=== PATIENT | female | born 1945 | race Caucasian/White ===

== ENCOUNTER → 2016-11-29 | Outpatient (CLI) | payer OTHER ==
[~2016-11-29] MED LIST: ATV5X PO; CELE1CAP28 PO; CHOL1000 PO; CITA10TA8 PO; CLX/20 PO; EZET10TA66 PO; LSX20 PO; MULT1TAB22 PO; NRV/5 PO; ONDA4TAB46 PO; OXYC-57 PO; PANT40TA PO; POTA1080 PO; RANI300T PO; ROSU5TAB9 PO; SIMV-151 PO; SPR25 PO; SUCR1TAB PO
--- NOTE | 2016-11-29 15:35 | DIAGNOSTIC IMAGING REPORT ---
CT SCAN OF THE ABDOMEN AND PELVIS WITHOUT CONTRAST CLINICAL HISTORY: N20.0 [id number] HEMATURIA COMPARISON STUDY: 07/06/2015 TECHNIQUE: CT scan of the abdomen and pelvis was performed from the lung bases to the proximal femurs. Images are reviewed in the axial, sagittal, and coronal planes. IV contrast was not administered for this examination. CT DOSE: 250.97 mGy.cm FINDINGS: Lower chest: There is a stable 5 mm left lower lobe pulmonary nodule as visualized in image #[id number]. Liver: The unenhanced liver is normal in size, contour, and attenuation. There is no intrahepatic biliary ductal dilatation. Gallbladder: Surgically absent Spleen: Normal in size and attenuation. Pancreas: Unremarkable. Adrenal glands: Unremarkable. Kidneys: There is a 3 mm cortical calcification within the upper pole of the left kidney. There is a 2 mm nonobstructing lower pole left renal calculus. No ureteral or bladder calculi are visualized. Bowel: There are no transition zones indicate bowel obstruction. By history the appendix is absent. There is no acute diverticulitis. Peritoneum: There is no intraperitoneal free air or abdominal ascites. Vasculature: The abdominal aorta is normal in course and caliber. Adenopathy: None. Pelvic viscera: The uterus is surgically absent. Skeletal structures: There are postsurgical changes of a total right hip arthroplasty. No destructive lesions are evident. IMPRESSION: 1. 2 mm nonobstructing lower pole left renal calculus 2. No ureteral or bladder calculi identified 3. No evidence of bowel obstruction. No evidence of free air. Electronically signed by: Joey Kern M.D. 11/29/2016 3:34 PM Dictated Date/Time: 11/29/2016 3:29 PM
[2016-11-29 16:27] LABS: URINE APPEARANCE CLEAR (CLEAR); URINE BILIRUBIN NEG (NEG); URINE COLOR YELLOW; URINE NITRITE NEG (NEG); URINE PH 5.5 (4.5-7.5); URINE SPECIFIC GRAVITY 1.034 (1.000-1.030); UROBILINOGEN NEG (NEG)
[2016-11-29 16:29] LABS: MANUAL MICROSCOPIC REQUIRED? NO; REVIEW REQ? NO
== END | disposition home or self-care (01) ==
LOC: C.CTS 15:12
PROVIDERS: ATTEND Internal Medicine
DX: N20.0 Calculus of kidney (principal)

== ENCOUNTER 2016-12-11 00:31 | Observation (INO) | payer OTHER ==
[~2016-12-11] VITALS: Ht 160 cm; Wt 51.0 kg
[~2016-12-11 00:31] MED LIST changes: -CELE1CAP28 PO; -CITA10TA8 PO; -CLX/20 PO; -EZET10TA66 PO; -MULT1TAB22 PO; -ONDA4TAB46 PO; -ROSU5TAB9 PO; -SUCR1TAB PO
--- NOTE | 2016-12-11 00:58 | EMERGENCY ROOM VISIT NOTE ---
History Report prepared by Aris: Hang Horn Under the Supervision of: Dr. Bear Gomez M.D. First contact with patient: 00:52 Chief Complaint: NAUSEA Stated Complaint: NAUSEA/VOMITING/DIARRHEA Nursing Triage Summary: pt had diarrhea Friday and Friday. friday at 1700 pt ate mohawk food. pt states "i think i have food poisoning". after eating pt became nauseated, vomiting, and diarrhea. pt felt lightheaded from vomiting and spouse called 911. pt arrives ALS had 4mg IV Zofran [employer] and nausea improved. pt denies pain. vomiting undigested food and yellow bile. diarrhea yellow. History of Present Illness The patient is a 71 year old female who presents to the Emergency Room with complaints of nausea, vomiting, and diarrhea that began 5 hours ago. The patient had around 10 episodes of emesis since then. She states that 8 hours ago , she ate [place] food from [employer] which may have the cause of her illness. She is feeling very weak at the moment. She denies any chest pain, shortness of breath, fever, back pain, hematemesis, and hematochezia. She is not taking any blood thinners. She has a past medical history of kidney stones and acute kidney disease. No dysuria. She did have diarrhea earlier in the week as well. Source of History: patient, spouse/significant other Onset: 5 hours ago Position: other (GI) Symptom Intensity: 10 episodes Quality: other (N/V/D) Timing: intermittent Associated Symptoms: + weakness, No SOB, No chest pain, No fevers Review of Systems See HPI for pertinent positives & negatives. A total of 10 systems reviewed and were otherwise negative. Past Medical & Surgical Medical Problems: (1) GERD (gastroesophageal reflux disease) (2) Hip pain Old medical records were reviewed. Nurse's notes were reviewed and I agree with. Denies diabetes. Family History Heart disease Kidney disease Social History Smoking Status: Former Smoker Marital Status: Housing Status: lives with family Occupation Status: unemployed Current/Historical Medications Scheduled Amlodipine Besylate (Amlodipine Besylate), 5 MG PO QAM Celecoxib (Celecoxib), 100 MG PO DAILY Cholecalciferol (Vitamin D3), 2 TAB PO QAM Citalopram (Citalopram Hydrobromide), 20 MG PO DAILY Ezetimibe (Ezetimibe), 10 MG PO HS Multiple Vitamins W/ Minerals (One Daily For Women), 1 TAB PO DAILY Potassium Citrate (Alkalinizer (Potassium Citrate ER), 1,080 MG PO DAILY Ranitidine Hcl (Zantac), 300 MG PO HS Simvastatin (Simvastatin), 20 MG PO QPM Spironolactone (Spironolactone), 25 MG PO QAM Scheduled PRN Lorazepam (Lorazepam), 0.5 MG PO TID PRN for Anxiety Oxycodone/Acetaminophen 5MG/325MG (Percocet 5MG/325MG), 1-2 TABLETS PO QID PRN for Pain Allergies Coded Allergies: No Known Allergies (Verified , 08/14/15) Physical Exam Vital Signs Date Time Temp Pulse Resp B/P Pulse Ox O2 Delivery O2 Flow Rate FiO2 12/11/16 04:33 62 17 116/53 96 Room Air 12/11/16 02:34 71 17 136/51 98 Room Air 12/11/16 01:41 67 17 128/48 100 Room Air 12/11/16 00:41 64 12/11/16 00:39 36.7 65 17 151/54 100 Room Air Physical Exam General: Non ill appearing older female. Well developed well nourished in no acute distress, breathing comfortably on room air. Normal speech HEENT: Normal cephalic atraumatic. Pupils are equal round and reactive to light. Sclera anicteric. Extraocular movements are intact. Oropharynx is pink with moist mucous membranes. No swelling of the mouth lips or tongue. Neck: Supple with a midline trachea. No meningeal signs or stiffness, no JVD or bruits. No Stridor. Chest: Clear to auscultation bilaterally. No wheezes or rhonchi. No increased work of breathing. Heart: regular rate and rhythm. Abdomen: Soft, mildly diffusely tender, nondistended without rebound guarding or rigidity. Extremities: No cyanosis clubbing or edema. No calf tenderness or assymetry Spine/Back. Non tender to palpation. No CVA tenderness Skin: Good turgor without rashes. Neurologic exam: Cranial nerves two through 12 are intact. Motor and sensation are intact and symmetrical throughout. Medical Decision & Procedures ER Provider Diagnostic Interpretation: Radiology results as stated below per my review and radiologist interpretation: CT ABDOMEN & PELVIS: Comparison: CT a/p 11/29/2016 No acute findings. No free fluid. No free air. The bowel is normal caliber. Appendix is not seen. No right lower quadrant inflammatory changes to suggest appendicitis. Punctate 2 mm nonobstructing left renal calculi. Gallbladder is surgically absent. Liver, pancreas, spleen, and adrenals are unremarkable on noncontrast exam. Small hiatal hernia. Partially imaged right hip total arthroplasty. Radiologist: Maxx Brock MD Chest x-ray per my interpretation reveals no pneumothorax, failure, or infiltrate. Laboratory Results 12/11/16 00:55 Test 12/11/16 00:55 12/11/16 03:00 12/11/16 03:33 12/11/16 03:58 RDW Standard Deviation 42.1 fL (36.4-46.3) RDW Coefficient of Variation 12.6 % (11.5-14.5) White Blood Count 25.45 K/uL (4.8-10.8) Red Blood Count 4.21 M/uL (4.2-5.4) Hemoglobin 13.2 g/dL (12.0-16.0) Hematocrit 38.2 % (37-47) Mean Corpuscular Volume 90.7 fL (80-100) Mean Corpuscular Hemoglobin 31.4 pg (25-34) Mean Corpuscular Hemoglobin Concent 34.6 g/dl (32-36) Platelet Count 246 K/uL (130-400) Mean Platelet Volume 11.2 fL (7.4-10.4) Neutrophils (%) (Auto) 88.1 % Lymphocytes (%) (Auto) 6.2 % Monocytes (%) (Auto) 5.2 % Eosinophils (%) (Auto) 0.2 % Basophils (%) (Auto) 0.0 % Neutrophils # (Auto) 22.42 K/uL (1.4-6.5) Lymphocytes # (Auto) 1.57 K/uL (1.2-3.4) Monocytes # (Auto) 1.33 K/uL (0.11-0.59) Eosinophils # (Auto) 0.05 K/uL (0-0.5) Basophils # (Auto) 0.01 K/uL (0-0.2) Immature Granulocyte % (Auto) 0.3 % Immature Granulocyte # (Auto) 0.07 K/uL (0.00-0.02) Platelet Estimate NORMAL Prothrombin Time 10.7 SECONDS (9.0-12.0) Prothromb Time International Ratio 1.0 (0.9-1.1) Activated Partial Thromboplast Time 23.3 SECONDS (21.0-31.0) Partial Thromboplastin Ratio 0.9 Anion Gap 7.0 mmol/L (3-11) Est Creatinine Clear Calc Drug Dose 64.0 ml/min Estimated GFR () 103.3 Estimated GFR (Non- 89.2 BUN/Creatinine Ratio 42.5 (10-20) Calcium Level 8.9 mg/dl (8.5-10.1) Total Bilirubin 0.7 mg/dl (0.2-1) Direct Bilirubin 0.1 mg/dl (0-0.2) Aspartate Amino Transf (AST/SGOT) 16 U/L (15-37) Alanine Aminotransferase (ALT/SGPT) 34 U/L (12-78) Alkaline Phosphatase 70 U/L (45-117) Total Protein 7.1 gm/dl (6.4-8.2) Albumin 3.8 gm/dl (3.4-5.0) Lipase 134 U/L (73-393) Urine Color YELLOW Urine Appearance CLEAR (CLEAR) Urine pH 7.0 (4.5-7.5) Urine Specific [place] 1.012 (1.000-1.030) Urine Protein NEG (NEG) Urine Glucose (UA) NEG (NEG) Urine Ketones NEG (NEG) Urine Occult Blood NEG (NEG) Urine Nitrite NEG (NEG) Urine Bilirubin NEG (NEG) Urine Urobilinogen NEG (NEG) Urine Leukocyte Esterase NEG (NEG) Bedside Lactic Acid Venous 0.86 mmol/L (0.90-1.70) Laboratory studies as stated above per my review. Medications Administered Medications (Trade) Dose Ordered Sig/Pat Route Start Time Stop Time Status Last Admin Dose Admin Miscellaneous Information (Nursing Verbal Med Order) 1 ea ONE ONCE N/A 12/11/16 01:45 12/11/16 01:46 DC 12/11/16 01:45 1 EA Ondansetron HCl (Zofran Inj) 4 mg NOW STAT IV 12/11/16 04:14 12/11/16 04:20 DC 12/11/16 04:31 4 MG ECG Indication: vomiting Rate (beats per minute): 60 Rhythm: normal sinus Findings: no acute ischemic change, no ectopy Comparison ECG Date: 15 December 2015 Change: no significant change ED Course 0052: Past medical records reviewed. The patient was evaluated in room B4B, and a complete history and physical examination were performed. 0145: Nursing Verbal Order 1 ea N/A 0257: The patient has a white blood cell count of 25,000. We will be doing additional studies. 0330: Sodium Chloride 1000 ml @ 1000 mls/hr IV 0414: Zofran Inj 4 mg IV 0419: Upon reevaluation, the patient is resting. I discussed the results and treatment plan with the patient. She verbalized agreement of the treatment plan. The patient will be evaluated by Dr. Charles KELLY, for further management. Medical Decision Differentials include gastroenteritis, infection, and electrolyte or metabolic abnormality. This patient comes in as described above. She was placed in room B4. She's had nausea vomiting and diarrhea. The vomiting and diarrhea was severe and started an hour or 2 after eating from a [place] buffet. I think most likely this is a foodborne illness. She was hydrated with an IV normal saline bolus and hourly rate of IV NS while she was here and also she was given Zofran 4 mg IV. She is feeling a lot better. She has some mild abdominal soreness. I did a CAT scan of her abdomen and there is no acute intra-abdominal process or findings seen. Her white count is 25,000. She's had no significant electrolyte or metabolic abnormality. She has nothing to suggest cardiac disease. I do think that this most likely is a foodborne illness/food poisoning and I do think she needs to be admitted for IV hydration and further treatment and monitoring and evaluation. I did consult the hospitalist and she was seen in the ER. Consults Time Called: [phone] Consulting Physician: Dr. Charles KELLY Returned Call: [phone] He will be evaluating the patient for further management. Impression Primary Impression: Food poisoning Additional Impressions: Nausea Vomiting Abdominal pain Diarrhea Scribe Attestation The scribe's documentation has been prepared under my direction and personally reviewed by me in its entirety. I confirm that the note above accurately reflects all work, treatment, procedures, and medical decision making performed by me. Departure Information Dispostion Being Evaluated By Hospitalist Koby Manzano M.D. (PCP) Patient Instructions My [facility] Problem Qualifiers
[2016-12-11 01:26] LABS: PARTIAL THROMBOPLASTIN RATIO 0.9; PROTHROMBIN TIME (PATIENT) 10.7 SECONDS (9.0-12.0)
[2016-12-11 01:31] LABS: BUN/CREATININE RATIO 42.5 (10-20); CREATININE 0.64 mg/dl (0.60-1.20)
[2016-12-11 01:32] LABS: CALCIUM 8.9 mg/dl (8.5-10.1); POTASSIUM 3.8 mmol/L (3.5-5.1)
[2016-12-11] MEDS ORDERED: NURSING VERBAL MED ORDER ONE (01:45)
[2016-12-11 01:52] LABS: BASO ABS # 0.01 K/uL (0-0.2); COMPLETE YES; EOS % 0.2 %; HEMATOCRIT 38.2 % (37-47); IG% 0.3 %; LYMPH % 6.2 %; LYMPH ABS # 1.57 K/uL (1.2-3.4); MEAN CELL VOLUME 90.7 fL (80-100); MEAN CORPUSCULAR HEMOGLOBIN 31.4 pg (25-34); MEAN CORPUSCULAR HGB CONC 34.6 g/dl (32-36); MEAN PLATELET VOLUME 11.2 fL (7.4-10.4); MONO % 5.2 %; NEUT % 88.1 %; PLATELET COUNT 246 K/uL (130-400); PLT ESTIMATE NORMAL; RED BLOOD COUNT 4.21 M/uL (4.2-5.4); WHITE BLOOD COUNT 25.45 K/uL (4.8-10.8)
[2016-12-11] MEDS ORDERED: EZET10TA66 PO (02:53)
[2016-12-11] MEDS ORDERED: POTA1080 PO (02:55)
[2016-12-11] MEDS ORDERED: CLX/20 PO (02:55)
[2016-12-11] MEDS ORDERED: CELE1CAP28 PO (03:00)
[2016-12-11] MEDS ORDERED: MULT1TAB22 PO (03:01)
[2016-12-11 03:13] LABS: URINE APPEARANCE CLEAR (CLEAR); URINE BILIRUBIN NEG (NEG); URINE COLOR YELLOW; URINE NITRITE NEG (NEG); URINE SPECIFIC GRAVITY 1.012 (1.000-1.030); UROBILINOGEN NEG (NEG)
[2016-12-11 03:21] LABS: MANUAL MICROSCOPIC REQUIRED? NO; REVIEW REQ? NO
[2016-12-11] MEDS ORDERED: SODIUM CHLORIDE 0.9% 1000ML 1,000 ML IV SCH (03:30)
[2016-12-11] MEDS ORDERED: ONDANSETRON INJ 2 MG/ML 2 ML VIAL IV STA (04:14)
[2016-12-11] MEDS ORDERED: ACETAMINOPHEN 325 MG TAB PO PRN (04:15)
[2016-12-11] MEDS ORDERED: OXYCODONE/ACETAMINOPHEN 5-325 TAB PO PRN (04:15)
[2016-12-11] MEDS ORDERED: ALUMINUM/MAGNESIUM/SIMETH (MAALOX MAX) 30 ML UDC PO PRN (04:15)
[2016-12-11] MEDS ORDERED: POLYETHYLENE (MIRALAX) 17 GM PACK PO PRN (04:15)
[2016-12-11] MEDS ORDERED: MAGNESIUM HYDROXIDE SUSP 30 ML UDC PO PRN (04:15)
[2016-12-11] MEDS ORDERED: LORAZEPAM 0.5 MG TAB PO PRN (04:15)
[2016-12-11] MEDS ORDERED: ZOLPIDEM TARTRATE 5 MG TAB PO PRN (04:15)
--- NOTE | 2016-12-11 04:22 | History and Physical ---
History & Physical Date & Time of Service: Dec 11, 2016 at 04:18 Chief Complaint: Nausea/Vomiting/Diarrhea Primary Care Physician: Vince Orellana M.D. History of Present Illness Source: patient Mrs Michele Deal is a 71 yo F who presents with nausea and vomiting today. She ate a "Sample Prep [employer]ician[employer] Special" at [employer] this evening which included teriyaki chicken , noodles, and broccoli. She started throwing up a few hours later and vomited about 10 times. She was concerned she might from this so came to the ED. The last time this happened she was vomiting up coffee ground emesis. This was over a year ago. She did not vomit up any dark colored liquids this time. She felt better after receiving Zofran which is now wearing off. She denied any chest pain or shortness of breath. Past Medical/Surgical History Medical Problems: (1) GERD (gastroesophageal reflux disease) Status: Chronic (2) Hip pain Status: Chronic Family History Heart disease Kidney disease Social History Smoking Status: Former Smoker Marital Status: Housing status: lives with family Occupational Status: unemployed Immunizations History of Influenza Vaccine: No History of Tetanus Vaccine?: Yes Tetanus Immunization Date: Jun 07, 2002 History of Pneumococcal: Yes Pneumococcal Date: Jun 07, 2007 History of Hepatitis B Vaccine: Yes Hepatitis Immunization Date: Jun 07, 2007 Multi-Drug Resistant Organisms History of MDRO: No Allergies Coded Allergies: No Known Allergies (Verified , 08/14/15) Home Medications Scheduled Amlodipine Besylate (Amlodipine Besylate), 5 MG PO QAM Celecoxib (Celecoxib), 100 MG PO DAILY Cholecalciferol (Vitamin D3), 2 TAB PO QAM Citalopram (Citalopram Hydrobromide), 20 MG PO DAILY Ezetimibe (Ezetimibe), 10 MG PO HS Multiple Vitamins W/ Minerals (One Daily For Women), 1 TAB PO DAILY Potassium Citrate (Alkalinizer (Potassium Citrate ER), 1,080 MG PO DAILY Ranitidine Hcl (Zantac), 300 MG PO HS Simvastatin (Simvastatin), 20 MG PO QPM Spironolactone (Spironolactone), 25 MG PO QAM Scheduled PRN Lorazepam (Lorazepam), 0.5 MG PO TID PRN for Anxiety Oxycodone/Acetaminophen 5MG/325MG (Percocet 5MG/325MG), 1-2 TABLETS PO QID PRN for Pain Review of Systems See HPI for pertinent positives & negatives. A total of 10 systems reviewed and were otherwise negative. Physical Exam Vital Signs Date Time Temp Pulse Resp B/P Pulse Ox O2 Delivery O2 Flow Rate FiO2 12/11/16 02:34 71 17 136/51 98 Room Air 12/11/16 01:41 67 17 128/48 100 Room Air 12/11/16 00:41 64 12/11/16 00:39 36.7 65 17 151/54 100 Room Air General Appearance: WD/WN, no apparent distress Head: normocephalic, atraumatic Eyes: normal inspection, PERRL ENT: hearing grossly normal Neck: supple, no JVD Respiratory/Chest: lungs clear, normal breath sounds, no respiratory distress Cardiovascular: regular rate, rhythm, no murmur, normal peripheral pulses Abdomen/GI: normal bowel sounds, non tender, soft Back: no CVA tenderness Extremities/Musculoskelatal: no pedal edema Neurologic/Psych: alert, normal mood/affect, oriented x 3 Skin: no rash Diagnostics Laboratory Results Results Past 24 Hours Test 12/11/16 00:55 12/11/16 03:00 12/11/16 03:33 12/11/16 03:58 Range/Units White Blood Count 25.45 4.8-10.8 K/uL Red Blood Count 4.21 4.2-5.4 M/uL Hemoglobin 13.2 12.0-16.0 g/dL Hematocrit 38.2 37-47 % Mean Corpuscular Volume 90.7 80-100 fL Mean Corpuscular Hemoglobin 31.4 25-34 pg Mean Corpuscular Hemoglobin Concent 34.6 32-36 g/dl Platelet Count 246 130-400 K/uL Mean Platelet Volume 11.2 7.4-10.4 fL Neutrophils (%) (Auto) 88.1 % Lymphocytes (%) (Auto) 6.2 % Monocytes (%) (Auto) 5.2 % Eosinophils (%) (Auto) 0.2 % Basophils (%) (Auto) 0.0 % Neutrophils # (Auto) 22.42 1.4-6.5 K/uL Lymphocytes # (Auto) 1.57 1.2-3.4 K/uL Monocytes # (Auto) 1.33 0.11-0.59 K/uL Eosinophils # (Auto) 0.05 0-0.5 K/uL Basophils # (Auto) 0.01 0-0.2 K/uL RDW Standard Deviation 42.1 36.4-46.3 fL RDW Coefficient of Variation 12.6 11.5-14.5 % Immature Granulocyte % (Auto) 0.3 % Immature Granulocyte # (Auto) 0.07 0.00-0.02 K/uL Platelet Estimate NORMAL Prothrombin Time 10.7 9.0-12.0 SECONDS Prothromb Time International Ratio 1.0 0.9-1.1 Activated Partial Thromboplast Time 23.3 21.0-31.0 SECONDS Partial Thromboplastin Ratio 0.9 Sodium Level 143 136-145 mmol/L Potassium Level 3.8 3.5-5.1 mmol/L Chloride Level 107 98-107 mmol/L Carbon Dioxide Level 29 21-32 mmol/L Anion Gap 7.0 3-11 mmol/L Blood Urea Nitrogen 27 7-18 mg/dl Creatinine 0.64 0.60-1.20 mg/dl Est Creatinine Clear Calc Drug Dose 64.0 ml/min Estimated GFR () 103.3 Estimated GFR (Non- 89.2 BUN/Creatinine Ratio 42.5 10-20 Random Glucose 107 70-99 mg/dl Calcium Level 8.9 8.5-10.1 mg/dl Total Bilirubin 0.7 0.2-1 mg/dl Direct Bilirubin 0.1 0-0.2 mg/dl Aspartate Amino Transf (AST/SGOT) 16 15-37 U/L Alanine Aminotransferase (ALT/SGPT) 34 12-78 U/L Alkaline Phosphatase 70 45-117 U/L Total Protein 7.1 6.4-8.2 gm/dl Albumin 3.8 3.4-5.0 gm/dl Lipase 134 73-393 U/L Urine Color YELLOW Urine Appearance CLEAR CLEAR Urine pH 7.0 4.5-7.5 Urine Specific [place] 1.012 1.000-1.030 Urine Protein NEG NEG Urine Glucose (UA) NEG NEG Urine Ketones NEG NEG Urine Occult Blood NEG NEG Urine Nitrite NEG NEG Urine Bilirubin NEG NEG Urine Urobilinogen NEG NEG Urine Leukocyte Esterase NEG NEG Bedside Lactic Acid Venous 0.86 0.90-1.70 mmol/L Microbiology Results 12/11/16 Blood Culture, Received Pending 12/11/16 Blood Culture, Received Pending 12/11/16 Urine Culture, Received Pending Normal EKG Impression Assessment and Plan 71 yo F with likely viral / food borne gastroenteritis. Gastroenteritis - Zofran 4mg q6h IV - IV fluids - Clear liquid diet Leukocytosis - Will repeat CBC in ED Hypertension - Continue amlodipine Depression - Continue Celexa Level of Care Med/Surg Resuscitation Status FULL RESUSCITATION VTE Prophylaxis VTE Risk Assessment Done? Y/N: Yes Risk Level: Low Resident Tracking Resident Involvement: Resident Care Provided Care Provided: [facility] Assessment and Plan Attending Addendum: I have physically seen and examined this patient, have directed their medical care, have supervised the medical residents activities, and agree with the H&P as noted above, with the following changes: The patient is awake, well-developed and adequately nourished, alert and oriented 3, normocephalic and atraumatic, lying in bed and in no acute distress. HEENT--PERRL, EOMI, mucous membranes and oropharynx dry. Neck--supple, no JVD or bruits, thyroid normal, trachea midline, no adenopathy. Heart--normal S1 and S2, no extra beats, no murmurs, rubs or gallops. Lungs--clear bilaterally with good air movement, no respiratory distress, no accessory muscle use. Abdomen--normal bowel sounds and soft, generalized vague tenderness, nondistended, no hernias or masses, no organomegaly. Extremities--no cyanosis, clubbing or edema. There are good distal pulses b/l. Dermatologic--normal skin turgor, normal color, warm and dry, no abnormal lymph nodes, no rash. Neurologic--cranial nerves II through XII grossly intact, motor and sensory examination normal. Rheumatologic--normal range of motion, nontender, muscles and joints. Psychiatric--normal Assessment and Plan: Toxin induced food poisoning--symptoms began about 3 hours having [place] food. She can be placed on a full liquid diet as tolerated, rehydrate with IV fluids , Zofran 4 mg IV every 6 hours when necessary, Protonix 40 mg IV daily. Hypertension--continue amlodipine 5 mg by mouth daily. Hold spironolactone 25 mg by mouth daily due to relative dehydrated state. Hypercholesterolemia--continue simvastatin 20 mg by mouth every evening. Depression--continue Celexa 20 mg by mouth daily.
[2016-12-11 04:58] LABS: HEMATOCRIT 33.6 % (37-47); MEAN CELL VOLUME 90.8 fL (80-100); MEAN CORPUSCULAR HEMOGLOBIN 30.8 pg (25-34); MEAN CORPUSCULAR HGB CONC 33.9 g/dl (32-36); MEAN PLATELET VOLUME 10.6 fL (7.4-10.4); PLATELET COUNT 218 K/uL (130-400); WHITE BLOOD COUNT 18.53 K/uL (4.8-10.8)
[2016-12-11] MEDS ORDERED: SODIUM CHLOR 0.45% + 20MEQ KCL 1,000 ML IV SCH (05:00)
[2016-12-11 05:18] LABS: COMPLETE YES; EOS % 0.3 %; IG% 0.3 %; LYMPH % 5.6 %; LYMPH ABS # 1.04 K/uL (1.2-3.4); MONO % 5.3 %; NEUT % 88.5 %
[2016-12-11] MEDS ORDERED: IV FLUIDS COMPLETED PRN (05:30)
[2016-12-11 05:50] VITALS: BP 120/61; PULSE 52; TEMP 36.8; O2SAT 97; Ht 160 cm; Wt 51.0 kg
--- NOTE | 2016-12-11 07:22 | DIAGNOSTIC IMAGING REPORT ---
ABDOMEN AND PELVIS CT WITHOUT CONTRAST CT DOSE: 262.22 mGy.cm HISTORY: Pain. Fever. Nausea. eval for colitis TECHNIQUE: Multiaxial CT images of the abdomen and pelvis were performed without contrast. COMPARISON STUDY: 11/29/2016 FINDINGS: Lung bases are clear. Liver spleen and pancreas are unremarkable. Kidneys negative for hydronephrosis. Prior cholecystectomy. Bowel pattern is nonobstructive. Bladder is midline. Status post total right hip arthroplasty. IMPRESSION: No acute process Electronically signed by: Joaquin Del Angel M.D. 12/11/2016 7:21 AM Dictated Date/Time: 12/11/2016 7:17 AM
--- NOTE | 2016-12-11 07:24 | DIAGNOSTIC IMAGING REPORT ---
SINGLE VIEW CHEST CLINICAL HISTORY: Atypical chest pain. FINDINGS: An AP, portable, upright chest radiograph is compared to study dated 12/13/2014. The examination is degraded by portable technique and patient rotation. The heart is top normal for projection. There is atherosclerotic calcification of the thoracic aorta. Findings suggest emphysema. Chronic interstitial thickening and apical scarring are similar to previous. No airspace consolidation, large pleural effusion, or pneumothorax is seen. The skeletal structures are osteopenic. The bony thorax is grossly intact. IMPRESSION: Findings suggest obstructive physiology. No acute cardiopulmonary abnormality is seen. Electronically signed by: Blake Gupta M.D. 12/11/2016 7:23 AM Dictated Date/Time: 12/11/2016 7:22 AM
[2016-12-11 07:49] VITALS: BP 94/46; PULSE 57; TEMP 37.1; O2SAT 97
[2016-12-11] MEDS: HEPARIN SOD 5000 UNIT/0.5 ML CARP SQ SCH ×2 (07:55→20:29)
[2016-12-11] MEDS: AMLODIPINE BESYLATE 5 MG TAB PO SCH (08:50)
[2016-12-11] MEDS: CITALOPRAM 20 MG TAB PO SCH (08:50)
[2016-12-11] MEDS: CeleBREX 100 MG CAP PO SCH (08:51)
[2016-12-11] MEDS ORDERED: SPIRONOLACTONE 25 MG TAB PO SCH (09:00)
[2016-12-11] MEDS: ONDANSETRON INJ 2 MG/ML 2 ML VIAL IV PRN ×2 (09:08→16:40)
[2016-12-11 09:27] VITALS: O2SAT 97
[2016-12-11] MEDS ORDERED: PROMETHAZINE HCL INJ 12.5 MG in SODIUM CHLORIDE 0.9% 50ML 50 ML IV PRN (12:15)
--- NOTE | 2016-12-11 12:20 | Hospitalist Progress Note ---
Hospitalist Progress Note Date of Service Dec 11, 2016. (Graciela Gutierres PA-C) Subjective Pt evaluation today including: conversation w/ patient, conversation w/ family , physical exam, chart review, lab review, review of inpatient medication list Patient reports her symptoms are somewhat improved. She does still admit to feeling nauseated. The Zofran seems to be helping, but wears off. Denies any severe abdominal pain. Her muscles are sore from retching. She did have diarrhea prior to arrival. No further bowel movements since in house. She denies any fever or chills. Additional Comments: 6 system review negative. Please see pertinent positives in the history of present illness section. (Graciela Gutierres PA-C) Objective Vital Signs Date Time Temp Pulse Resp B/P Pulse Ox O2 Delivery O2 Flow Rate FiO2 12/11/16 09:27 97 Room Air 12/11/16 08:00 Room Air 12/11/16 07:49 37.1 57 20 94/46 97 Room Air 12/11/16 05:50 Room Air 12/11/16 05:50 36.8 52 16 120/61 97 Room Air 12/11/16 05:40 62 17 116/53 96 12/11/16 04:33 62 17 116/53 96 Room Air 12/11/16 02:34 71 17 136/51 98 Room Air 12/11/16 01:41 67 17 128/48 100 Room Air 12/11/16 00:41 64 12/11/16 00:39 36.7 65 17 151/54 100 Room Air (Graciela Gutierres PA-C) Physical Exam General Appearance: no apparent distress Eyes: EOMI ENT: + pertinent finding (oral mucosa somewhat dry) Neck: no JVD Respiratory/Chest: lungs clear Cardiovascular: regular rate, rhythm Abdomen: normal bowel sounds, non tender, soft Extremities: non-tender, no pedal edema Neurologic/Psychiatric: no motor/sensory deficits, oriented x 3 Skin: warm/dry (Graciela Gutierres PA-C) Laboratory Results Last 24 Hours Test 12/11/16 00:55 12/11/16 01:06 12/11/16 03:00 12/11/16 03:33 White Blood Count 25.45 K/uL Red Blood Count 4.21 M/uL Hemoglobin 13.2 g/dL Hematocrit 38.2 % Mean Corpuscular Volume 90.7 fL Mean Corpuscular Hemoglobin 31.4 pg Mean Corpuscular Hemoglobin Concent 34.6 g/dl Platelet Count 246 K/uL Mean Platelet Volume 11.2 fL Neutrophils (%) (Auto) 88.1 % Lymphocytes (%) (Auto) 6.2 % Monocytes (%) (Auto) 5.2 % Eosinophils (%) (Auto) 0.2 % Basophils (%) (Auto) 0.0 % Neutrophils # (Auto) 22.42 K/uL Lymphocytes # (Auto) 1.57 K/uL Monocytes # (Auto) 1.33 K/uL Eosinophils # (Auto) 0.05 K/uL Basophils # (Auto) 0.01 K/uL RDW Standard Deviation 42.1 fL RDW Coefficient of Variation 12.6 % Immature Granulocyte % (Auto) 0.3 % Immature Granulocyte # (Auto) 0.07 K/uL Platelet Estimate NORMAL Prothrombin Time 10.7 SECONDS Prothromb Time International Ratio 1.0 Activated Partial Thromboplast Time 23.3 SECONDS Partial Thromboplastin Ratio 0.9 Sodium Level 143 mmol/L Potassium Level 3.8 mmol/L Chloride Level 107 mmol/L Carbon Dioxide Level 29 mmol/L Anion Gap 7.0 mmol/L Blood Urea Nitrogen 27 mg/dl Creatinine 0.64 mg/dl Est Creatinine Clear Calc Drug Dose 64.0 ml/min Estimated GFR () 103.3 Estimated GFR (Non- 89.2 BUN/Creatinine Ratio 42.5 Random Glucose 107 mg/dl Calcium Level 8.9 mg/dl Total Bilirubin 0.7 mg/dl Direct Bilirubin 0.1 mg/dl Aspartate Amino Transf (AST/SGOT) 16 U/L Alanine Aminotransferase (ALT/SGPT) 34 U/L Alkaline Phosphatase 70 U/L Total Protein 7.1 gm/dl Albumin 3.8 gm/dl Lipase 134 U/L Bedside Troponin I 0.000 ng/ml Urine Color YELLOW Urine Appearance CLEAR Urine pH 7.0 Urine Specific [place] 1.012 Urine Protein NEG Urine Glucose (UA) NEG Urine Ketones NEG Urine Occult Blood NEG Urine Nitrite NEG Urine Bilirubin NEG Urine Urobilinogen NEG Urine Leukocyte Esterase NEG Bedside Lactic Acid Venous 0.86 mmol/L Test 12/11/16 04:50 White Blood Count 18.53 K/uL Red Blood Count 3.70 M/uL Hemoglobin 11.4 g/dL Hematocrit 33.6 % Mean Corpuscular Volume 90.8 fL Mean Corpuscular Hemoglobin 30.8 pg Mean Corpuscular Hemoglobin Concent 33.9 g/dl Platelet Count 218 K/uL Mean Platelet Volume 10.6 fL Neutrophils (%) (Auto) 88.5 % Lymphocytes (%) (Auto) 5.6 % Monocytes (%) (Auto) 5.3 % Eosinophils (%) (Auto) 0.3 % Basophils (%) (Auto) 0.0 % Neutrophils # (Auto) 16.40 K/uL Lymphocytes # (Auto) 1.04 K/uL Monocytes # (Auto) 0.98 K/uL Eosinophils # (Auto) 0.06 K/uL Basophils # (Auto) 0.00 K/uL RDW Standard Deviation 41.8 fL RDW Coefficient of Variation 12.6 % Immature Granulocyte % (Auto) 0.3 % Immature Granulocyte # (Auto) 0.05 K/uL (Graciela Gutierres PA-C) Assessment and Plan 71-year-old female presented to the emergency department last night with nausea , vomiting and diarrhea a few hours after Kisw[place]ili food. Vomiting and diarrhea likely secondary to toxin induced poisoning -Continue Zofran 4 mg IV every 6 hours -This may be alternated with Phenergan 12.5 g IV every 6 hours -Continue IV fluids -NS + 20 mEq KCl @ 100 cc/hr -Repeat CBC, PRP and mag in the morning Hypertension -Continue Norvasc 5 mg daily with hold parameters -Spironolactone 25 mg daily on hold due to dehydration Depression -Continue citalopram 20 mg daily Hyperlipidemia -Continue Zetia 10 mg and simvastatin 20 mg daily if tolerating po DVT prophylaxis -Heparin 5000 units subQ BID -TEDS, SCDs CODE STATUS -LEVEL I FULL CODE Continued [facility] stay due to: inadequate po fluid intake (Graciela Gutierres PA-C) PA Physician Supervision Note: I interviewed and examined the patient. Discussed with Graciela Gutierres PAC and agree with findings and plan as documented in the note. Any exceptions or clarifications are listed here: None Pt here with likely acute food poisoning given its timing with eating food improved but not back to baseline exam is non focal continue supportive care and eval for infectious causes Documented By: Haresh Umanzor (Haresh Umanzor M.D.)
[2016-12-11] MEDS: SODIUM CHLOR 0.45% + 20MEQ KCL 1,000 ML IV SCH ×2 (13:18→23:03)
[2016-12-11 15:10] VITALS: BP 108/59; PULSE 62; TEMP 36.9; O2SAT 96
[2016-12-11] MEDS ORDERED: SIMVASTATIN 20 MG TAB PO SCH (21:00)
[2016-12-11 23:00] VITALS: BP 127/59; PULSE 51; TEMP 36.9; O2SAT 97
[2016-12-12 05:44] LABS: BASO % 0.1 %; BASO ABS # 0.01 K/uL (0-0.2); COMPLETE YES; EOS % 0.9 %; HEMATOCRIT 32.6 % (37-47); IG% 0.3 %; LYMPH % 22.8 %; LYMPH ABS # 1.73 K/uL (1.2-3.4); MEAN CELL VOLUME 91.6 fL (80-100); MEAN CORPUSCULAR HEMOGLOBIN 30.3 pg (25-34); MEAN CORPUSCULAR HGB CONC 33.1 g/dl (32-36); MEAN PLATELET VOLUME 10.9 fL (7.4-10.4); MONO % 8.6 %; NEUT % 67.3 %; PLATELET COUNT 212 K/uL (130-400); RED BLOOD COUNT 3.56 M/uL (4.2-5.4); WHITE BLOOD COUNT 7.59 K/uL (4.8-10.8)
[2016-12-12 06:39] LABS: BUN/CREATININE RATIO 14.6 (10-20); CREATININE 0.52 mg/dl (0.60-1.20); MAGNESIUM 1.9 mg/dl (1.8-2.4); POTASSIUM 4.1 mmol/L (3.5-5.1)
[2016-12-12 08:55] VITALS: BP 122/62; PULSE 50
[2016-12-12] MEDS: HEPARIN SOD 5000 UNIT/0.5 ML CARP SQ SCH (08:55)
[2016-12-12] MEDS: AMLODIPINE BESYLATE 5 MG TAB PO SCH (08:56)
[2016-12-12] MEDS: CITALOPRAM 20 MG TAB PO SCH (08:56)
[2016-12-12] MEDS: CeleBREX 100 MG CAP PO SCH (08:57)
[2016-12-12] MEDS ORDERED: ONDA4TAB46 PO (10:17)
--- NOTE | 2016-12-12 10:21 | Discharge Instructions ---
Discharge Instructions Date of Service Dec 12, 2016. Admission Reason for Admission: Toxin Induced Food Poisoning, Vomiting, Diarrhea, Discharge Discharge Diagnosis / Problem: toxin-induced food poisoning Discharge Goals Goal(s): Improve function Activity Recommendations Activity Limitations: resume your previous activity . Instructions / Follow-Up Instructions / Follow-Up You have been treated in the hospital for food poisoning. It is important for you to follow a bland diet. Avoid spicy or acidic foods, caffeine, alcohol or nicotine. Increase fluid intake over the next 3 days. The following changes/additions have been made to your medication list: -Zofran 4 mg take 1 tab as directed every 6 hours as needed for nausea -Please hold spironolactone for 1 more day. It may be resumed tomorrow, 12/13 Please follow-up with your primary care physician within one week Call your doctor or return to the emergency department if you have any of the following symptoms: -Fever of 101F or greater -Persistent vomiting - Persistent diarrhea -Severe abdominal pain -Lethargy -Chest pain -Shortness of breath -severe dizziness -weakness on one side of your body Current Hospital Diet Patient's current hospital diet: Low Fat Diet, Low Fiber Diet Discharge Diet Recommended Diet: AHA Diet (Heart Healthy) (bland diet) Pending Studies Studies pending at discharge: yes List of pending studies: stool cultures were ordered but patient never had a BM Medical Emergencies . Who to Call and When: Medical Emergencies: If at any time you feel your situation is an emergency, please call 911 immediately. . Non-Emergent Contact Non-Emergency issues call your: Primary Care Provider . . "Provider Documentation" section prepared by Graciela Gutierres. VTE Core Measure Inpt VTE Proph given/why not?: Robbie Vizcarra, SCD's
--- NOTE | 2016-12-12 10:27 | Discharge Summary ---
Discharge Summary Date of Service Dec 12, 2016. (Graciela Gutierres PA-C) Discharge Summary Admission Date: Dec 11, 2016 at 04:44 Discharge Date: Dec 12, 2016 Discharge Disposition: Home Principal Diagnosis: toxin-induced food poisoning Immunizations: Have You Had Influenza Vaccine: No History of Tetanus Vaccine?: Yes Tetanus Immunization Date: Jun 07, 2002 History of Pneumococcal: Yes Pneumococcal Date: Jun 07, 2007 History of Hepatitis B Vaccine: Yes Hepatitis Immunization Date: Jun 07, 2007 (Graciela Gutierres PA-C) Medication Reconciliation New Medications: Ondansetron Hcl (Zofran) 4 Mg Tab 4 MG PO Q6H PRN for Nausea, #20 TAB Continued Medications: Amlodipine Besylate (Amlodipine Besylate) 5 Mg Tab 5 MG PO QAM Celecoxib (Celecoxib) 100 Mg Cap 100 MG PO DAILY Cholecalciferol (Vitamin D3) 1,000 Unit Tab 2 TAB PO QAM, 3 Refills Citalopram (Citalopram Hydrobromide) 20 Mg Tab 20 MG PO DAILY Ezetimibe (Ezetimibe) 10 Mg Tab 10 MG PO HS Lorazepam (Lorazepam) 0.5 Mg Tab 0.5 MG PO TID PRN for Anxiety Multiple Vitamins W/ Minerals (One Daily For Women) 1 Tab Tab 1 TAB PO DAILY Oxycodone/Acetaminophen 5MG/325MG (Percocet 5MG/325MG) Tab 1-2 TABLETS PO QID PRN for Pain, TAB Potassium Citrate (Alkalinizer (Potassium Citrate ER) 1,080 Mg Tab 1080 MG PO DAILY Ranitidine Hcl (Zantac) 300 Mg Tab 300 MG PO HS Simvastatin (Simvastatin) 20 Mg Tab 20 MG PO QPM Spironolactone (Spironolactone) 25 Mg Tab 25 MG PO QAM Referrals At Discharge Follow up Referrals: Physician Referral - Within 1-2 Weeks with Koby Hdez M.D. Discharge Exam Patient reports feeling much better. Some mild nausea, but much improved since yesterday. Tolerating her clear liquid diet. Denies any further bowel movements while in the hospital. No abdominal pain or fevers. Denies any dizziness or lightheadedness. Review of Systems: Constitutional: No fever Respiratory: No shortness of breath Cardiovascular: No chest pain Abdomen: No vomiting Neurologic: No weakness Physical Exam: General Appearance: no apparent distress Eyes: EOMI ENT: + pertinent finding (oral mucosa fairly moist) Neck: no JVD Respiratory/Chest: lungs clear Cardiovascular: regular rate, rhythm Abdomen / GI: normal bowel sounds, non tender, soft Extremities: no calf tenderness, no pedal edema Neurologic/Psychiatric: no motor/sensory deficits, oriented x 3 Skin: warm/dry (Graciela Gutierres PA-C) Hospital Course 71-year-old female presented to the emergency department last night with nausea , vomiting and diarrhea a few hours after [place]ic food. Vomiting and diarrhea likely secondary to toxin induced poisoning-tolerating diet -Treated with IV fluids, Zofran and Phenergan -Stool cultures ordered but never collected. The patient did not have any further bowel movements. Leukocytosis-likely secondary to above. Much improved on day of discharge Hypertension -Continue Norvasc 5 mg daily with hold parameters -Spironolactone 25 mg daily was held during her admission for dehydration. She will restart this on 12/13 Depression -Continue citalopram 20 mg daily Hyperlipidemia -Continue Zetia 10 mg and simvastatin 20 mg daily DVT prophylaxis -Heparin 5000 units subQ BID -TEDS, SCDs CODE STATUS -LEVEL I FULL CODE Total Time Spent: Greater than 30 minutes This includes examination of the patient, discharge planning, medication reconciliation, and communication with other providers. (Graciela Gutierres, KINJAL) PA Physician Supervision Note: I interviewed and examined the patient. Discussed with Graciela Gutierres PAC and agree with findings and plan as documented in the note. Any exceptions or clarifications are listed here: None Pt here with likely acute food poisoning given its timing with eating food back to baseline, negative infectious studies exam is non focal discharge to home, follow up with pcp, prn zofran if needed Documented By: Haresh Umanzor (Haresh Umanzor M.D.) Discharge Instructions Please refer to the electronic Patient Visit Report (Discharge Instructions) for additional information. (Graciela Gutierres PA-C) Additional Copies To Koby Hdez M.D.
[2016-12-12 10:54] VITALS: BP 122/62; PULSE 50; TEMP 36.9; O2SAT 97
== END 2016-12-12 14:00 | disposition home or self-care (01) ==
LOC: ENRESERVTM → ENRESERVDT → EDBD 00:31 → C.EDB 00:34 → C.MSW 04:44
PROVIDERS: ADMIT Hospitalist; ATTEND Hospitalist
DX: T62.91XA Toxic effect of unspecified noxious substance eaten as food, accidental (unintentional), initial encounter (principal); K21.9 Gastro-esophageal reflux disease without esophagitis; Z82.49 Family history of ischemic heart disease and other diseases of the circulatory system; Z87.891 Personal history of nicotine dependence; Z79.899 Other long term (current) drug therapy

== ENCOUNTER → 2017-01-21 | Outpatient (CLI) | payer OTHER ==
[~2017-01-21] MED LIST changes: +CELE1CAP28 PO; +CITA10TA8 PO; +CLX/20 PO; +EZET10TA66 PO; -LSX20 PO; +MULT1TAB22 PO; +ONDA4TAB46 PO; -PANT40TA PO; +ROSU5TAB9 PO; +SUCR1TAB PO
--- NOTE | 2017-01-21 09:54 | DIAGNOSTIC IMAGING REPORT ---
LEFT HIP UNILATERAL 2 VIEWS CLINICAL HISTORY: M25.552 pain COMPARISON: None. DISCUSSION: Severe degenerative change left hip. Slight degree of acetabular protrusion. Considerable peripheral osteophytic reaction about the acetabulum as well as the femoral head. No evidence for fracture. There is no evidence for soft tissue swelling. IMPRESSION: Severe degenerative change. Electronically signed by: Joaquin Del Angel M.D. 01/21/2017 9:53 AM Dictated Date/Time: 01/21/2017 9:52 AM
== END | disposition home or self-care (01) ==
LOC: C.RAD 09:29
DX: M25.552 Pain in left hip (principal); M16.12 Unilateral primary osteoarthritis, left hip

== ENCOUNTER 2017-02-19 09:49 | Emergency (ER) | payer OTHER ==
[~2017-02-19] VITALS: Ht 160 cm; Wt 52.5 kg
[~2017-02-19 09:49] MED LIST changes: -CITA10TA8 PO; -ROSU5TAB9 PO; -SUCR1TAB PO
[2017-02-19 09:50] VITALS: TEMP 36.7; Ht 160 cm; Wt 52.5 kg
[2017-02-19] MEDS ORDERED: OXYCODONE HCL IR 5 MG TAB (IMMEDIATE RELEASE) PO STA (10:25)
--- NOTE | 2017-02-19 10:38 | EMERGENCY ROOM VISIT NOTE ---
History Report prepared by Aris: Gildardo Giraldo Under the Supervision of: Dr. Mounika Win M.D. First contact with patient: 09:53 Chief Complaint: RIB PAIN Stated Complaint: FELL IN BATHRUB-RIB INJURY History of Present Illness The patient is a 72 year old female who presents to the Emergency Room with complaints of persistent rib pain since falling two nights ago. The patient was getting out of the tub when she slipped on the wet floor and fell back onto the tub. The patient complains of 7/10 pain that is worse when she takes a deep breath. She had a Percocet for pain this morning. The patient denies shortness of breath. The patient was in [place] when the fall occurred. She was in the car driving back yesterday. The patient is not on any blood thinners or steroids. The patient is s/p hip replacement. She takes Percocet for her other hip. Source of History: patient Onset: two nights ago Position: other (ribs) Symptom Intensity: 7/10 Timing: other (persistent) Modifying Factors (Worsening): breathing Associated Symptoms: No SOB Review of Systems See HPI for pertinent positives & negatives. A total of 10 systems reviewed and were otherwise negative. Past Medical & Surgical Medical Problems: (1) Acute gastritis with bleeding (2) GERD (gastroesophageal reflux disease) (3) Hip pain Surgical Problems: (1) S/P cholecystectomy (2) S/P hip replacement Family History Heart disease Kidney disease Social History Smoking Status: Former Smoker Marital Status: Housing Status: lives with family Occupation Status: unemployed Current/Historical Medications Scheduled Amlodipine Besylate (Amlodipine Besylate), 5 MG PO QAM Cholecalciferol (Vitamin D3), 2 TAB PO QAM Citalopram Hydrobromide (Celexa), 10 MG PO DAILY Lorazepam (Lorazepam), 0.5 MG PO HS Multiple Vitamins W/ Minerals (One Daily For Women), 1 TAB PO DAILY Potassium Citrate (Alkalinizer (Potassium Citrate ER), 10 MG PO BID Ranitidine Hcl (Zantac), 300 MG PO HS Spironolactone (Spironolactone), 25 MG PO QAM Scheduled PRN Ondansetron Hcl (Zofran), 4 MG PO Q6H PRN for Nausea Oxycodone/Acetaminophen 5MG/325MG (Percocet 5MG/325MG), 1-2 TABLETS PO QID PRN for Pain Allergies Coded Allergies: No Known Allergies (Verified , 02/19/17) Physical Exam Vital Signs Date Time Temp Pulse Resp B/P (MAP) Pulse Ox O2 Delivery O2 Flow Rate FiO2 02/19/17 12:18 48 20 130/58 97 Room Air 02/19/17 11:31 49 16 143/56 97 02/19/17 09:50 36.7 57 17 154/67 99 Room Air Physical Exam Vital signs reviewed. General: Well-appearing female, in no significant distress. HEENT: No scleral icterus, PERRLA, neck supple. Atraumatic. Cardiovascular: Regular rate and rhythm, no extra sounds. Pulmonary: Clear to auscultation bilaterally, normal work of breathing. Abdomen: Soft, nontender, nondistended, positive bowel sounds. Musculoskeletal: Atraumatic, no peripheral edema. Tender along the left lateral ribs and upper left abdomen. Neurologic: Patient awake alert and oriented x 3, full strength in all 4 extremities. Cranial nerves 2 through 12 grossly intact. Skin: Warm, dry, no rash Medical Decision & Procedures ER Provider Diagnostic Interpretation: Radiology results as stated below per my review and radiologist interpretation: LEFT UPPER QUADRANT ABDOMINAL ULTRASOUND HISTORY: Left-sided abdominal pain following fall.. COMPARISON: CT of the abdomen and pelvis December 16, 2016. FINDINGS: The spleen is normal by sonography, measuring 8.1 cm in maximal dimension. There is no perisplenic fluid. The left kidney is also normal, measuring 9.8 x 5.5 x 4.9 cm. IMPRESSION: Normal sonographic appearance of the spleen and left kidney. No perisplenic fluid. Electronically signed by: Ruiz Chance M.D. 02/19/2017 11:18 AM Dictated Date/Time: 02/19/2017 11:17 AM LEFT RIBS UNILATERAL WITH PA CHEST CLINICAL HISTORY: fall, L rib pain COMPARISON STUDY: Chest 12/11/2016. FINDINGS: The lungs remain hyperexpanded with apical predominant emphysematous changes. No pneumothorax. No pleural effusions. The heart is normal in size. Stable right medial lung base density was likely represents prominent mediastinal fat. No rib fractures. IMPRESSION: No rib fractures. No pneumothorax. Electronically signed by: Dago Martinez M.D. 02/19/2017 10:35 AM Dictated Date/Time: 02/19/2017 10:30 AM Laboratory Results 02/19/17 10:35 Red Blood Count 3.90, Mean Corpuscular Volume 92.8, Mean Corpuscular Hemoglobin 31.0, Mean Corpuscular Hemoglobin Concent 33.4, Mean Platelet Volume 10.7, Neutrophils (%) (Auto) 62.4, Lymphocytes (%) (Auto) 26.1, Monocytes (%) (Auto) 10.3, Eosinophils (%) (Auto) 1.0, Basophils (%) (Auto) 0.1, Neutrophils # (Auto ) 4.33, Lymphocytes # (Auto) 1.82, Monocytes # (Auto) 0.72, Eosinophils # (Auto ) 0.07, Basophils # (Auto) 0.01 02/19/17 10:35 Test 02/19/17 10:35 White Blood Count 6.96 K/uL (4.8-10.8) Red Blood Count 3.90 M/uL (4.2-5.4) Hemoglobin 12.1 g/dL (12.0-16.0) Hematocrit 36.2 % (37-47) Mean Corpuscular Volume 92.8 fL (80-100) Mean Corpuscular Hemoglobin 31.0 pg (25-34) Mean Corpuscular Hemoglobin Concent 33.4 g/dl (32-36) Platelet Count 233 K/uL (130-400) Mean Platelet Volume 10.7 fL (7.4-10.4) Neutrophils (%) (Auto) 62.4 % Lymphocytes (%) (Auto) 26.1 % Monocytes (%) (Auto) 10.3 % Eosinophils (%) (Auto) 1.0 % Basophils (%) (Auto) 0.1 % Neutrophils # (Auto) 4.33 K/uL (1.4-6.5) Lymphocytes # (Auto) 1.82 K/uL (1.2-3.4) Monocytes # (Auto) 0.72 K/uL (0.11-0.59) Eosinophils # (Auto) 0.07 K/uL (0-0.5) Basophils # (Auto) 0.01 K/uL (0-0.2) RDW Standard Deviation 41.0 fL (36.4-46.3) RDW Coefficient of Variation 12.1 % (11.5-14.5) Immature Granulocyte % (Auto) 0.1 % Immature Granulocyte # (Auto) 0.01 K/uL (0.00-0.02) Anion Gap 5.0 mmol/L (3-11) Est Creatinine Clear Calc Drug Dose 71.4 ml/min Estimated GFR () 106.0 Estimated GFR (Non- 91.4 BUN/Creatinine Ratio 21.2 (10-20) Calcium Level 9.3 mg/dl (8.5-10.1) Total Bilirubin 0.4 mg/dl (0.2-1) Direct Bilirubin < 0.1 mg/dl (0-0.2) Aspartate Amino Transf (AST/SGOT) 18 U/L (15-37) Alanine Aminotransferase (ALT/SGPT) 19 U/L (12-78) Alkaline Phosphatase 74 U/L (45-117) Total Protein 7.3 gm/dl (6.4-8.2) Albumin 3.9 gm/dl (3.4-5.0) Laboratory results per my review. Medications Administered Medications (Trade) Dose Ordered Sig/Pat Route Start Time Stop Time Status Last Admin Dose Admin Oxycodone HCl (Roxicodone Immediate Rel Tab) 5 mg NOW STAT PO 02/19/17 10:25 02/19/17 10:28 DC 02/19/17 10:39 5 MG ED Course 1022: Past medical records reviewed. The patient was evaluated in room B3b. A complete history and physical examination was performed. 1025: Oxycodone IR 5 mg PO. 1225: Reassessed the patient. Discussed the findings with her. She understands and agrees with the treatment plan. The patient is ready for discharge. Medical Decision Differential diagnosis: Intracranial injury, cervical spine injury, intrathoracic injury, intra- abdominal injury, musculoskeletal injury. Blood Pressure Screening: Patient was found to have a mildly elevated blood pressure and will continue their medications as prescribed. Medication Reconciliation: I attest that I have personally reviewed the patient' s current medication list. This pt was evaluated and appeared to be in no distress. IV access was obtained and lab work was drawn. Pt was placed on the straight cutter. CXR was performed and reveals no rib fx or PTX. US of LUQ is negative for blood. Pt was given Oxy IR 5 mg for pain. Results were reviewed. Pt was given instructions regarding cough/deep breathing every hour while awake. She will continue her percocet as Rx and f/u with PCP this week for reevaluation. She will return to the ED for worsening of symptoms or any medical concerns. Impression Primary Impression: Contusion of rib on left side Scribe Attestation The scribe's documentation has been prepared under my direction and personally reviewed by me in its entirety. I confirm that the note above accurately reflects all work, treatment, procedures, and medical decision making performed by me. Departure Information Dispostion Home / Self-Care Referrals No Doctor, Assigned (PCP) Forms HOME CARE DOCUMENTATION FORM, IMPORTANT VISIT INFORMATION, WORK / SCHOOL INSTRUCTIONS Patient Instructions My [facility] Additional Instructions Diagnosis: Rib contusion Continue your Percocet as prescribed. Cough and deep breathe several times every hour while awake. Follow-up with your physician this week for reevaluation. Return to the ER for worsening of symptoms or any medical concerns. Problem Qualifiers Primary Impression: Contusion of rib on left side Encounter type: initial encounter Qualified Codes: S20.212A - Contusion of left front wall of thorax, initial encounter
[2017-02-19 10:47] LABS: BASO % 0.1 %; BASO ABS # 0.01 K/uL (0-0.2); COMPLETE YES; HEMATOCRIT 36.2 % (37-47); IG% 0.1 %; LYMPH % 26.1 %; LYMPH ABS # 1.82 K/uL (1.2-3.4); MEAN CELL VOLUME 92.8 fL (80-100); MEAN CORPUSCULAR HGB CONC 33.4 g/dl (32-36); MEAN PLATELET VOLUME 10.7 fL (7.4-10.4); MONO % 10.3 %; NEUT % 62.4 %; PLATELET COUNT 233 K/uL (130-400); WHITE BLOOD COUNT 6.96 K/uL (4.8-10.8)
[2017-02-19 11:16] LABS: ALKALINE PHOSPHATASE 74 U/L (45-117); ALT/SGPT 19 U/L (12-78); AST/SGOT 18 U/L (15-37); BLOOD UREA NITROGEN 12 mg/dl (7-18); BUN/CREATININE RATIO 21.2 (10-20); CALCIUM 9.3 mg/dl (8.5-10.1); CARBON DIOXIDE 30 mmol/L (21-32); CHLORIDE 104 mmol/L (98-107); CREATININE 0.58 mg/dl (0.60-1.20); GLUCOSE 81 mg/dl (70-99); SODIUM 139 mmol/L (136-145)
--- NOTE | 2017-02-19 11:20 | DIAGNOSTIC IMAGING REPORT ---
LEFT UPPER QUADRANT ABDOMINAL ULTRASOUND HISTORY: Left-sided abdominal pain following fall.. COMPARISON: CT of the abdomen and pelvis December 16, 2016. FINDINGS: The spleen is normal by sonography, measuring 8.1 cm in maximal dimension. There is no perisplenic fluid. The left kidney is also normal, measuring 9.8 x 5.5 x 4.9 cm. IMPRESSION: Normal sonographic appearance of the spleen and left kidney. No perisplenic fluid. Electronically signed by: Ruiz Chance M.D. 02/19/2017 11:18 AM Dictated Date/Time: 02/19/2017 11:17 AM
[2017-02-19] MEDS ORDERED: CITA10TA8 PO (11:32)
[2017-02-19 12:18] VITALS: BP 130/58; PULSE 48; O2SAT 97
== END 2017-02-19 12:55 | disposition home or self-care (01) ==
LOC: C.EDB 09:50
DX: S20.212A Contusion of left front wall of thorax, initial encounter (principal); W01.0XXA Fall on same level from slipping, tripping and stumbling without subsequent striking against object, initial encounter; Y92.012 Bathroom of single-family (private) house as the place of occurrence of the external cause; K21.9 Gastro-esophageal reflux disease without esophagitis; K29.71 Gastritis, unspecified, with bleeding; Z96.649 Presence of unspecified artificial hip joint; Z82.49 Family history of ischemic heart disease and other diseases of the circulatory system; Z84.1 Family history of disorders of kidney and ureter; Z87.891 Personal history of nicotine dependence; Z79.899 Other long term (current) drug therapy

== ENCOUNTER → 2017-04-07 | Outpatient (CLI) | payer OTHER ==
[~2017-04-07] MED LIST changes: +CITA10TA8 PO; -CLX/20 PO; -EZET10TA66 PO; +ROSU5TAB9 PO; -SIMV-151 PO; +SUCR1TAB PO
== END | disposition home or self-care (01) ==
LOC: C.PATHSPEC 17:28
PROVIDERS: ATTEND Nurse Practitioner Family
DX: R31.9 Hematuria, unspecified (principal)

== ENCOUNTER → 2017-05-29 | Outpatient (CLI) | payer OTHER ==
[2017-05-20 10:16] LABS: BASO % 0.2 %; BASO ABS # 0.01 K/uL (0-0.2); COMPLETE YES; EOS % 0.3 %; HEMATOCRIT 38.4 % (37-47); IG% 0.8 %; LYMPH % 21.6 %; LYMPH ABS # 1.39 K/uL (1.2-3.4); MEAN CELL VOLUME 93.9 fL (80-100); MEAN CORPUSCULAR HEMOGLOBIN 30.8 pg (25-34); MEAN CORPUSCULAR HGB CONC 32.8 g/dl (32-36); MEAN PLATELET VOLUME 10.6 fL (7.4-10.4); MONO % 10.9 %; NEUT % 66.2 %; PLATELET COUNT 240 K/uL (130-400); RED BLOOD COUNT 4.09 M/uL (4.2-5.4); WHITE BLOOD COUNT 6.43 K/uL (4.8-10.8)
[2017-05-20 10:43] LABS: ALT/SGPT 19 U/L (12-78); BLOOD UREA NITROGEN 16 mg/dl (7-18); BUN/CREATININE RATIO 26.3 (10-20); CALCIUM 9.4 mg/dl (8.5-10.1); CARBON DIOXIDE 31 mmol/L (21-32); CHLORIDE 104 mmol/L (98-107); CHOLESTEROL 229 mg/dl (0-200); GLUCOSE 90 mg/dl (70-99); POTASSIUM 4.1 mmol/L (3.5-5.1); SODIUM 139 mmol/L (136-145); URIC ACID 3.7 mg/dl (2.6-7.2)
[2017-05-20 10:53] LABS: ALKALINE PHOSPHATASE 62 U/L (45-117); AST/SGOT 12 U/L (15-37); CHOLESTEROL/HDL RATIO 2.7; HDL CHOLESTEROL 85 mg/dl; LDL CHOLESTEROL CALCULATED 126 mg/dl; THYROID STIMULATING HORMONE 0.454 uIu/ml (0.300-4.500); TRIGLYCERIDES 91 mg/dl (0-150); VERY LOW DENSITY LIPOPROT CALC 18 mg/dl
[2017-05-20 12:38] LABS: URINE APPEARANCE CLEAR (CLEAR); URINE BILIRUBIN NEG (NEG); URINE COLOR YELLOW; URINE NITRITE NEG (NEG); URINE PH 7.5 (4.5-7.5); URINE SPECIFIC GRAVITY 1.017 (1.000-1.030); UROBILINOGEN NEG (NEG)
[2017-05-20 12:42] LABS: MANUAL MICROSCOPIC REQUIRED? NO; REVIEW REQ? NO
--- NOTE | 2017-05-29 08:40 | CODING QUERY MEDICAL NECESSITY ---
CQSUPPORTING DIAGNOSIS NEEDED A supporting diagnosis is required for the test/procedure performed on this patient in order for us to be reimbursed by the patient's insurance. Please provide a supporting diagnosis for the following test/procedure listed below next to the test name along with your signature. *If there is no additional diagnosis for this patient that would support the following test/procedure please document that below next to the test/procedure. Test(s)/Procedure(s) that require a supporting diagnosis: DOS 05/20/17 VITAMIN D TEST VITAMIN B12 TEST Provider Signature: Date: Thank you Trina Vogel Health Information Management Once completed, please kindly fax back to [phone] For questions please call [phone]
== END | disposition home or self-care (01) ==
LOC: C.LAB 05-20 09:44
PROVIDERS: ATTEND Physician Assistant
DX: I10 Essential (primary) hypertension (principal); N20.0 Calculus of kidney; E78.5 Hyperlipidemia, unspecified; Z13.9 Encounter for screening, unspecified; Z13.29 Encounter for screening for other suspected endocrine disorder

== ENCOUNTER 2017-06-18 11:35 | Emergency (ER) | payer OTHER ==
[~2017-06-18] VITALS: Ht 160 cm; Wt 52.0 kg
[~2017-06-18 11:35] MED LIST changes: -CELE1CAP28 PO; -ONDA4TAB46 PO; -ROSU5TAB9 PO; -SUCR1TAB PO
[2017-06-18 11:38] VITALS: Ht 160 cm; Wt 52.0 kg
[2017-06-18] MEDS ORDERED: CELE1CAP28 PO (12:04)
[2017-06-18] MEDS ORDERED: ROSU5TAB9 PO (12:04)
[2017-06-18] MEDS ORDERED: SUCR1TAB PO (12:04)
[2017-06-18 12:10] VITALS: O2SAT 99
[2017-06-18 12:22] LABS: MEAN CELL VOLUME 92.9 fL (80-100); MEAN CORPUSCULAR HEMOGLOBIN 31.8 pg (25-34); MEAN CORPUSCULAR HGB CONC 34.2 g/dl (32-36); MEAN PLATELET VOLUME 10.7 fL (7.4-10.4); PLATELET COUNT 227 K/uL (130-400); RED BLOOD COUNT 4.09 M/uL (4.2-5.4); WHITE BLOOD COUNT 13.29 K/uL (4.8-10.8)
[2017-06-18 12:42] LABS: PROTHROMBIN TIME (PATIENT) 10.3 SECONDS (9.0-12.0)
[2017-06-18 12:44] LABS: BUN/CREATININE RATIO 30.7 (10-20); CALCIUM 8.7 mg/dl (8.5-10.1); CREATININE 0.51 mg/dl (0.60-1.20); POTASSIUM 3.3 mmol/L (3.5-5.1)
[2017-06-18 12:48] LABS: ALB/GLOB RATIO 1.1 (0.9-2); CKMB/CK RATIO 3.3 (0-3.0)
--- NOTE | 2017-06-18 13:33 | DIAGNOSTIC IMAGING REPORT ---
CHEST ONE VIEW PORTABLE HISTORY: 72 years-old Female chest heaviness patient reports an acute filling of heaviness within the chest. Initial exam. COMPARISON: Portable chest radiograph 12/11/2016 and chest radiograph 02/19/2017. TECHNIQUE: Portable upright AP view of the chest FINDINGS: Cardiomediastinal and hilar silhouettes are within normal limits. There is no pneumothorax, pleural effusion or focal airspace consolidation. No overt pulmonary edema. The bones are grossly intact. Cholecystectomy clips are noted. IMPRESSION: No acute cardiopulmonary process. The above report was generated using voice recognition software. It may contain grammatical, syntax or spelling errors. Electronically signed by: Walker Bond M.D. 06/18/2017 1:32 PM Dictated Date/Time: 06/18/2017 1:30 PM
--- NOTE | 2017-06-18 14:50 | EMERGENCY ROOM VISIT NOTE ---
History Report prepared by Aris: Jak Guillen Under the Supervision of: Dr. Sudeep Frankel D.O. First contact with patient: 12:41 Chief Complaint: CARDIAC ASSESSMENT Stated Complaint: SWEATS, HEAVY CHEST, WEAK, CHILLS Nursing Triage Summary: Patient states, "I felt fine first thing this morning, but then started having hot flashes and began sweating a lot. I felt nauseated, dizzy and lightheaded. I also was having heaviness in my chest." History of Present Illness The patient is a 72 year old female who presents to the Emergency Room with complaints of intermittent diaphoresis and weakness starting around 0830 this morning. The patient states that when she is standing she gets very sweaty and weak, and this has happened a couple of times today. She states that she gets better when she sits or lies down. She states that during these episodes her heart does not race, and she is not short of breath. She additionally states that she was having some chest heaviness earlier. She denies any cough or fevers. Source of History: patient Onset: 0830 this morning Position: other (global) Quality: other (diaphoresis and weakness) Timing: intermittent Modifying Factors (Worsening): other (standing) Modifying Factors (Relieving): other (sitting and lying down) Associated Symptoms: No fevers, No cough, No chest pain, No SOB Note: Associated symptoms: chest heaviness Review of Systems See HPI for pertinent positives & negatives. A total of 10 systems reviewed and were otherwise negative. Past Medical & Surgical Medical Problems: (1) Acute gastritis with bleeding (2) GERD (gastroesophageal reflux disease) (3) Hip pain Surgical Problems: (1) S/P cholecystectomy (2) S/P hip replacement Family History Heart disease Kidney disease Social History Smoking Status: Former Smoker Marital Status: Housing Status: lives with family Occupation Status: unemployed Current/Historical Medications Scheduled Amlodipine Besylate (Amlodipine Besylate), 5 MG PO QAM Celecoxib (Celecoxib), 100 MG PO BID Cholecalciferol (Vitamin D3), 2 TAB PO QAM Citalopram Hydrobromide (Celexa), 10 MG PO DAILY Lorazepam (Lorazepam), 0.5 MG PO HS Multiple Vitamins W/ Minerals (One Daily For Women), 1 TAB PO DAILY Potassium Citrate (Alkalinizer (Potassium Citrate ER), 10 MG PO BID Rosuvastatin Calcium (Rosuvastatin Calcium), 5 MG PO DAILY Spironolactone (Spironolactone), 25 MG PO QAM Sucralfate (Sucralfate), 1 GM PO TID Scheduled PRN Oxycodone/Acetaminophen 5MG/325MG (Percocet 5MG/325MG), 1-2 TABLETS PO QID PRN for Pain Allergies Coded Allergies: No Known Allergies (Verified , 02/19/17) Physical Exam Vital Signs Date Time Temp Pulse Resp B/P (MAP) Pulse Ox O2 Delivery O2 Flow Rate FiO2 06/18/17 13:33 44 20 128/55 100 Room Air 06/18/17 12:10 56 06/18/17 12:10 99 Room Air 06/18/17 12:06 99 Room Air 06/18/17 11:38 65 18 180/67 100 Room Air Physical Exam CONSTITUTIONAL/VITAL SIGNS: Reviewed / noted above. GENERAL: Non-toxic in appearance. INTEGUMENTARY: Warm, dry, and [place]. HEAD: Normocephalic. EYES: without scleral icterus or trauma. ENT/OROPHARYNX: clear and moist. LYMPHADENOPATHY/NECK: Is supple without lymphadenopathy or meningismus. RESPIRATORY: Lungs clear and equal. CARDIOVASCULAR: Regular rate and rhythm. GI/ABDOMEN: Soft and nontender. No organomegaly or pulsatile mass. No rebound or guarding. Normal bowel sounds. EXTREMITIES: Warm and well perfused. BACK: No CVA tenderness. NEUROLOGICAL: Intact without focal deficits. PSYCHIATRIC: normal affect. MUSCULOSKELETAL: Normally developed with good muscle tone. Medical Decision & Procedures ER Provider Diagnostic Interpretation: Radiology results as stated below per my review and radiologist interpretation: CHEST ONE VIEW PORTABLE HISTORY: 72 years-old Female chest heaviness patient reports an acute filling of heaviness within the chest. Initial exam. COMPARISON: Portable chest radiograph 12/11/2016 and chest radiograph 02/19/2017. TECHNIQUE: Portable upright AP view of the chest FINDINGS: Cardiomediastinal and hilar silhouettes are within normal limits. There is no pneumothorax, pleural effusion or focal airspace consolidation. No overt pulmonary edema. The bones are grossly intact. Cholecystectomy clips are noted. IMPRESSION: No acute cardiopulmonary process. The above report was generated using voice recognition software. It may contain grammatical, syntax or spelling errors. Electronically signed by: Walker Bond M.D. 06/18/2017 1:32 PM Dictated Date/Time: 06/18/2017 1:30 PM Laboratory Results 06/18/17 12:00 06/18/17 12:00 Test 06/18/17 12:00 06/18/17 12:23 Red Blood Count 4.09 M/uL (4.2-5.4) Mean Corpuscular Volume 92.9 fL (80-100) Mean Corpuscular Hemoglobin 31.8 pg (25-34) Mean Corpuscular Hemoglobin Concent 34.2 g/dl (32-36) RDW Standard Deviation 41.7 fL (36.4-46.3) RDW Coefficient of Variation 12.3 % (11.5-14.5) Mean Platelet Volume 10.7 fL (7.4-10.4) Prothrombin Time 10.3 SECONDS (9.0-12.0) Prothromb Time International Ratio 1.0 (0.9-1.1) Activated Partial Thromboplast Time 26.7 SECONDS (21.0-31.0) Partial Thromboplastin Ratio 1.0 Anion Gap 6.0 mmol/L (3-11) Est Creatinine Clear Calc Drug Dose 80.6 ml/min Estimated GFR () 110.6 Estimated GFR (Non- 95.4 BUN/Creatinine Ratio 30.7 (10-20) Calcium Level 8.7 mg/dl (8.5-10.1) Total Bilirubin 0.4 mg/dl (0.2-1) Aspartate Amino Transf (AST/SGOT) 17 U/L (15-37) Alanine Aminotransferase (ALT/SGPT) 23 U/L (12-78) Alkaline Phosphatase 63 U/L (45-117) Total Creatine Kinase 36 U/L (26-192) Creatine Kinase MB 1.2 ng/ml (0.5-3.6) Creatine Kinase MB Ratio 3.3 (0-3.0) Total Protein 7.5 gm/dl (6.4-8.2) Albumin 3.9 gm/dl (3.4-5.0) Globulin 3.6 gm/dl (2.5-4.0) Albumin/Globulin Ratio 1.1 (0.9-2) Bedside Troponin I < 0.030 ng/ml (0-0.045) Laboratory results as stated above per my review. ECG Indication: diaphoresis, weakness Rate (beats per minute): 58 Rhythm: sinus bradycardia Findings: no ectopy, other (No acute injury) ED Course 1414: Previous medical records were reviewed. The patient was evaluated in room B3. A complete history and physical examination was performed. I discussed all of the findings with the patient, and she will be discharged home. Medical Decision Differential includes acute coronary syndrome, myocardial infarction, CVA, TIA, anemia, infection, pneumonia, UTI, pyelonephritis, poor nutrition, dehydration, electrolyte disturbance,hypoglycemia. This is a 72-year-old female who presents to the ED with a chief complaint of generalized weakness and some intermittent diaphoresis. The patient states that her first episode occurred this morning. She states that she was sitting and became diaphoretic and felt weak. This lasted for a few minutes and after about 20 minutes she was feeling completely better. It happened a couple other times during the day here. She came in for evaluation. She denies any chest pains, palpitations, fevers, shortness of breath, abdominal pains or other symptoms. She has not had any nausea or vomiting. She says she has been eating and drinking fine. Her physical exam is completely normal. Orthostatic vital signs were normal. The laboratory studies reveal a white blood cell count 13.29. Troponin is negative. Complete metabolic panel was unremarkable. Chest x-ray did not show acute disease. EKG shows a sinus rhythm with a heart rate 58. The patient's exam was unremarkable. She is felt to be stable for discharge. She was told to return to the emergency department for any worsening or new symptoms. She is otherwise to follow up with her family doctor in 1-2 days for recheck. Medication Reconcilliation Current Medication List: was personally reviewed by me Blood Pressure Screening Patient's blood pressure: Elevated blood pressure Blood pressure disposition: Elevated BP felt to be situational Impression Primary Impression: Weakness Scribe Attestation The scribe's documentation has been prepared under my direction and personally reviewed by me in its entirety. I confirm that the note above accurately reflects all work, treatment, procedures, and medical decision making performed by me. Departure Information Referrals Koby Hdez M.D. (PCP) Patient Instructions My [facility] Additional Instructions Follow-up with your doctor for further care and evaluation in 1-2 days. Return to the emergency department for worsening or new symptoms or any concerns. You have been examined and treated today on an emergency basis only. This is not a substitute for, or an effort to provide, complete comprehensive medical care. It is impossible to recognize and treat all injuries or illnesses in a single emergency department visit. It is therefore important that you follow up closely with your doctor. Call as soon as possible for an appointment.
[2017-06-18 15:06] VITALS: BP 106/39; PULSE 66; O2SAT 100
== END 2017-06-18 15:06 | disposition home or self-care (01) ==
LOC: C.EDB 11:37
DX: R53.83 Other fatigue (principal); R00.1 Bradycardia, unspecified; K21.9 Gastro-esophageal reflux disease without esophagitis; Z87.19 Personal history of other diseases of the digestive system; Z90.49 Acquired absence of other specified parts of digestive tract; Z96.649 Presence of unspecified artificial hip joint; Z79.899 Other long term (current) drug therapy; Z87.891 Personal history of nicotine dependence; Z82.49 Family history of ischemic heart disease and other diseases of the circulatory system; Z84.1 Family history of disorders of kidney and ureter

== ENCOUNTER → 2017-12-08 | Outpatient (CLI) | payer OTHER ==
[~2017-12-08] MED LIST changes: +CELE1CAP28 PO; -RANI300T PO; +ROSU5TAB19 PO; +SUCR1TAB PO
[2017-12-08 15:14] LABS: BLOOD UREA NITROGEN 16 mg/dl (7-18); CALCIUM 8.9 mg/dl (8.5-10.1); CARBON DIOXIDE 29 mmol/L (21-32); CREATININE 0.63 mg/dl (0.60-1.20); GLUCOSE 95 mg/dl (70-99); POTASSIUM 4.2 mmol/L (3.5-5.1); SODIUM 138 mmol/L (136-145)
== END | disposition home or self-care (01) ==
LOC: C.LAB1850 12:25
PROVIDERS: ATTEND Internal Medicine
DX: E78.00 Pure hypercholesterolemia, unspecified (principal)

== ENCOUNTER 2023-12-28 02:36 | Inpatient (IN) ==
--- OUTSIDE RECORDS SUMMARY | 2023-12-28 02:40 | External Medical Summary | Continuity of Care Document ---
Author Name Unknown Organization [place] Address [address] [facility] [place] [id number] Phone [phone] Problems Active Problems Provider Date Chronic pain Jordon Lindo PA-C Onset: 07/2017 Low back pain Jordon Lindo PA-C Onset: 07/2017 Essential hypertension Jordon Lindo PA-C Ons et: 07/02/2017 Hyperlipidemia Jordon Lindo PA-C Onset: 07/2017 Generalized anxiety disorder SHERMAN Dewey Onset: 07/02/2017 Recurrent major depression in remission Jordon Lindo PA-C Onset: 07/02/2017 Gastroesophageal reflux disease Jordon Lindo PA-C Onset: 07/02/2017 Disorder of bone Jordon Lindo PA-C Onset: Polyosteoarthritis, unspecified Jordon Lindo PA-C Onset: 07/02/2017 Erythrocyte sedimentation ra te above reference range Jordon Lindo PA-C Onset: 10/28/2017 Tietze's disease Jordon Lindo PA-C Onset: Chronic obstructive lung disease Jordon Lindo PA-C Onset: 12/24/2017 Vitamin D deficiency Jordon Lindo PA-C Onset : 12/24/2017 Osteoporosis Christian Mejia JR, MD Onset: 0 04/27/2018 Solitary sacroiliitis Hayder Ann PA-C On set: 05/27/2018 Breathing painful Hayder Ann PA-C Onset: 08/19/2018 Generalized abdominal pain SHERMAN Hernández Onset: 08/19/2018 Disorder of bursa of shoulder region Hayder vitale PA-C Onset: 09/28/2018 Lumbar spondylosis with myelopathy Hayder carney PA-C Onset: 11/27/2018 Chest pain Hayder Ann PA-C Onset: 0 11/27/2018 Bradycardia, unspecified Hayder Ann PA-C Onset: 11/27/2018 Adult health examination Hayder Ann PA-C Onset: 12/28/2018 Dyspnea Hayder Ann PA-C Onset: 0 12/28/2018 Dysphagia Hayder Ann PA-C Onset: 0 12/28/2018 Peripheral vascular disease Ebony Hernández Onset: 02/16/2019 Carotid artery occlusion Hayder Ann PA-C Onset: 02/16/2019 Screening mammography Hyader Ann PA-C On set: 02/16/2019 Psoriasis with arthropathy SHERMAN Hernández Onset: 04/20/2019 Rheumatoid arthritis Hayder Ann PA-C Ons et: 04/20/2019 Pneumonia Christian Mejia JR, MD Onset: 0 04/29/2019 Chronic pain syndrome Hayder Ann PA-C On set: 06/02/2019 Gastro-esophageal reflux dis ease with esophagitis Hayder Ann PA-C Onset: 06/02/2019 Leukocytosis Hayder Ann PA-C Onset: 0 11/02/2019 Solitary nodule of lung Hayder Ann PA-C Onset: 11/02/2019 Social History Type Date Description Comments Sex Unknown Cigarette Use 10/09/2023 Quit - Age 39 Tobacco Use Start: Unknown End: Unknown Former Cigarette Smoker Smoking Status Reviewed: 10/09/23 Former Cigarette Smo ker Tobacco Use Reviewed: 10/09/23 Never Smoked Cigars Tobacco Use Reviewed: 10/09/23 Never Smoked A Pipe Smokeless Tobacco 10/09/2023 Never Used Smokeless To bacco ETOH Use Denies alcohol use Recreational Drug Use Denies Drug Use Allergies and adverse reactions Description No Known Drug Allergies Medications Active Medications SIG Qnty Indications Order ing Provider Date Luhmdddryx74jn Tablets two by mouth every day x 5 days then one daily x 5 days 15tabs Xochilt Barone MD 12/04/2023 Mwpfwjji128ka Capsules 1 tablet by mouth twice a day x 10 days 20jacinto Barone MD 12/04/2023 - 12/14/2023 Meclizine DTR55ee Tablets 1 by mouth every 6 hours as needed dizziness 45tabs Xochilt Barone MD 12/04/2023 Ofloxacin (Otic)0.3% Solution instill 4 drops both ears four times daily x 10 days 20ml Xochilt Barone MD 12/01/2023 - 12/11/2023 Pnriygacmu17ez Tablets two tablets x 10 days then one tablet daily x 10 days 30tabs Xochilt Barone MD 10/09/2023 Mupirocin2% Ointment apply on affected areas twice a day as needed 22gm Xochilt Barone MD 03/20/2022 Potassium Citrate-Citric Nhgk3927-099nr/5ML Solution 5ml daily 1419ml Xochilt Barone MD 01/03/2022 Qpxflmgfp699(65Fe) mg Tablets 1 by mouth daily 90tabs Xochilt Barone MD 10/02/2021 Vitamin D (Ergocalciferol)1.25 mg (09534 Ut) Capsules take 1 capsule by mouth once weekly 12jacinto Barone MD 10/02/2021 Riozwqrearazka97ij Tablets take 1 tablet by mouth once daily 90tabs Xochilt Barone MD 09/17/2021 Vbibgmysxd15bs Tablets take 1 tablet by mouth daily for fluid 90tabs Xochilt Barone MD 07/14/2020 Rosuvastatin Ftzpkpb8az Tablets 1 tab by mouth every night at bedtime 90tabs Xochilt Barone MD 12/22/2019 Trazodone HSO96fx Tablets take 1 tablet by mouth at bedtime 90tabs F33.40 Xochilt Barone MD 11/02/2019 Amlodipine Dgildbdm1rl Tablets take 1 tablet by mouth once daily 90tabs Xochilt Barone MD 10/17/2019 Vctcwj08dp/ml Soln Prefill Syringe one every 6 months 1ml Christian Mejia JR, MD 08/13/2019 Nyejfpetzn02yq Tablets take 1 tablet by mouth every evening 90tabs K21.00 Xochilt Barone MD 07/01/[address] take 1 tablet by mouth daily 90tabs Xochilt Barone MD 06/02/2019 Folic Kmgm5kr Tablets 1 by mouth every day 90tabs Xochilt Barone MD 04/29/2019 Methotrexate2.5mg Tablets 6 by mouth weekly 60tabs M06.9 Xochilt Barone MD 04/20/2019 Vitamin Y011695Bjxt Capsules 1 cap by mouth once weekly 12caps E55.9 Amos Biggs DO 12/24/2017 Percocet5-325mg Tablets 1 tab by mouth every 6 hours as needed for pain (for continued therapy) 120tabs Xochilt Barone MD 06/03/2017 Voltaren1% Gel apply 1 gm to affected joints three times a day as needed 300gm Xochilt Barone MD Multiple Vitamins/WomensTable ts 1 by mouth every day 90tabs Koby Hdez MD Roqpjpwb0dj Tablets 1 tab by mouth three times a day as needed 270tabs Xochilt Barone MD Swyfuc89aw Tablets 1 tab by mouth every day 90tabs Xochilt Barone MD Potassium Citrate ND13Xed (1080 mg) Tablets ER 1 tab by mouth every day 90tabs Shashi Luna MD Ukjxvv0af Tablets 1 by mouth every 8 hours as needed nausea 60tabs Christian Mejia JR, MD Fluticasone Propionate/Salmetero m989-84eeh/Act Aerosol inhale 1 puff by mouth and Into The Lungs In The Morning and 1 pu... (Refer To Raulito You DR History Medications Qofjskxslzt208rr Tablets 1 tablet by mouth two times a day for 10 days 20tabs Xochilt Barone MD 12/01/2023 - 12/04/2023 Dwflld0tg TBPK use as directed 21units Tamika Montanez MD 12/01/2023 - 12/04/2023 Tipsb450pr Tablets 1 by mouth twice a day for 10 days 20tabs D72.829 Xochilt Barone MD 09/11/2023 - 10/09/2023 Yzrjgfokb08gi Tablets take 1 tablet every day with food as needed for joint pain 90tabs M79.672 Xochilt Barone MD 08/07/2023 - 10/09/2023 Meloxicam7.5mg Tablets take one tab daily as needed for pain 10tabs M79.672 Xochilt Barone MD 06/25/2023 - 08/07/2023 Jxwwagynwi77ce Tablets 4 tab by mouth daily for 4 days then 3 tab daily for 4 days than 2 tablet daily for 4 days than 1 tab daily for 4 days 40qs M79.672 Xochilt Barone MD 06/25/2023 - 08/07/2023 Medications Administered in Office Medication SIG Qnty Indications Ordering Provider Date Injection Kenalog 10 MG NDC [id number] Ebony Hernández A-C 12/04/2023 Injection Ketorolac Tromethamine Per 15 mg/.5cc (Toradol)Injection AIDA Hernández 12/04/2023 Injection Dexamethasone Sodium Phosphate, 1 MGInjection Hayder Ann PA-C 11/20 Injection Kenalog 10 MG NDC [id number] Hayder Ann P A-C 10/09/2023 Injection Kenalog 10 MG NDC [id number] Ebony Hernández A-C 07/08/2023 Injection Kenalog 10 MG NDC [id number] Hayder Ann P A-C 06/05/2023 Injection Kenalog 10 MG NDC [id number] Hayder Ann, P A-C 04/03/2023 Injection Kenalog 10 MG NDC [id number] Hayder D. Lazorka, P A-C 03/17/2023 Injection Kenalog 10 MG NDC [id number] Hayder D. Lazorka, P A-C 12/30/2022 Injection Kenalog 10 MG NDC [id number] Hayder D. Lazorka, P A-C 09/26/2022 Injection Kenalog 10 MG NDC [id number] Hayder D. Lazorka, P A-C 07/05/2022 Injection Kenalog 10 MG NDC [id number] Hayder D. Lazorka, P A-C 04/03/2022 Injection Kenalog 10 MG NDC [id number] Hayder D. Lazorka, P A-C 01/23/2022 Injection Kenalog 10 MG NDC [id number] Hayder D. Lazorka, P A-C 01/01/2022 Injection Kenalog 10 MG NDC [id number] Hayder D. Lazorka, P A-C 11/21/2021 Injection Kenalog 10 MG NDC [id number] Hayder D. Lazorka, P A-C 10/02/2021 Injection Kenalog 10 MG NDC [id number] Hayder D. Lazorka, P A-C 08/02/2021 Injection Kenalog 10 MG NDC [id number] Hayder D. Lazorka, P A-C 04/30/2021 Injection Dexamethasone Sodium Phosphate, 1 MGInjection Hayder D. Lazorka, PA-C 03/22 Injection Kenalog 10 MG NDC [id number] Hayder D. Lazorka, P A-C 02/08/2021 Injection Kenalog 10 MG NDC [id number] Hayder D. Lazorka, P A-C 10/26/2020 Injection Kenalog 10 MG NDC [id number] Hayder D. Lazorka, P A-C 04/20/2020 Injection Kenalog 10 MG NDC [id number] Hayder D. Lazorka, P A-C 04/20/2020 Injection Kenalog 10 MG NDC [id number] Hayder D. Lazorka, P A-C 01/20/2020 Injection Kenalog 10 MG NDC [id number] Hayder Baker Jessjerod, P A-C 07/01/2019 Injection Kenalog 10 MG NDC [id number] Hayder Baker Dadarommel, P A-C 02/16/2019 Injection Kenalog 10 MG NDC [id number] Hayder Samuel Mercadojerod, P A-C 11/27/2018 Injection Kenalog 10 MG NDC [id number] Hayder ConleySuzette Mercadojerod, P A-C 09/28/2018 Injection Kenalog 10 MG NDC [id number] Hayder ConleySuzette Mercadojerod, P A-C 08/19/2018 Celestone Soluspan 3 MG 6MG/MLInjection Hayder Samuel Ann, PA-C 0 05/27/2018 Celestone Soluspan 3 MG 6MG/MLInjection Jordon L. Belgica, PA-C 02/2018 Injection Kenalog 10 MG NDC 15095143337Buobwsldn Jordon L. Belgica, PA- C 12/24/2017 Injection Kenalog 10 MG NDC [id number] Jordon L. Belgica, PA- C 12/24/2017 Injection Dexamethasone Sodium Phosphate, 1 MGInjection Jordon L. Belgica, PA-C 2017 Injection Dexamethasone Sodium Phosphate, 1 MGInjection Jordon L. Belgica, PA-C 2017 Injection Kenalog 10 MG NDC [id number] Jordon L. Belgica, PA- C 10/28/2017 Injection Dexamethasone Sodium Phosphate, 1 MGInjection Jordon L. Belgica, PA-C 2017 Injection Kenalog 10 MG NDC [id number] Jordon L. Belgica, PA- C 09/01/2017 Injection Dexamethasone Sodium Phosphate, 1 MGInjection Jordon L. Belgica, PA-C 2016 Immunizations CPT Code Status Date Vaccine Lot # [id number] Given 07/24/2023 Influenza Vaccine High Do se 0.5ML Age 65 & > [id number] Given 07/09/2022 Moderna Sars-Co v-2 (Covid-19) Vaccine, BiValent Booster [id number]+ [id number] U-FLU Given 06/27/2022 Influenza,Unspecified 77089 Given 01/01/2022 Moderna Covid-1 9 Vaccine 50mcg Booster-EMR Doc Only [id number] 47528 Given 08/21/2021 Moderna Covid-1 9 Vaccine 50mcg Booster-EMR Doc Only [id number] U-FLU Given 05/28/2021 Influenza,Unspecified 70432 Given 11/24/2020 Moderna Sars-Co v-2 (Cov-19) vacc,100 mcg/ 0.5 mL 12Y+EMR Doc Only [id number] 75733 Given 10/27/2020 Moderna Sars-Co v-2 (Cov-19) vacc,100 mcg/ 0.5 mL 12Y+EMR Doc Only [id number] 11964 Given 09/29/2020 Shingrix 09622 Given 07/26/2020 Pneumococcal Vaccine/Pneu movax 23 [id number] U-FLU Given 05/13/2020 Influenza,Unspecified 279 784 39971 Given 05/13/2020 Shingrix 25443 Given 07/27/2019 Influenza Virus Vaccine, Quadrivalent (Cciiv4), Derived From Cell U-FLU Given 07/27/2019 Influenza,Unspecified 39151 Given 05/16/2019 Tdap (Tetanus, diphtheria & acel. pertussis) Adacel or Boostrix 53782 Given 12/28/2018 Pneumococcal Conjugate-Pr evnar 13 [id number] U-FLU Given 07/09/2018 Influenza,Unspecified 69296 Given 07/09/2018 Influenza Vacci ne Quadrivalent Preser/Antibiotic Free Im Use U-FLU Given 07/22/2017 Influenza,Unspecified U-FLU Given 06/25/2016 Influenza,Unspecified 57315 Given 01/20/2016 Pneumococcal Conjugate-Pr evnar 13 U-FLU Given 07/07/2015 Influenza,Unspecified U-FLU Given 05/17/2014 Influenza,Unspecified 05827 Given 12/02/2013 Zostavax Vaccine 83959 Given 03/22/2005 TB Intradermal Test 90459 Refused 06/02/2019 Tdap (Tetanus, diphtheria & acel. pertussis) Adacel or Boostrix Vital Signs Date Vital Result Comment 12/04/2023 2:26pm BP Systolic 122 mmHg BP Diastolic 70 mmHg Body Temperature 98.1 F Heart Rate 76 /min Respiratory Rate 20 /min 12/01/2023 1:17pm Body Temperature 99.1 F Heart Rate 70 /min Respiratory Rate 22 /min Procedures Date Code Description Status 12/04/2023 J3301 Injection Kenalog 10 MG [facility] 70004360351 Completed 12/04/2023 J1885 Injection Ketoro lac Tromethamine Per 15 mg/.5cc (Toradol) Completed 12/04/2023 J1100 Injection Dexamethasone Sodi um Phosphate, 1 MG Completed 12/01/2023 G2211 Continuation of care e/m vis it add on Completed 10/09/2023 J3301 Injection Kenalog 10 MG [facility] 69541703748 Completed 10/09/2023 3078F PVRP Diastolic BP <80 mmHg C ompleted 10/09/2023 3075F PVRP Systolic BP 130 To 139 MMHG Completed 10/09/2023 07295 Inject/Drain Arthrocentesis Major Joint/Bursa Completed 09/17/2023 20903909 Colonoscopy Completed 08/11/2023 184929950 Bone Mineral Density Test Co mpleted 08/07/2023 3078F PVRP Diastolic BP <80 mmHg C ompleted 08/07/2023 3075F PVRP Systolic BP 130 To 139 MMHG Completed 07/08/2023 J3301 Injection Kenalog 10 MG [facility] 02097027830 Completed 07/08/2023 95499 Inject/Drain Arthrocentesis Intermediate Joint/Bursa Completed 07/25/2022 [id number] Mammogram Completed Medical Devices Description No Information Available Encounters Type Date Location Provider Dx Diagnosis Office Visit 12/04/2023 1:15p Osmany Ann PA-C H66.92 Otitis media, unspecified, left ear H81.10 Benign paroxysmal ve rtigo, unspecified ear Office Visit 12/01/2023 3:15p Osmany Ann PA-C H66.92 Otitis media, unspecified, left ear H60.312 Diffuse otitis exter na, left ear Office Visit 10/09/2023 3:00p Osmany vitale PA-C I10 Essential (primary) hypertension E78.2 Mixed hyperlipidemia M06.9 Rheumatoid arthritis , unspecified F33.40 Major depressive dis order, recurrent, in remission, unsp M46.1 Sacroiliitis, not el sewhere classified Office Visit 08/07/2023 12:30p Osmany Ann, PA-C I10 Essential (primary) hypertension E78.2 Mixed hyperlipidemia F33.40 Major depressive dis order, recurrent, in remission, unsp M46.1 Sacroiliitis, not el sewhere classified Office Visit 07/08/2023 1:15p Osmany Ann, PA-C M72.2 Plantar fascial fibromatosis G89.4 Chronic pain syndrom e Office Visit 06/25/2023 9:15a Osmany Barone MD M79.672 Pain in left foot Assessments Date Code Description Provider 12/04/2023 H66.92 Otitis media, unspecified, l eft ear Hayder Ann, PA-C 12/04/2023 H81.10 Benign paroxysmal vertigo, u nspecified ear Hayder Ann, PA-C 12/01/2023 H66.92 Otitis media, unspecified, l eft ear Hayder Ann, PA-C 12/01/2023 H60.312 Diffuse otitis externa, left ear Hayder Ann, PA-C 10/09/2023 I10 Essential (primary) hyperten ezra Hayder Ann, PA-C 10/09/2023 E78.2 Mixed hyperlipidemia Hayder Ann, PA-C 10/09/2023 M06.9 Rheumatoid arthritis, unspec ified Hayder Ann, PA-C 10/09/2023 F33.40 Major depressive disorder, recurrent, in remission, unspecified Hayder Ann, PA-C 10/09/2023 M46.1 Sacroiliitis, not elsewhere classified Hayder Ann, PA-C 08/07/2023 I10 Essential (primary) hyperten ezra Hayder Ann, PA-C 08/07/2023 E78.2 Mixed hyperlipidemia Hayder Ann, PA-C 08/07/2023 F33.40 Major depressive disorder, recurrent, in remission, unspecified Hayder Ann PA-C 08/07/2023 M46.1 Sacroiliitis, not elsewhere classified Hayder Ann PA-C 07/08/2023 M72.2 Plantar fascial fibromatosis Hadyer Ann PA-C 07/08/2023 G89.4 Chronic pain syndrome Hayder Ann PA-C 06/25/2023 M79.672 Pain in left foot Xochilt barnett MD Plan of Treatment Future Appointment(s):* 01/01/2024 2:15 pm - Hayder Ann PA-C at [place] 12/01/2023 - Hayder Ann PA-C* H66.92 Otitis media, unspecified, left ear * Comments:* Complete antibiotics as advised Notify us if symptoms do not improve Continue nasal spray * H60.312 Diffuse otitis externa, left ear* Comments:* Complete drops Notify us if pain worsens or she develops any drainage from the left ear canal * All* New Medication:* Ofloxacin (Otic) 0.3 % - instill 4 drops both ears four times daily x 10 days * Amoxicillin 875 mg - 1 tablet by mouth two times a day for 10 days * Medrol 4 mg - use as directed Functional Status Description No Information Available Mental Status Description No Information Available Referrals Description No Information Available
--- OUTSIDE RECORDS SUMMARY | 2023-12-28 02:40 | External Medical Summary | Continuity of Care Document ---
Author Name Unknown Organization [place] Address [address] [facility] [place] [address] Phone [phone] Problems Active Problems Provider Date Chronic pain [...] Hayder Ann PA-C Onset: 02/16/2019 Screening mammography Hayder Ann PA-C On set: 02/16/2019 Psoriasis with [...] SIG Qnty Indications Order ing Provider Date Ofloxacin (Otic)0.3% Solution instill 4 drops both ears four times daily x 10 days 20ml Xochilt Barone MD 12/01/2023 - 12/11/2023 Xgrlln5pk TBPK use as directed 21units Tamika Montanez MD 12/01/2023 - 12/08/2023 Wbmneupjfbv768lo Tablets 1 tablet by mouth two times a day for 10 days 20tabs Xochilt Barone MD 12/01/2023 - 12/11/2023 Nvvhcjixoh34io Tablets two tablets x 10 days then one tablet daily x 10 days 30tabs Xochilt Barone MD 10/09/2023 Mupirocin2% Ointment apply on affected areas twice a day as needed 22gm Xochilt Barone MD 03/20/2022 Potassium Citrate-Citric Pjze0627-166ty/5ML Solution 5ml daily 1419ml Xochilt Barone MD 01/03/2022 Yykokgpvl089(65Fe) mg Tablets 1 by mouth daily 90tabs Xochilt Barone MD 10/02/2021 Vitamin D (Ergocalciferol)1.25 mg (06927 Ut) Capsules take 1 capsule by mouth once weekly 12caps Xochilt Barone MD 10/02/2021 Gekqfoxomclaxu36ax Tablets take 1 tablet by mouth once daily 90tabs Xochilt Barone MD 09/17/2021 Tqwqpvudrl02wk Tablets take 1 tablet by mouth daily for fluid 90tabs Xochilt Barone MD 07/14/2020 Rosuvastatin Snpkqqj5qe Tablets 1 tab by mouth every night at bedtime 90tabs Xochilt Barone MD 12/22/2019 Trazodone UKQ33vx Tablets take 1 tablet by mouth at bedtime 90tabs F33.40 Xochilt Barone MD 11/02/2019 Amlodipine Zosrizzz7yn Tablets take 1 tablet by mouth once daily 90tabs Xochilt Barone MD 10/17/2019 Fiuwuq98fp/ml Soln Prefill Syringe one every 6 months 1ml Christian Mejia JR, MD 08/13/2019 Zpbzmjcfdv42ai Tablets take 1 tablet by mouth every evening 90tabs K21.00 Xochilt Barone MD 07/01/[address] take 1 tablet by mouth daily 90tabs Xochilt Barone MD 06/02/2019 Folic Erpx7zf Tablets 1 by mouth every day 90tabs Xochilt Barone MD 04/29/2019 Methotrexate2.5mg Tablets 6 by mouth weekly 60tabs M06.9 Xochilt Barone MD 04/20/2019 Vitamin R862051Wbqp Capsules 1 cap by mouth once weekly [...] mouth every day 90tabs Koby Hdez MD Fjpoftam0xy Tablets 1 tab by mouth three times a day as needed 270tabs Xochilt Barone MD Fupbbd24it Tablets 1 tab by mouth every day 90tabs Xochilt Barone MD Potassium Citrate TV09Bgl (1080 mg) Tablets ER 1 tab by mouth every day 90tabs Shashi Luna MD Rtqszs3ip Tablets 1 by mouth every 8 hours as needed nausea 60tabs Christian Mejia JR, MD Fluticasone Propionate/Salmetero e952-39puy/Act Aerosol inhale 1 puff by mouth and Into The Lungs In The Morning and 1 pu... (Refer To Raulito You DR History Medications Vhgbs924zh Tablets 1 by mouth twice a day for 10 days 20tabs D72.829 Xochilt Barone MD 09/11/2023 - 10/09/2023 Cgyiezugm29lj Tablets take 1 tablet every day with food as needed for joint pain 90tabs M79.672 Xochilt Barone MD 08/07/2023 - 10/09/2023 Meloxicam7.5mg Tablets take one tab daily as needed for pain 10tabs M79.672 Xochilt Barone MD 06/25/2023 - 08/07/2023 Gsqyiihavq13hp Tablets 4 tab by mouth daily for 4 days then 3 tab daily for 4 days than 2 tablet daily for 4 days than 1 tab daily for 4 days 40qs M79.672 Xochilt Barone MD 06/25/2023 - 08/07/2023 Medications Administered in Office Medication SIG Qnty Indications Ordering Provider Date Injection Kenalog 10 MG NDC [id number] Hayder Ann, P A-C 10/09/2023 Injection Kenalog 10 MG NDC 17163854309Wzycgmhih Hayder Ann, P A-C 07/08/2023 Injection Kenalog 10 MG NDC 54499320850Mqhbxbtqj Hayder Ann, P A-C 06/05/2023 Injection Kenalog 10 MG NDC 69815409665Zjihrfitv Hayder Mercadoa, P A-C 04/03/2023 Injection Kenalog 10 MG NDC [id number] Hayder Ann, P A-C 03/17/2023 Injection Kenalog 10 MG NDC [id number] Hayder Ann, P A-C 12/30/2022 Injection Kenalog 10 MG NDC [id number] Hayder Ann, P A-C 09/26/2022 Injection Kenalog 10 MG NDC [id number] Hayder Mercadoa, P A-C 07/05/2022 Injection Kenalog 10 MG NDC [id number] Hayder Mercadoa, P A-C 04/03/2022 Injection Kenalog 10 MG NDC [id number] Hayder Mercadoa, P A-C 01/23/2022 Injection Kenalog 10 MG NDC [id number] Hayder Ann, P A-C 01/01/2022 Injection Kenalog 10 MG NDC [id number] Hayder D. Lazorka, P A-C 11/21/2021 Injection Kenalog 10 MG NDC [id number] Hayder D. Lazorka, P A-C 10/02/2021 Injection Kenalog 10 MG NDC [id number] Hayder D. Lazorka, P A-C 08/02/2021 Injection Kenalog 10 MG NDC [id number] Hayder D. Lazorka, P A-C 04/30/2021 Injection Dexamethasone Sodium Phosphate, 1 MGInjection Hayder D. Lazcta, PA-C 03/22 Injection Kenalog 10 MG NDC [id number] Hayder D. Lazcta, P A-C 02/08/2021 Injection Kenalog 10 MG NDC 65095415049Jphueguyn Hayder D. Lazcta, P A-C 10/26/2020 Injection Kenalog 10 MG NDC [id number] Hayder D. Lazorka, P A-C 04/20/2020 Injection Kenalog 10 MG NDC [id number] Hayder D. Lazorka, P A-C 04/20/2020 Injection Kenalog 10 MG NDC [id number] Hayder D. Lazorka, P A-C 01/20/2020 Injection Kenalog 10 MG NDC [id number] Hayder D. Lazorka, P A-C 07/01/2019 Injection Kenalog 10 MG NDC [id number] Hayder D. Lazorka, P A-C 02/16/2019 Injection Kenalog 10 MG NDC [id number] Hayder D. Lazorka, P A-C 11/27/2018 Injection Kenalog 10 MG NDC [id number] Hayder D. Lazorka, P A-C 09/28/2018 Injection Kenalog 10 MG NDC [id number] Hayder D. Lazorka, P A-C 08/19/2018 Celestone Soluspan 3 MG 6MG/MLInjection Hayder DSuzette Lazcta, PA-C 0 05/27/2018 Celestone Soluspan 3 MG 6MG/MLInjection Jordon Conley Belgica, PA-C 02/2018 Injection Kenalog 10 MG NDC 86776220707Cqaxdwesq Jordon L. Belgica, PA- C 12/24/2017 Injection Kenalog 10 MG NDC [id number] Jordon L. Belgica, PA- C 12/24/2017 Injection Dexamethasone Sodium Phosphate, 1 MGInjection Jordon L. Beligca, PA-C 2017 Injection Dexamethasone Sodium Phosphate, 1 MGInjection Jordon L. Belgica, PA-C 2017 Injection Kenalog 10 MG NDC 47747179029Rjboforay Jordon L. Belgica, PA- C 10/28/2017 Injection Dexamethasone Sodium Phosphate, 1 MGInjection Jordon L. Belgica, PA-C 2017 Injection Kenalog 10 MG NDC [id number] Jordon L. Belgica, PA- C 09/01/2017 Injection Dexamethasone Sodium Phosphate, 1 MGInjection Jordon L. Belgica, PA-C 2016 Immunizations CPT Code Status Date Vaccine Lot # [id number] Given 07/24/2023 Influenza Vaccine High Do se 0.5ML Age 65 & > 93394 Given 07/09/2022 Moderna Sars-Co v-2 (Covid-19) Vaccine, BiValent Booster 12y+ [id number] U-FLU Given 06/27/2022 Influenza,Unspecified 44744 Given 01/01/2022 Moderna Covid-1 9 Vaccine 50mcg Booster-EMR Doc Only [id number] 16806 Given 08/21/2021 Moderna Covid-1 9 Vaccine 50mcg Booster-EMR Doc Only [id number] U-FLU Given 05/28/2021 Influenza,Unspecified 62124 Given 11/24/2020 Moderna Sars-Co v-2 (Cov-19) vacc,100 mcg/ 0.5 mL 12Y+EMR Doc Only [id number] 45556 Given 10/27/2020 Moderna Sars-Co v-2 (Cov-19) vacc,100 mcg/ 0.5 mL 12Y+EMR Doc Only [id number] 43085 Given 09/29/2020 Shingrix 69458 Given 07/26/2020 Pneumococcal Vaccine/Pneu movax 23 [id number] U-FLU Given 05/13/2020 Influenza,Unspecified 279 784 16939 Given 05/13/2020 Shingrix 19394 Given 07/27/2019 Influenza Virus Vaccine, Quadrivalent (Cciiv4), Derived From Cell U-FLU Given 07/27/2019 Influenza,Unspecified 55588 Given 05/16/2019 Tdap (Tetanus, diphtheria & acel. pertussis) Adacel or Boostrix 77129 Given 12/28/2018 Pneumococcal Conjugate-Pr evnar 13 [id number] U-FLU Given 07/09/2018 Influenza,Unspecified 12227 Given 07/09/2018 Influenza Vacci ne Quadrivalent Preser/Antibiotic Free Im Use U-FLU Given 07/22/2017 Influenza,Unspecified U-FLU Given 06/25/2016 Influenza,Unspecified 25965 Given 01/20/2016 Pneumococcal Conjugate-Pr evnar 13 U-FLU Given 07/07/2015 Influenza,Unspecified U-FLU Given 05/17/2014 Influenza,Unspecified 13331 Given 12/02/2013 Zostavax Vaccine 39940 Given 03/22/2005 TB Intradermal Test 93124 Refused 06/02/2019 Tdap (Tetanus, diphtheria & acel. pertussis) Adacel or Boostrix Vital Signs Date Vital Result Comment 12/01/2023 1:17pm Body Temperature 99.1 F Heart Rate 70 /min Respiratory Rate 22 /min 10/09/2023 3:04pm BP Systolic 142 mmHg BP Diastolic 80 mmHg BP Systolic Recheck 136 mmHg BP Diastolic Recheck 78 mmHg Body Temperature 97.6 F Heart Rate 96 /min Weight 131.38 lb Weight 59.592 kg Height 63 inches 5'3" BMI (Body Mass Index) 23.3 kg/m2 O2 % BldC Oximetry 98 % [place] Body Weight 115 lb Procedures Date Code Description Status 12/01/2023 G2211 Continuation of care e/m vis it add on Completed 10/09/2023 J3301 Injection Kenalog 10 MG [facility] [id number] Completed 10/09/2023 3078F PVRP Diastolic BP <80 mmHg C ompleted 10/09/2023 3075F PVRP Systolic BP 130 To 139 MMHG Completed 10/09/2023 25512 Inject/Drain Arthrocentesis Major Joint/Bursa Completed 09/17/2023 [id number] Colonoscopy Completed 08/11/2023 025425475 Bone Mineral Density Test Co mpleted 08/07/2023 3078F PVRP Diastolic BP <80 mmHg C ompleted 08/07/2023 3075F PVRP Systolic BP 130 To 139 MMHG Completed 07/08/2023 J3301 Injection Kenalog 10 MG NDC 13911227573 Completed 07/08/202300709 Inject/Drain Arthrocentesis Intermediate Joint/Bursa Completed 06/05/2023 J3301 Injection Kenalog 10 MG NDC 03017104760 Completed 06/05/2023 3078F PVRP Diastolic BP <80 mmHg C ompleted 06/05/2023 3074F PVRP Systolic BP <130 mmHg C ompleted 06/05/2023 90835 Inject/Drain Arthrocentesis Major Joint/Bursa Completed 07/25/2022 [id number] Mammogram Completed Medical Devices Description No Information Available Encounters Type Date Location Provider Dx Diagnosis Office Visit 12/01/2023 3:15p Osmany Ann PA-C H66.92 Otitis media, unspecified, left ear H60.312 Diffuse otitis exter na, left ear Office Visit 10/09/2023 3:00p Osmany vitale PA-C I10 Essential (primary) hypertension E78.2 Mixed hyperlipidemia M06.9 Rheumatoid arthritis , unspecified F33.40 Major depressive dis order, recurrent, in remission, unsp M46.1 Sacroiliitis, not el sewhere classified Office Visit 08/07/2023 12:30p Osmany Ann PA-C I10 Essential (primary) hypertension E78.2 Mixed hyperlipidemia F33.40 Major depressive dis order, recurrent, in remission, unsp M46.1 Sacroiliitis, not el sewhere classified Office Visit 07/08/2023 1:15p Osmany Ann PA-C M72.2 Plantar fascial fibromatosis G89.4 Chronic pain syndrom e Office Visit 06/25/2023 9:15a Osmany novoa MD M79.672 Pain in left foot Office Visit 06/05/2023 10:00a [place] Hayder D. Lazorka, PA-C I10 Essential (primary) hypertension E78.2 Mixed hyperlipidemia M06.9 Rheumatoid arthritis , unspecified M46.1 Sacroiliitis, not el sewhere classified F33.40 Major depressive dis order, recurrent, in remission, unsp Assessments Date Code Description Provider 12/01/2023 H66.92 Otitis media, unspecified, l eft ear Hayder Ann, PA-C 12/01/2023 H60.312 Diffuse otitis externa, left ear Hayder Ann, PA-C 10/09/2023 I10 Essential (primary) hyperten ezra Hayder Ann, PA-C 10/09/2023 E78.2 Mixed hyperlipidemia Hayder Ann, PA-C 10/09/2023 M06.9 Rheumatoid arthritis, unspec ified Hayder Ann, PA-C 10/09/2023 F33.40 Major depressive disorder, recurrent, in remission, unspecified Hayder Ann PA-C 10/09/2023 M46.1 Sacroiliitis, not elsewhere classified Hayder Ann PA-C 08/07/2023 I10 Essential (primary) hyperten ezra Haydernilesh Ann, PA-C 08/07/2023 E78.2 Mixed hyperlipidemia Hayder Ann, PA-C 08/07/2023 F33.40 Major depressive disorder, recurrent, in remission, unspecified Hayder Ann PA-C 08/07/2023 M46.1 Sacroiliitis, not elsewhere classified Hayder Ann PA-C 07/08/2023 M72.2 Plantar fascial fibromatosis Hayder Ann, PA-C 07/08/2023 G89.4 Chronic pain syndrome Hayder Ann PA-C 06/25/2023 M79.672 Pain in left foot Xochilt barnett MD 06/05/2023 I10 Essential (primary) hyperten ezra Hayder Ann PA-C 06/05/2023 E78.2 Mixed hyperlipidemia Haydernilesh Ann PA-C 06/05/2023 M06.9 Rheumatoid arthritis, unspec ified Hayder Ann PA-C 06/05/2023 M46.1 Sacroiliitis, not elsewhere classified Hayder Ann PA-C 06/05/2023 F33.40 Major depressive disorder, recurrent, in remission, unspecified Hayder Ann PA-C Plan of Treatment Future Appointment(s):* 01/01/2024 2:15 pm - Hayder Ann PA-C at [place] 12/01/2023 - Hayder Ann PA-C* H66.92 Otitis media, unspecified, left ear * Comments:* Complete antibiotics as advised Notify us if symptoms do not improve Continue nasal spray * H60.312 Diffuse otitis externa, left ear* Comments:* Complete drops Notify us if pain worsens or she develops any drainage from the left ear canal * All* New Medication:* Amoxicillin 875 mg - 1 tablet by mouth two times a day for 10 days * Ofloxacin (Otic) 0.3 % - instill 4 drops both ears four times daily x 10 days * Medrol 4 mg - use as directed Functional Status Description No Information Available Mental Status Description No Information Available Referrals Description No Information Available
--- OUTSIDE RECORDS SUMMARY | 2023-12-28 02:40 | External Medical Summary | Continuity of Care Document ---
Author Name Unknown Organization [place] Address [address] [facility] [place] [address] Phone [phone] Problems Active Problems Provider Date Chronic pain [...] SIG Qnty Indications Order ing Provider Date Niqlwdbwsa45tq Tablets two by mouth every day x 5 days then one daily x 5 days 15tabs Xochilt Barone MD 12/04/2023 Zzjodpus555nu Capsules 1 tablet by mouth twice a day x 10 days 20jacinto Barone MD 12/04/2023 - 12/14/2023 Meclizine LLR25mh Tablets 1 by mouth every 6 hours as needed dizziness 45tabs Xochilt Barone MD 12/04/2023 Ofloxacin (Otic)0.3% Solution instill 4 drops both ears four times daily x 10 days 20ml Xochilt Barone MD 12/01/2023 - 12/11/2023 Ngxvlyierr83xw Tablets two tablets x 10 days then one tablet daily x 10 days 30tabs Xochilt Barone MD 10/09/2023 Mupirocin2% Ointment apply on affected areas twice a day as needed 22gm Xochilt Barone MD 03/20/2022 Potassium Citrate-Citric Hlib8118-964me/5ML Solution 5ml daily 1419ml Xochilt Barone MD 01/03/2022 Hctwgfzsf457(65Fe) mg Tablets 1 by mouth daily 90tabs Xochilt Barone MD 10/02/2021 Vitamin D (Ergocalciferol)1.25 mg (87327 Ut) Capsules take 1 capsule by mouth once weekly 12jacinto Barone MD 10/02/2021 Ofqijynutjhcpd47nj Tablets take 1 tablet by mouth once daily 90tabs Xochilt Barone MD 09/17/2021 Mjksozjwyz18aw Tablets take 1 tablet by mouth daily for fluid 90tabs Xochilt Barone MD 07/14/2020 Rosuvastatin Oofwgzp9ju Tablets 1 tab by mouth every night at bedtime 90tabs Xochilt Barone MD 12/22/2019 Trazodone JPT71nv Tablets take 1 tablet by mouth at bedtime 90tabs F33.40 Xochilt Barone MD 11/02/2019 Amlodipine Pjggnodd1be Tablets take 1 tablet by mouth once daily 90tabs Xochilt Barone MD 10/17/2019 Kixcxp34ay/ml Soln Prefill Syringe one every 6 months 1ml Christian Mejia JR, MD 08/13/2019 Okryqrjphp55dv Tablets take 1 tablet by mouth every evening 90tabs K21.00 Xochilt Barone MD 07/01/[address] take 1 tablet by mouth daily 90tabs Xochilt Barone MD 06/02/2019 Folic Hexn2ug Tablets 1 by mouth every day 90tabs Xochilt Barone MD 04/29/2019 Methotrexate2.5mg Tablets 6 by mouth weekly 60tabs M06.9 Xochilt Barone MD 04/20/2019 Vitamin B992426Pdlo Capsules 1 cap by mouth once weekly [...] mouth every day 90tabs Koby Hdez MD Kfbadyev6qs Tablets 1 tab by mouth three times a day as needed 270tabs Xochilt Barone MD Xjmkgc76yd Tablets 1 tab by mouth every day 90tabs Xochilt Barone MD Potassium Citrate UG47Cxa (1080 mg) Tablets ER 1 tab by mouth every day 90tabs Shashi Luna MD Tvmgvz9nw Tablets 1 by mouth every 8 hours as needed nausea 60tabs Christian Mejia JR, MD Fluticasone Propionate/Salmetero s213-18fkn/Act Aerosol inhale 1 puff by mouth and Into The Lungs In The Morning and 1 pu... (Refer To Raulito You DR History Medications Vatlcrfiqnd192ck Tablets 1 tablet by mouth two times a day for 10 days 20tabs Xochilt Barone MD 12/01/2023 - 12/04/2023 Iqrthl6ms TBPK use as directed 21units Tamika Montanez MD 12/01/2023 - 12/04/2023 Csjuh109om Tablets 1 by mouth twice a day for 10 days 20tabs D72.829 Xochilt Barone MD 09/11/2023 - 10/09/2023 Lbcocvbum51dr Tablets take 1 tablet every day with food as needed for joint pain 90tabs M79.672 Xochilt Barone MD 08/07/2023 - 10/09/2023 Meloxicam7.5mg Tablets take one tab daily as needed for pain 10tabs M79.672 Xochilt Barone MD 06/25/2023 - 08/07/2023 Dbgjlurvhs43vz Tablets 4 tab by mouth daily for 4 days then 3 tab daily for 4 days than 2 tablet daily for 4 days than 1 tab daily for 4 days 40qs M79.672 Xochilt Barone MD 06/25/2023 - 08/07/2023 Medications Administered in Office Medication SIG Qnty Indications Ordering Provider Date Injection Kenalog 10 MG NDC 59837769382Kdfhkbngu Ebony Hernández A-C 12/04/2023 Injection Ketorolac Tromethamine Per 15 mg/.5cc (Toradol)Injection AIDA Hernández 12/04/2023 Injection Dexamethasone Sodium Phosphate, 1 MGInjection Hayder Ann PA-C 11/20 Injection Kenalog 10 MG NDC 72912617544Ldqdxlexd Hayder Ann P A-C 10/09/2023 Injection Kenalog 10 MG NDC 58006985125Mjiamrmgc Ebony Hernández A-C 07/08/2023 Injection Kenalog 10 MG NDC 59473171656Kzgesbjnk Hayder Ann P A-C 06/05/2023 Injection Kenalog 10 MG NDC 39792583869Yvvdinmkk Hayder Ann, P A-C 04/03/2023 Injection Kenalog 10 MG NDC [id number] Hayder D. Lazorka, P A-C 03/17/2023 Injection Kenalog 10 MG NDC [id number] Hayder D. Lazorka, P A-C 12/30/2022 Injection Kenalog 10 MG NDC [id number] Hayder D. Lazorka, P A-C 09/26/2022 Injection Kenalog 10 MG NDC [id number] Hayder D. Lazorka, P A-C 07/05/2022 Injection Kenalog 10 MG NDC [id number] Hayder D. Lazorka, P A-C 04/03/2022 Injection Kenalog 10 MG NDC [id number] Hayder D. Lazorka, P A-C 01/23/2022 Injection Kenalog 10 MG NDC [id number] Hayder D. Lazorka, P A-C 01/01/2022 Injection Kenalog 10 MG NDC [id number] Hayder D. Lazorka, P A-C 11/21/2021 Injection Kenalog 10 MG NDC [id number] Hayder D. Lazorka, P A-C 10/02/2021 Injection Kenalog 10 MG NDC [id number] Hayder D. Lazorka, P A-C 08/02/2021 Injection Kenalog 10 MG NDC [id number] Hayder D. Lazorka, P A-C 04/30/2021 Injection Dexamethasone Sodium Phosphate, 1 MGInjection Hayder D. Lazorka, PA-C 03/22 Injection Kenalog 10 MG NDC [id number] Hayder D. Lazorka, P A-C 02/08/2021 Injection Kenalog 10 MG NDC [id number] Hayder D. Lazorka, P A-C 10/26/2020 Injection Kenalog 10 MG NDC [id number] Hayder D. Lazorka, P A-C 04/20/2020 Injection Kenalog 10 MG NDC [id number] Hayder D. Lazorka, P A-C 04/20/2020 Injection Kenalog 10 MG NDC [id number] Hayder D. Lazorka, P A-C 01/20/2020 Injection Kenalog 10 MG NDC [id number] Hayder Baker Jessjerod, P A-C 07/01/2019 Injection Kenalog 10 MG NDC 72106266764Oeqeizzwb Hayder Baker Dadarommel, P A-C 02/16/2019 Injection Kenalog 10 MG NDC 78933543107Wgtnmcecr Hayder Samuel Mercadojerod, P A-C 11/27/2018 Injection Kenalog 10 MG NDC [id number] Hayder ConleySuzette Mercadojerod, P A-C 09/28/2018 Injection Kenalog 10 MG NDC 45262152374Vzdininua Hayder ConleySuzette Mercadojerod, P A-C 08/19/2018 Celestone Soluspan 3 MG 6MG/MLInjection Hayder Samuel Ann, PA-C 0 05/27/2018 Celestone Soluspan 3 MG 6MG/MLInjection Jordon L. Belgica, PA-C 02/2018 Injection Kenalog 10 MG NDC 86781933838Nbynwxxau Jordon L. Belgica, PA- C 12/24/2017 Injection Kenalog 10 MG NDC [id number] Jordon L. Belgica, PA- C 12/24/2017 Injection Dexamethasone Sodium Phosphate, 1 MGInjection Jordon L. Belgica, PA-C 2017 Injection Dexamethasone Sodium Phosphate, 1 MGInjection Jordon L. Belgica, PA-C 2017 Injection Kenalog 10 MG NDC 59818106492Eqlfqbkuf Jordon L. Belgica, PA- C 10/28/2017 Injection Dexamethasone Sodium Phosphate, 1 MGInjection Jordon L. Belgica, PA-C 2017 Injection Kenalog 10 MG NDC 06826179685Vhaprpkqd Jordon L. Belgica, PA- C 09/01/2017 Injection Dexamethasone Sodium Phosphate, 1 MGInjection Jordon L. Belgica, PA-C 2016 Immunizations CPT Code Status Date Vaccine Lot # [id number] Given 07/24/2023 Influenza Vaccine High Do se 0.5ML Age 65 & > 32902 Given 07/09/2022 Moderna Sars-Co v-2 (Covid-19) Vaccine, BiValent Booster 12y+ [id number] U-FLU Given 06/27/2022 Influenza,Unspecified 71285 Given 01/01/2022 Moderna Covid-1 9 Vaccine 50mcg Booster-EMR Doc Only [id number] 49614 Given 08/21/2021 Moderna Covid-1 9 Vaccine 50mcg Booster-EMR Doc Only [id number] U-FLU Given 05/28/2021 Influenza,Unspecified 35895 Given 11/24/2020 Moderna Sars-Co v-2 (Cov-19) vacc,100 mcg/ 0.5 mL 12Y+EMR Doc Only [id number] 38597 Given 10/27/2020 Moderna Sars-Co v-2 (Cov-19) vacc,100 mcg/ 0.5 mL 12Y+EMR Doc Only [id number] 93637 Given 09/29/2020 Shingrix 69870 Given 07/26/2020 Pneumococcal Vaccine/Pneu movax 23 [id number] U-FLU Given 05/13/2020 Influenza,Unspecified 279 784 40199 Given 05/13/2020 Shingrix 72270 Given 07/27/2019 Influenza Virus Vaccine, Quadrivalent (Cciiv4), Derived From Cell U-FLU Given 07/27/2019 Influenza,Unspecified 92329 Given 05/16/2019 Tdap (Tetanus, diphtheria & acel. pertussis) Adacel or Boostrix 56493 Given 12/28/2018 Pneumococcal Conjugate-Pr evnar 13 [id number] U-FLU Given 07/09/2018 Influenza,Unspecified 44696 Given 07/09/2018 Influenza Vacci ne Quadrivalent Preser/Antibiotic Free Im Use U-FLU Given 07/22/2017 Influenza,Unspecified U-FLU Given 06/25/2016 Influenza,Unspecified 76187 Given 01/20/2016 Pneumococcal Conjugate-Pr evnar 13 U-FLU Given 07/07/2015 Influenza,Unspecified U-FLU Given 05/17/2014 Influenza,Unspecified 41955 Given 12/02/2013 Zostavax Vaccine 65653 Given 03/22/2005 TB Intradermal Test 37814 Refused 06/02/2019 Tdap (Tetanus, diphtheria & acel. [...] Status 12/04/2023 J3301 Injection Kenalog 10 MG [facility] [place] 2] [id number] Completed 12/04/2023 J1885 Injection Ketoro lac Tromethamine Per 15 mg/.5cc (Toradol) Completed 12/04/2023 J1100 Injection Dexamethasone Sodi um Phosphate, 1 MG Completed 12/01/2023 G2211 Continuation of care e/m vis it add on Completed 10/09/2023 J3301 Injection Kenalog 10 MG [facility] [place]NOTE 2] [id number] Completed 10/09/2023 3078F PVRP Diastolic BP <80 mmHg C ompleted 10/09/2023 3075F PVRP Systolic BP 130 To 139 MMHG Completed 10/09/2023 90375 Inject/Drain Arthrocentesis Major Joint/Bursa Completed 09/17/2023 39482355 Colonoscopy Completed 08/11/2023 300779558 Bone Mineral Density Test Co mpleted 08/07/2023 3078F PVRP Diastolic BP <80 mmHg C ompleted 08/07/2023 3075F PVRP Systolic BP 130 To 139 MMHG Completed 07/08/2023 J3301 Injection Kenalog 10 MG [facility] [place]NOTE 2] 03583241110 Completed 07/08/2023 81080 Inject/Drain Arthrocentesis Intermediate Joint/Bursa Completed 07/25/2022 85674037 Mammogram Completed Medical Devices Description No Information [...] PA-C 07/08/2023 M72.2 Plantar fascial fibromatosis Hayder Ann PA-C 07/08/2023 G89.4 Chronic pain syndrome Hayder Ann PA-C 06/25/2023 M79.672 Pain in left foot Xochilt barnett MD Plan of Treatment Future Appointment(s):* 01/01/2024 2:15 pm - Hayder Ann PA-C at [place] 12/01/2023 - Hayder Ann PA-C* H66.92 Otitis [...]
--- OUTSIDE RECORDS SUMMARY | 2023-12-28 02:40 | External Medical Summary | Continuity of Care Document ---
Author Name Unknown Organization [place] Address [address] [facility] [place] [address] Phone [phone] Problems Active Problems Provider Date Chronic pain [...] SIG Qnty Indications Order ing Provider Date Uzrrrmqhus95kl Tablets two by mouth every day x 5 days then one daily x 5 days 15tabs Xochilt Barone MD 12/04/2023 Yqezobzc797qu Capsules 1 tablet by mouth twice a day x 10 days 20jacinto Barone MD 12/04/2023 - 12/14/2023 Meclizine MLZ86jr Tablets 1 by mouth every 6 hours as needed dizziness 45tabs Xochilt Barone MD 12/04/2023 Ofloxacin (Otic)0.3% Solution instill 4 drops both ears four times daily x 10 days 20ml Xochilt Barone MD 12/01/2023 - 12/11/2023 Itrjknrzdw82xz Tablets two tablets x 10 days then one tablet daily x 10 days 30tabs Xochilt Barone MD 10/09/2023 Mupirocin2% Ointment apply on affected areas twice a day as needed 22gm Xochilt Barone MD 03/20/2022 Potassium Citrate-Citric Hoqs0534-803fq/5ML Solution 5ml daily 1419ml Xochilt Barone MD 01/03/2022 Ehgxitfsl090(65Fe) mg Tablets 1 by mouth daily 90tabs Xochilt Barone MD 10/02/2021 Vitamin D (Ergocalciferol)1.25 mg (42023 Ut) Capsules take 1 capsule by mouth once weekly 12jacinto Barone MD 10/02/2021 Bjflrmtuikxtwy24ye Tablets take 1 tablet by mouth once daily 90tabs Xochilt Barone MD 09/17/2021 Prpgsfjzof75ip Tablets take 1 tablet by mouth daily for fluid 90tabs Xochilt Baorne MD 07/14/2020 Rosuvastatin Upcgbga3xg Tablets 1 tab by mouth every night at bedtime 90tabs Xochilt Barone MD 12/22/2019 Trazodone BTK16qr Tablets take 1 tablet by mouth at bedtime 90tabs F33.40 Xochilt Barone MD 11/02/2019 Amlodipine Slstxadp3ox Tablets take 1 tablet by mouth once daily 90tabs Xochilt Barone MD 10/17/2019 Zrcqso52xa/ml Soln Prefill Syringe one every 6 months 1ml Christian Mejia JR, MD 08/13/2019 Kqzthxomed65wi Tablets take 1 tablet by mouth every evening 90tabs K21.00 Xochilt Baorne MD 07/01/[address] take 1 tablet by mouth daily 90tabs Xochilt Barone MD 06/02/2019 Folic Ncyb3yy Tablets 1 by mouth every day 90tabs Xochilt Barone MD 04/29/2019 Methotrexate2.5mg Tablets 6 by mouth weekly 60tabs M06.9 Xochilt Barone MD 04/20/2019 Vitamin X728295Dklq Capsules 1 cap by mouth once weekly [...] mouth every day 90tabs Koby Hdez MD Qhogqkca1pn Tablets 1 tab by mouth three times a day as needed 270tabs Xochilt Barone MD Wyakad52gl Tablets 1 tab by mouth every day 90tabs Xochilt Barone MD Potassium Citrate BP78Qua (1080 mg) Tablets ER 1 tab by mouth every day 90tabs Shashi Luna MD Snncjb8mc Tablets 1 by mouth every 8 hours as needed nausea 60tabs Christian Mejia JR, MD Fluticasone Propionate/Salmetero p243-25agj/Act Aerosol inhale 1 puff by mouth and Into The Lungs In The Morning and 1 pu... (Refer To Raulito You DR History Medications Cmanxtwhsds992cw Tablets 1 tablet by mouth two times a day for 10 days 20tabs Xochilt Barone MD 12/01/2023 - 12/04/2023 Tzqaxx9cp TBPK use as directed 21units Tamika Montanez MD 12/01/2023 - 12/04/2023 Dzuce614ko Tablets 1 by mouth twice a day for 10 days 20tabs D72.829 Xochilt Barone MD 09/11/2023 - 10/09/2023 Fwdkyjauz26wf Tablets take 1 tablet every day with food as needed for joint pain 90tabs M79.672 Xochilt Barone MD 08/07/2023 - 10/09/2023 Meloxicam7.5mg Tablets take one tab daily as needed for pain 10tabs M79.672 Xochilt Barone MD 06/25/2023 - 08/07/2023 Jfmdwxyqbh26xn Tablets 4 tab by mouth daily for 4 days then 3 tab daily for 4 days than 2 tablet daily for 4 days than 1 tab daily for 4 days 40qs M79.672 Xochilt Barone MD 06/25/2023 - 08/07/2023 Medications Administered in Office Medication SIG Qnty Indications Ordering Provider Date Injection Kenalog 10 MG NDC [id number] Ebony Hernández A-C 12/04/2023 Injection Ketorolac Tromethamine Per 15 mg/.5cc (Toradol)Injection AIDA Hernández 12/04/2023 Injection Dexamethasone Sodium Phosphate, 1 MGInjection Hayder Ann PA-C 11/20 Injection Kenalog 10 MG NDC 69337295218Szivpoihj Hayder Ann P A-C 10/09/2023 Injection Kenalog 10 MG NDC 07811562163Gacwkrpny Ebony Hernández A-C 07/08/2023 Injection Kenalog 10 MG NDC 16085582000Vivsvjwoz Hayder Ann P A-C 06/05/2023 Injection Kenalog 10 MG NDC 80749649755Zotzcvdpn Hayder Ann, P A-C 04/03/2023 Injection Kenalog 10 MG NDC 38189314349Nfnndadxe Hayder D. Lazorka, P A-C 03/17/2023 Injection Kenalog 10 MG NDC [id number] Hayder D. Lazorka, P A-C 12/30/2022 Injection Kenalog 10 MG NDC 50903916595Ghclnsgnk Hayder D. Lazorka, P A-C 09/26/2022 Injection Kenalog 10 MG NDC [id number] Hayder D. Lazorka, P A-C 07/05/2022 Injection Kenalog 10 MG NDC 72719606404Pmghyytvs Hayder D. Lazorka, P A-C 04/03/2022 Injection Kenalog 10 MG NDC [id number] Hayder D. Lazorka, P A-C 01/23/2022 Injection Kenalog 10 MG NDC 06290520437Deljywlmc Hayder D. Lazorka, P A-C 01/01/2022 Injection Kenalog 10 MG NDC 71392737971Yyrfjmfyj Hayder D. Lazorka, P A-C 11/21/2021 Injection Kenalog 10 MG NDC 79703469409Rnrehveds Hayder D. Lazorka, P A-C 10/02/2021 Injection Kenalog 10 MG NDC 61840939081Tesycgxhf Hayder D. Lazorka, P A-C 08/02/2021 Injection Kenalog 10 MG NDC 79086658110Quqtutsxn Hayder D. Lazorka, P A-C 04/30/2021 Injection Dexamethasone Sodium Phosphate, 1 MGInjection Hayder D. Lazorka, PA-C 03/22 Injection Kenalog 10 MG NDC 35750859697Lsxnpiwkg Hayder D. Lazorka, P A-C 02/08/2021 Injection Kenalog 10 MG NDC 24732134662Zcsnffhzm Hayder D. Lazorka, P A-C 10/26/2020 Injection Kenalog 10 MG NDC [id number] Hayder D. Lazorka, P A-C 04/20/2020 Injection Kenalog 10 MG NDC [id number] Hayder D. Lazorka, P A-C 04/20/2020 Injection Kenalog 10 MG NDC [id number] Hayder D. Lazorka, P A-C 01/20/2020 Injection Kenalog 10 MG NDC [id number] Hayder Baker Jessjerod, P A-C 07/01/2019 Injection Kenalog 10 MG NDC 19795202199Kswqmfrbc Hayder Baker Dadarommel, P A-C 02/16/2019 Injection Kenalog 10 MG NDC 23528642517Rkazwqwzy Hayder Samuel Mercadojerod, P A-C 11/27/2018 Injection Kenalog 10 MG NDC 96000398935Ctznymutb Hayder ConleySuzette Mercadojerod, P A-C 09/28/2018 Injection Kenalog 10 MG NDC 89732365294Zbcytwdxg Hayder ConleySuzette Mercadojerod, P A-C 08/19/2018 Celestone Soluspan 3 MG 6MG/MLInjection Hayder Samuel Ann, PA-C 0 05/27/2018 Celestone Soluspan 3 MG 6MG/MLInjection Jordon L. Belgica, PA-C 02/2018 Injection Kenalog 10 MG NDC 80956763331Gcbcyyeff Jordon L. Belgica, PA- C 12/24/2017 Injection Kenalog 10 MG NDC 28322759881Vghsvjcpa Jordon L. Belgica, PA- C 12/24/2017 Injection Dexamethasone Sodium Phosphate, 1 MGInjection Jordon L. Belgica, PA-C 2017 Injection Dexamethasone Sodium Phosphate, 1 MGInjection Jordon L. Belgica, PA-C 2017 Injection Kenalog 10 MG NDC 81331112141Ndizgyans Jordon L. Belgica, PA- C 10/28/2017 Injection Dexamethasone Sodium Phosphate, 1 MGInjection Jordon L. Belgica, PA-C 2017 Injection Kenalog 10 MG NDC 32175359685Copswnbcg Jordon L. Belg[place], PA- C 09/01/2017 Injection Dexamethasone Sodium Phosphate, 1 MGInjection Jordon L. Belgica, PA-C 2016 Immunizations CPT Code Status Date Vaccine Lot # [id number] Given 07/24/2023 Influenza Vaccine High Do se 0.5ML Age 65 & > 51480 Given 07/09/2022 Moderna Sars-Co v-2 (Covid-19) Vaccine, BiValent Booster 12y+ [id number] U-FLU Given 06/27/2022 Influenza,Unspecified 64832 Given 01/01/2022 Moderna Covid-1 9 Vaccine 50mcg Booster-EMR Doc Only [id number] 25134 Given 08/21/2021 Moderna Covid-1 9 Vaccine 50mcg Booster-EMR Doc Only [id number] U-FLU Given 05/28/2021 Influenza,Unspecified 25201 Given 11/24/2020 Moderna Sars-Co v-2 (Cov-19) vacc,100 mcg/ 0.5 mL 12Y+EMR Doc Only [id number] 29996 Given 10/27/2020 Moderna Sars-Co v-2 (Cov-19) vacc,100 mcg/ 0.5 mL 12Y+EMR Doc Only [id number] 88275 Given 09/29/2020 Shingrix 00018 Given 07/26/2020 Pneumococcal Vaccine/Pneu movax 23 [id number] U-FLU Given 05/13/2020 Influenza,Unspecified 279 784 05295 Given 05/13/2020 Shingrix 37220 Given 07/27/2019 Influenza Virus Vaccine, Quadrivalent (Cciiv4), Derived From Cell U-FLU Given 07/27/2019 Influenza,Unspecified 71784 Given 05/16/2019 Tdap (Tetanus, diphtheria & acel. pertussis) Adacel or Boostrix 40968 Given 12/28/2018 Pneumococcal Conjugate-Pr evnar 13 [id number] U-FLU Given 07/09/2018 Influenza,Unspecified 87289 Given 07/09/2018 Influenza Vacci ne Quadrivalent Preser/Antibiotic Free Im Use U-FLU Given 07/22/2017 Influenza,Unspecified U-FLU Given 06/25/2016 Influenza,Unspecified 37450 Given 01/20/2016 Pneumococcal Conjugate-Pr evnar 13 U-FLU Given 07/07/2015 Influenza,Unspecified U-FLU Given 05/17/2014 Influenza,Unspecified 14756 Given 12/02/2013 Zostavax Vaccine 81005 Given 03/22/2005 TB Intradermal Test 03566 Refused 06/02/2019 Tdap (Tetanus, diphtheria & acel. [...] Status 12/04/2023 J3301 Injection Kenalog 10 MG [facility] 34387982683 Completed 12/04/2023 J1885 Injection Ketoro lac Tromethamine Per 15 mg/.5cc (Toradol) Completed 12/04/2023 J1100 Injection Dexamethasone Sodi um Phosphate, 1 MG Completed 12/01/2023 G2211 Continuation of care e/m vis it add on Completed 10/09/2023 J3301 Injection Kenalog 10 MG [facility] 50749842953 Completed 10/09/2023 3078F PVRP Diastolic BP <80 mmHg C ompleted 10/09/2023 3075F PVRP Systolic BP 130 To 139 MMHG Completed 10/09/2023 39699 Inject/Drain Arthrocentesis Major Joint/Bursa Completed 09/17/2023 44379620 Colonoscopy Completed 08/11/2023 450528102 Bone Mineral Density Test Co mpleted 08/07/2023 3078F PVRP Diastolic BP <80 mmHg C ompleted 08/07/2023 3075F PVRP Systolic BP 130 To 139 MMHG Completed 07/08/2023 J3301 Injection Kenalog 10 MG [facility] 56197402711 Completed 07/08/2023 21789 Inject/Drain Arthrocentesis Intermediate Joint/Bursa Completed 07/25/2022 22307127 Mammogram Completed Medical Devices Description No Information [...] 2:15 pm - Hayder Ann PA-C at [place] 12/01/2023 - Hayder Ann PA-C* H66.92 Otitis [...]
--- OUTSIDE RECORDS SUMMARY | 2023-12-28 02:41 | External Medical Summary | Continuity of Care Document ---
Author Name Unknown Organization [place] Address [address] [facility] [place] [address] Phone [phone] Problems Active Problems Provider Date Chronic pain Jordon Lnido PA-C Onset: 07/2017 Low back pain Jordon [...] 20ml Xochilt Barone MD 12/01/2023 - 12/11/2023 Atwskt8rs TBPK use as directed 21units Tamika Montanez MD 12/01/2023 - 12/08/2023 Xxicgdfwvax864eb Tablets 1 tablet by mouth two times a day for 10 days 20tabs Xochilt Barone MD 12/01/2023 - 12/11/2023 Qcmaemapqh62rq Tablets two tablets x 10 days then one tablet daily x 10 days 30tabs Xochilt Barone MD 10/09/2023 Mupirocin2% Ointment apply on affected areas twice a day as needed 22gm Xochilt Barone MD 03/20/2022 Potassium Citrate-Citric Zsbo9581-419sg/5ML Solution 5ml daily 1419ml Xochilt Barone MD 01/03/2022 Ceqeplahy576(65Fe) mg Tablets 1 by mouth daily 90tabs Xochilt Barone MD 10/02/2021 Vitamin D (Ergocalciferol)1.25 mg (74020 Ut) Capsules take 1 capsule by mouth once weekly 12caps Xocihlt Barone MD 10/02/2021 Vjmupcghrfvcdb90ks Tablets take 1 tablet by mouth once daily 90tabs Xochilt Barone MD 09/17/2021 Vxpyvsfehb05bk Tablets take 1 tablet by mouth daily for fluid 90tabs Xochilt Barone MD 07/14/2020 Rosuvastatin Kayvptu6zx Tablets 1 tab by mouth every night at bedtime 90tabs Xochilt Barone MD 12/22/2019 Trazodone VDZ45vh Tablets take 1 tablet by mouth at bedtime 90tabs F33.40 Xochilt Barone MD 11/02/2019 Amlodipine Kirhxldc9li Tablets take 1 tablet by mouth once daily 90tabs Xochilt Barone MD 10/17/2019 Szdhuv95sf/ml Soln Prefill Syringe one every 6 months 1ml Christian Mejia JR, MD 08/13/2019 Mfzyphtwea68be Tablets take 1 tablet by mouth every evening 90tabs K21.00 Xochilt Barone MD 07/01/[address] take 1 tablet by mouth daily 90tabs Xochilt Barone MD 06/02/2019 Folic Pnzd0vj Tablets 1 by mouth every day 90tabs Xochilt Barone MD 04/29/2019 Methotrexate2.5mg Tablets 6 by mouth weekly 60tabs M06.9 Xochilt Barone MD 04/20/2019 Vitamin R297665Aeuw Capsules 1 cap by mouth once weekly [...] mouth every day 90tabs Koby Hdez MD Xgteywdl7du Tablets 1 tab by mouth three times a day as needed 270tabs Xochilt Barone MD Pgaand83iq Tablets 1 tab by mouth every day 90tabs Xochilt Barone MD Potassium Citrate II77Oze (1080 mg) Tablets ER 1 tab by mouth every day 90tabs Shashi Luna MD Bamitl0fm Tablets 1 by mouth every 8 hours as needed nausea 60tabs Christian Mejia JR, MD Fluticasone Propionate/Salmetero e547-06uhc/Act Aerosol inhale 1 puff by mouth and Into The Lungs In The Morning and 1 pu... (Refer To Raulito You DR History Medications Tpvxr500ds Tablets 1 by mouth twice a day for 10 days 20tabs D72.829 Xochilt Barone MD 09/11/2023 - 10/09/2023 Gvqprogwy16zj Tablets take 1 tablet every day with food as needed for joint pain 90tabs M79.672 Xochilt Barone MD 08/07/2023 - 10/09/2023 Meloxicam7.5mg Tablets take one tab daily as needed for pain 10tabs M79.672 Xochilt Barone MD 06/25/2023 - 08/07/2023 Bbfhakhbfx28ff Tablets 4 tab by mouth daily for 4 days then 3 tab daily for 4 days than 2 tablet daily for 4 days than 1 tab daily for 4 days 40qs M79.672 Xochilt Barone MD 06/25/2023 - 08/07/2023 Medications Administered in Office Medication SIG Qnty Indications Ordering Provider Date Injection Kenalog 10 MG NDC [id number] Hayder Ann, P A-C 10/09/2023 Injection Kenalog 10 MG NDC 47137994655Rhmvjtahf Hayder Ann, P A-C 07/08/2023 Injection Kenalog 10 MG NDC 64616467654Wajkfsmwf Hayder Ann, P A-C 06/05/2023 Injection Kenalog 10 MG NDC [id number] Hayder Mercadoa, P A-C 04/03/2023 Injection Kenalog 10 MG NDC 51713164466Iqqeczouj Hayder Ann, P A-C 03/17/2023 Injection Kenalog 10 MG NDC 89339842618Mveedrrpm Hayder Ann, P A-C 12/30/2022 Injection Kenalog 10 MG NDC 25318287467Qwtvptuge Hayder Ann, P A-C 09/26/2022 Injection Kenalog 10 MG NDC 88841509727Jlppeldiy Hayder Mercadoa, P A-C 07/05/2022 Injection Kenalog 10 MG NDC 94261317447Ubptjcarl Hayder Mercadoa, P A-C 04/03/2022 Injection Kenalog 10 MG NDC [id number] Hayder Mercadoa, P A-C 01/23/2022 Injection Kenalog 10 MG NDC [id number] Hayder Ann, P A-C 01/01/2022 Injection Kenalog 10 MG NDC 12371303939Odiyvqxgw Hayder D. Lazorka, P A-C 11/21/2021 Injection Kenalog 10 MG NDC [id number] Hayder D. Lazorka, P A-C 10/02/2021 Injection Kenalog 10 MG NDC [id number] Hayder D. Lazorka, P A-C 08/02/2021 Injection Kenalog 10 MG NDC 84013278246Jbcjhxnhv Hayder D. Lazorka, P A-C 04/30/2021 Injection Dexamethasone Sodium Phosphate, 1 MGInjection Hayder D. Lazcta, PA-C 03/22 Injection Kenalog 10 MG NDC 74458322635Uchwjutpd Hayder D. Lazcta, P A-C 02/08/2021 Injection Kenalog 10 MG NDC [id number] Hayder D. Lazcta, P A-C 10/26/2020 Injection Kenalog 10 MG NDC 49316556161Qbvjfqxnu Hayder D. Lazorka, P A-C 04/20/2020 Injection Kenalog 10 MG NDC [id number] Hayder D. Lazorka, P A-C 04/20/2020 Injection Kenalog 10 MG NDC [id number] Hayder D. Lazorka, P A-C 01/20/2020 Injection Kenalog 10 MG NDC [id number] Hayder D. Lazorka, P A-C 07/01/2019 Injection Kenalog 10 MG NDC 56431871367Btojwjybj Hayder D. Lazorka, P A-C 02/16/2019 Injection Kenalog 10 MG NDC 19188347988Lutdwpflg Hayder D. Lazorka, P A-C 11/27/2018 Injection Kenalog 10 MG NDC 68578350903Kfblgasts Hayder D. Lazorka, P A-C 09/28/2018 Injection Kenalog 10 MG NDC 84097594692Wfqukqpcs Hayder D. Lazorka, P A-C 08/19/2018 Celestone Soluspan 3 MG 6MG/MLInjection Hayder DSuzette Lazcta, PA-C 0 05/27/2018 Celestone Soluspan 3 MG 6MG/MLInjection Jordon Conley Belgica, PA-C 02/2018 Injection Kenalog 10 MG NDC 36886258627Kxarmwoev Jordon L. Belgica, PA- C 12/24/2017 Injection Kenalog 10 MG NDC 61892756450Vnifqznse Jordon L. Belgica, PA- C 12/24/2017 Injection Dexamethasone Sodium Phosphate, 1 MGInjection Jordon L. Belgica, PA-C 2017 Injection Dexamethasone Sodium Phosphate, 1 MGInjection Jordon L. Belgica, PA-C 2017 Injection Kenalog 10 MG NDC 67810293142Fugbktifm Jordon L. Belgica, PA- C 10/28/2017 Injection Dexamethasone Sodium Phosphate, 1 MGInjection Jorodn L. Belgica, PA-C 2017 Injection Kenalog 10 MG NDC 55661339135Daxjtsuxl Jordon L. Belgica, PA- C 09/01/2017 Injection Dexamethasone Sodium Phosphate, 1 MGInjection Jordon L. Belgica, PA-C 2016 Immunizations CPT Code Status Date Vaccine Lot # [id number] Given 07/24/2023 Influenza Vaccine High Do se 0.5ML Age 65 & > 41698 Given 07/09/2022 Moderna Sars-Co v-2 (Covid-19) Vaccine, BiValent Booster 12y+ [id number] U-FLU Given 06/27/2022 Influenza,Unspecified 85172 Given 01/01/2022 Moderna Covid-1 9 Vaccine 50mcg Booster-EMR Doc Only [id number] 15293 Given 08/21/2021 Moderna Covid-1 9 Vaccine 50mcg Booster-EMR Doc Only [id number] U-FLU Given 05/28/2021 Influenza,Unspecified 65884 Given 11/24/2020 Moderna Sars-Co v-2 (Cov-19) vacc,100 mcg/ 0.5 mL 12Y+EMR Doc Only [id number] 90155 Given 10/27/2020 Moderna Sars-Co v-2 (Cov-19) vacc,100 mcg/ 0.5 mL 12Y+EMR Doc Only [id number] 22438 Given 09/29/2020 Shingrix 05427 Given 07/26/2020 Pneumococcal Vaccine/Pneu movax 23 [id number] U-FLU Given 05/13/2020 Influenza,Unspecified 279 784 43776 Given 05/13/2020 Shingrix 80513 Given 07/27/2019 Influenza Virus Vaccine, Quadrivalent (Cciiv4), Derived From Cell U-FLU Given 07/27/2019 Influenza,Unspecified 79208 Given 05/16/2019 Tdap (Tetanus, diphtheria & acel. pertussis) Adacel or Boostrix 58596 Given 12/28/2018 Pneumococcal Conjugate-Pr evnar 13 [id number] U-FLU Given 07/09/2018 Influenza,Unspecified 72312 Given 07/09/2018 Influenza Vacci ne Quadrivalent Preser/Antibiotic Free Im Use U-FLU Given 07/22/2017 Influenza,Unspecified U-FLU Given 06/25/2016 Influenza,Unspecified 14103 Given 01/20/2016 Pneumococcal Conjugate-Pr evnar 13 U-FLU Given 07/07/2015 Influenza,Unspecified U-FLU Given 05/17/2014 Influenza,Unspecified 23215 Given 12/02/2013 Zostavax Vaccine 75461 Given 03/22/2005 TB Intradermal Test 10051 Refused 06/02/2019 Tdap (Tetanus, diphtheria & acel. [...] kg/m2 O2 % BldC Oximetry 98 % [place] Body Weight 115 lb Procedures Date Code Description Status 10/09/2023 J3301 Injection Kenalog 10 MG NDC [id number] Completed 10/09/2023 3078F PVRP Diastolic BP <80 mmHg C ompleted 10/09/2023 3075F PVRP Systolic BP 130 To 139 MMHG Completed 10/09/2023 02605 Inject/Drain Arthrocentesis Major Joint/Bursa Completed 09/17/2023 59367419 Colonoscopy Completed 08/11/2023 705159276 Bone Mineral Density Test Co mpleted 08/07/2023 3078F PVRP Diastolic BP <80 mmHg C ompleted 08/07/2023 3075F PVRP Systolic BP 130 To 139 MMHG Completed 07/08/2023 J3301 Injection Kenalog 10 MG NDC 12615397892 Completed 07/08/2023 Inject/Drain Arthrocentesis Intermediate Joint/Bursa Completed 06/05/2023 J3301 Injection Kenalog 10 MG NDC 72513612270 Completed 06/05/2023 3078F PVRP Diastolic BP <80 mmHg C ompleted 06/05/2023 3074F PVRP Systolic BP <130 mmHg C ompleted 06/05/202350899 Inject/Drain Arthrocentesis Major Joint/Bursa Completed 07/25/2022 94868062 Mammogram Completed Medical Devices Description No Information [...] in left foot Office Visit 06/05/2023 10:00a Osmany Ann PA-C I10 Essential (primary) hypertension E78.2 Mixed hyperlipidemia M06.9 Rheumatoid arthritis , unspecified M46.1 Sacroiliitis, not el sewhere classified F33.40 Major depressive dis order, recurrent, in remission, unsp Assessments Date Code Description Provider 12/01/2023 H66.92 Otitis media, unspecified, l eft ear Hayder Ann, PA-C 12/01/2023 H60.312 Diffuse otitis externa, left ear Hayder Ann PA-C 10/09/2023 I10 Essential (primary) hyperten ezra Haydernilesh Ann, PA-C 10/09/2023 E78.2 Mixed hyperlipidemia Hayder Ann, PA-C 10/09/2023 M06.9 Rheumatoid arthritis, unspec ified Hayderestefanía Ann, PA-C 10/09/2023 F33.40 Major depressive disorder, recurrent, in remission, unspecified Hayder Ann PA-C 10/09/2023 M46.1 Sacroiliitis, not elsewhere classified Hayder Ann PA-C 08/07/2023 I10 Essential (primary) hyperten ezra Haydernilesh Ann, PA-C 08/07/2023 E78.2 Mixed hyperlipidemia Hayder Ann, PA-C 08/07/2023 F33.40 Major depressive disorder, recurrent, in remission, unspecified Hayder Ann, PA-C 08/07/2023 M46.1 Sacroiliitis, not elsewhere classified Hayder Ann PA-C 07/08/2023 M72.2 Plantar fascial fibromatosis Hayder Ann, PA-C 07/08/2023 G89.4 Chronic pain syndrome Hayder Ann PA-C 06/25/2023 M79.672 Pain in left foot Xochilt barnett MD 06/05/2023 I10 Essential (primary) hyperten ezra Haydernilesh Ann, PA-C 06/05/2023 E78.2 Mixed hyperlipidemia Hayder Ann, PA-C 06/05/2023 M06.9 Rheumatoid arthritis, unspec ified Hayder Jarvis. Lazorka, PA-C 06/05/2023 M46.1 Sacroiliitis, not elsewhere classified Hayder Ann PA-C 06/05/2023 F33.40 Major depressive disorder, recurrent, in remission, unspecified Hayder Ann PA-C Plan of Treatment Future Appointment(s):* 01/01/2024 2:15 pm - Hayder Ann PA-C at [place] 12/01/2023 - Hayder Ann PA-C* H66.92 Otitis [...]
--- OUTSIDE RECORDS SUMMARY | 2023-12-28 02:41 | External Medical Summary | Continuity of Care Document ---
Author Name Unknown Organization [facility] Address [address] [facility] [place] [address] Phone [phone] Problems Active Problems Provider Date Chronic pain [...] 20ml Xochilt Barone MD 12/01/2023 - 12/11/2023 Lonxnx7nf TBPK use as directed 21units Tamika Montanez MD 12/01/2023 - 12/08/2023 Hrbdtvfgelf823la Tablets 1 tablet by mouth two times a day for 10 days 20tabs Xochilt Barone MD 12/01/2023 - 12/11/2023 Oxixpnzpqc58ln Tablets two tablets x 10 days then one tablet daily x 10 days 30tabs Xochilt Barone MD 10/09/2023 Mupirocin2% Ointment apply on affected areas twice a day as needed 22gm Xochilt Barone MD 03/20/2022 Potassium Citrate-Citric Zkpx6307-235nw/5ML Solution 5ml daily 1419ml Xochilt Barone MD 01/03/2022 Ckczxyley785(65Fe) mg Tablets 1 by mouth daily 90tabs Xochilt Barone MD 10/02/2021 Vitamin D (Ergocalciferol)1.25 mg (17916 Ut) Capsules take 1 capsule by mouth once weekly 12caps Xochilt Barone MD 10/02/2021 Mddzygyvnqovyf06dc Tablets take 1 tablet by mouth once daily 90tabs Xochilt Barone MD 09/17/2021 Zevjujdnsf03kz Tablets take 1 tablet by mouth daily for fluid 90tabs Xochilt Barone MD 07/14/2020 Rosuvastatin Jmckagl5ri Tablets 1 tab by mouth every night at bedtime 90tabs Xochilt Barone MD 12/22/2019 Trazodone IJW47kk Tablets take 1 tablet by mouth at bedtime 90tabs F33.40 Xochilt Barone MD 11/02/2019 Amlodipine Cumnbyam5qh Tablets take 1 tablet by mouth once daily 90tabs Xochilt Barone MD 10/17/2019 Fkpnre03co/ml Soln Prefill Syringe one every 6 months 1ml Christian Mejia JR, MD 08/13/2019 Ntizjzrtaq94lx Tablets take 1 tablet by mouth every evening 90tabs K21.00 Xochilt Barone MD 07/01/[address] take 1 tablet by mouth daily 90tabs Xochilt Barone MD 06/02/2019 Folic Vkws8od Tablets 1 by mouth every day 90tabs Xochilt Barone MD 04/29/2019 Methotrexate2.5mg Tablets 6 by mouth weekly 60tabs M06.9 Xochilt Barone MD 04/20/2019 Vitamin T265246Sfto Capsules 1 cap by mouth once weekly [...] mouth every day 90tabs Koby Hdez MD Twelpkrb6do Tablets 1 tab by mouth three times a day as needed 270tabs Xochilt Barone MD Zwdrxe77dm Tablets 1 tab by mouth every day 90tabs Xochilt Barone MD Potassium Citrate IE44Uze (1080 mg) Tablets ER 1 tab by mouth every day 90tabs Shashi Luna MD Fqpnop3jq Tablets 1 by mouth every 8 hours as needed nausea 60tabs Christian Mejia JR, MD Fluticasone Propionate/Salmetero a043-22tev/Act Aerosol inhale 1 puff by mouth and Into The Lungs In The Morning and 1 pu... (Refer To Raulito You DR History Medications Agrzu584qe Tablets 1 by mouth twice a day for 10 days 20tabs D72.829 Xochilt Barone MD 09/11/2023 - 10/09/2023 Wskegpocw96hl Tablets take 1 tablet every day with food as needed for joint pain 90tabs M79.672 Xochilt Barone MD 08/07/2023 - 10/09/2023 Meloxicam7.5mg Tablets take one tab daily as needed for pain 10tabs M79.672 Xochilt Barone MD 06/25/2023 - 08/07/2023 Kswdxvqrab31mp Tablets 4 tab by mouth daily for 4 days then 3 tab daily for 4 days than 2 tablet daily for 4 days than 1 tab daily for 4 days 40qs M79.672 Xochilt Barone MD 06/25/2023 - 08/07/2023 Medications Administered in Office Medication SIG Qnty Indications Ordering Provider Date Injection Kenalog 10 MG NDC [id number] Hayder Ann, P A-C 10/09/2023 Injection Kenalog 10 MG NDC 34327568979Qrswkgfrk Hayder Ann, P A-C 07/08/2023 Injection Kenalog 10 MG NDC 88043204887Dgyibkrlr Hayder Ann, P A-C 06/05/2023 Injection Kenalog 10 MG NDC [id number] Hayder Mercadoa, P A-C 04/03/2023 Injection Kenalog 10 MG NDC 69232302843Uwmcitsvu Hayder Ann, P A-C 03/17/2023 Injection Kenalog 10 MG NDC 46971641246Vnpnuzqga Hayder Ann, P A-C 12/30/2022 Injection Kenalog 10 MG NDC 89600970290Lzgieibml Hayder Ann, P A-C 09/26/2022 Injection Kenalog 10 MG NDC 20296897388Qitzpqjrb Hayder Mercadoa, P A-C 07/05/2022 Injection Kenalog 10 MG NDC 48714664546Mdhwvfxjq Hayder Mercadoa, P A-C 04/03/2022 Injection Kenalog 10 MG NDC 04994501888Vdkgirlop Hayder Mercadoa, P A-C 01/23/2022 Injection Kenalog 10 MG NDC 99351591945Wnklfgpfc Hayder Ann, P A-C 01/01/2022 Injection Kenalog 10 MG NDC 42601297435Ssywjkpnk Hayder D. Lazorka, P A-C 11/21/2021 Injection Kenalog 10 MG NDC [id number] Hayder D. Lazorka, P A-C 10/02/2021 Injection Kenalog 10 MG NDC 64168605945Zsabbxnsj Hayder D. Lazorka, P A-C 08/02/2021 Injection Kenalog 10 MG NDC 98720496024Ygynmmyhd Hayder D. Lazorka, P A-C 04/30/2021 Injection Dexamethasone Sodium Phosphate, 1 MGInjection Hayder D. Laz[place]a, PA-C 03/22 Injection Kenalog 10 MG NDC 51360117698Rpfcskroe Hayder D. Lazcta, P A-C 02/08/2021 Injection Kenalog 10 MG NDC 91239946103Zimuyzvam Hayder D. Lazcta, P A-C 10/26/2020 Injection Kenalog 10 MG NDC 92079328364Bypeiuxmr Hayder D. Lazorka, P A-C 04/20/2020 Injection Kenalog 10 MG NDC 85079315745Dglqapuiw Hayder D. Lazorka, P A-C 04/20/2020 Injection Kenalog 10 MG NDC [id number] Hayder D. Lazorka, P A-C 01/20/2020 Injection Kenalog 10 MG NDC 52483843392Lfsppzfub Hayder D. Lazorka, P A-C 07/01/2019 Injection Kenalog 10 MG NDC 40561039411Xlngqvjps Hayder D. Lazorka, P A-C 02/16/2019 Injection Kenalog 10 MG NDC 04367718613Vtctuwhsi Hayder D. Lazorka, P A-C 11/27/2018 Injection Kenalog 10 MG NDC [id number] Hayder D. Lazorka, P A-C 09/28/2018 Injection Kenalog 10 MG NDC 44947777465Unvhhntxr Hayder D. Lazorka, P A-C 08/19/2018 Celestone Soluspan 3 MG 6MG/MLInjection Hayder DSuzette Lazcta, PA-C 0 05/27/2018 Celestone Soluspan 3 MG 6MG/MLInjection Jordon Conley [place], PA-C 02/2018 Injection Kenalog 10 MG NDC 56148610737Bjmruqqes Jordon L. [place], PA- C 12/24/2017 Injection Kenalog 10 MG NDC 31341488841Fgwtngndn Jordon L. [place], PA- C 12/24/2017 Injection Dexamethasone Sodium Phosphate, 1 MGInjection Jordon L. [place], PA-C 2017 Injection Dexamethasone Sodium Phosphate, 1 MGInjection Jordon L. [place], PA-C 2017 Injection Kenalog 10 MG NDC 80176619029Nhiqwhxgr Jordon L. [place], PA- C 10/28/2017 Injection Dexamethasone Sodium Phosphate, 1 MGInjection Jordon L. [place], PA-C 2017 Injection Kenalog 10 MG NDC 97284346643Mausodclp Jordon L. [place], PA- C 09/01/2017 Injection Dexamethasone Sodium Phosphate, 1 MGInjection Jordon L. [place], PA-C 2016 Immunizations CPT Code Status Date Vaccine Lot # [id number] Given 07/24/2023 Influenza Vaccine High Do se 0.5ML Age 65 & > [id number] Given 07/09/2022 Moderna Sars-Co v-2 (Covid-19) Vaccine, BiValent Booster [id number]+ [id number] U-FLU Given 06/27/2022 Influenza,Unspecified 81250 Given 01/01/2022 Moderna Covid-1 9 Vaccine 50mcg Booster-EMR Doc Only [id number] 41369 Given 08/21/2021 Moderna Covid-1 9 Vaccine 50mcg Booster-EMR Doc Only [id number] U-FLU Given 05/28/2021 Influenza,Unspecified 30237 Given 11/24/2020 Moderna Sars-Co v-2 (Cov-19) vacc,100 mcg/ 0.5 mL 12Y+EMR Doc Only [id number] 35325 Given 10/27/2020 Moderna Sars-Co v-2 (Cov-19) vacc,100 mcg/ 0.5 mL 12Y+EMR Doc Only [id number] 78511 Given 09/29/2020 Shingrix 40738 Given 07/26/2020 Pneumococcal Vaccine/Pneu movax 23 [id number] U-FLU Given 05/13/2020 Influenza,Unspecified 279 784 52881 Given 05/13/2020 Shingrix 52983 Given 07/27/2019 Influenza Virus Vaccine, Quadrivalent (Cciiv4), Derived From Cell U-FLU Given 07/27/2019 Influenza,Unspecified 09972 Given 05/16/2019 Tdap (Tetanus, diphtheria & acel. pertussis) Adacel or Boostrix 43434 Given 12/28/2018 Pneumococcal Conjugate-Pr evnar 13 [id number] U-FLU Given 07/09/2018 Influenza,Unspecified 68702 Given 07/09/2018 Influenza Vacci ne Quadrivalent Preser/Antibiotic Free Im Use U-FLU Given 07/22/2017 Influenza,Unspecified U-FLU Given 06/25/2016 Influenza,Unspecified 52470 Given 01/20/2016 Pneumococcal Conjugate-Pr evnar 13 U-FLU Given 07/07/2015 Influenza,Unspecified U-FLU Given 05/17/2014 Influenza,Unspecified 82011 Given 12/02/2013 Zostavax Vaccine 37487 Given 03/22/2005 TB Intradermal Test 99517 Refused 06/02/2019 Tdap (Tetanus, diphtheria & acel. [...] kg/m2 O2 % BldC Oximetry 98 % [facility] Body Weight 115 lb Procedures Date Code Description Status 10/09/2023 J3301 Injection Kenalog 10 MG NDC [id number] Completed 10/09/2023 3078F PVRP Diastolic BP <80 mmHg C ompleted 10/09/2023 3075F PVRP Systolic BP 130 To 139 MMHG Completed 10/09/2023 47599 Inject/Drain Arthrocentesis Major Joint/Bursa Completed 09/17/2023 85618678 Colonoscopy Completed 08/11/2023 253286446 Bone Mineral Density Test Co mpleted 08/07/2023 3078F PVRP Diastolic BP <80 mmHg C ompleted 08/07/2023 3075F PVRP Systolic BP 130 To 139 MMHG Completed 07/08/2023 J3301 Injection Kenalog 10 MG NDC 12514241930 Completed 07/08/2023 Inject/Drain Arthrocentesis Intermediate Joint/Bursa Completed 06/05/2023 J3301 Injection Kenalog 10 MG NDC 35455782326 Completed 06/05/2023 3078F PVRP Diastolic BP <80 mmHg C ompleted 06/05/2023 3074F PVRP Systolic BP <130 mmHg C ompleted 06/05/202393299 Inject/Drain Arthrocentesis Major Joint/Bursa Completed 07/25/2022 [id number] Mammogram Completed Medical Devices Description No Information [...] 2:15 pm - Hayder Ann PA-C at [facility] 12/01/2023 - aHyder Ann PA-C* H66.92 Otitis media, unspecified, left [...]
--- NOTE | 2023-12-28 03:13 | Emergency Department Note ---
Impression & Plan Enterocolitis, Rotavirus enteritis Admit to the [facility] ED Provider Note NAME: KATYA BRAGG AGE: 78 SEX: Female INFORMANT: Patient ED PROVIDER(S): Princess Tracey DO CHIEF COMPLAINT: Nausea, vomiting, diarrhea PLAN: Disposition: Admit to the [facility] MEDICAL DECISION MAKING: This is a 78-year-old female patient who presents to the emergency department with abdominal pain and nausea, vomiting, and diarrhea. Most of the history is obtained from the patient's sister who is at the bedside. She explains that this is the exact same presentation the patient was seen for in the emergency department just a couple weeks ago except now the patient also has diarrhea. Patient mostly complains of severe nausea and shaking chills. Patient received IV Zofran from EMS. I gave her subsequent dose here. I then went on to give her IV Reglan, IV Bentyl and IV morphine for her crampy abdominal pain. She continues to have episodes of nausea vomiting and profuse diarrhea. The stool was sent and was positive for rotavirus. Other laboratory studies revealed a white blood cell count of 11.8. H&H were stable. Potassium was slightly low at 3.4. Glucose was 154. Transaminases were only slightly elevated in comparison to the previous evaluation here in the ER where they were elevated. Troponin was negative and urinalysis was unremarkable. The case was discussed with the [facility] and the patient will stay here in the hospital for intractable vomiting and diarrhea. Care/management discussed with: policy and planning manager, the patient, her sister and the [facility]ist and resident Triage Nursing notes: reviewed and agree with with them. Vital Signs: reviewed and remarkable for hypertension Additional History obtained from: Her sister who is at the bedside Chronic Medical/Social Conditions affecting care: Ulcerative colitis Prior/ Outside/ External records reviewed: Recent admission to the hospital with similar symptoms Differential Diagnosis: Small bowel obstruction, pancreatitis, ulcerative colitis exacerbation, viral gastroenteritis Diagnostics, independently interpreted by me: ECG: Normal sinus rhythm at a rate of [address] segment elevation or signs of ischemia. There is no ectopy. Cardiac Monitoring: Normal sinus rhythm at a rate of 84 Imaging studies: CT scan of the abdomen/pelvis: As per stat rad HPI: 78 year old Female arrives for evaluation of epigastric pain with nausea, vomiting and diarrhea. Patient was in her usual state of health earlier today until after lunchtime when she developed significant epigastric pain. She then began to vomit and developed diarrhea. She now presents to the emergency department with shaking chills. Patient sister explains that she had a very similar presentation just a couple of weeks ago for which she was hospitalized. The only difference is there was no diarrhea associated with that admission. PAST MEDICAL HISTORY: See Below, PAST SURGICAL HISTORY: See Below, SOCIAL HISTORY: See Below, HOME MEDICATIONS: See list ALLERGIES: None VITALS: See Below PHYSICAL EXAMINATION: HEENT: Head - normocephalic and atraumatic. Pupils are equal, round, and reactive to light. Extraocular eye muscles are intact, and sclera are anicteric. Nose - moist nasal mucosa without discharge. Mouth - moist buccal mucosa. Oropharynx is nonerythematous and there is no tonsillar exudate or edema noted. Neck: Supple; no cervical lymphadenopathy or nuchal rigidity Heart: Regular rate and rhythm. There is a normal S1 and S2 with no murmurs, clicks, or gallops appreciated. Lungs: Clear to auscultation bilaterally with no wheezes, rales, or rhonchi. Abdomen: Soft, moderate tenderness to palpation in the epigastrium nondistended, with good bowel sounds. There are no palpable pulsatile masses or hepatosplenomegaly. There is no guarding, rigidity, or rebound noted. Extremities: No evidence of cyanosis, clubbing, or edema. There are easily palpable peripheral pulses. Skin: Pale, warm and dry with good turgor and no rashes. Emergency department treatment: Supplemental oxygen vehicle monitor technician, IV normal saline, IV Zofran, IV morphine, IV Reglan, IM Bentyl ED course, the patient was evaluated in room A-10. Previously chronic medical records were reviewed. An IV lock was initiated and labs were drawn as above. The patient was bolused with IV normal saline solution and given another dose of IV Zofran. A twelve-lead EKG was obtained. An order was placed for continuous cardiac monitoring. The patient was in a normal sinus rhythm at a rate of 84. She went for CT scan of the abdomen/pelvis. Upon returning from radiology, the patient continued to store self and vomit. A stool specimen was sent for analysis. She was given a dose of IV morphine, IV Reglan, and IM Bentyl. The stool specimen was positive for rotavirus. I discussed the case with the [facility] Hospitalist. Past Med/Surg History Medical History Rectal bleeding Colitis Allergy-induced asthma Schatzki's ring History of esophageal dilatation Cervicalgia Diverticulosis of colon History of SCC (squamous cell carcinoma) of skin Internal hemorrhoids Nausea and vomiting after administration of anesthetic agent Chronic back pain History of renal failure d/t kidney stones. Follows with Dr. Foster. Kidney stones hx Basal cell carcinoma of chest removed in office Basal cell carcinoma of face removed in office Anemia Glaucoma Anxiety Depression Occipital neuralgia hx of--had nerve ablations x5 Bradycardia 40-50s is normal HR Upper GI bleed hx Surgical History History of lumpectomy of right breast benign History of lumbar discectomy History of total right hip replacement History of cystoscopy with stent History of total abdominal hysterectomy and bilateral salpingo-oophorectomy History of colonoscopy History of appendectomy History of cholecystectomy History of esophagogastroduodenoscopy (EGD) (~12/2018) History of tooth extraction all teeth removed History of bilateral cataract extraction Status post glaucoma surgery right eye has a shunt in place Family History Father Heart disease Brother Kidney disease Mother Kidney disease Other No family history of adverse response to anesthesia Social History Smoking Status: Former smoker Tobacco Type: Cigarettes Second Hand Exposure: Yes (father smoked/ smoked); Do You Dip or Chew Tobacco: No; Hx Alcohol Use: No Hx Substance Use: No Preferred Language: Canadian Communication Ability: Effective Lead Front Desk Agent Required: No Beliefs That Will Affect Care: None Current Living Situation: Alone Other Information That Helps Us Care for You: No Feels Safe at Home: Yes Safety Concerns: Feels Safe At This Time Assistive Devices: Oxygen - Continuous Allergies Allergies Allergy/AdvReac Type Severity Reaction Status Date / Time No Known Allergies Allergy Verified 12/28/23 02:51 Home Meds Home Medications Medication Instructions Recorded Confirmed amlodipine 5 mg tablet 5 mg PO QAM 01/07/19 12/28/23 oxycodone-acetaminophen 5 mg-325 1 tab PO Q6H PRN Pain 01/07/19 12/28/23 mg tablet (Percocet) rosuvastatin 5 mg tablet (Crestor) 5 mg PO HS 01/07/19 12/28/23 furosemide 20 mg tablet (Lasix) 20 mg PO QAM 10/23/19 12/28/23 trazodone 50 mg tablet 25 - 50 mg PO HS 04/04/20 12/28/23 famotidine 40 mg tablet 40 mg PO HS 10/30/20 12/28/23 pantoprazole 40 mg tablet,delayed 40 mg PO QAM 10/30/20 12/28/23 release timolol maleate (PF) 0.5 % eye 1 drp ophthalmic (eye) BID 10/30/20 12/28/23 drops in a dropperette denosumab 60 mg/mL subcutaneous 60 mg subcut Q6MO 04/29/22 12/28/23 syringe (Prolia) folic acid 1 mg tablet 1 mg PO DAILY 07/04/22 12/28/23 brimonidine 0.2 %-timolol 0.5 % 1 drp ophthalmic (eye) BID 07/25/23 12/28/23 eye drops (Combigan) melatonin 5 mg tablet 5 mg PO HS PRN Sleep/PAIN 09/08/23 12/28/23 celecoxib 200 mg capsule 200 mg PO HS PRN Pain 11/11/23 12/28/23 cholecalciferol (vitamin D3) 25 25 mcg PO DAILY 11/11/23 12/28/23 mcg (1,000 unit) capsule (Vitamin D3) citalopram 20 mg tablet (Celexa) 20 mg PO DAILY 11/11/23 12/28/23 diclofenac sodium 1 % topical gel 2 g topical TID PRN Pain 11/11/23 12/28/23 methotrexate sodium 2.5 mg tablet 12.5 mg PO WK 11/11/23 12/28/23 potassium citrate 10 mEq (1,080 10 meq PO DAILY 11/11/23 12/28/23 mg) tablet,extended release spironolactone 25 mg tablet 25 mg PO DAILY 11/11/23 12/28/23 dicyclomine 20 mg tablet 20 mg PO QID PRN ABD DISCOMFORT 12/28/23 12/28/23 fluticasone 500 mcg-salmeterol 50 1 inh inhalation BID 12/28/23 12/28/23 mcg/dose blistr powdr for inhalation meclizine 25 mg tablet 25 mg PO TID PRN Dizziness 12/28/23 12/28/23 Previous Rx's Medication Instructions Recorded prochlorperazine maleate 10 mg 10 mg PO QID PRN nausea and 11/12/23 tablet vomiting #14 tabs Results & Data (ED) Vital Signs Vital Signs - 24 hr 12/28/23 02:46 12/28/23 03:13 12/28/23 04:00 Temperature 37.2 C Temperature Source Oral Pulse Rate 84 85 Pulse Rate [Apical] 77 Respiratory Rate 18 27 H 24 Respiratory Effort / Characteristics Non-Labored Spontaneous Respiratory Depth Normal Respiratory Pattern Regular Blood Pressure 193/66 H Blood Pressure [Right Arm] 193/66 H Blood Pressure Mean 108 Blood Pressure Mean [Right Arm] 108 Blood Pressure Position Semi-fowlers Pulse Oximetry 95 94 94 Oxygen Delivery Method Room Air Nasal Cannula Nasal Cannula Oxygen Flow Rate 2 2 Sepsis Recent Fever Within 48 Hours No Sepsis New/Unexplained Change in Mental Status N/A Sepsis Action Taken by Nursing No Action Required 12/28/23 04:34 Temperature Temperature Source Pulse Rate 82 Pulse Rate [Apical] Respiratory Rate Respiratory Effort / Characteristics Respiratory Depth Respiratory Pattern Blood Pressure Blood Pressure [Right Arm] Blood Pressure Mean Blood Pressure Mean [Right Arm] Blood Pressure Position Pulse Oximetry Oxygen Delivery Method Oxygen Flow Rate Sepsis Recent Fever Within 48 Hours Sepsis New/Unexplained Change in Mental Status Sepsis Action Taken by Nursing Laboratory Data 12/28/23 03:07 12/28/23 03:07 Lab Results 12/28/23 12/28/23 12/28/23 Range/Units 03:07 04:59 05:18 WBC 11.85 H (4.8-10.8) K/ul RBC 4.05 L (4.20-5.40) M/uL Hgb 12.8 (12.0-16.0) g/dl Hct 39.3 (37.0-47.0) % MCV 97.0 (80.0-100.0) fL MCH 31.6 (25.0-34.0) pg MCHC 32.6 (32.0-36.0) g/dL RDW Std Deviation 50.0 H (36.4-46.3) fL RDW Coeff of [place] 14.1 (11.5-14.5) % Plt Count 219 (130-400) K/uL MPV 10.4 (9.4-12.4) fL Immature Gran % (Auto) 0.5 % Neut % (Auto) 86.6 % Lymph % (Auto) 5.7 % [place] % (Auto) 6.0 % Eos % (Auto) 1.0 % Baso % (Auto) 0.2 % Neut # (Auto) 10.27 H (1.40-6.50) K/uL Lymph # (Auto) 0.67 L (1.20-3.40) K/uL [place] # (Auto) 0.71 H (0.11-0.59) K/uL Eos # (Auto) 0.12 (0.00-0.50) K/uL Baso # (Auto) 0.02 (0.00-0.20) K/uL Immature Gran # (Auto) 0.06 (0.01-0.20) K/uL ESR 28 (0-30) mm/hr Sodium 137 (136-145) mmol/L Potassium 3.4 L (3.5-5.1) mmol/L Chloride 102 (98-107) mmol/L Carbon Dioxide 24 (21-32) mmol/L Anion Gap 11 (3-11) BUN 17 (6-23) mg/dl Creatinine 0.75 (0.6-1.2) mg/dl Est Cr Clr Drug Dosing 50.3 ml/min Est GFR ( Amer) 87.9 ml/min Est GFR (Non-Af Amer) 75.8 ml/min BUN/Creatinine Ratio 22.7 H (10-20) Glucose 154 H (70-99(Fasting)) mg/dl Calcium 9.3 (8.6-10.3) mg/dl Magnesium 1.7 (1.7-2.4) mg/dl Total Bilirubin 0.8 (0.2-1.0) mg/dl AST 73 H (13-39) U/L ALT 64 H (7-52) U/L Alkaline Phosphatase 63 (34-104) U/L Troponin I High Sens 10.6 (0-14) pg/ml C-Reactive Protein < 0.50 (0-0.5) mg/dl Total Protein 6.8 (6.0-8.3) gm/dl Albumin 4.2 (3.4-5.0) gm/dl Globulin 2.6 (2.5-4.0) gm/dl Albumin/Globulin Ratio 1.6 (0.9-2) Lipase 64 (11-82) U/L Urine Color Urine Appearance (Clear) Urine pH (4.5-7.5) Ur Specific [place] (1.000-1.030) Urine Protein (Negative) Urine Glucose (UA) (Negative) Urine Ketones (Negative) Urine Blood (Negative) Urine Nitrite (Negative) Urine Bilirubin (Negative) Urine Urobilinogen (Negative) Ur Leukocyte Esterase (Negative) Stl C. cayetanensis PCR Not Detected (NotDetected) Stool Rotavirus A PCR DETECTED A* (NotDetected) Stl Adenov F 40/ PCR Not Detected (NotDetected) Stool Astrovirus (PCR) Not Detected (NotDetected) Stool Campylobacter PCR Not Detected (NotDetected) Stl C. diff Tox B Gene Negative Cdiff Gene (Neg) Stool Cryptosporidium PCR Not Detected (NotDetected) Stl E.coli Shiga Tox PCR Not Detected (NotDetected) Stl Enterotoxigenic E PCR Not Detected (NotDetected) Stool EPEC (PCR) Not Detected (NotDetected) Stool EAEC (PCR) Not Detected (NotDetected) Stl E. histolytica PCR Not Detected (NotDetected) Stool Giardia Lamblia PCR Not Detected (NotDetected) Stool Salmonella PCR Not Detected (NotDetected) Stool Sapovirus (PCR) Not Detected (NotDetected) Stl P. shigelloides PCR Not Detected (NotDetected) Stl Shigella/EIEC PCR Not Detected (NotDetected) St Y.enterocolitica PCR Not Detected (NotDetected) Stool Vibrio (PCR) Not Detected (NotDetected) Stl Vibrio cholerae PCR Not Detected (NotDetected) Stl Norovirus GI/GII PCR Not Detected (NotDetected) 12/28/23 Range/Units 05:19 WBC (4.8-10.8) K/ul RBC (4.20-5.40) M/uL Hgb (12.0-16.0) g/dl Hct (37.0-47.0) % MCV (80.0-100.0) fL MCH (25.0-34.0) pg MCHC (32.0-36.0) g/dL RDW Std Deviation (36.4-46.3) fL RDW Coeff of [place] (11.5-14.5) % Plt Count (130-400) K/uL MPV (9.4-12.4) fL Immature Gran % (Auto) % Neut % (Auto) % Lymph % (Auto) % [place] % (Auto) % Eos % (Auto) % Baso % (Auto) % Neut # (Auto) (1.40-6.50) K/uL Lymph # (Auto) (1.20-3.40) K/uL [place] # (Auto) (0.11-0.59) K/uL Eos # (Auto) (0.00-0.50) K/uL Baso # (Auto) (0.00-0.20) K/uL Immature Gran # (Auto) (0.01-0.20) K/uL ESR (0-30) mm/hr Sodium (136-145) mmol/L Potassium (3.5-5.1) mmol/L Chloride (98-107) mmol/L Carbon Dioxide (21-32) mmol/L Anion Gap (3-11) BUN (6-23) mg/dl Creatinine (0.6-1.2) mg/dl Est Cr Clr Drug Dosing ml/min Est GFR ( Amer) ml/min Est GFR (Non-Af Amer) ml/min BUN/Creatinine Ratio (10-20) Glucose (70-99(Fasting)) mg/dl Calcium (8.6-10.3) mg/dl Magnesium (1.7-2.4) mg/dl Total Bilirubin (0.2-1.0) mg/dl AST (13-39) U/L ALT (7-52) U/L Alkaline Phosphatase (34-104) U/L Troponin I High Sens (0-14) pg/ml C-Reactive Protein (0-0.5) mg/dl Total Protein (6.0-8.3) gm/dl Albumin (3.4-5.0) gm/dl Globulin (2.5-4.0) gm/dl Albumin/Globulin Ratio (0.9-2) Lipase (11-82) U/L Urine Color Yellow Urine Appearance Clear (Clear) Urine pH 8.5 H (4.5-7.5) Ur Specific [place] 1.040 H (1.000-1.030) Urine Protein Negative (Negative) Urine Glucose (UA) Negative (Negative) Urine Ketones Negative (Negative) Urine Blood Negative (Negative) Urine Nitrite Negative (Negative) Urine Bilirubin Negative (Negative) Urine Urobilinogen Negative (Negative) Ur Leukocyte Esterase Negative (Negative) Stl C. cayetanensis PCR (NotDetected) Stool Rotavirus A PCR (NotDetected) Stl Adenov F 40/41 PCR (NotDetected) Stool Astrovirus (PCR) (NotDetected) Stool Campylobacter PCR (NotDetected) Stl C. diff Tox B Gene (Neg) Stool Cryptosporidium PCR (NotDetected) Stl E.coli Shiga Tox PCR (NotDetected) Stl Enterotoxigenic E PCR (NotDetected) Stool EPEC (PCR) (NotDetected) Stool EAEC (PCR) (NotDetected) Stl E. histolytica PCR (NotDetected) Stool Giardia Lamblia PCR (NotDetected) Stool Salmonella PCR (NotDetected) Stool Sapovirus (PCR) (NotDetected) Stl P. shigelloides PCR (NotDetected) Stl Shigella/EIEC PCR (NotDetected) St Y.enterocolitica PCR (NotDetected) Stool Vibrio (PCR) (NotDetected) Stl Vibrio cholerae PCR (NotDetected) Stl Norovirus GI/GII PCR (NotDetected) Administered Medications Amlodipine Besylate (Amlodipine Besylate 5 Mg Tab) 5 mg PO QAM [facility] Stop: 01/27/24 10:59 Last Admin: 12/28/23 11:08 Dose: 5 mg Documented By: CEF Brimonidine Tartrate (Brimonidine Tartrate 0.2% 5ml) 1 drops OP BID DANIEL Stop: 01/27/24 10:59 Last Admin: 12/28/23 11:10 Dose: 1 drops Documented By: CEF Citalopram Hydrobromide (Citalopram 20 Mg Tab) 20 mg PO DAILY [facility] Stop: 01/27/24 10:59 Last Admin: 12/28/23 11:08 Dose: 20 mg Documented By: CEF Enoxaparin Sodium (Enoxaparin Inj 40 Mg/0.4 Ml Syr) 40 mg SQ QAM [facility] Stop: 01/27/24 10:59 Last Admin: 12/28/23 11:11 Dose: 40 mg Documented By: CEF Fluticasone/Vilanterol (Fluticasone/Vilanterol 200/25mcg 14 Puffs/Inhaler) 1 puffs INH DAILY [facility] Stop: 01/27/24 10:59 Last Admin: 12/28/23 11:09 Dose: 1 puffs Documented By: CEF Furosemide (Furosemide 20 Mg Tab) 20 mg PO QAM [facility] Stop: 01/27/24 10:59 Last Admin: 12/28/23 11:08 Dose: 20 mg Documented By: CEF Potassium Chloride/Sodium Chloride (Normal Saline W/20 Meq Kcl) 20 meq in 1,000 mls @ 75 mls/hr IV .[id number] [facility]; Protocol Stop: 12/28/23 22:19 Last Admin: 12/28/23 12:14 Dose: 75 mls/hr Documented By: CEF Famotidine (Pepcid 20mg Iv Push) 20 mg in 5 mls @ 2.5 mls/min IV Q24H [facility] Stop: 01/27/24 10:29 Last Admin: 12/28/23 11:47 Dose: 2.5 mls/min Documented By: CEF Pantoprazole Sodium 40 mg/ (Syringe) 10 mls @ 5 mls/min IV DAILY@1100 [facility] Stop: 01/27/24 10:59 Last Admin: 12/28/23 11:47 Dose: 5 mls/min Documented By: CEF Ondansetron HCl (Ondansetron Inj 2 Mg/Ml 2 Ml Vial) 4 mg IV Q6H PRN PRN Reason: Nausea Stop: 01/27/24 05:19 Last Admin: 12/28/23 14:52 Dose: 4 mg Documented By: CEF Timolol Maleate (Timolol Maleate 0.5% Op Soln 5 Ml Btl) 1 drops OP BID [facility] Stop: 01/27/24 10:59 Last Admin: 12/28/23 12:20 Dose: Not Given Documented By: CEF Discontinued Medications Dicyclomine HCl (Dicyclomine Hcl 10 Mg/Ml 2 Ml Amp/Vial) 20 mg IM NOW ONE Stop: 12/28/23 04:53 Last Admin: 12/28/23 05:05 Dose: 20 mg Documented By: JOSIAH Sodium Chloride (Nss) 500 mls @ 999 mls/hr IV .Q31M ONE Stop: 12/28/23 03:46 Last Infusion: 12/28/23 05:10 Dose: Infused Documented By: Admin: 12/28/23 03:37 Dose: 999 mls/hr Documented By: JOSIAH Sodium Chloride (Nss) 500 mls @ 125 mls/hr IV .Q4H DANIEL Stop: 01/27/24 05:14 Last Infusion: 12/28/23 09:29 Dose: Infused Documented By: Admin: 12/28/23 05:16 Dose: 125 mls/hr Documented By: JOSIAH Potassium Chloride ([place] / Wtr) 10 meq in 100 mls @ 100 mls/hr IV Q1H DANIEL Stop: 12/28/23 10:44 Last Admin: 12/28/23 10:40 Dose: Not Given Documented By: Admin: 12/28/23 10:40 Dose: Not Given Documented By: Admin: 12/28/23 10:40 Dose: Not Given Documented By: CEF Magnesium Sulfate/Dextrose (Magnesium Sulfate / D5w) 1 gm in 100 mls @ 50 mls/hr IV ONE ONE Stop: 12/28/23 13:46 Last Infusion: 12/28/23 14:47 Dose: Infused Documented By: Admin: 12/28/23 12:25 Dose: 50 mls/hr Documented By: CEF Ioversol (Optiray 320 100ml) 93 ml IV ONCE ONE Stop: 12/28/23 04:14 Last Admin: 12/28/23 04:14 Dose: 93 ml Documented By: MARTINEZ Metoclopramide HCl (Metoclopramide Hcl Inj 5 Mg/Ml 2 Ml Vial) 5 mg IV ONE ONE Stop: 12/28/23 04:53 Last Admin: 12/28/23 05:05 Dose: 5 mg Documented By: JOSIAH Morphine Sulfate (Morphine Sulfate 2 Mg/Ml Carp) 2 mg IV NOW STA Stop: 12/28/23 04:53 Last Admin: 12/28/23 05:05 Dose: 2 mg Documented By: JOSIAH Non-Formulary Medication (Timolol Maleate (Pf)) 1 drops OP BID DANIEL Stop: 01/27/24 10:22 Last Admin: 12/28/23 11:57 Dose: Not Given Documented By: CEF Ondansetron HCl (Ondansetron Inj 2 Mg/Ml 2 Ml Vial) 4 mg IV NOW STA Stop: 12/28/23 03:10 Last Admin: 12/28/23 03:15 Dose: 4 mg Documented By: JOSIAH Imaging Data Radiologist's Impression: Abdomen/Pelvis CT 12/28/23 03:09 Exam(s): CT ABDOMEN + PELVIS With Contrast IV Amt: 93 cc's of optiray 320 EXAM: CT Abdomen and Pelvis With Intravenous Contrast CLINICAL HISTORY: Reason for exam: epigastric pain. TECHNIQUE: Axial computed tomography images of the abdomen and pelvis with intravenous contrast. Automated exposure control was utilized for the study. A dose lowering technique was utilized adhering to the principles of ALARA. CONTRAST: Patient received 93 cc's of optiray 320 of IV contrast COMPARISON: No relevant prior studies available. FINDINGS: Lung bases: Dependent atelectatic changes. ABDOMEN: Liver: Unremarkable. No mass. Gallbladder and bile ducts: Cholecystectomy changes. No ductal dilation. Pancreas: Unremarkable. No mass. No ductal dilation. Spleen: Unremarkable. No splenomegaly. Adrenals: Unremarkable. No mass. Kidneys and ureters: Unremarkable. No solid mass. No hydronephrosis. Stomach and bowel: Annular thickening noted within the colon, primarily the ascending colon, transverse colon, and rectum. Submucosal enhancement also noted. Findings are favored to relate to proctocolitis. Liquid colonic contents. Findings can be seen with sequela of concurrent diarrheal illness. Submucosal enhancement within loops of small bowel with fluid-filled contents. Findings may relate to enteritis. No obstruction. PELVIS: Appendix: No findings to suggest acute appendicitis. Bladder: Unremarkable. No mass. Reproductive: Unremarkable as visualized. ABDOMEN and PELVIS: Intraperitoneal space: Unremarkable. No free air. No significant fluid collection. Bones/joints: Right total hip arthroplasty. Degenerative changes in the spine. No acute fracture. No dislocation. Soft tissues: Unremarkable. Vasculature: Atherosclerotic disease. No abdominal aortic aneurysm. Lymph nodes: Unremarkable. No enlarged lymph nodes. IMPRESSION: 1. Annular thickening noted within the colon, primarily the ascending colon, transverse colon, and rectum. Submucosal enhancement also noted. Findings are favored to relate to proctocolitis. 2. Liquid colonic contents. Findings can be seen with sequela of concurrent diarrheal illness. 3. Submucosal enhancement within loops of small bowel with fluid-filled contents. Findings may relate to enteritis. Electronically signed by: Amos Cao MD 12/28/23 04:59 AM Chest X-Ray 12/28/23 03:56 XR chest 1V portable CLINICAL HISTORY: hypoxia TECHNIQUE: Single frontal radiograph of the chest was obtained. Comparison: Comparison is made to chest and abdomen radiograph 10/23/2019 FINDINGS: No lines and tubes are seen. Cardiomegaly is noted. There is prominence and cephalization of the vasculature with Marlen B lines seen. No evidence of pleural effusion or pneumothorax. IMPRESSION: Cardiomegaly and moderate pulmonary edema. ACT 112: Negative or not required by law. Electronically signed by: Abdoul Willard M.D. 12/28/2023 7:59 AM Discharge Plan Visit Data Chief Complaint: Vomiting Stated Complaint: N/V ED Provider: Princess Tracey Discharge Problem: Enterocolitis, Rotavirus enteritis Patient Disposition: Admitted As Inpatient Discharge Instructions Interventions: ED Discharge Assessment Last Done: 12/28/23 09:21
[2023-12-28] MEDS: ONDANSETRON INJ 2 MG/ML 2 ML VIAL IV STA (03:15)
[2023-12-28] MEDS: SODIUM CHLORIDE 0.9% 500 ML IV ONE (03:37)
[2023-12-28 03:38] LABS: Alanine Aminotransferase 64 U/L (7-52); Albumin Globulin Ratio 1.6 (0.9-2); Albumin Level 4.2 gm/dl (3.4-5.0); Alkaline Phosphatase 63 U/L (34-104); Anion Gap 11 (3-11); Aspartate Aminotransferase 73 U/L (13-39); BUN Creatinine Ratio 22.7 (10-20); Bilirubin,Total 0.8 mg/dl (0.2-1.0); Blood Urea Nitrogen 17 mg/dl (6-23); Calcium 9.3 mg/dl (8.6-10.3); Carbon Dioxide 24 mmol/L (21-32); Chloride 102 mmol/L (98-107); Creatinine Clr Calc Pharmacy 50.3 ml/min; Est GFR (African American) 87.9 ml/min; Est GFR (Non-African American) 75.8 ml/min; Globulin 2.6 gm/dl (2.5-4.0); Glucose 154 mg/dl (70-99(Fasting)); Lipase 64 U/L (11-82); Potassium 3.4 mmol/L (3.5-5.1); Sodium 137 mmol/L (136-145); Total Protein 6.8 gm/dl (6.0-8.3)
[2023-12-28 03:43] LABS: Basophils # (auto) 0.02 K/uL (0.00-0.20); Basophils % (auto) 0.2 %; Eosinophils # (auto) 0.12 K/uL (0.00-0.50); Hematocrit (blood only) 39.3 % (37.0-47.0); Hemoglobin 12.8 g/dl (12.0-16.0); Immature Granulocytes # (auto) 0.06 K/uL (0.01-0.20); Immature Granulocytes % (auto) 0.5 %; Lymphocytes # (auto) 0.67 K/uL (1.20-3.40); Lymphocytes % (auto) 5.7 %; Mean Corpuscular Hemoglobin 31.6 pg (25.0-34.0); Mean Corpuscular Hgb Conc 32.6 g/dL (32.0-36.0); Mean Platelet Volume 10.4 fL (9.4-12.4); Monocytes # (auto) 0.71 K/uL (0.11-0.59); Neutrophils # (auto) 10.27 K/uL (1.40-6.50); Neutrophils % (auto) 86.6 %; Platelet Count 219 K/uL (130-400); RDW Coefficient of Variation 14.1 % (11.5-14.5); Red Blood Count 4.05 M/uL (4.20-5.40); White Blood Count 11.85 K/ul (4.8-10.8)
[2023-12-28 03:44] LABS: Troponin I High Sensitivity 10.6 pg/ml (0-14)
[2023-12-28] MEDS: OPTIRAY 320 100ml IV ONE (04:14)
--- NOTE | 2023-12-28 04:39 | History & Physical Report ---
Date of Service December 28, 2023 Assessment & Plan (1) Nausea & vomiting: Plan: Pt is a 78 yo female with PMH of UC, Schatzki's ring, anxiety, depression, occipital neuralgia, and upper GI bleed presenting due to N/V/D. Nausea/vomiting/diarrhea - lab work significant for leukocytosis to 11.85 w/ left shift, Hgb 12.8, and lipase WNL - CTAP showed signs of proctocolitis/diarrheal illness; no signs of perforation or diverticulitis - stool PCR pending; will add C diff toxin - do not suspect acute UC flare as this point as her dx has been well controlled for many years w/o tx and recent colonoscopy 08/2023 showed no active disease; ESR/CRP added to labs to evaluate inflammatory status - supportive care PRN; zofran for nausea, tylenol for pain, bentyl 20 mg QID PRN- if infectious causes of diarrhea r/o, consider Imodium for diarrhea symptom control - continue acid suppression with pantoprazole 40 mg IV, famotidine 20 mg IV - continue IVF at maintenance rate until pt able to take adequate PO HTN - continue home amlodipine 5 mg qAM, hold spironolactone in the setting of poor PO intake Depression/anxiety - continue home citalopram 20 mg daily Asthma - continue home fluticasone/salmeterol inhalation BID HLD - continue home rosuvastatin 5 mg nightly Insomnia - continue home melatonin PRN, trazodone nightly Glaucoma - continue home eye drops Diet: NPO, advance as tolerated VTE ppx: lovenox Code: full (did not discuss with pt upon admission- recommend further discussion once pt is feeling somewhat better to engage in discussion) Dispo: admit to med/surg History of Present Illness Chief Complaint: N/V/D Primary Care Provider: Hayder Ann Pt is a 78 yo female with PMH of UC, Schatzki's ring, anxiety, depression, occipital neuralgia, and upper GI bleed presenting due to N/V/D. Pt states she had a sudden onset of nausea, vomiting, diarrhea, and abdominal pain ~3PM yesterday. Since then, she has felt generally ill, including ongoing vomiting and diarrhea. She feels very cold and cannot get warm. She denies feeling feverish. She denies chest pain and SOB. Pt recently had an EGD/colonoscopy 08/2023. Pt had a esophageal stenosis which was dilated- she has had no dysphagia since. One 3 mm tubular adenoma was excised from the cecum (recommended f/u in 5 yrs). In the ER, the pt was given zofran 4 mg x1, 1 L NS with subsequent IVF at maintenance rate, morphine 2mg x1, bentyl 20 mg x1, and reglan 5 mg x1. Allergies Allergy/AdvReac Type Severity Reaction Status Date / Time No Known Allergies Allergy Verified 12/28/23 02:51 Home Medications Medication Instructions Recorded Confirmed Type amlodipine 5 mg tablet 5 mg PO QAM 01/07/19 12/28/23 History oxycodone-acetaminophen 5 mg-325 1 tab PO Q6H PRN Pain 01/07/19 12/28/23 History mg tablet (Percocet) rosuvastatin 5 mg tablet (Crestor) 5 mg PO HS 01/07/19 12/28/23 History furosemide 20 mg tablet (Lasix) 20 mg PO QAM 10/23/19 12/28/23 History trazodone 50 mg tablet 25 - 50 mg PO HS 04/04/20 12/28/23 History famotidine 40 mg tablet 40 mg PO HS 10/30/20 12/28/23 History pantoprazole 40 mg tablet,delayed 40 mg PO QAM 10/30/20 12/28/23 History release timolol maleate (PF) 0.5 % eye 1 drp ophthalmic (eye) BID 10/30/20 12/28/23 History drops in a dropperette denosumab 60 mg/mL subcutaneous 60 mg subcut Q6MO 04/29/22 12/28/23 History syringe (Prolia) folic acid 1 mg tablet 1 mg PO DAILY 07/04/22 12/28/23 History brimonidine 0.2 %-timolol 0.5 % 1 drp ophthalmic (eye) BID 07/25/23 12/28/23 History eye drops (Combigan) melatonin 5 mg tablet 5 mg PO HS PRN Sleep/PAIN 09/08/23 12/28/23 History celecoxib 200 mg capsule 200 mg PO HS PRN Pain 11/11/23 12/28/23 History cholecalciferol (vitamin D3) 25 25 mcg PO DAILY 11/11/23 12/28/23 History mcg (1,000 unit) capsule (Vitamin D3) citalopram 20 mg tablet (Celexa) 20 mg PO DAILY 11/11/23 12/28/23 History diclofenac sodium 1 % topical gel 2 g topical TID PRN Pain 11/11/23 12/28/23 His tory methotrexate sodium 2.5 mg tablet 12.5 mg PO WK 11/11/23 12/28/23 History potassium citrate 10 mEq (1,080 10 meq PO DAILY 11/11/23 12/28/23 History mg) tablet,extended release spironolactone 25 mg tablet 25 mg PO DAILY 11/11/23 12/28/23 History prochlorperazine maleate 10 mg 10 mg PO QID PRN nausea and 11/12/23 12/28/23 Rx tablet vomiting #14 tabs dicyclomine 20 mg tablet 20 mg PO QID PRN ABD DISCOMFORT 12/28/23 12/28/23 History fluticasone 500 mcg-salmeterol 50 1 inh inhalation BID 12/28/23 12/28/23 History mcg/dose blistr powdr for inhalation meclizine 25 mg tablet 25 mg PO TID PRN Dizziness 12/28/23 12/28/23 History Past Med/Surg History Medical History Rectal bleeding Colitis Allergy-induced asthma Schatzki's ring History of esophageal dilatation Cervicalgia Diverticulosis of colon History of SCC (squamous cell carcinoma) of skin Internal hemorrhoids Nausea and vomiting after administration of anesthetic agent Chronic back pain History of renal failure d/t kidney stones. Follows with Dr. Foster. Kidney stones hx Basal cell carcinoma of chest removed in office Basal cell carcinoma of face removed in office Anemia Glaucoma Anxiety Depression Occipital neuralgia hx of--had nerve ablations x5 Bradycardia 40-50s is normal HR Upper GI bleed hx Surgical History History of lumpectomy of right breast benign History of lumbar discectomy History of total right hip replacement History of cystoscopy with stent History of total abdominal hysterectomy and bilateral salpingo-oophorectomy History of colonoscopy History of appendectomy History of cholecystectomy History of esophagogastroduodenoscopy (EGD) (~12/2018) History of tooth extraction all teeth removed History of bilateral cataract extraction Status post glaucoma surgery right eye has a shunt in place Family History Father Heart disease Brother Kidney disease Mother Kidney disease Other No family history of adverse response to anesthesia Social History Smoking Status: Former smoker Tobacco Type: Cigarettes Second Hand Exposure: Yes (father smoked/ smoked); Do You Dip or Chew Tobacco: No; Hx Alcohol Use: No Hx Substance Use: No Preferred Language: Uzbek Communication Ability: Effective Cable Engineer Required: No Beliefs That Will Affect Care: None Current Living Situation: Alone Other Information That Helps Us Care for You: No Feels Safe at Home: Yes Safety Concerns: Feels Safe At This Time Assistive Devices: Oxygen - Continuous Review of Systems Review of Systems: As per HPI Physical Exam Constitutional: Minimal distress, pt visibly shaking and appears ill. Vitals stable. Respiratory: CTA bilaterally. Non labored breathing. No rhonchi, wheezing, or crackles. Cardiovascular: RRR. No murmurs noted. No LE edema. Gastrointestinal (Abdomen): Tender throughout but mostly in epigastric region and LLQ. No masses noted. Skin: No rashes or skin lesions noted. Neurologic: Sensation grossly intact. No FND appreciated. Psychiatric: Speech of normal pace and content. Mood and affect congruent. Results & Data Results & Data Vital Signs (Past 12 Hours) Vital Signs Temp Pulse Pulse Resp BP BP Pulse Ox 12/28/23 04:00 77 24 193/66 H 94 12/28/23 03:13 85 27 H 94 12/28/23 02:46 37.2 C 84 18 193/66 H 95 O2 Del Method O2 Flow Rate 12/28/23 04:00 Nasal Cannula 2 12/28/23 03:13 Nasal Cannula 2 12/28/23 02:46 Room Air Supervising Physician Co-Signing Physician Notes Attending addendum: I have physically seen this patient, have supervised the medical residents activities, and agree with the H&P unless as otherwise noted. Assessment and Plan: Proctocolitis/enteritis/rotavirus infection- BioFire positive for rotavirus N.p.o. except medications Zofran 4 mg IV every 6 hours as needed Pantoprazole 40 mg IV daily Acetaminophen every 6 hours as needed for mild pain or fever Bentyl 20 mg p.o. 4 times daily as needed Continue IV fluids as noted Hypertension- Holding spironolactone Amlodipine with hold parameters Depression/anxiety- Continue citalopram 20 mg daily Asthma- Continue fluticasone/albuterol twice daily Resident Activity Tracking Resident Involvement: Resident Care Provided Care Provided: Adult Hospital Medicine (1) Nausea & vomiting Vomiting Intractability: non-intractable Vomiting type: unspecified Qualified Code(s): R11.2 - Nausea with vomiting, unspecified
--- NOTE | 2023-12-28 05:00 | CT Scan Report ---
Exam(s): CT ABDOMEN + PELVIS With Contrast IV Amt: 93 cc's of optiray 320 EXAM: CT Abdomen and Pelvis With Intravenous Contrast CLINICAL HISTORY: Reason for exam: epigastric pain. TECHNIQUE: Axial computed tomography images of the abdomen and pelvis with intravenous contrast. Automated exposure control was utilized for the study. A dose lowering technique was utilized adhering to the principles of ALARA. CONTRAST: Patient received 93 cc's of optiray 320 of IV contrast COMPARISON: No relevant prior studies available. FINDINGS: Lung bases: Dependent atelectatic changes. ABDOMEN: Liver: Unremarkable. No mass. Gallbladder and bile ducts: Cholecystectomy changes. No ductal dilation. Pancreas: Unremarkable. No mass. No ductal dilation. Spleen: Unremarkable. No splenomegaly. Adrenals: Unremarkable. No mass. Kidneys and ureters: Unremarkable. No solid mass. No hydronephrosis. Stomach and bowel: Annular thickening noted within the colon, primarily the ascending colon, transverse colon, and rectum. Submucosal enhancement also noted. Findings are favored to relate to proctocolitis. Liquid colonic contents. Findings can be seen with sequela of concurrent diarrheal illness. Submucosal enhancement within loops of small bowel with fluid-filled contents. Findings may relate to enteritis. No obstruction. PELVIS: Appendix: No findings to suggest acute appendicitis. Bladder: Unremarkable. No mass. Reproductive: Unremarkable as visualized. ABDOMEN and PELVIS: Intraperitoneal space: Unremarkable. No free air. No significant fluid collection. Bones/joints: Right total hip arthroplasty. Degenerative changes in the spine. No acute fracture. No dislocation. Soft tissues: Unremarkable. Vasculature: Atherosclerotic disease. No abdominal aortic aneurysm. Lymph nodes: Unremarkable. No enlarged lymph nodes. IMPRESSION: 1. Annular thickening noted within the colon, primarily the ascending colon, transverse colon, and rectum. Submucosal enhancement also noted. Findings are favored to relate to proctocolitis. 2. Liquid colonic contents. Findings can be seen with sequela of concurrent diarrheal illness. 3. Submucosal enhancement within loops of small bowel with fluid-filled contents. Findings may relate to enteritis. Electronically signed by: Amos aCo MD 12/28/23 04:59 AM
[2023-12-28] MEDS: METOCLOPRAMIDE HCL INJ 5 MG/ML 2 ML VIAL IV ONE ×2 (05:05→20:02)
[2023-12-28] MEDS: MoRPHine SULFATE 2 MG/ML CARP IV STA (05:05)
[2023-12-28] MEDS: DICYCLOMINE HCL 10 MG/ML 2 ML AMP/VIAL IM ONE (05:05)
[2023-12-28] MEDS: SODIUM CHLORIDE 0.9% 500 ML IV SCH (05:16)
[2023-12-28 05:34] LABS: Appearance Urine Clear (Clear); Bilirubin Urine Negative (Negative); Blood Urine Negative (Negative); Color Urine Yellow; Glucose Urine UA Negative (Negative); Ketones Urine Negative (Negative); Leukocyte Esterase Urine Negative (Negative); Nitrite Urine Negative (Negative); Protein Urine Negative (Negative); Urobilinogen Urine Negative (Negative); pH Urine 8.5 (4.5-7.5)
[2023-12-28 06:29] LABS: Adenovirus F 40/41 PCR Not Detected (NotDetected); Astrovirus PCR Not Detected (NotDetected); Campylobacter PCR Not Detected (NotDetected); Cryptosporidium PCR Not Detected (NotDetected); Cyclospora cayetanensis PCR Not Detected (NotDetected); Entamoeba histolytica PCR Not Detected (NotDetected); Enteroaggregative E.coli(EAEC) Not Detected (NotDetected); Enteropathogenic E.coli (EPEC) Not Detected (NotDetected); Enterotoxigenic E.coli (ETEC) Not Detected (NotDetected); Giardia lamblia PCR Not Detected (NotDetected); Norovirus GI/GII PCR Not Detected (NotDetected); Plesiomonas shigelloides PCR Not Detected (NotDetected); Salmonella PCR Not Detected (NotDetected); Sapovirus PCR Not Detected (NotDetected); Shiga-like Toxin E.coli (STEC) Not Detected (NotDetected); Shigella/Enteroinvasive E.coli Not Detected (NotDetected); Vibrio cholerae PCR Not Detected (NotDetected); Vibrio species PCR Not Detected (NotDetected); Yersinia enterocolitica PCR Not Detected (NotDetected)
[2023-12-28 06:30] LABS: C Reactive Protein < 0.50 mg/dl (0-0.5)
[2023-12-28 06:32] LABS: Rotavirus A PCR DETECTED (NotDetected)
--- NOTE | 2023-12-28 07:46 | Hospitalist Progress Note ---
Date of Service December 28, 2023 Assessment & Plan (1) Rotavirus infection: Plan: Pt is a 78 yo female with PMH of UC, Schatzki's ring, anxiety, depression, occipital neuralgia, and upper GI bleed presenting due to N/V/D. * Did not suspect acute UC flare as this point as her dx has been well controlled for many years w/o tx and recent colonoscopy 08/2023 showed no active disease; ESR/CRP added to labs to evaluate inflammatory status CTAP w/ proctocolitis/diarrhea illness, no diverticulitis WBC 11k on admit, hgb 12.8, lipase wnl, ASt/ALT elevation (s/p cholecystectomy). TB 0.8, ALP 63 12/27 STOOL PCR TESTING POSITIVE FOR ROTAVIRUS, ISOLATION PRECAUTIONS PLACED CLEAR LIQUID DIET TOLERATED, IVF continued but decreased to 75cc/hr, added Kcl to IVF Would AVOID further IV K replacement and order PO, tolerating PO w/o further vomiting reported and burning w/ K replacement Continue PPI/pepcid IV for today, but again if tolerating PO intake would transition to PO in am Supportive care PRN; zofran for nausea, tylenol for pain, bentyl 20 mg QID PRN Patient did have prior EGD w/ her c-scope in august, noted esophageal stenosis req dilation. No issues w/ dysphagia reported but will need to monitor. Titrate O2 as able, monitor need to resume home spironolactone/lasix as takes for LE edema (none on exam but is on 2L, titrate as able, f/u CXR in AM) Monitor labs this afternoon/electrolyte replacement as needed Supportive care (2) Nausea & vomiting: Plan: likely 2nd to above, monitor advancement of diet as tolerated. antiemetics as needed (3) HTN (hypertension): Plan: HTN , HLD continue home amlodipine 5 mg qAM, hold spironolactone AND LASIX in the setting of poor PO intake. No LE edema on exam but on 2L (no significant SOB reported or wheezing on exam and f/u CXR in AM, titrate O2 as able) continue home rosuvastatin 5 mg nightly (4) Ulcerative colitis: Plan: CRP not significantly elevated Also on methotrexate for underlying Rheumatoid arthritis -- rec'd to patient to hold in setting acute illness (5) GERD (gastroesophageal reflux disease): Plan: PPI/pepcid as above hx needing dilation for stenosis in the past and monitor diet advancement, f/u CXR in AM Other chronic medical problems Depression/anxiety continue home citalopram 20 mg daily Asthma continue home fluticasone/salmeterol inhalation BID no wheezing on exam but will monitor w/ IVF, decreased rate as above Insomnia continue home melatonin PRN, trazodone nightly Glaucoma continue home eye drops DVT proph: lovenox SQ provided this morning--> will HOLD OFF further lovenox SQ for now (hx ulcerative colitis, hx GI bleeding) Added SCDs for now, NO leg swelling/calf tenderness Plan continued inpatient stay supportive care, f/u labs this afternoon will plan for consult PT tomorrow to ensure no needs at dc Supervising Physician Co-Signing Physician Notes The patient was not seen by me. The chart was reviewed. Case discussed with SHERMAN Spencer. Agree with assessment and plan Subjective BRIDGE NOTE: ADMITTED THIS MORNING STOOL PCR TESTING POSITIVE FOR ROTAVIRUS Patient eval in room 322, feeling better than on admission , but has had ongoing diarrhea. Abdomen w some cramping but no overt pain. No issues w/ PO intake/vomiting at present and discussed will monitor labs/electrolytes w/ PO replacement. On spironolactone/lasix at baseline for CHF/leg swelling, none present on exam. On 2L but denies any shortness of breath and believes they put it on her due to nausea/vomiting. Physical Exam Physical Exam: 78 yo female laying in bed, NAD but fati gued appearing trachea midline, no deviation, mm slightly dry resp: even/unlabored, fine bibasilar crackles, no w/r, on 2L CV: RRR,+systolic murmur, no pitting edema/calf tenderness GI: +BS throughout, slight distension, generalized cramping but no overt tenderness : no sam MSK/Neuro/psych: nonfocal, not confused, answering questions appropriately Results & Data Results & Data Vital Signs (Past 12 Hours) Vital Signs Temp Pulse Pulse Resp BP BP Pulse Ox 12/28/23 06:00 80 19 154/58 H 94 12/28/23 04:34 82 12/28/23 04:00 77 24 193/66 H 94 12/28/23 03:13 85 27 H 94 12/28/23 02:46 37.2 C 84 18 193/66 H 95 O2 Del Method O2 Flow Rate 12/28/23 06:00 Nasal Cannula 2 12/28/23 04:34 12/28/23 04:00 Nasal Cannula 2 12/28/23 03:13 Nasal Cannula 2 12/28/23 02:46 Room Air Laboratory Results 12/28/23 12/28/23 12/28/23 Range/Units 05:19 05:18 04:59 WBC (4.8-10.8) K/ul RBC (4.20-5.40) M/uL Hgb (12.0-16.0) g/dl Hct (37.0-47.0) % MCV (80.0-100.0) fL MCH (25.0-34.0) pg MCHC (32.0-36.0) g/dL RDW Std Deviation (36.4-46.3) fL RDW Coeff of Nikkie (11.5-14.5) % Plt Count (130-400) K/uL MPV (9.4-12.4) fL Immature Gran % (Auto) % Neut % (Auto) % Lymph % (Auto) % Rains % (Auto) % Eos % (Auto) % Baso % (Auto) % Neut # (Auto) (1.40-6.50) K/uL Lymph # (Auto) (1.20-3.40) K/uL Rains # (Auto) (0.11-0.59) K/uL Eos # (Auto) (0.00-0.50) K/uL Baso # (Auto) (0.00-0.20) K/uL Immature Gran # (Auto) (0.01-0.20) K/uL ESR (0-30) mm/hr Sodium (136-145) mmol/L Potassium (3.5-5.1) mmol/L Chloride (98-107) mmol/L Carbon Dioxide (21-32) mmol/L Anion Gap (3-11) BUN (6-23) mg/dl Creatinine (0.6-1.2) mg/dl Est Cr Clr Drug Dosing ml/min Est GFR ( Amer) ml/min Est GFR (Non-Af Amer) ml/min BUN/Creatinine Ratio (10-20) Glucose (70-99(Fasting)) mg/dl Calcium (8.6-10.3) mg/dl Total Bilirubin (0.2-1.0) mg/dl AST (13-39) U/L ALT (7-52) U/L Alkaline Phosphatase (34-104) U/L Troponin I High Sens (0-14) pg/ml C-Reactive Protein (0-0.5) mg/dl Total Protein (6.0-8.3) gm/dl Albumin (3.4-5.0) gm/dl Globulin (2.5-4.0) gm/dl Albumin/Globulin Ratio (0.9-2) Lipase (11-82) U/L Urine Color Yellow Urine Appearance Clear (Clear) Urine pH 8.5 H (4.5-7.5) Ur Specific Emmalena 1.040 H (1.000-1.030) Urine Protein Negative (Negative) Urine Glucose (UA) Negative (Negative) Urine Ketones Negative (Negative) Urine Blood Negative (Negative) Urine Nitrite Negative (Negative) Urine Bilirubin Negative (Negative) Urine Urobilinogen Negative (Negative) Ur Leukocyte Esterase Negative (Negative) Stl C. cayetanensis PCR Not Detected (NotDetected) Stool Rotavirus A PCR DETECTED A* (NotDetected) Stl Adenov F 40/41 PCR Not Detected (NotDetected) Stool Astrovirus (PCR) Not Detected (NotDetected) Stool Campylobacter PCR Not Detected (NotDetected) Stl C. diff Tox B Gene Negative Cdiff Gene (Neg) Stool Cryptosporidium PCR Not Detected (NotDetected) Stl E.coli Shiga Tox PCR Not Detected (NotDetected) Stl Enterotoxigenic E PCR Not Detected (NotDetected) Stool EPEC (PCR) Not Detected (NotDetected) Stool EAEC (PCR) Not Detected (NotDetected) Stl E. histolytica PCR Not Detected (NotDetected) Stool Giardia Lamblia PCR Not Detected (NotDetected) Stool Salmonella PCR Not Detected (NotDetected) Stool Sapovirus (PCR) Not Detected (NotDetected) Stl P. shigelloides PCR Not Detected (NotDetected) Stl Shigella/EIEC PCR Not Detected (NotDetected) St Y.enterocolitica PCR Not Detected (NotDetected) Stool Vibrio (PCR) Not Detected (NotDetected) Stl Vibrio cholerae PCR Not Detected (NotDetected) Stl Norovirus GI/GII PCR Not Detected (NotDetected) 12/28/23 Range/Units 03:07 WBC 11.85 H (4.8-10.8) K/ul RBC 4.05 L (4.20-5.40) M/uL Hgb 12.8 (12.0-16.0) g/dl Hct 39.3 (37.0-47.0) % MCV 97.0 (80.0-100.0) fL MCH 31.6 (25.0-34.0) pg MCHC 32.6 (32.0-36.0) g/dL RDW Std Deviation 50.0 H (36.4-46.3) fL RDW Coeff of Nikkie 14.1 (11.5-14.5) % Plt Count 219 (130-400) K/uL MPV 10.4 (9.4-12.4) fL Immature Gran % (Auto) 0.5 % Neut % (Auto) 86.6 % Lymph % (Auto) 5.7 % Rains % (Auto) 6.0 % Eos % (Auto) 1.0 % Baso % (Auto) 0.2 % Neut # (Auto) 10.27 H (1.40-6.50) K/uL Lymph # (Auto) 0.67 L (1.20-3.40) K/uL Rains # (Auto) 0.71 H (0.11-0.59) K/uL Eos # (Auto) 0.12 (0.00-0.50) K/uL Baso # (Auto) 0.02 (0.00-0.20) K/uL Immature Gran # (Auto) 0.06 (0.01-0.20) K/uL ESR 28 (0-30) mm/hr Sodium 137 (136-145) mmol/L Potassium 3.4 L (3.5-5.1) mmol/L Chloride 102 (98-107) mmol/L Carbon Dioxide 24 (21-32) mmol/L Anion Gap 11 (3-11) BUN 17 (6-23) mg/dl Creatinine 0.75 (0.6-1.2) mg/dl Est Cr Clr Drug Dosing 50.3 ml/min Est GFR ( Amer) 87.9 ml/min Est GFR (Non-Af Amer) 75.8 ml/min BUN/Creatinine Ratio 22.7 H (10-20) Glucose 154 H (70-99(Fasting)) mg/dl Calcium 9.3 (8.6-10.3) mg/dl Total Bilirubin 0.8 (0.2-1.0) mg/dl AST 73 H (13-39) U/L ALT 64 H (7-52) U/L Alkaline Phosphatase 63 (34-104) U/L Troponin I High Sens 10.6 (0-14) pg/ml C-Reactive Protein < 0.50 (0-0.5) mg/dl Total Protein 6.8 (6.0-8.3) gm/dl Albumin 4.2 (3.4-5.0) gm/dl Globulin 2.6 (2.5-4.0) gm/dl Albumin/Globulin Ratio 1.6 (0.9-2) Lipase 64 (11-82) U/L Urine Color Urine Appearance (Clear) Urine pH (4.5-7.5) Ur Specific Emmalena (1.000-1.030) Urine Protein (Negative) Urine Glucose (UA) (Negative) Urine Ketones (Negative) Urine Blood (Negative) Urine Nitrite (Negative) Urine Bilirubin (Negative) Urine Urobilinogen (Negative) Ur Leukocyte Esterase (Negative) Stl C. cayetanensis PCR (NotDetected) Stool Rotavirus A PCR (NotDetected) Stl Adenov F 40/41 PCR (NotDetected) Stool Astrovirus (PCR) (NotDetected) Stool Campylobacter PCR (NotDetected) Stl C. diff Tox B Gene (Neg) Stool Cryptosporidium PCR (NotDetected) Stl E.coli Shiga Tox PCR (NotDetected) Stl Enterotoxigenic E PCR (NotDetected) Stool EPEC (PCR) (NotDetected) Stool EAEC (PCR) (NotDetected) Stl E. histolytica PCR (NotDetected) Stool Giardia Lamblia PCR (NotDetected) Stool Salmonella PCR (NotDetected) Stool Sapovirus (PCR) (NotDetected) Stl P. shigelloides PCR (NotDetected) Stl Shigella/EIEC PCR (NotDetected) St Y.enterocolitica PCR (NotDetected) Stool Vibrio (PCR) (NotDetected) Stl Vibrio cholerae PCR (NotDetected) Stl Norovirus GI/GII PCR (NotDetected) PG Care Time/CCT Total # of Minutes Spent Total Time Spent with Patient: Total time spent is greater than 50% in coordination of care (as documented) at patient's floor/unit and/or counseling patient: Coding Level of Care Code None Diagnoses Rotavirus infection A08.0 Nausea & vomiting R11.2 Vomiting Intractability: non-intractable Vomiting type: unspecified HTN (hypertension) I10 Ulcerative colitis K51.90 GERD (gastroesophageal reflux disease) K21.9 (2) Nausea & vomiting Vomiting Intractability: non-intractable Vomiting type: unspecified Qualified Code(s): R11.2 - Nausea with vomiting, unspecified
--- NOTE | 2023-12-28 08:01 | XRay Report ---
XR chest 1V portable CLINICAL HISTORY: hypoxia TECHNIQUE: Single frontal radiograph of the chest was obtained. Comparison: Comparison is made to chest and abdomen radiograph 10/23/2019 FINDINGS: No lines and tubes are seen. Cardiomegaly is noted. There is prominence and cephalization of the vasc ulature with Marlen B lines seen. No evidence of pleural effusion or pneumothorax. IMPRESSION: Cardiomegaly and moderate pulmonary edema. ACT 112: Negative or not required by law. Electronically signed by: Abdoul Willard M.D. 12/28/2023 7:59 AM
[2023-12-28 08:12] LABS: Magnesium 1.7 mg/dl (1.7-2.4)
[2023-12-28] MEDS ORDERED: MECLIZINE HCL 25 MG TAB PO PRN (10:23)
[2023-12-28] MEDS ORDERED: NON-FORMULARY MEDICATION (Brimonidine-Timolol [Combigan] 0.2-0.5 % drops) OP SCH (10:23)
[2023-12-28] MEDS ORDERED: DICYCLOMINE HCL 20 MG TAB PO PRN (10:23)
[2023-12-28] MEDS ORDERED: ACETAMINOPHEN 1,000 MG/100 ML VIAL IV PRN (10:23)
[2023-12-28] MEDS: POTASSIUM CHLORIDE / WTR 10 MEQ/100 ML PLCT IV SCH (10:40)
[2023-12-28] MEDS: amLODIPine BESYLATE 5 MG TAB PO SCH (11:08)
[2023-12-28] MEDS: FUROSEMIDE 20 MG TAB PO SCH (11:08)
[2023-12-28] MEDS: CITALOPRAM 20 MG TAB PO SCH (11:08)
[2023-12-28] MEDS: FLUTICASONE/VILANTEROL 200/25MCG 14 PUFFS/INHALER INH SCH (11:09)
[2023-12-28] MEDS: BRIMONIDINE TARTRATE 0.2% 5ML OP SCH (11:10)
[2023-12-28] MEDS: ENOXAPARIN INJ 40 MG/0.4 ML SYR SQ SCH (11:11)
[2023-12-28] MEDS: PANTOprazole 40 MG in SYRINGE 0 ML IV SCH (11:47)
[2023-12-28] MEDS: FAMOTIDINE 20MG IV PUSH 20 MG/5 ML SYR IV SCH (11:47)
[2023-12-28] MEDS: TIMOLOL MALEATE 0.5% OP SCH (11:57)
[2023-12-28] MEDS: NSS + 20MEQ KCL 20 MEQ/1,000 ML BAG IV SCH (12:14)
[2023-12-28] MEDS: TIMOLOL MALEATE 0.5% OP SOLN 5 ML BTL OP SCH (12:20)
[2023-12-28] MEDS: MAGNESIUM SULFATE / D5W 1 GM/100 ML BAG IV ONE (12:25)
[2023-12-28] MEDS: ONDANSETRON INJ 2 MG/ML 2 ML VIAL IV PRN (14:52)
[2023-12-28 15:53] LABS: Basophils # (auto) 0.01 K/uL (0.00-0.20); Basophils % (auto) 0.1 %; Eosinophils # (auto) 0.08 K/uL (0.00-0.50); Eosinophils % (auto) 0.7 %; Hematocrit (blood only) 34.5 % (37.0-47.0); Hemoglobin 11.5 g/dl (12.0-16.0); Immature Granulocytes # (auto) 0.06 K/uL (0.01-0.20); Immature Granulocytes % (auto) 0.5 %; Lymphocytes % (auto) 9.4 %; Mean Corpuscular Hemoglobin 32.3 pg (25.0-34.0); Mean Corpuscular Hgb Conc 33.3 g/dL (32.0-36.0); Mean Corpuscular Volume 96.9 fL (80.0-100.0); Mean Platelet Volume 10.4 fL (9.4-12.4); Monocytes # (auto) 1.29 K/uL (0.11-0.59); Neutrophils # (auto) 9.16 K/uL (1.40-6.50); Neutrophils % (auto) 78.3 %; Platelet Count 183 K/uL (130-400); RDW Coefficient of Variation 14.6 % (11.5-14.5); RDW Standard Deviation 51.8 fL (36.4-46.3); Red Blood Count 3.56 M/uL (4.20-5.40)
[2023-12-28 16:06] LABS: Albumin Globulin Ratio 1.6 (0.9-2); Albumin Level 3.5 gm/dl (3.4-5.0); BUN Creatinine Ratio 24.7 (10-20); Bilirubin,Total 0.6 mg/dl (0.2-1.0); Calcium 8.1 mg/dl (8.6-10.3); Creatinine Clr Calc Pharmacy 51.7 ml/min; Est GFR (African American) 90.8 ml/min; Est GFR (Non-African American) 78.3 ml/min; Globulin 2.2 gm/dl (2.5-4.0); Magnesium 2.2 mg/dl (1.7-2.4); Potassium 3.2 mmol/L (3.5-5.1); Total Protein 5.7 gm/dl (6.0-8.3)
[2023-12-28] MEDS: POTASSIUM CHLORIDE CRTAB 20 MEQ TABCR PO STA (16:50)
[2023-12-28] MEDS: ROSUVASTATIN CALCIUM 5 MG TAB PO SCH (20:29)
[2023-12-28] MEDS ORDERED: traZODone HCL 50 MG TAB PO SCH (21:00)
[2023-12-28] MEDS: traZODone HCL 50 MG TAB PO SCH (21:38)
--- NOTE | 2023-12-29 03:53 | Billing Data ---
Date of Service December 29, 2023 Coding Level of Care Code 65058 INT INP/OBS CARE
--- NOTE | 2023-12-29 05:59 | Electrocardiogram Report ---
Test Reason : Blood Pressure : / mmHG Vent. Rate : 086 BPM Atrial Rate : 086 BPM P-R Int : 080 ms QRS Dur : 072 ms QT Int : 374 ms P-R-T Axes : 000 002 086 degrees QTc Int : 447 ms Sinus rhythm with short DC Otherwise normal ECG When compared with ECG of 11-NOV-2023 18:35, Artifact has improved Confirmed by Robson Alvarez [id number]) on 12/29/2023 5:59:25 AM Referred By: REFERRED SELF Confirmed By:Robson Alvarez
[2023-12-29 06:09] LABS: Hematocrit (blood only) 33.7 % (37.0-47.0); Hemoglobin 11.1 g/dl (12.0-16.0); Mean Corpuscular Hemoglobin 32.2 pg (25.0-34.0); Mean Corpuscular Hgb Conc 32.9 g/dL (32.0-36.0); Mean Corpuscular Volume 97.7 fL (80.0-100.0); Mean Platelet Volume 10.6 fL (9.4-12.4); Platelet Count 164 K/uL (130-400); RDW Coefficient of Variation 14.6 % (11.5-14.5); RDW Standard Deviation 52.2 fL (36.4-46.3); Red Blood Count 3.45 M/uL (4.20-5.40); White Blood Count 7.29 K/ul (4.8-10.8)
[2023-12-29] MEDS: ONDANSETRON INJ 2 MG/ML 2 ML VIAL ONE ×2 (06:54)
[2023-12-29 08:03] LABS: Calcium 7.8 mg/dl (8.6-10.3); Magnesium 2.2 mg/dl (1.7-2.4); Potassium 3.6 mmol/L (3.5-5.1)
[2023-12-29 08:08] LABS: BUN Creatinine Ratio 26.6 (10-20); Est GFR (African American) 98.4 ml/min; Est GFR (Non-African American) 84.9 ml/min
--- NOTE | 2023-12-29 08:10 | XRay Report ---
XR chest 1V portable CLINICAL HISTORY: follow up, eval aspiration TECHNIQUE: Single frontal radiograph of the chest was obtained. Comparison: Comparison is made to chest radiograph 12/28/2023 FINDINGS: No lines and tubes are seen. Cardiomegaly is noted. There is prominence and cephalization of the vasc ulature with Marlen B lines seen. No evidence of pleural effusion or pneumothorax. IMPRESSION: Cardiomegaly and moderate pulmonary edema. This is stable from prior exam. ACT 112: Negative or not required by law. Electronically signed by: Abdoul Willard M.D. 12/29/2023 8:08 AM
[2023-12-29] MEDS ORDERED: SODIUM BICARBONATE 8.4% 50 MEQ in DEXTROSE 5% 1,000 ML IV SCH (08:15)
--- NOTE | 2023-12-29 08:15 | Hospitalist Progress Note ---
Date of Service December 29, 2023 Assessment & Plan (1) Rotavirus infection: Plan: Pt is a 78 yo female with PMH of UC, Schatzki's ring, anxiety, depression, occipital neuralgia, and upper GI bleed presenting due to N/V/D. Do not suspect acute UC flare as this point as her dx has been well controlled for many years (did have some hemorrhoidal bleeding ~2 months ago --recent colonoscopy 08/2023 showed no active disease). Patient did have prior EGD w/ her c-scope in august, noted esophageal stenosis req dilation. No issues w/ dysphagia reported but will need to monitor. CTAP w/ proctocolitis/diarrhea illness, no diverticulitis ESR/CRP added to eval inflammatory status -- NOT elevated WBC 11k on admit, hgb 12.8, lipase wnl, ASt/ALT elevation (s/p cholecystectomy). TB 0.8, ALP 63 STOOL PCR TESTING POSITIVE FOR ROTAVIRUS, ISOLATION PRECAUTIONS PLACED IVF x 1 L on 12/27 12/28 Clear liquid diet --> full liquid diet without issue. No further vomiting WBC normalized, afebrile Changing IV protonix and pepcid to PO given tolerating PO w/o vomiting Antiemetics prn, supportive care. Ordered 1L IVF w/ NaHCO for diarrheal losses ordered and patient does report diarrhea has SLOWED LFTs normalized on repeat Monitor labs in AM and advancement of diet -- if tolerating advancement of diet without significant diarrhea and electrolytes stable can plan for discharge. (2) Nausea & vomiting: Plan: likely 2nd to above, monitor advancement of diet as tolerated. antiemetics as needed (3) HTN (hypertension): Plan: Hx HTN, HLD - chronic, stable continues on home rosuvastatin 5 mg nightly Amlodipine 5mg daily continued -also suspect helps w/ swallowing given EGD/dilation in past, no issues reported BP NOT elevated, stable at 122/52 HOLDING home spironolactone/lasix given dehydration/diarrheal lossess. CXR does note stable pulm edema but is 93% on RA, utilizing IS Monitor to resume diuretics in AM but would opt to continue spironolactone first and then resume lasix if diarrhea continues to be stable/resolved to prevent hypokalemia (4) Ulcerative colitis: Plan: CRP not significantly elevated, no blood in stool reported Also on methotrexate for underlying Rheumatoid arthritis -- rec'd to patient to hold in setting acute illness (5) GERD (gastroesophageal reflux disease): Plan: PPI/pepcid as above changing to PO for AM hx needing dilation for stenosis in the past and monitor diet advancement--no issues w/ advancement of diet and will monitor Other chronic medical problems Depression/anxiety chronic, stable -continue home citalopram 20 mg daily Asthma chronic, stable - continue home fluticasone/salmeterol inhalation BID no wheezing on exam but will monitor w/ IVF as above Insomnia stable, continue home melatonin PRN, trazodone nightly Glaucoma stbale, continue home eye drops DVT proph: SCDs added, HOLDING OFF Lovenox SQ given hx UC/hx GI bleeding. No evidence for DVT and moving around room pretty good. Ambulation encouraged Plan continued inpatient stay, supportive care/IVF PT evals pending to ensure no needs at dc Possible dc tomorrow if diarrhea slowed/resolved, tolerating diet and electrolytes stable Admission and Anticipated Discharge Date Admission Date: December 28, 2023 Subjective Evaluated this morning, doing better. Tolerating advancement of diet and upgrading diet today to lactose intolerant and discussed avoidance of dairy for now w/ rotavirus as this can worsen symptoms. She did get some med for nausea but no vomiting. Electrolytes improved but diarrhea x 3 this morning, NO BLOOD. Reports diarrhea has slowed but still present and will given additional IVF for today and monitor diarrhea/PO intake and possible dc tomorrow. She denies any CP/SOb, no leg swelling and she will have diuretics remain on hold for now. Incentive spirometry use encouraged. Pleasant/cooperative and thankful for care. She is going to [place] next week for her 79th birthday. Questions/concerns addressed. Physical Exam Physical Exam: 78 yo female laying in bed, NAD but fati gued appearing trachea midline, no deviation, mm slightly dry (improved) resp: even/unlabored, slightly diminished in the bases, fine bibasilar crackles, no w/r, on room air CV: RRR,+systolic murmur, no pitting edema/calf tenderness GI: +BS throughout, slight distension, generalized cramping but no overt tenderness : no sam MSK/Neuro/psych: nonfocal, not confused, answering questions appropriately Results & Data Results & Data Vital Signs (Past 12 Hours) Vital Signs Temp Pulse Resp BP Pulse Ox O2 Del Method O2 Flow Rate 12/29/23 07:57 93 Room Air 12/29/23 07:53 Room Air 12/29/23 07:24 36.8 C 61 16 122/52 L 99 Nasal Cannula 2 Laboratory Results 12/29/23 12/28/23 Range/Units 05:47 15:30 WBC 7.29 11.70 H (4.8-10.8) K/ul RBC 3.45 L 3.56 L (4.20-5.40) M/uL Hgb 11.1 L 11.5 L (12.0-16.0) g/dl Hct 33.7 L 34.5 L (37.0-47.0) % MCV 97.7 96.9 (80.0-100.0) fL MCH 32.2 32.3 (25.0-34.0) pg MCHC 32.9 33.3 (32.0-36.0) g/dL RDW Std Deviation 52.2 H 51.8 H (36.4-46.3) fL RDW Coeff of Nikkie 14.6 H 14.6 H (11.5-14.5) % Plt Count 164 183 (130-400) K/uL MPV 10.6 10.4 (9.4-12.4) fL Immature Gran % (Auto) 0.5 % Neut % (Auto) 78.3 % Lymph % (Auto) 9.4 % [place] % (Auto) 11.0 % Eos % (Auto) 0.7 % Baso % (Auto) 0.1 % Neut # (Auto) 9.16 H (1.40-6.50) K/uL Lymph # (Auto) 1.10 L (1.20-3.40) K/uL [place] # (Auto) 1.29 H (0.11-0.59) K/uL Eos # (Auto) 0.08 (0.00-0.50) K/uL Baso # (Auto) 0.01 (0.00-0.20) K/uL Immature Gran # (Auto) 0.06 (0.01-0.20) K/uL Sodium 137 140 (136-145) mmol/L Potassium 3.6 3.2 L (3.5-5.1) mmol/L Chloride 113 H 110 H (98-107) mmol/L Carbon Dioxide 18 L 23 (21-32) mmol/L Anion Gap 6 7 (3-11) BUN 17 18 (6-23) mg/dl Creatinine 0.64 0.73 (0.6-1.2) mg/dl Est Cr Clr Drug Dosing 59.0 51.7 ml/min Est GFR ( Amer) 98.4 90.8 ml/min Est GFR (Non-Af Amer) 84.9 78.3 ml/min BUN/Creatinine Ratio 26.6 H 24.7 H (10-20) Glucose 99 109 H (70-99(Fasting)) mg/dl Calcium 7.8 L 8.1 L (8.6-10.3) mg/dl Magnesium 2.2 2.2 (1.7-2.4) mg/dl Total Bilirubin 0.6 (0.2-1.0) mg/dl AST 38 (13-39) U/L ALT 42 (7-52) U/L Alkaline Phosphatase 46 (34-104) U/L Total Protein 5.7 L (6.0-8.3) gm/dl Albumin 3.5 (3.4-5.0) gm/dl Globulin 2.2 L (2.5-4.0) gm/dl Albumin/Globulin Ratio 1.6 (0.9-2) PG Care Time/CCT Total # of Minutes Spent Total Time Spent with Patient: Total time spent is greater than 50% in coordination of care (as documented) at patient's floor/unit and/or counseling patient: Coding Level of Care Code 29686 SUB INP/OBS CARE 3/50MIN Diagnoses Rotavirus infection A08.0 Nausea & vomiting R11.2 Vomiting Intractability: non-intractable Vomiting type: unspecified HTN (hypertension) I10 Ulcerative colitis K51.90 GERD (gastroesophageal reflux disease) K21.9 (2) Nausea & vomiting Vomiting Intractability: non-intractable Vomiting type: unspecified Qualified Code(s): R11.2 - Nausea with vomiting, unspecified
[2023-12-29] MEDS: POTASSIUM CHLORIDE IV SCH (10:18)
[2023-12-29] MEDS: SODIUM BICARBONATE IV SCH (10:18)
[2023-12-29] MEDS: DEXTROSE 5% IV SCH (10:18)
[2023-12-29] MEDS: MELATONIN 3 MG TAB PO PRN (20:48)
[2023-12-30 08:12] LABS: Hematocrit (blood only) 34.7 % (37.0-47.0); Hemoglobin 11.6 g/dl (12.0-16.0); Mean Corpuscular Hemoglobin 31.8 pg (25.0-34.0); Mean Corpuscular Hgb Conc 33.4 g/dL (32.0-36.0); Mean Corpuscular Volume 95.1 fL (80.0-100.0); Mean Platelet Volume 10.4 fL (9.4-12.4); Platelet Count 179 K/uL (130-400); RDW Coefficient of Variation 13.8 % (11.5-14.5); RDW Standard Deviation 47.8 fL (36.4-46.3); Red Blood Count 3.65 M/uL (4.20-5.40)
[2023-12-30 08:25] LABS: Magnesium 2.2 mg/dl (1.7-2.4); Potassium 3.6 mmol/L (3.5-5.1)
[2023-12-30 08:31] LABS: Creatinine Clr Calc Pharmacy 62.9 ml/min; Est GFR (African American) 100.5 ml/min; Est GFR (Non-African American) 86.7 ml/min
[2023-12-30] MEDS: PANTOprazole 40 MG TAB PO SCH (09:13)
[2023-12-30] MEDS: FAMOTIDINE 20 MG TAB PO SCH (09:13)
--- NOTE | 2023-12-30 11:09 | Hospitalist Progress Note ---
Date of Service December 30, 2023 Assessment & Plan (1) Rotavirus infection: Plan: Pt is a 78 yo female with PMH of UC, Schatzki's ring, anxiety, depression, occipital neuralgia, and upper GI bleed presenting due to N/V/D. Do not suspect acute UC flare as this point as her dx has been well controlled for many years (did have some hemorrhoidal bleeding ~2 months ago --recent colonoscopy 08/2023 showed no active disease). Patient did have prior EGD w/ her c-scope in august, noted esophageal stenosis req dilation. No issues w/ dysphagia reported but will need to monitor. CTAP w/ proctocolitis/diarrhea illness, no diverticulitis ESR/CRP added to eval inflammatory status -- NOT elevated WBC 11k on admit, hgb 12.8, lipase wnl, ASt/ALT elevation (s/p cholecystectomy). TB 0.8, ALP 63 STOOL PCR TESTING POSITIVE FOR ROTAVIRUS, ISOLATION PRECAUTIONS PLACED IVF x 1 L on 12/27 12/28 Clear liquid diet --> full liquid diet without issue. No further vomiting WBC normalized, afebrile Changing IV protonix and pepcid to PO given tolerating PO w/o vomiting Antiemetics prn, supportive care. Ordered 1L IVF w/ NaHCO for diarrheal losses ordered and patient does report diarrhea has SLOWED LFTs normalized on repeat On 12/29 Patient continues to have diarrhea. Will place on one time dose of Imodium and monitor. Given age and increased frequency of diarrhea, will keep patient in he hospital. Patient has had about 1 BM per hour today. And is barely reaching the commode which is at bedside. Will also place on IVF. (2) Nausea & vomiting: Plan: likely 2nd to above, monitor advancement of diet as tolerated. antiemetics as needed (3) HTN (hypertension): Plan: Hx HTN, HLD - chronic, stable continues on home rosuvastatin 5 mg nightly Amlodipine 5mg daily continued -also suspect helps w/ swallowing given EGD/dilation in past, no issues reported BP NOT elevated, stable at 122/52 HOLDING home spironolactone/lasix given dehydration/diarrheal lossess. CXR does note stable pulm edema but is 93% on RA, utilizing IS Monitor to resume diuretics in AM but would opt to continue spironolactone first and then resume lasix if diarrhea continues to be stable/resolved to prevent hypokalemia (4) Ulcerative colitis: Plan: CRP not significantly elevated, no blood in stool reported Also on methotrexate for underlying Rheumatoid arthritis -- rec'd to patient to hold in setting acute illness (5) GERD (gastroesophageal reflux disease): Plan: PPI/pepcid as above changing to PO for AM hx needing dilation for stenosis in the past and monitor diet advancement--no issues w/ advancement of diet and will monitor Other chronic medical problems Depression/anxiety chronic, stable -continue home citalopram 20 mg daily Asthma chronic, stable - continue home fluticasone/salmeterol inhalation BID no wheezing on exam but will monitor w/ IVF as above Insomnia stable, continue home melatonin PRN, trazodone nightly Glaucoma stbale, continue home eye drops DVT proph: SCDs added, HOLDING OFF Lovenox SQ given hx UC/hx GI bleeding. No evidence for DVT and moving around room pretty good. Ambulation encouraged Plan continued inpatient stay, supportive care/IVF PT evals pending to ensure no needs at dc Admission and Anticipated Discharge Date Admission Date: December 29, 2023 Subjective 78 yo male reports no new symptoms. Patient reports her nausea has improved, but she continues to have diarrhea. She has had 3 episodes from 7 am to now. She reports she barely makes it to the commode Review of Systems Review of Systems: All systems reviewed & are unremarkable except as noted in HPI & below Physical Exam Physical Exam: 78 yo female laying in bed, NAD trachea midline, no deviation, mm slightly dry (improved) resp: CTA BL CV: RRR,+systolic murmur, no pitting edema/calf tenderness GI: +BS throughout, slight distension, generalized cramping but no overt tenderness : no sam MSK/Neuro/psych: nonfocal, not confused, answering questions appropriately Results & Data Results & Data Vital Signs (Past 12 Hours) Vital Signs Temp Pulse Resp BP Pulse Ox O2 Del Method 12/30/23 08:45 Room Air 12/30/23 07:30 36.6 C 61 16 110/57 L 96 Room Air PG Care Time/CCT Total # of Minutes Spent Total Time Spent with Patient: Total time spent is greater than 50% in coordination of care (as documented) at patient's floor/unit and/or counseling patient: Coding Level of Care Code 34282 SUB INP/OBS CARE MIN Diagnoses Rotavirus infection A08.0 Nausea & vomiting R11.2 Vomiting Intractability: non-intractable Vomiting type: unspecified HTN (hypertension) I10 Ulcerative colitis K51.90 GERD (gastroesophageal reflux disease) K21.9 (2) Nausea & vomiting Vomiting Intractability: non-intractable Vomiting type: unspecified Qualified Code(s): R11.2 - Nausea with vomiting, unspecified
[2023-12-30] MEDS: LOPERAMIDE HCL 2 MG CAP PO STA (11:39)
[2023-12-30] MEDS: LACTATED RINGER'S 1,000 ML IV SCH (11:39)
[2023-12-31 07:07] LABS: Hematocrit (blood only) 29.8 % (37.0-47.0); Hemoglobin 10.4 g/dl (12.0-16.0); Mean Corpuscular Hemoglobin 32.1 pg (25.0-34.0); Mean Corpuscular Hgb Conc 34.9 g/dL (32.0-36.0); Mean Platelet Volume 10.3 fL (9.4-12.4); Platelet Count 181 K/uL (130-400); RDW Coefficient of Variation 13.3 % (11.5-14.5); RDW Standard Deviation 45.2 fL (36.4-46.3); Red Blood Count 3.24 M/uL (4.20-5.40); White Blood Count 4.35 K/ul (4.8-10.8)
[2023-12-31 07:55] LABS: Calcium 7.9 mg/dl (8.6-10.3); Potassium 3.8 mmol/L (3.5-5.1)
[2023-12-31 08:01] LABS: BUN Creatinine Ratio 13.5 (10-20); Creatinine Clr Calc Pharmacy 72.6 ml/min; Est GFR (African American) 105.3 ml/min; Est GFR (Non-African American) 90.9 ml/min
--- NOTE | 2023-12-31 10:56 | Discharge Summary ---
Date of Service December 31, 2023 Admission HPI Per Admitting Provider Pt is a 78 yo female with PMH of UC, Schatzki's ring, anxiety, depression, occipital neuralgia, and upper GI bleed presenting due to N/V/D. Pt states she had a sudden onset of nausea, vomiting, diarrhea, and abdominal pain ~3PM yesterday. Since then, she has felt generally ill, including ongoing vomiting and diarrhea. She feels very cold and cannot get warm. She denies feeling feverish. She denies chest pain and SOB. Pt recently had an EGD/colonoscopy 08/2023. Pt had a esophageal stenosis which was dilated- she has had no dysphagia since. One 3 mm tubular adenoma was excised from the cecum (recommended f/u in 5 yrs). In the ER, the pt was given zofran 4 mg x1, 1 L NS with subsequent IVF at maintenance rate, morphine 2mg x1, bentyl 20 mg x1, and reglan 5 mg x1. Discharge Data Allergies Allergy/AdvReac Type Severity Reaction Status Date / Time No Known Allergies Allergy Verified 12/28/23 02:51 Consultations 12/28/23 05:14 ED Decision to Admit Stat Ordered Studies 12/28/23 03:09 CT abd pelvis IV con only Stat Hospital Course (1) Rotavirus infection: Pt is a 78 yo female with PMH of UC, Schatzki's ring, anxiety, depression, occi pital neuralgia, and upper GI bleed presenting due to N/V/D. Do not suspect acute UC flare as this point as her dx has been well controlled for many years (did have some hemorrhoidal bleeding ~2 months ago --recent colonoscopy 08/2023 showed no active disease). Patient did have prior EGD w/ her c-scope in august, noted esophageal stenosis req dilation. No issues w/ dysphagia reported but will need to monitor. CTAP w/ proctocolitis/diarrhea illness, no diverticulitis ESR/CRP added to eval inflammatory status -- NOT elevated WBC 11k on admit, hgb 12.8, lipase wnl, ASt/ALT elevation (s/p cholecystectomy). TB 0.8, ALP 63 STOOL PCR TESTING POSITIVE FOR ROTAVIRUS, ISOLATION PRECAUTIONS PLACED IVF x 1 L on 12/27 12/28 Clear liquid diet --> full liquid diet without issue. No further vomiting WBC normalized, afebrile Changing IV protonix and pepcid to PO given tolerating PO w/o vomiting Antiemetics prn, supportive care. Ordered 1L IVF w/ NaHCO for diarrheal losses ordered and patient does report diarrhea has SLOWED LFTs normalized on repeat On 12/29 Patient continues to have diarrhea. Will place on one time dose of Imodium and monitor. Given age and increased frequency of diarrhea, will keep patient in he hospital. Patient has had about 1 BM per hour today. And is barely reaching the commode which is at bedside. Will also place on IVF. (2) Nausea & vomiting: likely 2nd to above, monitor advancement of diet as tolerated. antiemetics as needed (3) HTN (hypertension): Hx HTN, HLD - chronic, stable continues on home rosuvastatin 5 mg nightly Amlodipine 5mg daily continued -also suspect helps w/ swallowing given EGD/dilation in past, no issues reported BP NOT elevated, stable at 122/52 HOLDING home spironolactone/lasix given dehydration/diarrheal lossess. CXR does note stable pulm edema but is 93% on RA, utilizing IS Monitor to resume diuretics in AM but would opt to continue spironolactone first and then resume lasix if diarrhea continues to be stable/resolved to prevent hypokalemia (4) Ulcerative colitis: CRP not significantly elevated, no blood in stool reported Also on methotrexate for underlying Rheumatoid arthritis -- rec'd to patient to hold in setting acute illness (5) GERD (gastroesophageal reflux disease): PPI/pepcid as above changing to PO for AM hx needing dilation for stenosis in the past and monitor diet advancement--no issues w/ advancement of diet and will monitor Other chronic medical problems Depression/anxiety chronic, stable -continue home citalopram 20 mg daily Asthma chronic, stable - continue home fluticasone/salmeterol inhalation BID no wheezing on exam but will monitor w/ IVF as above Insomnia stable, continue home melatonin PRN, trazodone nightly Glaucoma stbale, continue home eye drops DVT proph: SCDs added, HOLDING OFF Lovenox SQ given hx UC/hx GI bleeding. No evidence for DVT and moving around room pretty good. Ambulation encouraged Plan continued inpatient stay, supportive care/IVF PT evals pending to ensure no needs at dc Discharge Plan Discharge Items Patient Disposition: Home - Self-Care Reason For Visit: N/V/D Discharge Diagnosis: Rotavirus, Diarrheal Illness Goals: You have been hospitalized for GI bug which was due to a virus. During your stay at [facility], we have made an effort to correct the problem that brought you to the hospital while keeping you as comfortable as possible. This is mainly treated with supportive care, fluids. Your stools have become more formed so I do not believe you will need to take Imodium moving forward. Continue to stay hydrated. Please make sure you see your Primary Care Provider as part of your follow up plan. Recommend followup with PCP in 1-2 weeks. Activity: Resume your previous activity Non-emergency contact: Primary Care Provider Call non-emergency contact if: you have any medication questions, your symptoms worsen, your pain is concerning for you and you have a fever Follow-up/Referrals: Hayder Ann PA-C [Primary Care Provider] - Diet: Heart Healthy and Lactose Intolerant Diet Comment: bland/BRAT diet recommended -- bananas, rice, applesauce, toast Addtl Attending Provider Instructions: You have been hospitalized for nausea/vomiting, diarrhea and abdominal pain. Your stool was tested and was POSITIVE for ROTAVIRUS. You were treated conservatively with IV fluids and electrolyte replacement along with medications to help with nausea. This is usually self limited, however as discussed I would recommend you stay away from dairy/lactose in the short term as this can cause worsened diarrhea with rotavirus. You should continue to push oral fluids with electrolytes like powerade/Gatorade to ensure staying hydrated and getting electrolytes to prevent deficiencies from diarrhea losses. You are being sent home with a prescription of Zofran to take as needed for nausea until this resolves. At discharge, your Lasix and spironolactone ---> can be resumed once your diarrhea subsides. Please continue to hold your methotrexate at discharge for your rheumatoid arthritis until you have recovered from this acute illness. Please be advised that the virus can shed in your stools and continue good hand washing and be very cautious about interactions with young children/infants as this can be quite severe for them. Please follow up with primary care care in the next 7-10 days to monitor your progress after discharge. It has been a pleasure being a part of the medical team providing for you while you have been in the hospital. Take care and Happy early birthday! Have fun in [place]! :) Pending Studies at Discharge: No Stand-Alone Forms: My [facility], Smoking Cessation Medications and DC Order Prescriptions: New ondansetron 4 mg tablet,disintegrating 4 mg PO Q8H PRN (Reason: nausea and vomiting) 4 Days Qty: 10 0RF Continued trazodone 50 mg tablet 25 - 50 mg PO HS Prolia 60 mg/mL syringe 60 mg subcut Q6MO brimonidine-timolol [Combigan] 0.2-0.5 % drops 1 drp ophthalmic (eye) BID folic acid 1 mg tablet 1 mg PO DAILY Rx Instructions: LAST FILLED 07/23/23 FOR 90 DAYS famotidine 40 mg tablet 40 mg PO HS pantoprazole 40 mg tablet,delayed release (DR/EC) 40 mg PO QAM Rx Instructions: take 1 tablet by mouth once daily timolol maleate (PF) 0.5 % Dropperette 1 drp OPHTHALMIC (EYE) BID Patient Comments: for left eye amlodipine 5 mg Tablet 5 mg PO QAM oxycodone-acetaminophen [Percocet] 5-325 mg Tablet 1 tab PO Q6H PRN (Reason: Pain) rosuvastatin [Crestor] 5 mg Tablet 5 mg PO HS melatonin 5 mg Tablet 5 mg PO HS PRN (Reason: Sleep/PAIN) celecoxib 200 mg capsule 200 mg PO HS PRN (Reason: Pain) citalopram [Celexa] 20 mg Tablet 20 mg PO DAILY methotrexate sodium 2.5 mg tablet 12.5 mg PO WK Rx Instructions: TAKES 5 TABLETS cholecalciferol (vitamin D3) [Vitamin D3] 25 mcg (1,000 unit) Capsule 25 mcg PO DAILY diclofenac sodium [Voltaren] 1 % Gel 2 g TOPICAL TID PRN (Reason: Pain) potassium citrate 10 mEq (1,080 mg) tablet extended release 10 meq PO DAILY Rx Instructions: NOT ON EXT MED HX. UNSURE IF TAKING THIS MED. prochlorperazine maleate 10 mg tablet 10 mg PO QID PRN (Reason: nausea and vomiting) Qty: 14 0RF meclizine 25 mg tablet 25 mg PO TID PRN (Reason: Dizziness) fluticasone propion-salmeterol 500-50 mcg/dose blister with device 1 inh INHALATION BID dicyclomine 20 mg tablet 20 mg PO QID PRN (Reason: ABD DISCOMFORT) Held furosemide [Lasix] 20 mg Tablet 20 mg PO QAM Hold Instructions: Resume on 01/05/24. spironolactone 25 mg tablet 25 mg PO DAILY Hold Instructions: Resume on 01/05/24. Rx Instructions: LAST FILLED 05/06/23 FOR 90 DAYS. Discharge Orders: Discharge Order (Routine); Ordered 12/31/23 Ordered By: Herber Bhakta Admission Data Admit Date/Time: 12/29/23 14:39 Attending Provider: Herber Bhakta Admit Provider: Monika Schilling Primary Care Provider: Hayder Ann Other Providers: Stan Soto Coding Diagnoses Rotavirus infection A08.0 Nausea & vomiting R11.2 Vomiting Intractability: non-intractable Vomiting type: unspecified HTN (hypertension) I10 Ulcerative colitis K51.90 GERD (gastroesophageal reflux disease) K21.9
[2023-12-31] MEDS: LOPERAMIDE HCL 2 MG CAP PO STA (11:31)
== END 2023-12-31 12:58 | disposition home or self-care (01) | DRG 392 ==
LOC: SUATTDRO → 3E 02:36 → ED 02:36 → SUATTDRO 05:20 → 3E 09:21 → SUATTDRO 12-29 14:39
DX: H40.9 Unspecified glaucoma; A08.0 Rotaviral enteritis; G47.00 Insomnia, unspecified; J45.909 Unspecified asthma, uncomplicated; E78.5 Hyperlipidemia, unspecified; I10 Essential (primary) hypertension; Z87.891 Personal history of nicotine dependence; K51.90 Ulcerative colitis, unspecified, without complications; F41.9 Anxiety disorder, unspecified; K21.9 Gastro-esophageal reflux disease without esophagitis; Z79.899 Other long term (current) drug therapy; F32.A Depression, unspecified

== ENCOUNTER 2024-02-18 18:41 | Inpatient (IN) ==
--- NOTE | 2024-02-18 18:48 | ED Triage Note ---
Date of Service February 18, 2024 Provider in Triage Author: Kaitlynn Mcintyre History of Present Illness This patient was briefly evaluated while in triage. An abbreviated physical exam was performed. This patient is a 79-year-old Female who presents to the ED for evaluation of heaviness in her chest, HTN, leg swelling, and SOB for the past week. She has a history of CHF. No recent change in her diuretics per patient. Her PCP recently started her on losartan. Physical Exam GENERAL: Non-toxic and in no acute distress. HEENT: Pupils equal. No obvious scleral icterus. HEART: Regular rate and rhythm. LUNGS: Clear to auscultation. No accessory muscle use. ABDOMEN: Soft, non-tender. NEURO: Alert and oriented. No obvious neurological deficits on quick neuro exam. MUSCULOSKELETAL: No significant edema to the bilateral lower extremities. Initial orders for labs and / or imaging were placed and patient was placed in the waiting area until a bed is available. Please see further documentation for the full ED course. MDM / Impression Impression Impression: Chest pain Impression: Chest pain Qualifiers: Chest pain type: unspecified Qualified Code(s): R07.9 - Chest pain, unspecified
[2024-02-18 19:26] LABS: Basophils # (auto) 0.01 K/uL (0.00-0.20); Basophils % (auto) 0.1 %; Eosinophils # (auto) 0.13 K/uL (0.00-0.50); Eosinophils % (auto) 1.7 %; Hematocrit (blood only) 33.9 % (37.0-47.0); Hemoglobin 11.4 g/dl (12.0-16.0); Immature Granulocytes # (auto) 0.05 K/uL (0.01-0.20); Immature Granulocytes % (auto) 0.6 %; Lymphocytes # (auto) 1.61 K/uL (1.20-3.40); Lymphocytes % (auto) 20.6 %; Mean Corpuscular Hemoglobin 31.8 pg (25.0-34.0); Mean Corpuscular Hgb Conc 33.6 g/dL (32.0-36.0); Mean Corpuscular Volume 94.4 fL (80.0-100.0); Mean Platelet Volume 10.8 fL (9.4-12.4); Monocytes # (auto) 0.65 K/uL (0.11-0.59); Monocytes % (auto) 8.3 %; Neutrophils # (auto) 5.36 K/uL (1.40-6.50); Neutrophils % (auto) 68.7 %; Platelet Count 244 K/uL (130-400); RDW Coefficient of Variation 12.9 % (11.5-14.5); RDW Standard Deviation 44.4 fL (36.4-46.3); Red Blood Count 3.59 M/uL (4.20-5.40); White Blood Count 7.81 K/ul (4.8-10.8)
[2024-02-18 19:36] LABS: Appearance Urine Clear (Clear); Bacteria Urine Automated None Seen (None Seen); Bilirubin Urine Negative (Negative); Blood Urine Trace (Negative); Cast Urine Automated 0-2 /lpf (0-2); Color Urine Yellow; Epithelial Cell Urine Auto 0-2 /hpf (0-2); Glucose Urine UA Negative (Negative); Ketones Urine Negative (Negative); Leukocyte Esterase Urine Negative (Negative); Nitrite Urine Negative (Negative); Protein Urine Negative (Negative); RBC Urine Automated 0-2 /hpf (0-2); Specific Gravity Urine 1.008 (1.000-1.030); Urobilinogen Urine Negative (Negative); WBC Urine Automated 0-5 /hpf (0-5)
[2024-02-18 19:48] LABS: Albumin Globulin Ratio 1.5 (0.9-2); Albumin Level 4.3 gm/dl (3.4-5.0); BUN Creatinine Ratio 17.5 (10-20); Bilirubin,Total 0.5 mg/dl (0.2-1.0); Calcium 9.3 mg/dl (8.6-10.3); Creatinine Clr Calc Pharmacy 38.3 ml/min; Est GFR (African American) 63.9 ml/min; Est GFR (Non-African American) 55.2 ml/min; Globulin 2.8 gm/dl (2.5-4.0); Magnesium 1.9 mg/dl (1.7-2.4); Potassium 3.9 mmol/L (3.5-5.1); Total Protein 7.1 gm/dl (6.0-8.3)
--- NOTE | 2024-02-18 19:49 | XRay Report ---
SINGLE VIEW CHEST CLINICAL HISTORY: Atypical chest pain FINDINGS: A PA chest radiograph is compared to study dated 12/29/2023. The heart is enlarged noting ath erosclerotic calcification of the thoracic aorta. The pulmonary vasculature is noncongested. Chronic interstitial thickening is similar to previous. There is mild bibasilar atelectasis. The lungs and pl eural spaces are otherwise clear. No pneumothorax is seen. The skeletal structures are osteopenic. Th e bony thorax is grossly intact. Cholecystectomy clips are noted in the right upper quadrant. IMPRESSION: Cardiomegaly with no active disease in the chest. ACT 112: Negative or not required by law. Electronically signed by: Blake Gupta M.D. 02/18/2024 7:47 PM
[2024-02-18 19:55] LABS: Troponin I High Sensitivity 9.5 pg/ml (0-14)
[2024-02-18] MEDS: NITROGLYCERIN SL 0.4 MG/TAB TAB SL STA (19:58)
[2024-02-18] MEDS: ASPIRIN CHEW 324 MG PO STA (19:59)
[2024-02-18 20:00] LABS: INR 0.9 (0.9-1.1); Partial Thromboplastin Ratio 0.9; Partial Thromboplastin Time 25 Seconds (21-31); Prothrombin Time 10.1 Seconds (9.0-12.0)
[2024-02-18] MEDS: SODIUM CHLORIDE 0.9% 500 ML IV SCH (20:00)
--- NOTE | 2024-02-18 20:29 | Emergency Department Note ---
History of Present Illness General Chief Complaint: Cardiac Assessment Stated Complaint: CHEST PAINS, SOB, HYPERTENSION Time Seen by Provider: 02/18/24 19:37 History of Present Illness Provider Complaint: chest pain Onset (ago): week(s) Onset (Weeks): 1 Duration: intermittent Onset: during rest Pain Location: substernal Quality: + heaviness Relieved By: + nothing Exacerbated By: + nothing Context: no recent illness, no recent surgery, no recent immobilization, no recent travel or no trauma/injury Associated symptoms: + dyspnea; no nausea, no vomiting, no palpitations, no fever or no cough Home Medications Medication Instructions Recorded Confirmed Type amlodipine 5 mg tablet 5 mg PO QAM 01/07/19 12/28/23 History oxycodone-acetaminophen 5 mg-325 1 tab PO Q6H PRN Pain 01/07/19 12/28/23 History mg tablet (Percocet) rosuvastatin 5 mg tablet (Crestor) 5 mg PO HS 01/07/19 12/28/23 History furosemide 20 mg tablet (Lasix) 20 mg PO QAM 10/23/19 12/28/23 History trazodone 50 mg tablet 25 - 50 mg PO HS 04/04/20 12/28/23 History famotidine 40 mg tablet 40 mg PO HS 10/30/20 12/28/23 History pantoprazole 40 mg tablet,delayed 40 mg PO QAM 10/30/20 12/28/23 History release timolol maleate (PF) 0.5 % eye 1 drp ophthalmic (eye) BID 10/30/20 12/28/23 History drops in a dropperette denosumab 60 mg/mL subcutaneous 60 mg subcut Q6MO 04/29/22 12/28/23 History syringe (Prolia) folic acid 1 mg tablet 1 mg PO DAILY 07/04/22 12/28/23 History brimonidine 0.2 %-timolol 0.5 % 1 drp ophthalmic (eye) BID 07/25/23 12/28/23 History eye drops (Combigan) melatonin 5 mg tablet 5 mg PO HS PRN Sleep/PAIN 09/08/23 12/28/23 History celecoxib 200 mg capsule 200 mg PO HS PRN Pain 11/11/23 12/28/23 History cholecalciferol (vitamin D3) 25 25 mcg PO DAILY 11/11/23 12/28/23 History mcg (1,000 unit) capsule (Vitamin D3) citalopram 20 mg tablet (Celexa) 20 mg PO DAILY 11/11/23 12/28/23 History diclofenac sodium 1 % topical gel 2 g topical TID PRN Pain 11/11/23 12/28/23 History methotrexate sodium 2.5 mg tablet 12.5 mg PO WK 11/11/23 12/28/23 History potassium citrate 10 mEq (1,080 10 meq PO DAILY 11/11/23 12/28/23 History mg) tablet,extended release spironolactone 25 mg tablet 25 mg PO DAILY 11/11/23 12/28/23 History prochlorperazine maleate 10 mg 10 mg PO QID PRN nausea and 11/12/23 12/28/23 Rx tablet vomiting #14 tabs dicyclomine 20 mg tablet 20 mg PO QID PRN ABD DISCOMFORT 12/28/23 12/28/23 History fluticasone 500 mcg-salmeterol 50 1 inh inhalation BID 12/28/23 12/28/23 History mcg/dose blistr powdr for inhalation meclizine 25 mg tablet 25 mg PO TID PRN Dizziness 12/28/23 12/28/23 History Allergies Allergy/AdvReac Type Severity Reaction Status Date / Time No Known Allergies Allergy Verified 12/28/23 02:51 Past Med/Surg History Problem List (Updated 02/18/24 @ 20:47 by Luis Aguilera MD) Chest pain (Acute) Rotavirus enteritis (Acute) Enterocolitis (Acute) Rotavirus infection Rectal bleeding History of colon polyps Encounter for pre-operative examination Arthritis Colitis IBS (irritable bowel syndrome) (Acute) HTN (hypertension) (Chronic) Esophageal dysphagia Osteoarthritis Ulcerative colitis Hyperlipidemia Hip pain (Chronic) GERD (gastroesophageal reflux disease) (Chronic) Anxiety Kidney stones (Chronic) hx Medical History Colitis Allergy-induced asthma Schatzki's ring History of esophageal dilatation Cervicalgia Diverticulosis of colon History of SCC (squamous cell carcinoma) of skin Internal hemorrhoids Nausea and vomiting after administration of anesthetic agent Chronic back pain History of renal failure d/t kidney stones. Follows with Dr. Foster. Basal cell carcinoma of chest removed in office Basal cell carcinoma of face removed in office Anemia Glaucoma Depression Occipital neuralgia hx of--had nerve ablations x5 Bradycardia 40-50s is normal HR Upper GI bleed hx Surgical History History of lumpectomy of right breast benign History of lumbar discectomy History of total right hip replacement History of cystoscopy with stent History of total abdominal hysterectomy and bilateral salpingo-oophorectomy History of colonoscopy History of appendectomy History of cholecystectomy History of esophagogastroduodenoscopy (EGD) (~12/2018) History of tooth extraction all teeth removed History of bilateral cataract extraction Status post glaucoma surgery right eye has a shunt in place Family History Father Heart disease Brother Kidney disease Mother Kidney disease Other No family history of adverse response to anesthesia Social History Smoking Status: Former smoker Tobacco Type: Cigarettes Second Hand Exposure: Yes (father smoked/ smoked); Do You Dip or Chew Tobacco: No; Hx Alcohol Use: No Hx Substance Use: No Preferred Language: Upper Sorbian Communication Ability: Effective Setter Cold Rolling Machine Required: No Beliefs That Will Affect Care: None Current Living Situation: Alone Feels Safe at Home: Yes Assistive Devices: Glasses and Other Physical Exam Vital Signs Vital Signs - 24 hr 02/18/24 18:48 02/18/24 20:03 Temperature 36.9 C Temperature Source Temporal Artery Scan Pulse Rate 73 70 Respiratory Rate 18 26 H Respiratory Effort / Characteristics Non-Labored Respiratory Depth Normal Blood Pressure 231/68 H Blood Pressure Mean 122 Pulse Oximetry 96 94 Oxygen Delivery Method Room Air Room Air Sepsis Recent Fever Within 48 Hours No Sepsis New/Unexplained Change in Mental Status No Sepsis Action Taken by Nursing No Action Required Physical Exam GENERAL: oriented to person, place, and time. appears well-developed and well- nourished. HENT: Exam performed. - Head: Normocephalic and atraumatic. EYES: Conjunctivae and EOM are normal. Right eye exhibits no discharge. Left eye exhibits no discharge. No scleral icterus. NECK: Normal range of motion. Neck supple. No JVD present. CV: Normal rate, regular rhythm, normal heart sounds and intact distal pulses. There is no peripheral edema. Palpable radial pulses bue. PULM/CHEST: Effort normal and breath sounds normal. No respiratory distress. No stridor. no wheezes. no rales. ABD: The abdomen is soft. There is no tenderness. NEURO: Motor and sensation grossly intact. SKIN: Skin is warm and dry. He is not diaphoretic. PSYCH: normal mood and affect. Behavior is normal. Judgment and thought content normal. Course Course 1936: The patient was evaluated in room D3A. A complete history and physical exam was performed Cardiac monitoring: An order was placed for continuous cardiac monitoring. The monitor shows a rate of 70 with sinus rhythm interpreted by me 2030: Vital signs stable. Chest pain and blood pressure improved with sublingual nitroglycerin. Patient will be admitted for chest pain rule out ACS. [facility] [place] made aware. Administered Medications Sodium Chloride (Nss) 500 mls @ 125 mls/hr IV .Q4H DANIEL Stop: 03/19/24 19:44 Last Admin: 02/18/24 20:00 Dose: 125 mls/hr Documented By: YIMI Discontinued Medications Aspirin (Aspirin Chew 324 Mg) 324 mg PO NOW STA Stop: 02/18/24 19:45 Last Admin: 02/18/24 19:59 Dose: 324 mg Documented By: YIMI Nitroglycerin (Nitroglycerin Sl 0.4 Mg/Tab Tab) 0.4 mg SL NOW STA Stop: 02/18/24 19:45 Last Admin: 02/18/24 19:58 Dose: 0.4 mg Documented By: YIMI Medical Decision Making Laboratory Data Attestation: I reviewed the patient's lab results. 02/18/24 19:00 02/18/24 19:00 Labs: Lab Results 02/18/24 02/18/24 Range/Units 19:00 19:07 WBC 7.81 (4.8-10.8) K/ul RBC 3.59 L (4.20-5.40) M/uL Hgb 11.4 L (12.0-16.0) g/dl Hct 33.9 L (37.0-47.0) % MCV 94.4 (80.0-100.0) fL MCH 31.8 (25.0-34.0) pg MCHC 33.6 (32.0-36.0) g/dL RDW Std Deviation 44.4 (36.4-46.3) fL RDW Coeff of Nikkie 12.9 (11.5-14.5) % Plt Count 244 (130-400) K/uL MPV 10.8 (9.4-12.4) fL Immature Gran % (Auto) 0.6 % Neut % (Auto) 68.7 % Lymph % (Auto) 20.6 % Nicollet % (Auto) 8.3 % Eos % (Auto) 1.7 % Baso % (Auto) 0.1 % Neut # (Auto) 5.36 (1.40-6.50) K/uL Lymph # (Auto) 1.61 (1.20-3.40) K/uL Nicollet # (Auto) 0.65 H (0.11-0.59) K/uL Eos # (Auto) 0.13 (0.00-0.50) K/uL Baso # (Auto) 0.01 (0.00-0.20) K/uL Immature Gran # (Auto) 0.05 (0.01-0.20) K/uL PT 10.1 (9.0-12.0) Seconds INR 0.9 (0.9-1.1) APTT 25 (21-31) Seconds PTT Ratio 0.9 Sodium 133 L (136-145) mmol/L Potassium 3.9 (3.5-5.1) mmol/L Chloride 100 (98-107) mmol/L Carbon Dioxide 27 (21-32) mmol/L Anion Gap 6 (3-11) BUN 17 (6-23) mg/dl Creatinine 0.97 (0.6-1.2) mg/dl Est Cr Clr Drug Dosing 38.3 ml/min Est GFR ( Amer) 63.9 ml/min Est GFR (Non-Af Amer) 55.2 ml/min BUN/Creatinine Ratio 17.5 (10-20) Glucose 129 H (70-99(Fasting)) mg/dl Calcium 9.3 (8.6-10.3) mg/dl Magnesium 1.9 (1.7-2.4) mg/dl Total Bilirubin 0.5 (0.2-1.0) mg/dl AST 22 (13-39) U/L ALT 16 (7-52) U/L Alkaline Phosphatase 58 (34-104) U/L Troponin I High Sens 9.5 (0-14) pg/ml B-Natriuretic Peptide 251 H (0-100) pg/ml Total Protein 7.1 (6.0-8.3) gm/dl Albumin 4.3 (3.4-5.0) gm/dl Globulin 2.8 (2.5-4.0) gm/dl Albumin/Globulin Ratio 1.5 (0.9-2) Lipase 15 (11-82) U/L Urine Color Yellow Urine Appearance Clear (Clear) Urine pH 6.0 (4.5-7.5) Ur Specific Bruce 1.008 (1.000-1.030) Urine Protein Negative (Negative) Urine Glucose (UA) Negative (Negative) Urine Ketones Negative (Negative) Urine Blood Trace H (Negative) Urine Nitrite Negative (Negative) Urine Bilirubin Negative (Negative) Urine Urobilinogen Negative (Negative) Ur Leukocyte Esterase Negative (Negative) Urine WBC (Auto) 0-5 (0-5) /hpf Urine RBC (Auto) 0-2 (0-2) /hpf U Hyaline Cast (Auto) 0-2 (0-2) /lpf U Epithel Cells (Auto) 0-2 (0-2) /hpf Urine Bacteria (Auto) None Seen (None Seen) Imaging Data Chest x-ray: Attestation: I personally reviewed and interpreted this imaging study as follows: My impression: Chest x-ray negative. Airway clear. No pneumothorax. No consolidation. cardiomegaly no cephalization.. No free air under the diaphragm. No fractures of the skeletal structures. Radiologist's impression: Chest X-Ray 02/18/24 18:50 SINGLE VIEW CHEST CLINICAL HISTORY: Atypical chest pain FINDINGS: A PA chest radiograph is compared to study dated 12/29/2023. The heart is enlarged noting atherosclerotic calcification of the thoracic aorta. The pulmonary vasculature is noncongested. Chronic interstitial thickening is similar to previous. There is mild bibasilar atelectasis. The lungs and pleural spaces are otherwise clear. No pneumothorax is seen. The skeletal structures are osteopenic. The bony thorax is grossly intact. Cholecystectomy clips are noted in the right upper quadrant. IMPRESSION: Cardiomegaly with no active disease in the chest. ACT 112: Negative or not required by law. Electronically signed by: Blake Gupta M.D. 02/18/2024 7:47 PM ECG Data Attestation: I personally reviewed and interpreted this ECG as follows: Indication: chest pain Rate (beats per minute): 74 Rhythm: normal sinus Findings: + PVC; no ST depression, no ST elevation or no prolonged QT Additional Comments: QRS 70 MDM Narrative 1936: The patient was evaluated in room D3A. A complete history and physical exam was performed Cardiac monitoring: An order was placed for continuous cardiac monitoring. The monitor shows a rate of 70 with sinus rhythm interpreted by me 2030: Vital signs stable. Chest pain and blood pressure improved with sublingual nitroglycerin. Patient will be admitted for chest pain rule out ACS. [facility] [place] made aware. Impression & Plan Chest pain Discharge Plan Visit Data Chief Complaint: Cardiac Assessment Stated Complaint: CHEST PAINS, SOB, HYPERTENSION ED Provider: Luis Aguilera Discharge Problem: Chest pain Patient Disposition: Being Evaluated by Hospitalist Forms Stand Alone Forms: My [facility] Prescriptions Prescriptions: No Action trazodone 50 mg tablet 25 - 50 mg PO HS Prolia 60 mg/mL syringe 60 mg subcut Q6MO brimonidine-timolol [Combigan] 0.2-0.5 % drops 1 drp ophthalmic (eye) BID folic acid 1 mg tablet 1 mg PO DAILY Rx Instructions: LAST FILLED 07/23/23 FOR 90 DAYS furosemide [Lasix] 20 mg Tablet 20 mg PO QAM Hold Instructions: Resume on 01/05/24. famotidine 40 mg tablet 40 mg PO HS pantoprazole 40 mg tablet,delayed release (DR/EC) 40 mg PO QAM Rx Instructions: take 1 tablet by mouth once daily timolol maleate (PF) 0.5 % Dropperette 1 drp OPHTHALMIC (EYE) BID Patient Comments: for left eye amlodipine 5 mg Tablet 5 mg PO QAM oxycodone-acetaminophen [Percocet] 5-325 mg Tablet 1 tab PO Q6H PRN (Reason: Pain) rosuvastatin [Crestor] 5 mg Tablet 5 mg PO HS melatonin 5 mg Tablet 5 mg PO HS PRN (Reason: Sleep/PAIN) celecoxib 200 mg capsule 200 mg PO HS PRN (Reason: Pain) spironolactone 25 mg tablet 25 mg PO DAILY Hold Instructions: Resume on 01/05/24. Rx Instructions: LAST FILLED 05/06/23 FOR 90 DAYS. citalopram [Celexa] 20 mg Tablet 20 mg PO DAILY methotrexate sodium 2.5 mg tablet 12.5 mg PO WK Rx Instructions: TAKES 5 TABLETS cholecalciferol (vitamin D3) [Vitamin D3] 25 mcg (1,000 unit) Capsule 25 mcg PO DAILY diclofenac sodium 1 % Gel 2 g TOPICAL TID PRN (Reason: Pain) potassium citrate 10 mEq (1,080 mg) tablet extended release 10 meq PO DAILY Rx Instructions: NOT ON EXT MED HX. UNSURE IF TAKING THIS MED. prochlorperazine maleate 10 mg tablet 10 mg PO QID PRN (Reason: nausea and vomiting) Qty: 14 0RF meclizine 25 mg tablet 25 mg PO TID PRN (Reason: Dizziness) fluticasone propion-salmeterol 500-50 mcg/dose blister with device 1 inh INHALATION BID dicyclomine 20 mg tablet 20 mg PO QID PRN (Reason: ABD DISCOMFORT) Referrals Referrals: Hayder Ann, PAJakobC [Primary Care Provider] - Discharge Problem: Chest pain Qualifiers: Chest pain type: unspecified Qualified Code(s): R07.9 - Chest pain, unspecified
--- NOTE | 2024-02-18 21:33 | History & Physical Report ---
Date of Service February 18, 2024 Assessment & Plan (1) (HFpEF) heart failure with preserved ejection fraction: (2) Hyperlipidemia: (3) GERD (gastroesophageal reflux disease): (4) Chest pain: (5) Shortness of breath on exertion: (6) Lower extremity edema: (7) Anxiety: Plan HFpEF/increasing lower extremity edema/hypertension- The patient will be admitted to telemetry for serial cardiac enzymes, serial EKG's, cardiac rhythm monitoring and a 2-D echocardiogram with Dopplers. Most recent echo from 03/02/2021 with ejection fraction greater than 70%, mild mitral regurgitation, mild to moderate tricuspid regurgitation, without change compared to 05/06/2014 Troponin 9.5 BNP 251 Stop IV fluids started in the ED Give furosemide 20 mg IV this evening Placed on Nitropaste 1 inch to anterior chest wall every 6 hours Increase furosemide from 20 to 40 mg p.o. every morning Continue amlodipine, losartan, potassium and resume spironolactone Follow clinical response, to determine appropriate doses of furosemide ongoing Received aspirin 324 mg in the ED continue his 81 mg daily Patient did have significant improvement in substernal chest pressure and breathing after being given nitroglycerin sublingual Hydralazine 10 mg IV every 4 hours as needed for systolic blood pressure above 160 Serial CBC with differential, renal function panel and magnesium levels COPD- Continue usual inhalers Hyperlipidemia- Continue rosuvastatin Check a fasting lipid panel GERD- Continue pantoprazole and famotidine History of Present Illness Chief Complaint: The patient presents to the emergency department due to the development today of chest pressure, shortness of breath and exertion and significantly elevated blood pressure. Primary Care Provider: Hayder Ann The patient is an 79-year-old female with a past medical history including recent admission for rotavirus enterocolitis from 12/27-12/31/2023, hypertension, esophageal dysphagia, ulcerative colitis, hyperlipidemia, GERD, anxiety and kidney stones. She had recently been seen by her PCP about 5 days ago, and started on losartan for recently noted elevated blood pressure. Patient developed chest pressure, shortness of breath, dyspnea on exertion and systolic blood pressure around 200 earlier in the day today, with increasing lower extremity edema over the past few days, and came into the ED for assessment. Allergies Allergy/AdvReac Type Severity Reaction Status Date / Time No Known Allergies Allergy Verified 12/28/23 02:51 Home Medications Medication Instructions Recorded Confirmed Type amlodipine 5 mg tablet 5 mg PO QAM 01/07/19 02/18/24 History oxycodone-acetaminophen 5 mg-325 1 tab PO Q6H PRN Pain 01/07/19 02/18/24 History mg tablet (Percocet) rosuvastatin 5 mg tablet (Crestor) 5 mg PO HS 01/07/19 02/18/24 History furosemide 20 mg tablet (Lasix) 20 mg PO QAM 10/23/19 02/18/24 History trazodone 50 mg tablet 50 mg PO HS 04/04/20 02/18/24 History famotidine 40 mg tablet 40 mg PO HS 10/30/20 02/18/24 History pantoprazole 40 mg tablet,delayed 40 mg PO QAM 10/30/20 02/18/24 History release denosumab 60 mg/mL subcutaneous 60 mg subcut Q6MO 04/29/22 02/18/24 History syringe (Prolia) folic acid 1 mg tablet 1 mg PO DAILY 07/04/22 02/18/24 History celecoxib 200 mg capsule 200 mg PO HS PRN Pain 11/11/23 02/18/24 History cholecalciferol (vitamin D3) 25 25 mcg PO WK 11/11/23 02/18/24 History mcg (1,000 unit) capsule (Vitamin D3) citalopram 20 mg tablet (Celexa) 20 mg PO DAILY 11/11/23 02/18/24 History diclofenac sodium 1 % topical gel 2 g topical TID PRN Pain 11/11/23 02/18/24 History methotrexate sodium 2.5 mg tablet 12.5 mg PO WK 11/11/23 02/18/24 History potassium citrate 10 mEq (1,080 10 meq PO DAILY 11/11/23 02/18/24 History mg) tablet,extended release spironolactone 25 mg tablet 25 mg PO DAILY 11/11/23 02/18/24 History fluticasone 500 mcg-salmeterol 50 1 inh inhalation BID 12/28/23 02/18/24 History mcg/dose blistr powdr for inhalation meclizine 25 mg tablet 25 mg PO TID PRN Dizziness 12/28/23 02/18/24 History brimonidine 0.2 %-timolol 0.5 % 1 drp OPL Q12H 02/18/24 02/18/24 History eye drops (Combigan) losartan 25 mg tablet 25 mg PO DAILY 02/18/24 02/18/24 History sucralfate 1 gram tablet 1 g PO TID PRN gastric distress 02/18/24 02/18/24 History Past Med/Surg History Problem List (Updated 02/19/24 @ 00:37 by Stan Soto MD) Lower extremity edema Shortness of breath on exertion (HFpEF) heart failure with preserved ejection fraction Chest pain (Acute) Rotavirus enteritis (Acute) Enterocolitis (Acute) Rotavirus infection Rectal bleeding History of colon polyps Encounter for pre-operative examination Arthritis Colitis IBS (irritable bowel syndrome) (Acute) HTN (hypertension) (Chronic) Esophageal dysphagia Osteoarthritis Ulcerative colitis Hyperlipidemia Hip pain (Chronic) GERD (gastroesophageal reflux disease) (Chronic) Anxiety Kidney stones (Chronic) hx Medical History Colitis Allergy-induced asthma Schatzki's ring History of esophageal dilatation Cervicalgia Diverticulosis of colon History of SCC (squamous cell carcinoma) of skin Internal hemorrhoids Nausea and vomiting after administration of anesthetic agent Chronic back pain History of renal failure d/t kidney stones. Follows with Dr. Foster. Basal cell carcinoma of chest removed in office Basal cell carcinoma of face removed in office Anemia Glaucoma Depression Occipital neuralgia hx of--had nerve ablations x5 Bradycardia 40-50s is normal HR Upper GI bleed hx Surgical History History of lumpectomy of right breast benign History of lumbar discectomy History of total right hip replacement History of cystoscopy with stent History of total abdominal hysterectomy and bilateral salpingo-oophorectomy History of colonoscopy History of appendectomy History of cholecystectomy History of esophagogastroduodenoscopy (EGD) (~12/2018) History of tooth extraction all teeth removed History of bilateral cataract extraction Status post glaucoma surgery right eye has a shunt in place Family History Father Heart disease Brother Kidney disease Mother Kidney disease Other No family history of adverse response to anesthesia Social History Smoking Status: Former smoker Tobacco Type: Cigarettes Second Hand Exposure: Yes (father smoked/ smoked); Do You Dip or Chew Tobacco: No; Hx Alcohol Use: No Hx Substance Use: No Preferred Language: Turkmen Communication Ability: Effective Meat Supervisor Required: No Beliefs That Will Affect Care: None Current Living Situation: Alone Feels Safe at Home: Yes Assistive Devices: Glasses and Other Review of Systems Review of Systems: The patient denies palpitations, coughsore throat, fevers, chills, sweats, nausea, vomiting, diarrhea , constipation, abdominal pain, pelvic pain, blood in urine or stool, dysuria, urinary frequency or urgency, lightheadedness, dizziness, headache, memory loss, loss of consciousness, rash, abnormal bruising or bleeding, imbalance, focal or generalized weakness, numbness or tingling in arms or legs, generalized arthralgias or myalgias, back or neck pain, or night sweats. The review of systems is otherwise negative other than for that already noted above, and at least 10 systems have been reviewed. Physical Exam Physical Exam: The patient is awake, alert and oriented 3, well developed and well nourished, normocephalic and atraumatic, lying in bed and in no acute distress. HEENT--PERRL, EOMI, mucous membranes and oropharynx normal Neck--supple. No JVD. No bruits. Thyroid normal, trachea midline, no adenopathy. Heart--normal S1 and S2. No murmurs, rubs or gallops. Lungs--clear bilaterally, no respiratory distress, no accessory muscle use. Abdomen--normal bowel sounds and soft. Nontender. Nondistended, no hernias or masses, no organomegaly. Extremities--1+ bilateral pretibial pitting edema Dermatologic--normal skin turgor, normal color, no abnormal lymph nodes, no rash. Neurologic--cranial nerves II through XII grossly intact. Rheumatologic--normal range of motion. Psychiatric--normal affect. Results & Data Results & Data Vital Signs (Past 12 Hours) Vital Signs Temp Pulse Resp BP BP Pulse Ox O2 Del Method 02/18/24 20:34 63 02/18/24 20:29 195/67 H 02/18/24 20:03 70 26 H 94 Room Air 02/18/24 18:48 36.9 C 73 18 231/68 H 96 Room Air Laboratory Results Laboratory Results WBC 7.81 K/ul (4.8-10.8) 02/18/24 19:00 RBC 3.59 M/uL (4.20-5.40) L 02/18/24 19:00 Hgb 11.4 g/dl (12.0-16.0) L 02/18/24 19:00 Hct 33.9 % (37.0-47.0) L 02/18/24 19:00 MCV 94.4 fL (80.0-100.0) 02/18/24 19:00 MCH 31.8 pg (25.0-34.0) 02/18/24 19:00 MCHC 33.6 g/dL (32.0-36.0) 02/18/24 19:00 RDW Std Deviation 44.4 fL (36.4-46.3) 02/18/24 19:00 RDW Coeff of Nikkie 12.9 % (11.5-14.5) 02/18/24 19:00 Plt Count 244 K/uL (130-400) 02/18/24 19:00 MPV 10.8 fL (9.4-12.4) 02/18/24 19:00 Immature Gran % (Auto) 0.6 % 02/18/24 19:00 Neut % (Auto) 68.7 % 02/18/24 19:00 Lymph % (Auto) 20.6 % 02/18/24 19:00 Brule % (Auto) 8.3 % 02/18/24 19:00 Eos % (Auto) 1.7 % 02/18/24 19:00 Baso % (Auto) 0.1 % 02/18/24 19:00 Neut # (Auto) 5.36 K/uL (1.40-6.50) 02/18/24 19:00 Lymph # (Auto) 1.61 K/uL (1.20-3.40) 02/18/24 19:00 Brule # (Auto) 0.65 K/uL (0.11-0.59) H 02/18/24 19:00 Eos # (Auto) 0.13 K/uL (0.00-0.50) 02/18/24 19:00 Baso # (Auto) 0.01 K/uL (0.00-0.20) 02/18/24 19:00 Immature Gran # (Auto) 0.05 K/uL (0.01-0.20) 02/18/24 19:00 PT 10.1 Seconds (9.0-12.0) 02/18/24 19:00 INR 0.9 (0.9-1.1) 02/18/24 19:00 APTT 25 Seconds (21-31) 02/18/24 19:00 PTT Ratio 0.9 02/18/24 19:00 Sodium 133 mmol/L (136-145) L 02/18/24 19:00 Potassium 3.9 mmol/L (3.5-5.1) 02/18/24 19:00 Chloride 100 mmol/L (98-107) 02/18/24 19:00 Carbon Dioxide 27 mmol/L (21-32) 02/18/24 19:00 Anion Gap 6 (3-11) 02/18/24 19:00 BUN 17 mg/dl (6-23) 02/18/24 19:00 Creatinine 0.97 mg/dl (0.6-1.2) 02/18/24 19:00 Est Cr Clr Drug Dosing 38.3 ml/min 02/18/24 19:00 Est GFR ( Amer) 63.9 ml/min 02/18/24 19:00 Est GFR (Non-Af Amer) 55.2 ml/min 02/18/24 19:00 BUN/Creatinine Ratio 17.5 (10-20) 02/18/24 19:00 Glucose 129 mg/dl (70-99(Fasting)) H 02/18/24 19:00 Calcium 9.3 mg/dl (8.6-10.3) 02/18/24 19:00 Magnesium 1.9 mg/dl (1.7-2.4) 02/18/24 19:00 Total Bilirubin 0.5 mg/dl (0.2-1.0) 02/18/24 19:00 AST 22 U/L (13-39) 02/18/24 19:00 ALT 16 U/L (7-52) 02/18/24 19:00 Alkaline Phosphatase 58 U/L (34-104) 02/18/24 19:00 Troponin I High Sens 9.5 pg/ml (0-14) 02/18/24 19:00 B-Natriuretic Peptide 251 pg/ml (0-100) H 02/18/24 19:00 Total Protein 7.1 gm/dl (6.0-8.3) 02/18/24 19:00 Albumin 4.3 gm/dl (3.4-5.0) 02/18/24 19:00 Globulin 2.8 gm/dl (2.5-4.0) 02/18/24 19:00 Albumin/Globulin Ratio 1.5 (0.9-2) 02/18/24 19:00 Lipase 15 U/L (11-82) 02/18/24 19:00 Urine Color Yellow 02/18/24 19:07 Urine Appearance Clear (Clear) 02/18/24 19:07 Urine pH 6.0 (4.5-7.5) 02/18/24 19:07 Ur Specific [place] 1.008 (1.000-1.030) 02/18/24 19:07 Urine Protein Negative (Negative) 02/18/24 19:07 Urine Glucose (UA) Negative (Negative) 02/18/24 19:07 Urine Ketones Negative (Negative) 02/18/24 19:07 Urine Blood Trace (Negative) H 02/18/24 19:07 Urine Nitrite Negative (Negative) 02/18/24 19:07 Urine Bilirubin Negative (Negative) 02/18/24 19:07 Urine Urobilinogen Negative (Negative) 02/18/24 19:07 Ur Leukocyte Esterase Negative (Negative) 02/18/24 19:07 Urine WBC (Auto) 0-5 /hpf (0-5) 02/18/24 19:07 Urine RBC (Auto) 0-2 /hpf (0-2) 02/18/24 19:07 U Hyaline Cast (Auto) 0-2 /lpf (0-2) 02/18/24 19:07 U Epithel Cells (Auto) 0-2 /hpf (0-2) 02/18/24 19:07 Urine Bacteria (Auto) None Seen (None Seen) 02/18/24 19:07 Impressions Chest X-Ray 02/18/24 18:50 SINGLE VIEW CHEST CLINICAL HISTORY: Atypical chest pain FINDINGS: A PA chest radiograph is compared to study dated 12/29/2023. The heart is enlarged noting atherosclerotic calcification of the thoracic aorta. The pulmonary vasculature is noncongested. Chronic interstitial thickening is similar to previous. There is mild bibasilar atelectasis. The lungs and pleural spaces are otherwise clear. No pneumothorax is seen. The skeletal structures are osteopenic. The bony thorax is grossly intact. Cholecystectomy clips are noted in the right upper quadrant. IMPRESSION: Cardiomegaly with no active disease in the chest. ACT 112: Negative or not required by law. Electronically signed by: Blake Gupta M.D. 02/18/2024 7:47 PM Code Status & VTE Plan Code Status Full code VTE Prophylaxis Plan VTE Prophylaxis will be ordered: Yes PG Care Time/CCT Total # of Minutes Spent Total Time Spent with Patient: Total time spent is greater than 50% in coordination of care (as documented) at patient's floor/unit and/or counseling patient: Coding Level of Care Code 89387 INT INP/OBS CARE 3/75MIN Diagnoses (HFpEF) heart failure with preserved ejection fraction I50.30 Hyperlipidemia E78.5 GERD (gastroesophageal reflux disease) K21.9 Chest pain R07.9 Chest pain type: unspecified Shortness of breath on exertion R06.02 Lower extremity edema R60.0 Anxiety F41.9 (4) Chest pain Chest pain type: unspecified Qualified Code(s): R07.9 - Chest pain, unspecified
[2024-02-18] MEDS ORDERED: ALBUT/IPRATROP 3MG/0.5MG NEB 3 ML VIAL NEB PRN (22:19)
[2024-02-18] MEDS ORDERED: oxyCODONE/ACETAMINOPHEN 5mg/325mg TAB PO PRN (22:19)
[2024-02-18] MEDS: NITROGLYCERIN 2% OINTMENT 30GM TUBE EXT SCH (23:35)
[2024-02-18] MEDS: POTASSIUM CHLORIDE CRTAB 20 MEQ TABCR PO STA (23:36)
[2024-02-18] MEDS: MAGNESIUM OXIDE 400 MG TAB PO STA (23:36)
[2024-02-19] MEDS: FUROSEMIDE INJ 20 MG/2 ML VIAL IV ONE ×2 (00:33→11:48)
[2024-02-19] MEDS: NITROGLYCERIN 2% OINTMENT 30GM TUBE EXT SCH (00:38)
[2024-02-19] MEDS: COMBIGAN~ORDER AWAITING ACTION SCH (00:42)
[2024-02-19] MEDS: hydrALAZINE HCL 20 MG/ML VIAL IV PRN (01:17)
[2024-02-19 05:06] LABS: Basophils # (auto) 0.01 K/uL (0.00-0.20); Basophils % (auto) 0.1 %; Eosinophils # (auto) 0.08 K/uL (0.00-0.50); Hematocrit (blood only) 33.4 % (37.0-47.0); Hemoglobin 11.3 g/dl (12.0-16.0); Immature Granulocytes # (auto) 0.07 K/uL (0.01-0.20); Immature Granulocytes % (auto) 0.9 %; Lymphocytes # (auto) 1.75 K/uL (1.20-3.40); Lymphocytes % (auto) 22.2 %; Mean Corpuscular Hemoglobin 31.3 pg (25.0-34.0); Mean Corpuscular Hgb Conc 33.8 g/dL (32.0-36.0); Mean Corpuscular Volume 92.5 fL (80.0-100.0); Mean Platelet Volume 10.6 fL (9.4-12.4); Monocytes # (auto) 0.85 K/uL (0.11-0.59); Monocytes % (auto) 10.8 %; Neutrophils # (auto) 5.12 K/uL (1.40-6.50); Platelet Count 232 K/uL (130-400); RDW Coefficient of Variation 12.6 % (11.5-14.5); RDW Standard Deviation 42.8 fL (36.4-46.3); Red Blood Count 3.61 M/uL (4.20-5.40); White Blood Count 7.88 K/ul (4.8-10.8)
[2024-02-19 05:07] LABS: Albumin Level 3.9 gm/dl (3.4-5.0); BUN Creatinine Ratio 18.3 (10-20); Calcium 8.9 mg/dl (8.6-10.3); Chol HDL Ratio 2.8 (0-5); Creatinine Clr Calc Pharmacy 52.3 ml/min; Est GFR (African American) 93.2 ml/min; Est GFR (Non-African American) 80.4 ml/min; Phosphorus 2.8 mg/dl (2.5-4.9); Potassium 3.6 mmol/L (3.5-5.1)
[2024-02-19 07:06] LABS: Estimated Average Glucose 114 mg/dl; Hemoglobin A1C 5.6 % (4.5-5.6)
[2024-02-19] MEDS: ASPIRIN 81 MG ECTAB PO SCH (07:48)
[2024-02-19] MEDS: FOLIC ACID 1 MG TAB PO SCH (07:49)
[2024-02-19] MEDS: amLODIPine BESYLATE 5 MG TAB PO SCH (07:49)
[2024-02-19] MEDS: FLUTICASONE/VILANTEROL 100/25MCG 14 PUFFS/INHALER INH SCH (07:49)
[2024-02-19] MEDS: CITALOPRAM 20 MG TAB PO SCH (07:49)
[2024-02-19] MEDS: CHOLECALCIFEROL 25 MCG (1000 UNITS) TAB PO SCH (07:49)
[2024-02-19] MEDS: HEPARIN SOD 5,000 UNIT/0.5 ML VIAL SQ SCH (07:50)
[2024-02-19] MEDS: POTASSIUM CITRATE 10 MEQ TAB PO SCH (07:50)
[2024-02-19] MEDS: SPIRONOLACTONE 25 MG TAB PO SCH (07:50)
[2024-02-19] MEDS: PANTOprazole 40 MG TAB PO SCH (07:50)
[2024-02-19] MEDS: TIMOLOL MALEATE 0.5% OP SOLN 5 ML BTL OP SCH (07:51)
--- NOTE | 2024-02-19 07:52 | Electrocardiogram Report ---
Test Reason : Blood Pressure : / mmHG Vent. Rate : 074 BPM Atrial Rate : 074 BPM P-R Int : 112 ms QRS Dur : 078 ms QT Int : 376 ms P-R-T Axes : 000 012 050 degrees QTc Int : 417 ms Sinus rhythm with occasional Premature ventricular complexes Abnormal ECG When compared with ECG of 31-JAN-2024 09:51, Premature ventricular complexes are now Present Confirmed by Torres Nicole ([id number]) on 02/19/2024 7:52:28 AM Referred By: REFERRED SELF Confirmed By:Torres Nicole
[2024-02-19] MEDS: FUROSEMIDE 40 MG TAB PO SCH (09:22)
[2024-02-19] MEDS: POTASSIUM CHLORIDE CRTAB 20 MEQ TABCR PO STA (11:48)
--- NOTE | 2024-02-19 14:07 | XCELERA ---
[id number] \\[id number]
--- NOTE | 2024-02-19 14:53 | Hospitalist Progress Note ---
Date of Service February 19, 2024 Assessment & Plan (1) (HFpEF) heart failure with preserved ejection fraction: (2) Hyperlipidemia: (3) GERD (gastroesophageal reflux disease): (4) Chest pain: (5) Shortness of breath on exertion: (6) Lower extremity edema: (7) Anxiety: Plan Acute HFpEF Increased lower extremity swelling Shortness of breath Elevated BNP All pointing towards CHF exacerbation Was given IV Lasix with good clinical and diuretic response Will give another dose of IV Lasix today Echocardiogram shows diastolic dysfunction Most likely due to uncontrolled hypertension leading to hypertensive heart disease Hypertensive emergency with CHF exacerbation Continue amlodipine, losartan Spironolactone resumed Treat with Lasix IV Monitor blood pressure Treat with hydralazine 10 mg IV every 4 as needed systolic blood pressure greater than 160 COPD- Continue usual inhalers Hyperlipidemia- Continue rosuvastatin Check a fasting lipid panel GERD- Continue pantoprazole and famotidine Admission and Anticipated Discharge Date Admission Date: February 18, 2024 Subjective Patient says that she feels better. Not short of breath anymore. Leg swelling has improved. No chest discomfort either. Review of Systems Review of Systems: All systems reviewed & are unremarkable except as noted in Subjective Physical Exam Physical Exam: General: Awake, conversant Heart: S1, S2/regular rate and rhythm, no murmur rubs or gallops Lungs: Bibasilar crackles. Normal effort Abdomen: Soft/nontender/nondistended. No hepatosplenomegaly Extremities: No clubbing/cyanosis. 1+ pitting bilateral edema Behavior: Appropriate, cooperative Results & Data Results & Data Vital Signs (Past 12 Hours) Vital Signs Temp Pulse Pulse Resp BP BP Pulse Ox 02/19/24 14:18 36.7 C 69 16 167/72 H 97 02/19/24 14:10 63 02/19/24 12:20 67 22 96 02/19/24 12:10 63 23 97 02/19/24 12:01 150/99 H 02/19/24 12:01 65 20 98 02/19/24 12:00 66 17 98 02/19/24 11:57 36.7 C 60 17 171/69 H 98 02/19/24 11:56 59 L 20 96 02/19/24 11:56 171/69 H 02/19/24 11:53 02/19/24 11:50 70 15 97 02/19/24 11:47 179/79 H 05/30/24 11:47 62 23 96 02/19/24 11:40 58 L 26 H 96 02/19/24 11:30 63 22 99 02/19/24 11:20 63 24 97 02/19/24 11:10 60 22 97 02/19/24 11:00 156/76 H 02/19/24 11:00 60 21 99 02/19/24 10:50 65 21 97 02/19/24 10:40 63 20 96 02/19/24 10:30 152/64 H 02/19/24 10:30 95 02/19/24 10:20 94 02/19/24 10:10 94 02/19/24 10:08 36.7 C 78 14 132/76 96 02/19/24 10:00 162/76 H 02/19/24 10:00 95 02/19/24 09:50 95 02/19/24 09:40 96 02/19/24 09:30 97 02/19/24 09:20 97 02/19/24 09:10 97 02/19/24 09:00 97 02/19/24 09:00 184/76 H 02/19/24 08:50 98 02/19/24 08:40 97 02/19/24 08:30 179/84 H 02/19/24 08:30 97 02/19/24 08:20 96 02/19/24 08:10 97 02/19/24 08:00 99 02/19/24 08:00 159/70 H 02/19/24 07:50 96 02/19/24 07:40 97 02/19/24 07:30 138/69 02/19/24 07:30 96 02/19/24 07:20 96 02/19/24 07:10 96 02/19/24 06:30 23 138/64 95 02/19/24 06:00 61 21 142/62 H 96 02/19/24 05:30 68 22 128/57 L 96 02/19/24 05:00 63 22 125/55 L 96 02/19/24 04:31 66 21 127/51 L 95 02/19/24 04:00 66 22 146/66 H 95 02/19/24 03:00 70 24 149/62 H 95 O2 Del Method 02/19/24 14:18 Room Air 02/19/24 14:10 02/19/24 12:20 02/19/24 12:10 02/19/24 12:01 02/19/24 12:01 02/19/24 12:00 02/19/24 11:57 Room Air 02/19/24 11:56 02/19/24 11:56 02/19/24 11:53 Room Air 02/19/24 11:50 02/19/24 11:47 02/19/24 11:47 02/19/24 11:40 02/19/24 11:30 02/19/24 11:20 02/19/24 11:10 02/19/24 11:00 02/19/24 11:00 02/19/24 10:50 02/19/24 10:40 02/19/24 10:30 02/19/24 10:30 02/19/24 10:20 02/19/24 10:10 02/19/24 10:08 Room Air 02/19/24 10:00 02/19/24 10:00 02/19/24 09:50 02/19/24 09:40 02/19/24 09:30 02/19/24 09:20 02/19/24 09:10 02/19/24 09:00 02/19/24 09:00 02/19/24 08:50 02/19/24 08:40 02/19/24 08:30 02/19/24 08:30 02/19/24 08:20 02/19/24 08:10 02/19/24 08:00 02/19/24 08:00 02/19/24 07:50 02/19/24 07:40 02/19/24 07:30 02/19/24 07:30 02/19/24 07:20 02/19/24 07:10 02/19/24 06:30 02/19/24 06:00 02/19/24 05:30 02/19/24 05:00 02/19/24 04:31 02/19/24 04:00 Room Air 02/19/24 03:00 Room Air Laboratory Results Abnormal lab results 02/18/24 02/18/24 02/19/24 Range/Units 19:00 19:07 04:26 RBC 3.59 L 3.61 L (4.20-5.40) M/uL Hgb 11.4 L 11.3 L (12.0-16.0) g/dl Hct 33.9 L 33.4 L (37.0-47.0) % Patrick # (Auto) 0.65 H 0.85 H (0.11-0.59) K/uL Sodium 133 L (136-145) mmol/L Glucose 129 H (70-99(Fasting)) mg/dl B-Natriuretic Peptide 251 H (0-100) pg/ml Urine Blood Trace H (Negative) Diagnostic Findings Chest X-Ray 02/18/24 18:50 SINGLE VIEW CHEST CLINICAL HISTORY: Atypical chest pain FINDINGS: A PA chest radiograph is compared to study dated 12/29/2023. The heart is enlarged noting atherosclerotic calcification of the thoracic aorta. The pulmonary vasculature is noncongested. Chronic interstitial thickening is similar to previous. There is mild bibasilar atelectasis. The lungs and pleural spaces are otherwise clear. No pneumothorax is seen. The skeletal structures are osteopenic. The bony thorax is grossly intact. Cholecystectomy clips are noted in the right upper quadrant. IMPRESSION: Cardiomegaly with no active disease in the chest. ACT 112: Negative or not required by law. Electronically signed by: Blake Gupta M.D. 02/18/2024 7:47 PM PG Care Time/CCT Total # of Minutes Spent Total Time Spent with Patient: Total time spent is greater than 50% in coordination of care (as documented) at patient's floor/unit and/or counseling patient: Coding Level of Care Code 25705 SUB INP/OBS CARE 2/35MIN Diagnoses (HFpEF) heart failure with preserved ejection fraction I50.30 Hyperlipidemia E78.5 GERD (gastroesophageal reflux disease) K21.9 Chest pain R07.9 Chest pain type: unspecified Shortness of breath on exertion R06.02 Lower extremity edema R60.0 Anxiety F41.9 (4) Chest pain Chest pain type: unspecified Qualified Code(s): R07.9 - Chest pain, unspecified
[2024-02-19] MEDS: ACETAMINOPHEN 325 MG TAB PO PRN (19:35)
[2024-02-19] MEDS: traZODone HCL 50 MG TAB PO SCH (20:18)
[2024-02-19] MEDS: ROSUVASTATIN CALCIUM 5 MG TAB PO SCH (20:19)
[2024-02-19] MEDS: FAMOTIDINE 40 MG TABLET PO SCH (20:19)
--- OUTSIDE RECORDS SUMMARY | 2024-02-19 22:48 | External Medical Summary | Summary of Care ---
Author Name Unknown Organization [facility] Address [address] [facility] [place] [address] Phone [phone] Care Team Providers Care Otolaryngology Nurse Name Role Phone Hayder Ann PA-C Primary Care Provide r Reason for Referral * Evaluate & Treat - Unlimited Visits (Within 10 days (routine)) - Authorized Specialty Diagnoses / Procedures Referred By Mark duke Referred To Contact Ophthalmology Diagnoses Ocular ischemic syndrome Jean-Paul Shi DO [address] [facility] [address] [place] [address] Referral ID Status Reason Start Date Expiration Date Visits Requested Visits Authorized [id number] Authorized Specialty Services Required 02/02/[phone] Question Answer Referral Priority Within 10 days (routine) Where should this appointment be scheduled? [facility] Referring for: Ophthalmology Conditions Ophthalmology Conditions Acute Conditions (i.e. injury, vision loss, stroke, papilledema, etc.) Specific Acute Condition Other (comment) - Floaters Referral priority should be within 24 hrs. 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 0 Active AMLODIPINE BESYLATE 5 MG PO TABS one tablet daily 0 Active SPIRONOLACTONE 25 MG PO TABS one tablet daily 0 Active PERCOCET 5-325 MG PO TABS as neeed 0 Active sucralfate (CARAFATE) 1 GM Tablet Take 1 Tablet by mouth 3 times a day as needed. 0 10/09/2016 Active celecoxib (CELEBREX) 100 MG Capsule Take 1 Capsule by mouth as needed. 0 09/19/2016 Active METHOtrexate 2.5 MG TabletIndications:Mild intermittent asthma without complication,Lung nodule,Tobacco abuse, in remission,ZIMMERMAN (dyspnea on exertion),Gastroesophage al reflux disease, esophagitis presence not specified 5 tablets weekly 0 09/21/2019 Active Multiple Vitamins-Minerals (ONE DAILY WOMENS 50 PLUS) TABSIndications:Mild intermittent asthma without complication,Lung nodule,Tobacco abuse, in remission,ZIMMERMAN (dyspnea on exertion),Gastroesophage al reflux disease, esophagitis presence not specified Take by mouth. 0 Active rosuvastatin (CRESTOR) 5 MG TabletIndications:Mild intermittent asthma without complication,Lung nodule,Tobacco abuse, in remission,ZIMMERMAN (dyspnea on exertion),Gastroesophage al reflux disease, esophagitis presence not specified Take 1 Tablet by mouth in the morning. 0 09/21/2019 Active famotidine (PEPCID) 40 MG TabletIndications:Mild intermittent asthma without complication,Lung nodule,Tobacco abuse, in remission,ZIMMERMAN (dyspnea on exertion),Gastroesophage al reflux disease, esophagitis presence not specified Take 1 Tablet by mouth in the morning. 0 11/25/2019 Active furosemide (LASIX) 20 MG TabletIndications:Mild intermittent asthma without complication,Lung nodule,Tobacco abuse, in remission,ZIMMERMAN (dyspnea on exertion),Gastroesophage al reflux disease, esophagitis presence not specified take 1 tablet by mouth daily for FLUID 0 11/08/2019 Active folic acid 1 MG TabletIndications:Mild intermittent asthma without complication,Lung nodule,Tobacco abuse, in remission,ZIMMERMAN (dyspnea on exertion),Gastroesophage al reflux disease, esophagitis presence not specified Take 1 Tablet by mouth in the morning. 0 11/08/2019 Active ondansetron (ZOFRAN) 4 MG TabletIndications:Mild intermittent asthma without complication,Lung nodule,Tobacco abuse, in remission,ZIMMERMAN (dyspnea on exertion),Gastroesophage al reflux disease, esophagitis presence not specified take 1 tablet by mouth every 8 hours if needed for nausea 0 11/02/2019 Active pantoprazole (PROTONIX) 40 MG TBECIndications:Mild intermittent asthma without complication,Lung nodule,Tobacco abuse, in remission,ZIMMERMAN (dyspnea on exertion),Gastroesophage al reflux disease, esophagitis presence not specified Take 1 Tablet by mouth in the morning. 0 11/08/2019 Active timolol (TIMOPTIC) 0.5 % ophthalmic solutionIndications:Mild intermittent asthma without complication,Lung nodule,Tobacco abuse, in remission,ZIMMERMAN (dyspnea on exertion),Gastroesophage al reflux disease, esophagitis presence not specified Instill 1 Drop into the left eye in the morning and 1 Drop before bedtime. 0 09/02/2019 Active traZODone (DESYREL) 50 MG TabletIndications:Mild intermittent asthma without complication,Lung nodule,Tobacco abuse, in remission,ZIMMERMAN (dyspnea on exertion),Gastroesophage al reflux disease, esophagitis presence not specified Take 0.5 Tablets by mouth at bedtime. 0 11/02/2019 Active Cholecalciferol 25 MCG (1000 UT) Oral Tablet Take 1 Tablet by mouth in the morning. 0 Active Citalopram Hydrobromide 10 MG Oral Tablet Take 1 Tablet by mouth in the morning. 0 Active Prolia 60 MG/ML Subcutaneous Solution Prefilled Syringe (Denosumab) Inject 60 mg under the skin every 6 months. 0 08/13/2019 Active Diclofenac Sodium 1 % External Gel Apply 2 Inches topically to affected area as needed. 0 Active Multiple Vitamins Oral Tablet Take 1 Tab by mouth daily. 0 Active oxyCODONE HCl 5 MG Oral Tablet (Oxy IR) Take 1 Tablet by mouth as needed. 0 Active Melatonin 10 MG Oral Capsule Take 1 Capsule by mouth at bedtime. 0 Active Fexofenadine HCl 60 MG Oral Tablet (Viola) Take by mouth. 0 Active Albuterol Sulfate (sensor) 108 (90 Base) MCG/ACT Aerosol Powder Breath Activated Inhale by mouth. 0 Ac tive Fluticasone-Salmeterol 500-50 MCG/ACT Inhalation Aerosol Powder Breath Activated (Wixela Inhub) Inhale 1 Puff by mouth in the morning and 1 Puff before bedtime. Rinse mouth and gargle with water after use.. 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 08/23 Overview: ICD-10 update of inactive term documented as of this encounter (statuses as of 02/02/2024) Resolved Problems Problem Noted Date Diagnosed Date Resolved Date COPD, group B, by GOLD 2017 classification 09/02/2022 05/28/2023 Overview: Per COPD GOLD Classification Chronic obstructive lung disease 12/24/2017 05/28/2023 documented as of this encounter (statuses as of 02/02/2024) Immunizations Name Administration Dates Next Due COVID-19 mRNA, LNP-s, No Pre serve, 2-Dose Series (Moderna) 07/09/2022,01/01/2022,08/21/2021,2020,10/27/2020 H1N1 2009 Influenza, IM 10/20/2009 Pneumococcal Conjugate Vacc, 13 Valent (Prevnar) 12/28/2018,01/20/2016 Season Influenza, Quad, PF, Adjuvanted, 65+ Yrs, IM (FLUAD) 05/13/2020 Seasonal Influenza, Quadriva lent, No Preserve, Mdck 07/09/2018 Seasonal Influenza, Trivalen t, Adjuvanted, 65+ yrs 06/26/2022,05/27/2021,08/03/2019 TDAP (age 10 and older)(Boostrix) 05/16/2019 Zoster Vaccine Recombinant (Shingrix) 05/13/2020 documented as of this encounter Social History Tobacco Use Types Packs/Day Years Used Date Smoking Tobacco: Former Cigarettes 0.3 10 1 966 - 1975 Smokeless Tobacco: Never Comments:Socially smoked for approx 10 years Alcohol Use Standard Drinks/Week Comments No 0 (1 standard drink = 0.6 oz pur e alcohol) PHQ-2 Answer Date Recorded PHQ-2 Score 0 08/24/2020 Sex and Gender Information Value Date Recorded Sex Assigned at Not on file Gender Identity Not on file Sexual Orientation Not on file Job Start Date Occupation Industry Not on file Not on file Not on file documented as of this encounter Plan of Treatment Upcoming Encounters Date Type Department Care Team (Late st Contact Info) Description 02/09/2024 9:00 AM EDT Office Visit Ophthalmology, [facility] [address] [facility] [place] [address] Carrillo Brunson DO [address] [place] [id number] 01/27/2025 2:00 PM EDT Office Visit Pulmonary Medicine, [facility] [address] [facility] [place] [address] Micha Parker MD [address] [place] [id number] Scheduled Referrals Name Type Priority Associated Diagnoses Orde r Schedule ADULT/PEDS OPHTHALMOLOGY/OPTOM ETRY REFERRAL OP Referral Within 10 days (routine) Ocular ischemic syndrome Ordered: 02/02/2024 Health Maintenance Due Date Last Done Comments Depression Screening 08/24/2021 08/24/2020 DXA Scan 08/09/2028 08/09/2021, 07/23, 08/06/2019, Additional history exists DTaP,Tdap,and Td Vaccines (3 - Td or Tdap) 03/02/2032 03/02/2022, 05/16/2019 Pneumococcal Vaccine: 65+ Years Completed 07/26/2020, 12/28/2018, 01/20/2016 Zoster Vaccines Completed 09/29/2020, 04/23, 12/02/2013 COVID-19 Vaccine Completed 06/18/2023, , 01/01/2022, Additional history exists Influenza Vaccine (FLU shot) Completed 10/2022, 06/27/2022, 06/26/2022, Additional history exists GARDASIL-HPV IMMUNIZATION SERIES Aged Out No longer eligible based on patient's age to complete this topic Hepatitis B Aged Out No longer eligi ble based on patient's age to complete this topic MENINGOCOCCAL (MENACTRA/MENVEO) Aged Out No longer eligible based on patient's age to complete this topic documented as of this encounter Medical Devices Not on filedocumented as of this encounter Visit Diagnoses Diagnosis Ocular ischemic syndrome- Primary Retinal ischemia documented in this encounter Care Teams Otolaryngology Nurse Relationship Specialty Start Date End Date Hayder Ann PA-C [address] [place] [id number] PCP - General Physician Analysis Manager 11/02/19 documented as of this encounter
--- OUTSIDE RECORDS SUMMARY | 2024-02-19 22:48 | External Medical Summary | Continuity of Care Document ---
Author Name Unknown Organization [place] Address [address] [facility] [place] [address] Phone [phone] Problems Active Problems Provider Date Chronic pain [...] SIG Qnty Indications Order ing Provider Date Losartan Shaklxpmy28yo Tablets 1 by mouth every day 30tabs I10 Xochilt Barone MD 02/10/2024 Meclizine YUZ43jm Tablets 1 by mouth every 6 hours as needed dizziness 45tabs Xochilt Barone MD 12/04/2023 Mupirocin2% Ointment apply on affected areas twice a day as needed 22gm Xochilt Barone MD 03/20/2022 Lzqomqshn891(65Fe) mg Tablets 1 by mouth daily 90tabs Xochilt Barone MD 10/02/2021 Vitamin D (Ergocalciferol)1.25m g (75147 Ut) Capsules take 1 capsule by mouth once weekly 12caps Xochilt Barone MD 10/02/2021 Abnltyitibwvxg94wa Tablets take 1 tablet by mouth once daily 90tabs Xochilt Barone MD 09/17/2021 Brqrcuwpoz92qm Tablets take 1 tablet by mouth daily for fluid 90tabs Xochilt Barone MD 07/14/2020 Rosuvastatin Ekymrok1qy Tablets 1 tab by mouth every night at bedtime 90tabs Xochilt Barone MD 12/22/2019 Trazodone DQD95tv Tablets take 1 tablet by mouth at bedtime 90tabs F33.40 Xochilt Barone MD 11/02/2019 Amlodipine Xxnanzif5zq Tablets take 1 tablet by mouth once daily 90tabs Xochilt Barone MD 10/17/2019 Vofygm78ob/ml Soln Prefill Syringe one every 6 months 1ml Christian Mejia JR, MD 08/13/2019 Wlfxdlnwnl19of Tablets take 1 tablet by mouth every evening 90tabs K21.00 Xochilt Barone MD 07/01/[address] take 1 tablet by mouth daily 90tabs Xochilt Barone MD 06/02/2019 Folic Onvm8me Tablets 1 by mouth every day 90tabs Xochilt Barone MD 04/29/2019 Methotrexate2.5mg Tablets 6 by mouth weekly 60tabs M06.9 Xochilt Barone MD 04/20/2019 Vitamin A362669Rjyj Capsules 1 cap by mouth once weekly 12caps E55.9 Amos Biggs DO 12/24/2017 Percocet5-325mg Tablets 1 tab by mouth every 6 hours as needed for pain (for continued therapy) 120tabs Xochilt Barone MD 06/03/2017 Voltaren1% Gel apply 1 gm to affected joints three times a day as needed 300gm Xochilt Barone MD Multiple Vitamins/WomensTablet s 1 by mouth every day 90tabs Koby Hdez MD Spxocnaw0dx Tablets 1 tab by mouth three times a day as needed 270tabs Xochilt Barone MD Qufzgc01cw Tablets 1 tab by mouth every day 90tabs Xochilt Barone MD Potassium Citrate GO16Tdp (1080 mg) Tablets ER 1 tab by mouth every day 90tabs Shashi Luna MD Muqkjj5rd Tablets 1 by mouth every 8 hours as needed nausea 60tabs Christian Mejia JR, MD Fluticasone Propionate/Salmeterol 500-50mcg/Act Aerosol inhale 1 puff by mouth and Into The Lungs In The Morning and 1 pu... (Refer To Raulito You DR History Medications Dedauxlu682uo Capsules 1 tablet by mouth twice a day x 10 days 20caps Xochilt Barone MD 12/04/2023 - 12/14/2023 Uuolxmhxft78cz Tablets two by mouth every day x 5 days then one daily x 5 days 15tabs Xochilt Barone MD 12/04/2023 - 01/06/2024 Euzycncnkfn171kn Tablets 1 tablet by mouth two times a day for 10 days 20tabs Xochilt Barone MD 12/01/2023 - 12/04/2023 Ofloxacin (Otic)0.3% Solution instill 4 drops both ears four times daily x 10 days 20ml Xochilt Barone MD 12/01/2023 - 12/11/2023 Ivfwfn5bl TBPK use as directed 21units Tamika Montanez MD 12/01/2023 - 12/04/2023 Mannxbwyth80gy Tablets two tablets x 10 days then one tablet daily x 10 days 30tabs Xochilt Barone MD 10/09/2023 - 01/06/2024 Zptjv350nv Tablets 1 by mouth twice a day for 10 days 20tabs D72.829 Xochilt Barone MD 09/11/2023 - 10/09/2023 Medications Administered in Office Medication SIG Qnty Indications Ordering Provider Date Injection Kenalog 10 MG NDC [id number] Hayder Ann, P A-C 12/04/2023 Injection Ketorolac Tromethamine Per 15 mg/.5cc (Toradol)Injection Hayder Ann PA- C 12/04/2023 Injection Dexamethasone Sodium Phosphate, 1 MGInjection AIDA HernándezC 11/20 Injection Kenalog 10 MG NDC [id number] Hayder Ann, P A-C 10/09/2023 Injection Kenalog 10 MG NDC [id number] Hayder Ann, P A-C 07/08/2023 Injection Kenalog 10 MG NDC [id number] Hayder Ann, P A-C 06/05/2023 Injection Kenalog 10 MG NDC [id number] Hayder Ann, P A-C 04/03/2023 Injection Kenalog 10 MG NDC [id number] Hayder Ann, P A-C 03/17/2023 Injection Kenalog 10 MG NDC [id number] Hayder Ann, P A-C 12/30/2022 Injection Kenalog 10 MG NDC [id number] Hayder Ann, P A-C 09/26/2022 Injection Kenalog 10 MG NDC [id number] Hayder Ann, P A-C 07/05/2022 Injection Kenalog 10 MG NDC [id number] Hayder Ann, P A-C 04/03/2022 Injection Kenalog 10 MG NDC [id number] Hayder D. Lazorka, P A-C 01/23/2022 Injection Kenalog 10 MG NDC [id number] Hayder D. Lazorka, P A-C 01/01/2022 Injection Kenalog 10 MG NDC [id number] Hayder D. Lazorka, P A-C 11/21/2021 Injection Kenalog 10 MG NDC [id number] Hayder D. Lazorka, P A-C 10/02/2021 Injection Kenalog 10 MG NDC [id number] Hayder D. Lazorka, P A-C 08/02/2021 Injection Kenalog 10 MG NDC [id number] Hayder D. Lazorka, P A-C 04/30/2021 Injection Dexamethasone Sodium Phosphate, 1 MGInjection Hayder D. Lazorka, PA-C 03/22 Injection Kenalog 10 MG NDC [id number] Hayder D. Lazorka, P A-C 02/08/2021 Injection Kenalog 10 MG NDC [id number] Hayder D. Lazorka, P A-C 10/26/2020 Injection Kenalog 10 MG NDC [id number] Hayder D. Lazorka, P A-C 04/20/2020 Injection Kenalog 10 MG NDC [id number] Hayder D. Lazorka, P A-C 04/20/2020 Injection Kenalog 10 MG NDC [id number] Hayder D. Lazorka, P A-C 01/20/2020 Injection Kenalog 10 MG NDC [id number] Hayder D. Lazorka, P A-C 07/01/2019 Injection Kenalog 10 MG NDC [id number] Hayder D. Lazorka, P A-C 02/16/2019 Injection Kenalog 10 MG NDC [id number] Hayder D. Lazorka, P A-C 11/27/2018 Injection Kenalog 10 MG NDC [id number] Hayder D. Lazorka, P A-C 09/28/2018 Injection Kenalog 10 MG NDC [id number] Hayder D. Lazorka, P A-C 08/19/2018 Celestone Soluspan 3 MG 6MG/MLInjection Hayder Ann, PA-C 0 05/27/2018 Celestone Soluspan 3 MG 6MG/MLInjection Jordon L. Belgica, PA-C 02/2018 Injection Kenalog 10 MG NDC [id number] Jordon L. Belgica, PA- C 12/24/2017 Injection Kenalog 10 MG NDC [id number] Jordon L. Belgica, PA- C 12/24/2017 Injection Dexamethasone Sodium Phosphate, 1 MGInjection Jordon L. Belgica, PA-C 2017 Injection Dexamethasone Sodium Phosphate, 1 MGInjection Jordon L. Belgica, PA-C 2017 Injection Kenalog 10 MG NDC [id number] Jordon L. Belgica, PA- C 10/28/2017 Injection Dexamethasone Sodium Phosphate, 1 MGInjection Jordon L. Belgica, PA-C 2017 Injection Kenalog 10 MG NDC [id number] Jordon L. Belgica, PA- C 09/01/2017 Injection Dexamethasone Sodium Phosphate, 1 MGInjection Jordon L. Belgica, PA-C 2016 Immunizations CPT Code Status Date Vaccine Lot # [id number] Given 07/24/2023 Influenza Vaccine High Do se 0.5ML Age 65 & > 29435 Given 07/09/2022 Moderna Sars-Co v-2 (Covid-19) Vaccine, BiValent Booster 12y+ [id number] U-FLU Given 06/27/2022 Influenza,Unspecified 06246 Given 01/01/2022 Moderna Covid-1 9 Vaccine 50mcg Booster-EMR Doc Only [id number] 26020 Given 08/21/2021 Moderna Covid-1 9 Vaccine 50mcg Booster-EMR Doc Only [id number] U-FLU Given 05/28/2021 Influenza,Unspecified 99640 Given 11/24/2020 Moderna Sars-Co v-2 (Cov-19) vacc,100 mcg/ 0.5 mL 12Y+EMR Doc Only [id number] 10015 Given 10/27/2020 Moderna Sars-Co v-2 (Cov-19) vacc,100 mcg/ 0.5 mL 12Y+EMR Doc Only [id number] 91754 Given 09/29/2020 Shingrix 11207 Given 07/26/2020 Pneumococcal Vaccine/Pneu movax 23 [id number] U-FLU Given 05/13/2020 Influenza,Unspecified 279 784 49846 Given 05/13/2020 Shingrix 60325 Given 07/27/2019 Influenza Virus Vaccine, Quadrivalent (Cciiv4), Derived From Cell U-FLU Given 07/27/2019 Influenza,Unspecified 45402 Given 05/16/2019 Tdap (Tetanus, diphtheria & acel. pertussis) Adacel or Boostrix 98443 Given 12/28/2018 Pneumococcal Conjugate-Pr evnar 13 [id number] U-FLU Given 07/09/2018 Influenza,Unspecified 15838 Given 07/09/2018 Influenza Vacci ne Quadrivalent Preser/Antibiotic Free Im Use U-FLU Given 07/22/2017 Influenza,Unspecified U-FLU Given 06/25/2016 Influenza,Unspecified 85905 Given 01/20/2016 Pneumococcal Conjugate-Pr evnar 13 U-FLU Given 07/07/2015 Influenza,Unspecified U-FLU Given 05/17/2014 Influenza,Unspecified 18954 Given 12/02/2013 Zostavax Vaccine 08007 Given 03/22/2005 TB Intradermal Test 49598 Refused 06/02/2019 Tdap (Tetanus, diphtheria & acel. pertussis) Adacel or Boostrix Vital Signs Date Vital Result Comment 02/10/2024 3:57pm BP Systolic 180 mmHg BP Diastolic 80 mmHg BP Systolic Recheck 176 mmHg BP Diastolic Recheck 72 mmHg Body Temperature 98.2 F Heart Rate 65 /min Respiratory Rate 15 /min Weight 129.00 lb Weight 58.514 kg Height 63 inches 5'3" BMI (Body Mass Index) 22.8 kg/m2 O2 % BldC Oximetry 98 % [place] Body Weight 115 lb 01/06/2024 12:35pm BP Systolic 124 mmHg BP Diastolic 62 mmHg Body Temperature 97.7 F Heart Rate 67 /min Respiratory Rate 15 /min Weight 128.50 lb Weight 58.288 kg Height 63 inches 5'3" BMI (Body Mass Index) 22.8 kg/m2 O2 % BldC Oximetry 98 % [place] Body Weight 115 lb Results Test Acquired Date Facility Test Result H/L Range N ote Comp. Met 01/06/2024 [facility] [address] [place] [address] [phone] Glucose 99 mg/dL 70-110 BUN 10 mg/dL 6-25 Creatinine 0.7 mg/dL 0.5-1.2 Sodium 140 mEq/L 135-145 Potassium 3.2 mEq/L Low 3.5-5.0 Chloride 100 mEq/L 95-107 Co-2 30 mEq/L 24-31 Alk Phos 54 IU/L 43-122 Alt(SGPT) 18 IU/L 10-40 Ast(Sgot) 18 IU/L 3-42 T.Bilirubin 0.5 mg/dL 0.1-1.3 Calcium 9.5 mg/dL 8.5-10.6 Tot.Protein 6.2 g/dL 5.8-8.0 Albumin 3.9 g/dL 3.0-5.2 Globulin 2.3 g/dL 2.0-3.4 GFR 86 ML/MIN/1.73SQM >60 Lipid 01/06/2024 [facility] [address] [place] [address] [phone] Cholesterol 180 mg/dL 0-200 1 Triglyceride 204 mg/dL High 0-150 2 HDLD 52 mg/dL See Comment 3 Measured LDL 104 mg/dL 0-130 4 Calc VLDL 40.8 mg/dL See Comment 5 Chol/HDL 3.5 RATIO See Comment 6 Non-HDL 128 mg/dL See Comment 7 Laboratory test finding 01/06/2024 [facility] [address] [place] [address] [phone] TSH 0.70 uIU/mL 0.50-6.00 Vitd-25Oh 22 ng/mL Low 30-100 Sed Rate 47 High 0-20 C-Reactive Prot 0.224 mg/dL 0.000-0.700 Hba1c 01/06/2024 [facility] [address] [place] [address] [phone] A1c 5.60 % 4.70-6.50 8 Urinalysis,Cult If Indicated 01/06/2024 [facility] [address] [place] [address] [phone] RFLX Culture NO CBC No Diff 01/06/2024 [facility] [address] [place] [address] [phone] WBC 7.1 10^3/M3 3.1-9.2 RBC 3.59 10^6/M3 Low 3.70-5.50 HGB 12.0 GR/DL 11.5-16.1 HCT 34.9 % 34.5-47.8 MCV 97.3 CUMICR High 82.6-95.8 MCH 33.3 PICOGR High 27.9-32.9 MCHC 34.2 % 32.6-35.4 RDW 15.2 % High 11.4-14.6 PLT 334 10^3/M3 140-350 MPV 8.9 CUMICR 7.0-10.6 Manual Diff 01/06/2024 [facility] [address] [place] [address] [phone] Seg 57 45-75 Lymph 25 20-45 [place] 16 High 0-10 Band 1 0-5 Eosin 1 0-6 Baso 0 0-2 Poik 2+ Aniso 1+ NRBC 2 [place] Cells 2+ Urinalysis 01/06/2024 [facility] [address] [place], [place] [phone] Color COLORLESS Appearance CLEAR Clear Spec.Grav. 1.008 1.005-1.025 Leukocytes NEGATIVE Negative Nitrite NEGATIVE Negative PH 5.5 Low 6.0-7.5 Protein NEGATIVE Negative Urine Glucose NEGATIVE Negative Ketone NEGATIVE Negative Urobilinogen NORMAL E.U./DL Normal Bilirubin NEGATIVE Negative Blood NEGATIVE Negative WBC-U NONE SEEN /HPF 0-5/HPF RBC-U NONE SEEN /HPF 0-5/HPF Bacteria NONE SEEN None Seen Hyaline Casts 11-20 /LPF Abnormal None Seen Squamous 0-2 /HPF 0-5/HPF 1 CHOLESTEROL Less than 200mg/dl Low risk 201-239 mg/dl Borderline risk Equal to or greater 240mg/dl High risk 2 TRIGLYCERIDES Less than 150mg/dl Normal 150-199mg/dl Borderline 200-499mg/dl High Greater than 500mg/dl Very High 3 HDL <40mg/dl Elevated Risk 41-59mg/dl Risk >=60mg/dl Least Risk 4 LDL <100mg/dl Optimal 100-129mg/dl Near Optimal 130-159mg/dl Borderline High 160-189mg/dl High >=190 Very High 5 VLDL Less than 30mg/dl Normal 6 CHOL/HDL <4.0 Optimal 4.0-5.0 Borderline >6.0 High Risk 7 NON-HDL 30mg/dl higher than LDL Target 8 MEAN GLUCOSE IN mg/d L/A1c% POOR CONTROL FAIR CONTROL GOOD CONTROL EXCELLENT CONTROL 360-14 210-9 180-8 120-6 330-13 150-7 90-5 300-12 270-11 240-10 Procedures Date Code Description Status 02/10/2024 3078F PVRP Diastolic BP <80 mmHg C ompleted 02/10/2024 3077F PVRP Systolic BP >/= 140 MMH G Completed 02/10/2024 G2211 Continuation of care e/m vis it add on Completed 01/06/2024 90728 Venipuncture Routine Complet ed 01/06/2024 1111F D/C Medications Reconciled W/Current Medications In Outpt MR Completed 01/05/2024 1111F D/C Medications Reconciled W/Current Medications In Outpt MR Completed 01/01/2024 1111F D/C Medications Reconciled W/Current Medications In Outpt MR Completed 12/04/2023 J1100 Injection Dexamethasone Sodi um Phosphate, 1 MG Completed 12/04/2023 J1885 Injection Ketoro lac Tromethamine Per 15 mg/.5cc (Toradol) Completed 12/04/2023 J3301 Injection Kenalog 10 MG [facility] [id number] Completed 12/01/2023 G2211 Continuation of care e/m vis it add on Completed 10/09/2023 J3301 Injection Kenalog 10 MG NDC 08393932747 Completed 10/09/2023 3078F PVRP Diastolic BP <80 mmHg C ompleted 10/09/2023 3075F PVRP Systolic BP 130 To 139 MMHG Completed 10/09/2023 26097 Inject/Drain Arthrocentesis Major Joint/Bursa Completed 09/17/2023 78866441 Colonoscopy Completed 08/11/2023 491927477 Bone Mineral Density Test Co mpleted 07/25/2022 56005134 Mammogram Completed Medical Devices Description No Information Available Encounters Type Date Location Provider Dx Diagnosis Office Visit 02/10/2024 4:00p Osmany Barone MD I10 Essential (pr imary) hypertension H34.8122 Central retinal vein occlusion, left eye, stable R60.9 Edema, unspecified R06.02 Shortness of breath Office Visit 01/06/2024 12:[place] R11.2 Nausea with vomiting, unspecified R19.7 Diarrhea, unspecifie d M46.1 Sacroiliitis, not el sewhere classified H93.A3 Pulsatile tinnitus, bilateral H70.003 Acute mastoiditis wi thout complications, bilateral I10 Essential (primary) hypertension E78.2 Mixed hyperlipidemia E55.9 Vitamin D deficiency , unspecified R53.83 Other fatigue N39.0 Urinary tract infect ion, site not specified M15.9 Polyosteoarthritis, unspecified R73.01 Impaired fasting glu cose Office Visit 12/04/2023 1:15p [place] H66.92 Otitis media, unspecified, left ear H81.10 Benign paroxysmal ve rtigo, unspecified ear Office Visit 12/01/2023 3:15p [place] H66.92 Otitis media, unspecified, left ear H60.312 Diffuse otitis exter na, left ear Office Visit 10/09/2023 3:00p [place] PA-[place] I10 Essential (primary) hypertension E78.2 Mixed hyperlipidemia M06.9 Rheumatoid arthritis , unspecified F33.40 Major depressive dis order, recurrent, in remission, unsp M46.1 Sacroiliitis, not el sewhere classified Assessments Date Code Description Provider 02/10/2024 I10 Essential (primary) hyperten ezra Xochilt Barone MD 02/10/2024 H34.8122 Central retinal vein occlusion, left eye, stable Xochilt Barone MD 02/10/2024 R60.9 Edema, unspecified Xochilt bowden MD 02/10/2024 R06.02 Shortness of breath Xochilt Barone MD 01/06/2024 R11.2 Nausea with vomiting, unspec ified Hayder Garlandrommel, DC-C 01/06/2024 R19.7 Diarrhea, unspecified Hayder Baker Dadarommel, DC-C 01/06/2024 M46.1 Sacroiliitis, not elsewhere classified Hayder Baker aDdarommel, DC-C 01/06/2024 H93.A3 Pulsatile tinnitus, bilatera l Hayder Baker Dadarommel, DC-C 01/06/2024 H70.003 Acute mastoiditi s without complications, bilateral Hayder Baker Dadarommel, PA-C 01/06/2024 I10 Essential (primary) hyperten ezra Hayder Baker Jessjerod, DC-C 01/06/2024 E78.2 Mixed hyperlipidemia Hayder Baker Dadarommel, DC-C 01/06/2024 E55.9 Vitamin D deficiency, unspec ified Hayder Baker Jessjerod, DC-C 01/06/2024 R53.83 Other fatigue Hayder Baker Francisca foster, DC-C 01/06/2024 N39.0 Urinary tract in fection, site not specified Hayder Baker Dadarommel, DC-C 01/06/2024 M15.9 Polyosteoarthritis, unspecif ied Hayder Baker Jessjerod, DC-C 01/06/2024 R73.01 Impaired fasting glucose Mike Baker Dadarommel, PA-C 01/01/2024 R11.2 Nausea with vomiting, unspec ified Hayder Baker Dadarommel, DC-C 12/04/2023 H66.92 Otitis media, unspecified, l eft ear Hayder Baker Dadarommel, DC-C 12/04/2023 H81.10 Benign paroxysma l vertigo, unspecified ear Hayder Baker Dadarommel, PA-C 12/01/2023 H66.92 Otitis media, unspecified, l eft ear Hayder Baker Dadarommel, PA-C 12/01/2023 H60.312 Diffuse otitis externa, left ear Hayder ConleySuzette Ann, PA-C 10/09/2023 I10 Essential (primary) hyperten ezra Hayder Baker KINJAL Ann 10/09/2023 E78.2 Mixed hyperlipidemia Hayder Ann PA-C 10/09/2023 M06.9 Rheumatoid arthritis, unspec ified Hayder Ann PA-C 10/09/2023 F33.40 Major depressive disorder, recurrent, in remission, unspecified Hayder Ann PA-C 10/09/2023 M46.1 Sacroiliitis, not elsewhere classified Hayder Ann PA-C Plan of Treatment Future Appointment(s):* 03/01/2024 4:00 pm - Hayder Ann PA-C at [place] 02/10/2024 - Xochilt Barone MD* I10 Essential (primary) hypertension* New Medication:* Losartan Potassium 25 mg - 1 by mouth every day * Follow up:* f/up as scheduled * H34.8122 Central retinal vein occlusion, left eye, stable * R60.9 Edema, unspecified* Comments:* take 2 tabs daily for 3 days * R06.02 Shortness of breath* New Xrays:* US Echocardiogram Transthoracic W Doppler And Color Flow, Ordered: 02/10/24 Functional Status Description No Information Available Mental Status Description No Information Available Referrals Description No Information Available
--- OUTSIDE RECORDS SUMMARY | 2024-02-19 22:48 | External Medical Summary | Summary of Care ---
Author Name Unknown Organization [facility] Address [address] [place] [address] Phone [phone] Care Team Providers Care Market Relationship Manager Name Role Phone Hayder Ann PA-C Primary Care Provide r Reason for Visit * Reason Comments Follow Up Referred by Dr. Dino boo for poss atypical BRVO vs ocular ischemic syndrome OS; pt reports started with a big thick cob web and then turned into 3 floaters floating all around, and blurred vision * Evaluate & Treat - Unlimited Visits (Within 10 days (routine)) - Authorized Specialty Diagnoses / Procedures Referred By Mark duke Referred To Contact Ophthalmology Diagnoses Ocular ischemic syndrome Jean-Paul Shi DO [address] [facility] [address] [place] [address] Referral ID Status Reason Start Date Expiration Date Visits Requested Visits Authorized [id number] Authorized Specialty Services Required 02/02/2024 [id number] Encounter Details Date Type Department Care Team (Late st Contact Info) Description 02/09/2024 9:00 AM EDT Office Visit Ophthalmology, [facility] [address] [place] [id number] Carrillo Brunson DO [address] [place] [id number] Stable central retinal vein occlusion of left eye*; Pseudophakia; Vitreous degeneration and detachment of both eyes Allergies No known active allergiesdocumented as of this encounter (statuses as of 02/09/2024) Medications Medication Sig Dispensed Refills Start Date End Date Status POTASSIUM CITRATE ER 10 MEQ (1080 MG) PO TBCR Take 1 Tablet by mouth in the morning and 1 Tablet before bedtime. Active AMLODIPINE BESYLATE 5 MG PO TABS one tablet daily Active SPIRONOLACTONE 25 MG PO TABS one tablet daily Active PERCOCET 5-325 MG PO TABS as neeed Active sucralfate (CARAFATE) 1 GM Tablet Take 1 Tablet by mouth 3 times a day as needed. 0 10/09/2016 Active celecoxib (CELEBREX) 100 MG Capsule Take 1 Capsule by mouth as needed. 0 09/19/2016 Active METHOtrexate 2.5 MG TabletIndications:Mild intermittent asthma without complication,Lung nodule,Tobacco abuse, in remission,ZIMMERMAN (dyspnea on exertion),Gastroesophage al reflux disease, esophagitis presence not specified 5 tablets weekly 09/21/2019 Active Multiple Vitamins-Minerals (ONE DAILY WOMENS 50 PLUS) TABSIndications:Mild intermittent asthma without complication,Lung nodule,Tobacco abuse, in remission,ZIMMERMAN (dyspnea on exertion),Gastroesophage al reflux disease, esophagitis presence not specified Take by mouth. Active rosuvastatin (CRESTOR) 5 MG TabletIndications:Mild intermittent asthma without complication,Lung nodule,Tobacco abuse, in remission,ZIMMERMAN (dyspnea on exertion),Gastroesophage al reflux disease, esophagitis presence not specified Take 1 Tablet by mouth in the morning. 09/21/2019 Active famotidine (PEPCID) 40 MG TabletIndications:Mild intermittent asthma without complication,Lung nodule,Tobacco abuse, in remission,ZIMMERMAN (dyspnea on exertion),Gastroesophage al reflux disease, esophagitis presence not specified Take 1 Tablet by mouth in the morning. 11/25/2019 Active furosemide (LASIX) 20 MG TabletIndications:Mild intermittent asthma without complication,Lung nodule,Tobacco abuse, in remission,ZIMMERMAN (dyspnea on exertion),Gastroesophage al reflux disease, esophagitis presence not specified take 1 tablet by mouth daily for FLUID 11/08/2019 Active folic acid 1 MG TabletIndications:Mild intermittent asthma without complication,Lung nodule,Tobacco abuse, in remission,ZIMMERMAN (dyspnea on exertion),Gastroesophage al reflux disease, esophagitis presence not specified Take 1 Tablet by mouth in the morning. 11/08/2019 Active ondansetron (ZOFRAN) 4 MG TabletIndications:Mild intermittent asthma without complication,Lung nodule,Tobacco abuse, in remission,ZIMMERMAN (dyspnea on exertion),Gastroesophage al reflux disease, esophagitis presence not specified take 1 tablet by mouth every 8 hours if needed for nausea 11/02/2019 Active pantoprazole (PROTONIX) 40 MG TBECIndications:Mild intermittent asthma without complication,Lung nodule,Tobacco abuse, in remission,ZIMMERMAN (dyspnea on exertion),Gastroesophage al reflux disease, esophagitis presence not specified Take 1 Tablet by mouth in the morning. 11/08/2019 Active timolol (TIMOPTIC) 0.5 % ophthalmic solutionIndications:Mild intermittent asthma without complication,Lung nodule,Tobacco abuse, in remission,ZIMMERMAN (dyspnea on exertion),Gastroesophage al reflux disease, esophagitis presence not specified Instill 1 Drop into the left eye in the morning and 1 Drop before bedtime. 09/02/2019 Active traZODone (DESYREL) 50 MG TabletIndications:Mild intermittent asthma without complication,Lung nodule,Tobacco abuse, in remission,ZIMMERMAN (dyspnea on exertion),Gastroesophage al reflux disease, esophagitis presence not specified Take 0.5 Tablets by mouth at bedtime. 11/02/2019 Active Cholecalciferol 25 MCG (1000 UT) Oral Tablet Take 1 Tablet by mouth in the morning. Active Citalopram Hydrobromide 10 MG Oral Tablet Take 2 Tablets by mouth in the morning. Active Prolia 60 MG/ML Subcutaneous Solution Prefilled Syringe (Denosumab) Inject 60 mg under the skin every 6 months. 08/13/2019 Active Diclofenac Sodium 1 % External Gel Apply 2 Inches topically to affected area as needed. Active Multiple Vitamins Oral Tablet Take 1 Tab by mouth daily. Active oxyCODONE HCl 5 MG Oral Tablet (Oxy IR) Take 1 Tablet by mouth as needed. Active Melatonin 10 MG Oral Capsule Take 1 Capsule by mouth at bedtime. Active Fexofenadine HCl 60 MG Oral Tablet (Viola) Take by mouth. Active Albuterol Sulfate (sensor) 108 (90 Base) MCG/ACT Aerosol Powder Breath Activated Inhale by mouth. Ac tive Fluticasone-Salmeterol 500-50 MCG/ACT Inhalation Aerosol Powder Breath Activated (Wixela Inhub) Inhale 1 Puff by mouth in the morning and 1 Puff before bedtime. Rinse mouth and gargle with water after use.. 60 Each 12 05/29/2023 Active Brimonidine Tartrate-Timolol 0.2-0.5 % Ophthalmic Solution (Combigan) Instill 1 Drop into the left eye in the morning and 1 Drop before bedtime. 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 has RA [...] as of this encounter (statuses as of 02/09/2024) Resolved Problems Problem Noted Date Diagnosed Date Resolved Date COPD, group B, by GOLD 2017 classification 09/02/2022 05/28/2023 Overview: Per COPD GOLD Classification Chronic obstructive lung disease 12/24/2017 05/28/2023 documented as of this encounter (statuses as of 02/09/2024) Immunizations Name Administration Dates Next Due COVID-19 [...] Tobacco: Former Cigarettes 0.3 10 1 966 1975 Smokeless Tobacco: Never Comments:Socially smoked for [...] on file documented as of this encounter Last Filed Vital Signs Vital Sign Reading Time Taken Comments Blood Pressure 172/69 02/09/2024 9:37 AM EDT Pulse 57 02/09/2024 9:37 AM EDT Temperature - - Respiratory Rate - - Oxygen Saturation - - Inhaled Oxygen Concentration - - Weight - - Height - - Body Mass Index - - documented in this encounter Progress Notes * Carrillo Brunson, DO - 02/09/2024 9:00 AM EDT [facility] [place] Nursing notes reviewed. Eye vitals reviewed. Mood and Affect: normal HPI: Michele Deal is a 79 year old female who presents for evaluation of retinas CC: 'my vision is blurry' Vision: decreased Location (of CC): OD Quality/Severity: moderate Duration: 1 week Timing: sudden Context: nonspecific Associated Signs/Symptoms: none Modifying Factors: none No other eye complaints. Denies significant pain. Base Eye Exam Visual Acuity (Snellen - Linear) Right Left Dist cc 20/30 -2 20/30 -2 Tonometry (Tonopen, 9:22 AM) Right Left Pressure 11 15 Pupils Dark Shape React APD Right 3 Round Minimal None Left 3 Round Minimal None Visual Beard (Counting fingers) Right Left Full Restrictions Partial outer superior nasal deficiency Extraocular Movement Right Left Full, Ortho Full, Ortho Neuro/Psych Oriented x3: Yes Mood/Affect: Normal Dilation Both eyes: 0.5% Proparacaine @ 9:20 AM Dilation #2 Both eyes: 1.0% Mydriacyl, 2.5% Phenylephrine @ 9:21 AM Dilation #3 Both eyes: 1.0% Mydriacyl, 2.5% Phenylephrine @ 9:23 AM Dilation Comments Patient cautioned that effects of dilation may last 2-7 hours dependant upon individual reaction. It was discussed that driving while dilated is not recommended. EXTERNAL: The ocular adnexae are unremarkable. SLE: Lids/Lashes: wnl OU Conjunctiva/Sclera: quiet OU; bleb ST OD Cornea: clear OU Anterior Chamber: deep and quiet OU; metallic shunt tube ST OD Iris: normal OU; no NVI OU Lens: PCIOL OU Dilated fundus exam OD: vitreous: pvd optic nerve: 0.7, no edema/pallor/NVD macula: wnl vessels: wnl periphery: wnl, no RT/RD Dilated fundus exam OS: vitreous: pvd, trace inferior vit heme optic nerve: 0.3, +edema/heme, no pallor/NVD macula: heme vessels: av nicking periphery: heme x 4 quads >superiorly, no RT/RD OCT Interpretation: OD: no irf/srf, +pvd OS: no irf/srf, +pvd A/P: 1. Central retinal vein occlusion OS onset: 01/31/24 -w/ trace vit heme -pt risk factors--htn, hyperchol, glaucoma BP today 172/69 -recommend check BP at home and keep log and report to PCP -no VSME, NV -monitor 2. Posterior Vitreous Detachment OU -no RT/RD -advised to return to clinic if she should experience worsening or new floaters, flashes of light, a shadow in the periphery, or decrease in vision. 3. Glaucoma OU -s/p shunt OD--Sadka -using drops OS 4. Pseudophakia OU -stable Plan: F/u 4-6 weeks, OCT OS Carrillo Brunson DO CC: Jean-Paul Shi DO CC: PCP: Hayder Ann PA-C documented in this encounter Nursing Notes * Kristine Gagnon, MED ASSIST - 02/09/2024 9:12 AM EDT Michele Deal is a 79 year old year old female referred by Dr Shi to evaluate for possible atypical BRVO vs Ocular ischemic syndrome OS. Patient's name preference, 'Michele'. Patient currently states Referred by Dr. Shi for poss atypical BRVO vs ocular ischemic syndrome OS; pt reports started with a big thick cob web and then turned into 3 floaters floating all around, and blurred vision Have you ever had any major surgery of serious injury of or around the eyes- yes (cataracts OU, andshunt for glaucoma placed in OD) Are you diabetic? No FAMILY HISTORY: Family History Problem Relation Name Age of Onset Cancer Mother multiple myeloma Heart attack Father Other (Fall from ladder) Brother Renal Hx Brother Renal failure Rheum arthritis Daughter SOCIAL HISTORY: Social History Tobacco Use Smoking status: Former Current packs/day: 0.00 Average packs/day: 0.3 packs/day for 10.0 years (2.5 ttl pk-yrs) Types: Cigarettes Start date: 1965 Quit date: 1975 Years since quittin.4 Smokeless tobacco: Never Tobacco comments: Socially smoked for approx 10 years Vaping Use Vaping status: Never Used Substance Use Topics Alcohol use: No Drug use: No PMH: Past Medical History: Diagnosis Date Asthma with severity to be determined GERD (gastroesophageal reflux disease) Glaucoma bilateral Hypertension Lung nodule Malignant neoplasm of skin of parts of face 09/10/2002 ICD-10 update of inactive term Nephrolithiasis Psoriatic arthritis (HCC) Rheumatoid arthritis (HCC) 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 yes OCT and fundus image(s) of both eyes acquired and filed/scanned into chart. documented in this encounter Plan of Treatment Upcoming Encounters Date Type Department Care Team (Late st Contact Info) Description 03/23/2024 2:15 PM EDT Office Visit Ophthalmology, [facility] [address] [place] [address] Carrillo Brunson DO [address] [place] [address] 01/27/2025 2:00 PM EDT Office Visit Pulmonary Medicine, [facility] [address] [place] [address] Micha Parker MD [address] [facility] [place] [id number] Scheduled Orders Name Type Priority Associated Diagnoses Orde r Schedule RETINA SCAN DIAGNOSTIC IMAGE, POSTERIOR Procedures Routine Stable central retinal vein occlusion of left eye Ordered: 02/09/2024 FUNDUS PHOTOGRAPHY Procedures Routine Stable central retinal vein occlusion of left eye Ordered: 02/09/2024 Health Maintenance Due Date Last Done Comments Depression Screening 08/24/2021 08/24/2020 COVID-19 Vaccine ( season) 2023 06/18/2023, 07/09/2022, 01/01/2022, Additional history exists DXA Scan 08/09/2028 08/09/2021, 07/23, 08/06/2019, Additional history exists DTaP,Tdap,and Td Vaccines (3 - Td or Tdap) 03/02/2032 03/02/2022, 05/16/2019 Pneumococcal Vaccine: 65+ Years Completed 07/26/2020, 12/28/2018, 01/20/2016 Zoster Vaccines Completed 09/29/2020, 04/23, 12/02/2013 Influenza Vaccine (FLU shot) Completed 10/2022, 06/27/2022, [...] as of this encounter Visit Diagnoses Diagnosis Stable central retinal vein occlusion of left eye- Primary Pseudophakia Lens replaced by other means Vitreous degeneration and detachment of both eyes documented in this encounter Care Teams Market Relationship Manager Relationship Specialty Start Date End Date Hayder Ann PA-C [address] [place], [place] [id number] [id number] PCP - General Physician Compression Molding Machine Tender 11/02/19 documented as of this encounter
[2024-02-20 07:18] LABS: Basophils # (auto) 0.02 K/uL (0.00-0.20); Basophils % (auto) 0.3 %; Eosinophils # (auto) 0.08 K/uL (0.00-0.50); Eosinophils % (auto) 1.2 %; Hematocrit (blood only) 34.1 % (37.0-47.0); Hemoglobin 11.5 g/dl (12.0-16.0); Immature Granulocytes # (auto) 0.06 K/uL (0.01-0.20); Immature Granulocytes % (auto) 0.9 %; Lymphocytes # (auto) 1.37 K/uL (1.20-3.40); Lymphocytes % (auto) 20.3 %; Mean Corpuscular Hemoglobin 31.3 pg (25.0-34.0); Mean Corpuscular Hgb Conc 33.7 g/dL (32.0-36.0); Mean Corpuscular Volume 92.7 fL (80.0-100.0); Mean Platelet Volume 11.2 fL (9.4-12.4); Monocytes # (auto) 0.86 K/uL (0.11-0.59); Monocytes % (auto) 12.7 %; Neutrophils # (auto) 4.36 K/uL (1.40-6.50); Neutrophils % (auto) 64.6 %; Platelet Count 224 K/uL (130-400); RDW Coefficient of Variation 12.8 % (11.5-14.5); RDW Standard Deviation 43.1 fL (36.4-46.3); Red Blood Count 3.68 M/uL (4.20-5.40); White Blood Count 6.75 K/ul (4.8-10.8)
[2024-02-20] MEDS: DICYCLOMINE HCL 20 MG TAB PO PRN (07:30)
[2024-02-20 07:38] LABS: Albumin Level 3.7 gm/dl (3.4-5.0); BUN Creatinine Ratio 22.2 (10-20); Calcium 8.2 mg/dl (8.6-10.3); Creatinine Clr Calc Pharmacy 45.8 ml/min; Est GFR (African American) 79.5 ml/min; Est GFR (Non-African American) 68.6 ml/min; Magnesium 1.9 mg/dl (1.7-2.4); Phosphorus 2.6 mg/dl (2.5-4.9); Potassium 3.9 mmol/L (3.5-5.1)
[2024-02-20] MEDS: LOSARTAN POTASSIUM 25 MG TAB PO SCH (08:40)
[2024-02-20] MEDS: amLODIPine BESYLATE 5 MG TAB PO SCH (08:54)
--- NOTE | 2024-02-20 12:27 | Electrocardiogram Report ---
Test Reason : Blood Pressure : / mmHG Vent. Rate : 064 BPM Atrial Rate : 064 BPM P-R Int : 148 ms QRS Dur : 080 ms QT Int : 430 ms P-R-T Axes : 059 000 071 degrees QTc Int : 443 ms Normal sinus rhythm Normal ECG When compared with ECG of 18-FEB-2024 18:59, Premature ventricular complexes are no longer Present Confirmed by Torres Nicole ([id number]) on 02/20/2024 12:27:18 PM Referred By: REFERRED SELF Confirmed By:Torres Nicole
--- NOTE | 2024-02-20 13:20 | Hospitalist Progress Note ---
Date of Service February 20, 2024 Assessment & Plan (1) (HFpEF) heart failure with preserved ejection fraction: (2) Hyperlipidemia: (3) GERD (gastroesophageal reflux disease): (4) Chest pain: (5) Shortness of breath on exertion: (6) Lower extremity edema: (7) Anxiety: Plan Acute HFpEF Increased lower extremity swelling Shortness of breath Elevated BNP All pointing towards CHF exacerbation Was given IV Lasix with good clinical and diuretic response Will hold off on further doses of IV Lasix as the patient appears euvolemic today Echocardiogram shows diastolic dysfunction Most likely due to uncontrolled hypertension leading to hypertensive heart disease Hypertensive emergency with CHF exacerbation Continue amlodipine, Resume losartan Spironolactone resumed Monitor blood pressure Treat with hydralazine 10 mg IV every 4 as needed systolic blood pressure greater than 160 COPD- Continue usual inhalers Hyperlipidemia- Continue rosuvastatin Check a fasting lipid panel GERD- Continue pantoprazole and famotidine Plan to discharge tomorrow if blood pressure stable Admission and Anticipated Discharge Date Admission Date: February 18, 2024 Subjective Patient is feeling better overall. Denies chest pain or shortness of breath. Says that her leg swelling has improved significantly. Review of Systems 2 Review of Systems: All systems reviewed & are unremarkable except as noted in Subjective Physical Exam Physical Exam: General: Awake, conversant Heart: S1, S2/regular rate and rhythm, no murmur rubs or gallops Lungs: Clear to auscultation bilaterally. No crackles heard. Normal effort Abdomen: Soft/nontender/nondistended. No hepatosplenomegaly Extremities: No clubbing/cyanosis. No edema Behavior: Appropriate, cooperative Results & Data Results & Data Vital Signs (Past 12 Hours) Vital Signs Temp Pulse Pulse Resp BP BP Pulse Ox 02/20/24 11:38 37.2 C 66 20 137/70 95 02/20/24 08:00 36.9 C 70 16 151/70 H 95 02/20/24 07:49 63 02/20/24 03:08 37.0 C 73 18 128/65 95 O2 Del Method 02/20/24 11:38 Room Air 02/20/24 08:00 Room Air 02/20/24 07:49 02/20/24 03:08 Room Air Laboratory Results Abnormal lab results 02/20/24 Range/Units 05:38 RBC 3.68 L (4.20-5.40) M/uL Hgb 11.5 L (12.0-16.0) g/dl Hct 34.1 L (37.0-47.0) % Dolores # (Auto) 0.86 H (0.11-0.59) K/uL Sodium 130 L (136-145) mmol/L BUN/Creatinine Ratio 22.2 H (10-20) Glucose 102 H (70-99(Fasting)) mg/dl Calcium 8.2 L (8.6-10.3) mg/dl PG Care Time/CCT Total # of Minutes Spent Total Time Spent with Patient: Total time spent is greater than 50% in coordination of care (as documented) at patient's floor/unit and/or counseling patient: Coding Level of Care Code 42476 SUB INP/OBS CARE 2MIN Diagnoses (HFpEF) heart failure with preserved ejection fraction I50.30 Hyperlipidemia E78.5 GERD (gastroesophageal reflux disease) K21.9 Chest pain R07.9 Chest pain type: unspecified Shortness of breath on exertion R06.02 Lower extremity edema R60.0 Anxiety F41.9 (4) Chest pain Chest pain type: unspecified Qualified Code(s): R07.9 - Chest pain, unspecified
[2024-02-20] MEDS: BRIMONIDINE TARTRATE 0.2% OP SCH (21:54)
[2024-02-21] MEDS: MELATONIN 3 MG TAB PO PRN (00:46)
[2024-02-21 06:26] LABS: Basophils # (auto) 0.02 K/uL (0.00-0.20); Basophils % (auto) 0.3 %; Eosinophils % (auto) 1.4 %; Hematocrit (blood only) 32.4 % (37.0-47.0); Hemoglobin 11.5 g/dl (12.0-16.0); Immature Granulocytes # (auto) 0.08 K/uL (0.01-0.20); Immature Granulocytes % (auto) 1.1 %; Lymphocytes # (auto) 1.57 K/uL (1.20-3.40); Lymphocytes % (auto) 21.9 %; Mean Corpuscular Hemoglobin 31.8 pg (25.0-34.0); Mean Corpuscular Hgb Conc 35.5 g/dL (32.0-36.0); Mean Corpuscular Volume 89.5 fL (80.0-100.0); Mean Platelet Volume 10.7 fL (9.4-12.4); Monocytes # (auto) 1.16 K/uL (0.11-0.59); Monocytes % (auto) 16.2 %; Neutrophils # (auto) 4.24 K/uL (1.40-6.50); Neutrophils % (auto) 59.1 %; Platelet Count 211 K/uL (130-400); RDW Coefficient of Variation 12.5 % (11.5-14.5); RDW Standard Deviation 41.1 fL (36.4-46.3); Red Blood Count 3.62 M/uL (4.20-5.40); White Blood Count 7.17 K/ul (4.8-10.8)
[2024-02-21 06:45] LABS: Albumin Level 3.5 gm/dl (3.4-5.0); BUN Creatinine Ratio 21.3 (10-20); Creatinine Clr Calc Pharmacy 49.5 ml/min; Est GFR (African American) 87.3 ml/min; Est GFR (Non-African American) 75.3 ml/min; Magnesium 1.9 mg/dl (1.7-2.4); Potassium 3.8 mmol/L (3.5-5.1)
[2024-02-21] MEDS: ONDANSETRON ORAL SOLN 0.8 MG/1 ML PO PRN (08:53)
--- NOTE | 2024-02-21 10:20 | Nephrology Consultation ---
Date of Consultation February 21, 2024 Assessment & Plan (1) Hyponatremia: * Mild, asymptomatic hyponatremia * Clinically volume contracted, laboratory studies reveal hypochloremia * Will order Uosm. Will order urine Na, Cr to calculate FeNa * Stop Furosemide * Will provide 1 L NS IV * Monitor PRP, Uosm (2) Hypertensive urgency: * Resolved. Continue Amlodipine, Spironolactone, Losartan * Hold Furosemide due to hyponatremia (3) (HFpEF) heart failure with preserved ejection fraction: * Clinically resolved. No pretibial edema History of Present Illness Reason for Consultation: Hyponatremia Attending Physician: Cedric Maurer MD History of Present Illness Ms. Deal is an 79 year old white female who is seen at the request of Dr. Maurer for evaluation of hyponatremia. Information for the HPI is obtained from direct patient interview and review of the EMR. HPI is summarized as follows: Ms. Deal has a known h/o HTN, ulcerative colitis, hyperlipidemia, GERD, anxiety and CaOx kidney stones. She has undergone kidney stone evaluation by Dr. Foster as an outpatient and had been managed w/ potassium citrate therapy. Ms. Deal reports longstanding HTN that has been managed w/ Amlodipine, Losartan, Spironolactone and Furosemide therapy. 02/18/24 she presented to [facility] with hypertensive urgency (SBP 200), chest pressure, dyspnea and LE swelling. ECG was negative for ischemic change and troponin was wnl. Echocardiogram revealed LVEF 65-70% w/ RVSP 30-40 mm Hg. She was managed w/ her outpatient medications plus IV Hydralazine, NTG and Furosemide. Since admission weight has dropped 2 kg and LE swelling has resolved. SBP is now 117-153 mm Hg and serum sodium has dropped from 136 to 124 mmol/L. Allergies Allergy/AdvReac Type Severity Reaction Status Date / Time No Known Allergies Allergy Verified 12/28/23 02:51 Home Medications Medication Instructions Recorded Confirmed Type amlodipine 5 mg tablet 5 mg PO QAM 01/07/19 02/18/24 History oxycodone-acetaminophen 5 mg-325 1 tab PO Q6H PRN Pain 01/07/19 02/18/24 History mg tablet (Percocet) rosuvastatin 5 mg tablet (Crestor) 5 mg PO HS 01/07/19 02/18/24 History furosemide 20 mg tablet (Lasix) 20 mg PO QAM 10/23/19 02/18/24 History trazodone 50 mg tablet 50 mg PO HS 04/04/20 02/18/24 History famotidine 40 mg tablet 40 mg PO HS 10/30/20 02/18/24 History pantoprazole 40 mg tablet,delayed 40 mg PO QAM 10/30/20 02/18/24 History release denosumab 60 mg/mL subcutaneous 60 mg subcut Q6MO 04/29/22 02/18/24 History syringe (Prolia) folic acid 1 mg tablet 1 mg PO DAILY 07/04/22 02/18/24 History celecoxib 200 mg capsule 200 mg PO HS PRN Pain 11/11/23 02/18/24 History cholecalciferol (vitamin D3) 25 25 mcg PO WK 11/11/23 02/18/24 History mcg (1,000 unit) capsule (Vitamin D3) citalopram 20 mg tablet (Celexa) 20 mg PO DAILY 11/11/23 02/18/24 History diclofenac sodium 1 % topical gel 2 g topical TID PRN Pain 11/11/23 02/18/24 History methotrexate sodium 2.5 mg tablet 12.5 mg PO WK 11/11/23 02/18/24 History potassium citrate 10 mEq (1,080 10 meq PO DAILY 11/11/23 02/18/24 History mg) tablet,extended release spironolactone 25 mg tablet 25 mg PO DAILY 11/11/23 02/18/24 History fluticasone 500 mcg-salmeterol 50 1 inh inhalation BID 12/28/23 02/18/24 History mcg/dose blistr powdr for inhalation meclizine 25 mg tablet 25 mg PO TID PRN Dizziness 12/28/23 02/18/24 History brimonidine 0.2 %-timolol 0.5 % 1 drp OPL Q12H 02/18/24 02/18/24 History eye drops (Combigan) losartan 25 mg tablet 25 mg PO DAILY 02/18/24 02/18/24 History sucralfate 1 gram tablet 1 g PO TID PRN gastric distress 02/18/24 02/18/24 History Patient History Medical History Colitis Allergy-induced asthma Schatzki's ring History of esophageal dilatation Cervicalgia Diverticulosis of colon History of SCC (squamous cell carcinoma) of skin Internal hemorrhoids Nausea and vomiting after administration of anesthetic agent Chronic back pain History of renal failure d/t kidney stones. Follows with Dr. Foster. Basal cell carcinoma of chest removed in office Basal cell carcinoma of face removed in office Anemia Glaucoma Depression Occipital neuralgia hx of--had nerve ablations x5 Bradycardia 40-50s is normal HR Upper GI bleed hx Surgical History History of lumpectomy of right breast benign History of lumbar discectomy History of total right hip replacement History of cystoscopy with stent History of total abdominal hysterectomy and bilateral salpingo-oophorectomy History of colonoscopy History of appendectomy History of cholecystectomy History of esophagogastroduodenoscopy (EGD) (~12/2018) History of tooth extraction all teeth removed History of bilateral cataract extraction Status post glaucoma surgery right eye has a shunt in place Family History Father Heart disease Brother Kidney disease Mother Kidney disease Other No family history of adverse response to anesthesia Social History Smoking Status: Former smoker Tobacco Type: Cigarettes Second Hand Exposure: Yes (father smoked/ smoked); Do You Dip or Chew Tobacco: No; Hx Alcohol Use: No Hx Substance Use: No Preferred Language: Kiswahili Communication Ability: Effective Senior Major Gifts Officer Required: No Beliefs That Will Affect Care: None Current Living Situation: Alone Feels Safe at Home: Yes Assistive Devices: None Review of Systems Constitutional: no fever Eyes: no problem reported Ear, Nose, Mouth, Throat: no problem reported Respiratory: no cough and no dyspnea Cardiovascular: no chest pain Gastrointestinal: no abdominal pain, no nausea, no vomiting and no diarrhea/loose stools Genitourinary: no dysuria Integumentary: no problem reported Neurologic: no problem reported Physical Exam Constitutional: not in distress Eyes: PERRL, conjunctivae normal, anicteric sclerae ENMT: external ear and nose normal, oropharynx normal Neck: trachea midline, no thyromegaly Respiratory: normal respiratory effort, lungs clear to auscultation Cardiovascular: RRR, no murmur, no edema Gastrointestinal (Abdomen): normal bowel sounds, soft, nontender, no hepatosplenomegaly Skin: + turgor decreased Neurologic: Speech / Cognition: normal speech and normal cognition Psychiatric: Affect: euthymic affect Results & Data Vital Signs (Past 12 Hours) Vital Signs Temp Pulse Pulse Resp BP BP Pulse Ox 02/21/24 08:01 37.2 C 56 L 16 136/70 95 02/21/24 02:23 36.7 C 61 18 153/75 H 97 02/20/24 22:52 63 02/20/24 22:15 36.7 C 64 18 124/71 95 O2 Del Method 02/21/24 08:01 Room Air 02/21/24 02:23 Room Air 02/20/24 22:52 02/20/24 22:15 Room Air Laboratory Results Laboratory Results WBC 7.17 K/ul (4.8-10.8) 02/21/24 05:31 RBC 3.62 M/uL (4.20-5.40) L 02/21/24 05:31 Hgb 11.5 g/dl (12.0-16.0) L 02/21/24 05:31 Hct 32.4 % (37.0-47.0) L 02/21/24 05:31 MCV 89.5 fL (80.0-100.0) 02/21/24 05:31 MCH 31.8 pg (25.0-34.0) 02/21/24 05:31 MCHC 35.5 g/dL (32.0-36.0) 02/21/24 05:31 RDW Std Deviation 41.1 fL (36.4-46.3) 02/21/24 05:31 RDW Coeff of [place] 12.5 % (11.5-14.5) 02/21/24 05:31 Plt Count 211 K/uL (130-400) 02/21/24 05:31 MPV 10.7 fL (9.4-12.4) 02/21/24 05:31 Immature Gran % (Auto) 1.1 % 02/21/24 05:31 Neut % (Auto) 59.1 % 02/21/24 05:31 Lymph % (Auto) 21.9 % 02/21/24 05:31 [place] % (Auto) 16.2 % 02/21/24 05:31 Eos % (Auto) 1.4 % 02/21/24 05:31 Baso % (Auto) 0.3 % 02/21/24 05:31 Neut # (Auto) 4.24 K/uL (1.40-6.50) 02/21/24 05:31 Lymph # (Auto) 1.57 K/uL (1.20-3.40) 02/21/24 05:31 [place] # (Auto) 1.16 K/uL (0.11-0.59) H 02/21/24 05:31 Eos # (Auto) 0.10 K/uL (0.00-0.50) 02/21/24 05:31 Baso # (Auto) 0.02 K/uL (0.00-0.20) 02/21/24 05:31 Immature Gran # (Auto) 0.08 K/uL (0.01-0.20) 02/21/24 05:31 PT 10.1 Seconds (9.0-12.0) 02/18/24 19:00 INR 0.9 (0.9-1.1) 02/18/24 19:00 APTT 25 Seconds (21-31) 02/18/24 19:00 PTT Ratio 0.9 02/18/24 19:00 Sodium 124 mmol/L (136-145) L 02/21/24 05:31 Potassium 3.8 mmol/L (3.5-5.1) 02/21/24 05:31 Chloride 93 mmol/L (98-107) L 02/21/24 05:31 Carbon Dioxide 24 mmol/L (21-32) 02/21/24 05:31 Anion Gap 7 (3-11) 02/21/24 05:31 BUN 16 mg/dl (6-23) 02/21/24 05:31 Creatinine 0.75 mg/dl (0.6-1.2) 02/21/24 05:31 Est Cr Clr Drug Dosing 49.5 ml/min 02/21/24 05:31 Est GFR ( Amer) 87.3 ml/min 02/21/24 05:31 Est GFR (Non-Af Amer) 75.3 ml/min 02/21/24 05:31 BUN/Creatinine Ratio 21.3 (10-20) H 02/21/24 05:31 Glucose 90 mg/dl (70-99(Fasting)) 02/21/24 05:31 Estimat Average Glucose 114 mg/dl 02/19/24 04:30 Hemoglobin A1c 5.6 % (4.5-5.6) 02/19/24 04:30 Calcium 8.0 mg/dl (8.6-10.3) L 02/21/24 05:31 Phosphorus 3.0 mg/dl (2.5-4.9) 02/21/24 05:31 Magnesium 1.9 mg/dl (1.7-2.4) 02/21/24 05:31 Total Bilirubin 0.5 mg/dl (0.2-1.0) 02/18/24 19:00 AST 22 U/L (13-39) 02/18/24 19:00 ALT 16 U/L (7-52) 02/18/24 19:00 Alkaline Phosphatase 58 U/L (34-104) 02/18/24 19:00 Troponin I High Sens 9.5 pg/ml (0-14) 02/18/24 19:00 B-Natriuretic Peptide 251 pg/ml (0-100) H 02/18/24 19:00 Total Protein 7.1 gm/dl (6.0-8.3) 02/18/24 19:00 Albumin 3.5 gm/dl (3.4-5.0) 02/21/24 05: Globulin 2.8 gm/dl (2.5-4.0) 02/18/24 19:00 Albumin/Globulin Ratio 1.5 (0.9-2) 02/18/24 19:00 Triglycerides 86 mg/dl (0-150) 02/19/24 04:30 Cholesterol 176 mg/dl (0-200) 02/19/24 04:30 LDL Cholesterol, Calc 97 mg/dl 02/19/24 04:30 VLDL Cholesterol, Calc 17 mg/dl (0-30) 02/19/24 04:30 HDL Cholesterol 62 mg/dl 02/19/24 04:30 Cholesterol/HDL Ratio 2.8 (0-5) 02/19/24 04:30 Lipase 15 U/L (11-82) 02/18/24 19:00 Urine Color Yellow 02/18/24 19:07 Urine Appearance Clear (Clear) 02/18/24 19:07 Urine pH 6.0 (4.5-7.5) 02/18/24 19:07 Ur Specific [place] 1.008 (1.000-1.030) 02/18/24 19:07 Urine Protein Negative (Negative) 02/18/24 19:07 Urine Glucose (UA) Negative (Negative) 02/18/24 19:07 Urine Ketones Negative (Negative) 02/18/24 19:07 Urine Blood Trace (Negative) H 02/18/24 19:07 Urine Nitrite Negative (Negative) 02/18/24 19:07 Urine Bilirubin Negative (Negative) 02/18/24 19:07 Urine Urobilinogen Negative (Negative) 02/18/24 19:07 Ur Leukocyte Esterase Negative (Negative) 02/18/24 19:07 Urine WBC (Auto) 0-5 /hpf (0-5) 02/18/24 19:07 Urine RBC (Auto) 0-2 /hpf (0-2) 02/18/24 19:07 U Hyaline Cast (Auto) 0-2 /lpf (0-2) 02/18/24 19:07 U Epithel Cells (Auto) 0-2 /hpf (0-2) 02/18/24 19:07 Urine Bacteria (Auto) None Seen (None Seen) 02/18/24 19:07 Impressions Chest X-Ray 02/18/24 18:50 SINGLE VIEW CHEST CLINICAL HISTORY: Atypical chest pain FINDINGS: A PA chest radiograph is compared to study dated 12/29/2023. The heart is enlarged noting atherosclerotic calcification of the thoracic aorta. The pulmonary vasculature is noncongested. Chronic interstitial thickening is similar to previous. There is mild bibasilar atelectasis. The lungs and pleural spaces are otherwise clear. No pneumothorax is seen. The skeletal structures are osteopenic. The bony thorax is grossly intact. Cholecystectomy clips are noted in the right upper quadrant. IMPRESSION: Cardiomegaly with no active disease in the chest. ACT 112: Negative or not required by law. Electronically signed by: Blake Gupta M.D. 02/18/2024 7:47 PM PG Care Time/CCT Total # of Minutes Spent Total Time Spent with Patient: Total time spent is greater than 50% in coordination of care (as documented) at patient's floor/unit and/or counseling patient: Coding Level of Care Code 09743 IN/OBS CONSULT LVL 5,80M Diagnoses Hyponatremia E87.1 Hypertensive urgency I16.0 (HFpEF) heart failure with preserved ejection fraction I50.30
[2024-02-21] MEDS: SODIUM CHLORIDE 0.9% 1,000 ML IV SCH (12:07)
--- NOTE | 2024-02-21 12:34 | Hospitalist Progress Note ---
Date of Service February 21, 2024 Assessment & Plan (1) (HFpEF) heart failure with preserved ejection fraction: (2) Hyperlipidemia: (3) GERD (gastroesophageal reflux disease): (4) Chest pain: (5) Shortness of breath on exertion: (6) Lower extremity edema: (7) Anxiety: Plan Acute HFpEF Increased lower extremity swelling Shortness of breath Elevated BNP All pointing towards CHF exacerbation Was given IV Lasix with good clinical and diuretic response Currently not overloaded anymore. Hold further doses of Lasix Echocardiogram shows diastolic dysfunction Most likely due to uncontrolled hypertension leading to hypertensive heart disease Hyponatremia Patient was most likely slightly over diuresed with Lasix Ordered urine sodium and osmolarity Lithographers Printer consulted Hold Lasix Monitor labs Hypertensive emergency with CHF exacerbation Continue amlodipine, Resume losartan Spironolactone resumed Hold Lasix Monitor blood pressure Treat with hydralazine 10 mg IV every 4 as needed systolic blood pressure greater than 160 COPD- Continue usual inhalers Hyperlipidemia- Continue rosuvastatin Check a fasting lipid panel GERD- Continue pantoprazole and famotidine Discharge held due to hyponatremia Admission and Anticipated Discharge Date Admission Date: February 18, 2024 Subjective Patient feels well overall. Denies chest pain or shortness of breath. Leg swelling has resolved. Review of Systems Review of Systems: All systems reviewed & are unremarkable except as noted in Subjective Physical Exam Physical Exam: General: Awake, conversant Heart: S1, S2/regular rate and rhythm, no murmur rubs or gallops Lungs: Clear to auscultation bilaterally. No crackles heard. Normal effort Abdomen: Soft/nontender/nondistended. No hepatosplenomegaly Extremities: No clubbing/cyanosis. No edema Behavior: Appropriate, cooperative Results & Data Results & Data Vital Signs (Past 12 Hours) Vital Signs Temp Pulse Pulse Resp BP Pulse Ox O2 Del Method 02/21/24 11:31 36.8 C 55 L 18 143/66 H 97 Room Air 02/21/24 08:01 37.2 C 56 L 16 136/70 95 Room Air 02/21/24 08:00 52 L 02/21/24 02:23 36.7 C 61 18 153/75 H 97 Room Air Laboratory Results Abnormal lab results 02/21/24 Range/Units 05:31 RBC 3.62 L (4.20-5.40) M/uL Hgb 11.5 L (12.0-16.0) g/dl Hct 32.4 L (37.0-47.0) % [place] # (Auto) 1.16 H (0.11-0.59) K/uL Sodium 124 L (136-145) mmol/L Chloride 93 L (98-107) mmol/L BUN/Creatinine Ratio 21.3 H (10-20) Calcium 8.0 L (8.6-10.3) mg/dl PG Care Time/CCT Total # of Minutes Spent Total Time Spent with Patient: Total time spent is greater than 50% in coordination of care (as documented) at patient's floor/unit and/or counseling patient: Coding Level of Care Code 85358 SUB INP/OBS CARE 2MIN Diagnoses (HFpEF) heart failure with preserved ejection fraction I50.30 Hyperlipidemia E78.5 GERD (gastroesophageal reflux disease) K21.9 Chest pain R07.9 Chest pain type: unspecified Shortness of breath on exertion R06.02 Lower extremity edema R60.0 Anxiety F41.9 (4) Chest pain Chest pain type: unspecified Qualified Code(s): R07.9 - Chest pain, unspecified
[2024-02-21] MEDS: LOPERAMIDE HCL 2 MG CAP PO PRN (14:05)
[2024-02-21 16:40] LABS: BUN Creatinine Ratio 18.1 (10-20); Calcium 8.7 mg/dl (8.6-10.3); Creatinine Clr Calc Pharmacy 44.7 ml/min; Est GFR (African American) 77.2 ml/min; Est GFR (Non-African American) 66.6 ml/min; Potassium 4.4 mmol/L (3.5-5.1)
[2024-02-22 05:42] LABS: BUN Creatinine Ratio 17.5 (10-20); Calcium 8.4 mg/dl (8.6-10.3); Creatinine Clr Calc Pharmacy 58.9 ml/min; Est GFR (African American) 98.2 ml/min; Est GFR (Non-African American) 84.7 ml/min; Potassium 4.8 mmol/L (3.5-5.1)
--- NOTE | 2024-02-22 09:01 | Nephrology Progress Note ---
Date of Service February 22, 2024 Assessment & Plan (1) Hyponatremia: Plan: * Mild, asymptomatic hyponatremia * Uosm 718, FeNa 0.09% * Serum Na improved to 125 mmol/L following 1 L 0.9 NS hydration * Patient remains clinically volume contracted * Continue to hold Furosemide * Will provide additional 1 L NS IV today * Monitor PRP, Uosm (2) Hypertensive urgency: Plan: * Resolved * Hold Furosemide due to hyponatremia. Gentle hydration is being provided * Avoid titration of Amlodipine due to risk of LE swelling * Continue Amlodipine, Spironolactone, Losartan * Note: 11/11/23 CTA was negative for BRIGETTE (3) (HFpEF) heart failure with preserved ejection fraction: Plan: * Clinically resolved. No pretibial edema Admission and Anticipated Discharge Date Admission Date: February 18, 2024 Subjective Ms. Deal was evaluated in her hospital room this morning. She tolerated 1 L 0.9 NS without dyspnea or recurrent LE swelling. She currently denies fever, angina. Ms. Deal reports that her daughter plans to return home tomorrow evening to help care for her Review of Systems Constitutional: no fever Eyes: no problem reported Ear, Nose, Mouth, Throat: no problem reported Respiratory: no cough and no dyspnea Cardiovascular: no chest pain Gastrointestinal: no abdominal pain, no nausea, no vomiting and no diarrhea/loose stools Genitourinary: no dysuria Integumentary: no problem reported Neurologic: no problem reported Physical Exam Constitutional: not in distress Eyes: PERRL, conjunctivae normal, anicteric sclerae ENMT: external ear and nose normal, oropharynx normal Neck: trachea midline, no thyromegaly Respiratory: normal respiratory effort, lungs clear to auscultation Cardiovascular: RRR, no murmur, no edema Gastrointestinal (Abdomen): normal bowel sounds, soft, nontender, no hepatosplenomegaly Skin: + turgor decreased Neurologic: Speech / Cognition: normal speech and normal cognition Psychiatric: Affect: euthymic affect Results & Data Vital Signs (Past 12 Hours) Vital Signs Temp Pulse Pulse Resp BP Pulse Ox O2 Del Method 02/22/24 07:45 36.8 C 56 L 18 165/73 H 97 Room Air 02/22/24 03:03 37.0 C 54 L 16 149/62 H 96 Room Air 02/21/24 23:18 36.9 C 57 L 16 132/65 94 Room Air 02/21/24 21:56 60 Laboratory Results Laboratory Results - last 24 hr 02/21/24 02/21/24 02/22/24 11:25 16:09 05:11 Sodium 121 L 125 L Potassium 4.4 4.8 Chloride 92 L 97 L Carbon Dioxide 21 24 Anion Gap 8 4 BUN 15 11 Creatinine 0.83 0.63 Est Cr Clr Drug Dosing 44.7 58.9 Est GFR ( Amer) 77.2 98.2 Est GFR (Non-Af Amer) 66.6 84.7 BUN/Creatinine Ratio 18.1 17.5 Glucose 105 H 90 Calcium 8.7 8.4 L Urine Osmolality 718 Ur Random Creatinine 177.3 Ur Random Sodium 33 02/21/24 FeNa 0.09% PG Care Time/CCT Total # of Minutes Spent Total Time Spent with Patient: Total time spent is greater than 50% in coordination of care (as documented) at patient's floor/unit and/or counseling patient: Coding Level of Care Code 65967 SUB INP/OBS CARE 3/50MIN Diagnoses Hyponatremia E87.1 Hypertensive urgency I16.0 (HFpEF) heart failure with preserved ejection fraction I50.30
[2024-02-22] MEDS: SODIUM CHLORIDE 0.9% 1,000 ML IV SCH (11:41)
--- NOTE | 2024-02-22 13:43 | Hospitalist Progress Note ---
Date of Service February 22, 2024 Assessment & Plan (1) (HFpEF) heart failure with preserved ejection fraction: (2) Hyperlipidemia: (3) GERD (gastroesophageal reflux disease): (4) Chest pain: (5) Shortness of breath on exertion: (6) Lower extremity edema: (7) Anxiety: Plan Acute HFpEF Increased lower extremity swelling Shortness of breath Elevated BNP All pointing towards CHF exacerbation Was given IV Lasix with good clinical and diuretic response Currently not overloaded anymore. Hold further doses of Lasix Echocardiogram shows diastolic dysfunction Most likely due to uncontrolled hypertension leading to hypertensive heart disease Hyponatremia Patient was most likely slightly over diuresed with Lasix Moreover, she had diarrhea in the past few weeks. Shipping Processor on board, giving her some fluid back gently Hold Lasix Monitor labs Hypertensive emergency with CHF exacerbation Continue amlodipine, Resumed losartan Spironolactone resumed Hold Lasix Monitor blood pressure Treat with hydralazine 10 mg IV every 4 as needed systolic blood pressure greater than 160 COPD- Continue usual inhalers Hyperlipidemia- Continue rosuvastatin Check a fasting lipid panel GERD- Continue pantoprazole and famotidine Discharge held due to hyponatremia Admission and Anticipated Discharge Date Admission Date: February 18, 2024 Subjective Patient feels well overall. Denies any chest pain or shortness of breath. She has been walking on the hallway. Review of Systems Review of Systems: All systems reviewed & are unremarkable except as noted in Subjective Physical Exam Physical Exam: General: Awake, conversant Heart: S1, S2/regular rate and rhythm, no murmur rubs or gallops Lungs: Clear to auscultation bilaterally. No crackles heard. Normal effort Abdomen: Soft/nontender/nondistended. No hepatosplenomegaly Extremities: No clubbing/cyanosis. No edema Behavior: Appropriate, cooperative Results & Data Results & Data Vital Signs (Past 12 Hours) Vital Signs Temp Pulse Pulse Resp BP Pulse Ox O2 Del Method 02/22/24 11:35 37.2 C 55 L 18 162/75 H 97 Room Air 02/22/24 08:00 51 L 02/22/24 07:45 36.8 C 56 L 18 165/73 H 97 Room Air 02/22/24 03:03 37.0 C 54 L 16 149/62 H 96 Room Air Laboratory Results Abnormal lab results 02/21/24 02/22/24 Range/Units 16:09 05:11 Sodium 121 L 125 L (136-145) mmol/L Chloride 92 L 97 L (98-107) mmol/L Glucose 105 H (70-99(Fasting)) mg/dl Calcium 8.4 L (8.6-10.3) mg/dl PG Care Time/CCT Total # of Minutes Spent Total Time Spent with Patient: Total time spent is greater than 50% in coordination of care (as documented) at patient's floor/unit and/or counseling patient: Coding Level of Care Code 26510 SUB INP/OBS CARE 2/35MIN Diagnoses (HFpEF) heart failure with preserved ejection fraction I50.30 Hyperlipidemia E78.5 GERD (gastroesophageal reflux disease) K21.9 Chest pain R07.9 Chest pain type: unspecified Shortness of breath on exertion R06.02 Lower extremity edema R60.0 Anxiety F41.9 (4) Chest pain Chest pain type: unspecified Qualified Code(s): R07.9 - Chest pain, unspecified
[2024-02-22 17:12] LABS: BUN Creatinine Ratio 14.8 (10-20); Calcium 8.4 mg/dl (8.6-10.3); Creatinine Clr Calc Pharmacy 45.8 ml/min; Est GFR (African American) 79.5 ml/min; Est GFR (Non-African American) 68.6 ml/min; Potassium 4.5 mmol/L (3.5-5.1)
[2024-02-22] MEDS: FLUTICASONE PROPIONATE NA SPR 16 GM BTL SCH (22:15)
[2024-02-22] MEDS: FEXOFENADINE 60 MG TAB PO ONE (22:16)
[2024-02-23 06:57] LABS: BUN Creatinine Ratio 16.9 (10-20); Calcium 8.4 mg/dl (8.6-10.3); Creatinine Clr Calc Pharmacy 52.3 ml/min; Est GFR (African American) 93.2 ml/min; Est GFR (Non-African American) 80.4 ml/min; Potassium 4.4 mmol/L (3.5-5.1)
[2024-02-23] MEDS: FEXOFENADINE HCL 180 MG TAB PO SCH (07:56)
--- NOTE | 2024-02-23 08:35 | Nephrology Progress Note ---
Date of Service February 23, 2024 Assessment & Plan (1) Hyponatremia: Plan: * Mild, asymptomatic hyponatremia * 02/21/24 Uosm 718, FeNa 0.09% * Serum Na improved to 127 mmol/L following 1 L 0.9 NS hydration * Patient remains volume contracted to euvolemic * Will provide 2g NaCl po x1 this am * Resume Furosemide 20 mg daily to promote free water excretion and lower Uosm * PRP at noon today (2) Hypertensive urgency: Plan: * Resolved * Resume Furosemide 20 mg daily to promote free water excretion and lower BP * Continue Amlodipine, Spironolactone, Losartan * Avoid titration of Amlodipine due to risk of LE swelling * Note: 11/11/23 CTA was negative for BRIGETTE (3) (HFpEF) heart failure with preserved ejection fraction: Plan: * Clinically resolved. No pretibial edema Admission and Anticipated Discharge Date Admission Date: February 18, 2024 Subjective Ms. Deal was evaluated in her hospital room this morning. She tolerated an additional 1 L 0.9 NS infusion yesterday without dyspnea or recurrent LE swelling. She currently denies fever, angina. Ms. Deal reports that her daughter plans to return home this evening to help care for her Review of Systems 2 Constitutional: no fever Eyes: no problem reported Ear, Nose, Mouth, Throat: no problem reported Respiratory: no cough and no dyspnea Cardiovascular: no chest pain Gastrointestinal: no abdominal pain, no nausea, no vomiting and no diarrhea/loose stools Genitourinary: no dysuria Integumentary: no problem reported Neurologic: no problem reported Physical Exam Constitutional: not in distress Eyes: PERRL, conjunctivae normal, anicteric sclerae ENMT: external ear and nose normal, oropharynx normal Neck: trachea midline, no thyromegaly Respiratory: normal respiratory effort, lungs clear to auscultation Cardiovascular: RRR, no murmur, no edema Gastrointestinal (Abdomen): normal bowel sounds, soft, nontender, no hepatosplenomegaly Skin: + turgor decreased Neurologic: Speech / Cognition: normal speech and normal cognition Psychiatric: Affect: euthymic affect Results & Data Vital Signs (Past 12 Hours) Vital Signs Temp Pulse Pulse Resp BP BP Pulse Ox 02/23/24 08:00 36.7 C 62 20 114/63 153/78 H 98 02/23/24 02:02 36.8 C 53 L 18 120/66 97 02/23/24 00:00 52 L 02/22/24 23:29 36.8 C 57 L 18 123/66 95 O2 Del Method 02/23/24 08:00 Room Air 02/23/24 02:02 Room Air 02/23/24 00:00 02/22/24 23:29 Room Air Laboratory Results Laboratory Results - last 24 hr 02/22/24 02/23/24 16:43 05:45 Sodium 122 L 127 L Potassium 4.5 4.4 Chloride 95 L 99 Carbon Dioxide 22 25 Anion Gap 5 3 BUN 12 12 Creatinine 0.81 0.71 Est Cr Clr Drug Dosing 45.8 52.3 Est GFR ( Amer) 79.5 93.2 Est GFR (Non-Af Amer) 68.6 80.4 BUN/Creatinine Ratio 14.8 16.9 Glucose 93 82 Calcium 8.4 L 8.4 L PG Care Time/CCT Total # of Minutes Spent Total Time Spent with Patient: Total time spent is greater than 50% in coordination of care (as documented) at patient's floor/unit and/or counseling patient: Coding Level of Care Code 62416 SUB INP/OBS CARE 3/50MIN Diagnoses Hyponatremia E87.1 Hypertensive urgency I16.0 (HFpEF) heart failure with preserved ejection fraction I50.30
[2024-02-23] MEDS: FUROSEMIDE 20 MG TAB PO SCH (09:18)
[2024-02-23] MEDS: SODIUM CHLORIDE 1 GM TABLET PO ONE ×2 (09:18→14:18)
[2024-02-23 12:56] LABS: BUN Creatinine Ratio 16.7 (10-20); Calcium 8.5 mg/dl (8.6-10.3); Creatinine Clr Calc Pharmacy 47.6 ml/min; Est GFR (African American) 83.2 ml/min; Est GFR (Non-African American) 71.8 ml/min; Potassium 4.3 mmol/L (3.5-5.1)
--- NOTE | 2024-02-23 16:14 | Hospitalist Progress Note ---
Date of Service February 23, 2024 Assessment & Plan (1) (HFpEF) heart failure with preserved ejection fraction: (2) Hyperlipidemia: (3) GERD (gastroesophageal reflux disease): (4) Chest pain: (5) Shortness of breath on exertion: (6) Lower extremity edema: (7) Anxiety: Plan Acute HFpEF Increased lower extremity swelling Shortness of breath Elevated BNP All pointing towards CHF exacerbation Was given IV Lasix with good clinical and diuretic response Currently not overloaded anymore. Hold further doses of IV Lasix Echocardiogram shows diastolic dysfunction Most likely due to uncontrolled hypertension leading to hypertensive heart disease Started on p.o. Lasix every morning 20 mg Hyponatremia Patient was most likely slightly over diuresed with Lasix Moreover, she had diarrhea in the past few weeks. Paper Coating Machine Operator on board. She was given IV fluids and Lasix was held She has been started on salt tablets 2 g p.o. today. Repeat labs still show hyponatremia Resume Lasix 20 mg p.o. every morning Monitor labs tomorrow Hypertensive emergency with CHF exacerbation Continue amlodipine, Resumed losartan Spironolactone resumed Hold Lasix Monitor blood pressure Treat with hydralazine 10 mg IV every 4 as needed systolic blood pressure greater than 160 COPD- Continue usual inhalers Hyperlipidemia- Continue rosuvastatin Check a fasting lipid panel GERD- Continue pantoprazole and famotidine Discharge held due to hyponatremia Admission and Anticipated Discharge Date Admission Date: February 18, 2024 Subjective Patient feels well overall. Denies chest pain or shortness of breath. Leg swelling is gone. Still hyponatremic. Review of Systems Review of Systems: All systems reviewed & are unremarkable except as noted in Subjective Physical Exam Physical Exam: General: Awake, conversant Heart: S1, S2/regular rate and rhythm, no murmur rubs or gallops Lungs: Clear to auscultation bilaterally. No crackles heard. Normal effort Abdomen: Soft/nontender/nondistended. No hepatosplenomegaly Extremities: No clubbing/cyanosis. No edema Behavior: Appropriate, cooperative Results & Data Results & Data Vital Signs (Past 12 Hours) Vital Signs Temp Pulse Pulse Resp BP BP Pulse Ox 02/23/24 11:00 36.6 C 60 18 126/54 L 97 02/23/24 08:00 36.7 C 62 20 114/63 153/78 H 98 02/23/24 07:00 47 L O2 Del Method 02/23/24 11:00 Room Air 02/23/24 08:00 Room Air 02/23/24 07:00 PG Care Time/CCT Total # of Minutes Spent Total Time Spent with Patient: Total time spent is greater than 50% in coordination of care (as documented) at patient's floor/unit and/or counseling patient: Coding Level of Care Code 38107 SUB INP/OBS CARE 2/35MIN Diagnoses (HFpEF) heart failure with preserved ejection fraction I50.30 Hyperlipidemia E78.5 GERD (gastroesophageal reflux disease) K21.9 Chest pain R07.9 Chest pain type: unspecified Shortness of breath on exertion R06.02 Lower extremity edema R60.0 Anxiety F41.9 (4) Chest pain Chest pain type: unspecified Qualified Code(s): R07.9 - Chest pain, unspecified
[2024-02-23 17:33] LABS: Calcium 8.8 mg/dl (8.6-10.3); Creatinine Clr Calc Pharmacy 49.5 ml/min; Est GFR (African American) 87.3 ml/min; Est GFR (Non-African American) 75.3 ml/min; Potassium 4.4 mmol/L (3.5-5.1)
[2024-02-24 07:04] LABS: BUN Creatinine Ratio 22.2 (10-20); Calcium 8.8 mg/dl (8.6-10.3); Creatinine Clr Calc Pharmacy 51.6 ml/min; Est GFR (African American) 91.7 ml/min; Est GFR (Non-African American) 79.1 ml/min; Potassium 4.7 mmol/L (3.5-5.1)
[2024-02-24] MEDS ORDERED: STAT IV/IM STA ×4 (08:47→20:30)
--- NOTE | 2024-02-24 08:50 | Nephrology Progress Note ---
Date of Service February 24, 2024 Assessment & Plan (1) Hyponatremia: Plan: * Mild, asymptomatic hyponatremia * 02/21/24 Uosm 718, FeNa 0.09% * Patient remains volume contracted to euvolemic * Poor response to NaCl tablets * Will provide 50 cc 3% NaCl and monitor response * PRP at noon today (2) Hypertensive urgency: Plan: * BP remains acceptable * Resume Furosemide 20 mg daily to promote free water excretion and lower BP * Continue Amlodipine, Spironolactone, Losartan * Avoid titration of Amlodipine due to risk of LE swelling * Note: 11/11/23 CTA was negative for BRIGETTE (3) (HFpEF) heart failure with preserved ejection fraction: Plan: * Clinically resolved. No pretibial edema Admission and Anticipated Discharge Date Admission Date: February 18, 2024 Subjective Ms. Deal was evaluated in her hospital room this morning. She denies YOUSIF, fever, angina. Review of Systems Constitutional: no fever Eyes: no problem reported Ear, Nose, Mouth, Throat: no problem reported Respiratory: no cough and no dyspnea Cardiovascular: no chest pain Gastrointestinal: no abdominal pain, no nausea, no vomiting and no diarrhea/loose stools Genitourinary: no dysuria Integumentary: no problem reported Neurologic: no problem reported Physical Exam Constitutional: not in distress Eyes: PERRL, conjunctivae normal, anicteric sclerae ENMT: external ear and nose normal, oropharynx normal Neck: trachea midline, no thyromegaly Respiratory: normal respiratory effort, lungs clear to auscultation Cardiovascular: RRR, no murmur, no edema Gastrointestinal (Abdomen): normal bowel sounds, soft, nontender, no hepatosplenomegaly Skin: + turgor decreased Neurologic: Speech / Cognition: normal speech and normal cognition Psychiatric: Affect: euthymic affect Results & Data Vital Signs (Past 12 Hours) Vital Signs Temp Pulse Pulse Resp BP BP Pulse Ox 02/24/24 07:59 53 L 02/24/24 07:53 36.9 C 58 L 19 138/64 96 02/24/24 02:58 36.8 C 48 L 20 121/60 95 02/23/24 22:42 37.1 C 52 L 16 132/68 97 02/23/24 22:02 51 L O2 Del Method 02/24/24 07:59 02/24/24 07:53 Room Air 02/24/24 02:58 Room Air 02/23/24 22:42 Room Air 02/23/24 22:02 Laboratory Results Laboratory Results - last 24 hr 02/23/24 02/23/24 02/24/24 12:25 17:02 05:53 Sodium 126 L 124 L 125 L Potassium 4.3 4.4 4.7 Chloride 95 L 94 L 94 L Carbon Dioxide 26 25 26 Anion Gap 5 5 5 BUN 13 15 16 Creatinine 0.78 0.75 0.72 Est Cr Clr Drug Dosing 47.6 49.5 51.6 Est GFR ( Amer) 83.2 87.3 91.7 Est GFR (Non-Af Amer) 71.8 75.3 79.1 BUN/Creatinine Ratio 16.7 20.0 22.2 H Glucose 110 H 107 H 85 Calcium 8.5 L 8.8 8.8 PG Care Time/CCT Total # of Minutes Spent Total Time Spent with Patient: Total time spent is greater than 50% in coordination of care (as documented) at patient's floor/unit and/or counseling patient: Coding Level of Care Code 98503 SUB INP/OBS CARE 3/50MIN Diagnoses Hyponatremia E87.1 Hypertensive urgency I16.0 (HFpEF) heart failure with preserved ejection fraction I50.30
[2024-02-24] MEDS ORDERED: SODIUM CHLORIDE 1 GM TABLET PO SCH (09:00)
[2024-02-24] MEDS: SODIUM CHLORIDE 3 % 50 ML IV ONE (10:08)
[2024-02-24 12:10] LABS: BUN Creatinine Ratio 22.7 (10-20); Calcium 8.8 mg/dl (8.6-10.3); Creatinine Clr Calc Pharmacy 49.5 ml/min; Est GFR (African American) 87.3 ml/min; Est GFR (Non-African American) 75.3 ml/min; Potassium 4.5 mmol/L (3.5-5.1)
[2024-02-24] MEDS: SODIUM CHLORIDE 3 % 100 ML IV ONE ×3 (12:33→21:02)
--- NOTE | 2024-02-24 15:16 | Hospitalist Progress Note ---
Date of Service February 24, 2024 Assessment & Plan (1) (HFpEF) heart failure with preserved ejection fraction: (2) Hyperlipidemia: (3) GERD (gastroesophageal reflux disease): (4) Chest pain: (5) Shortness of breath on exertion: (6) Lower extremity edema: (7) Anxiety: Plan Acute HFpEF Increased lower extremity swelling Shortness of breath Elevated BNP All pointing towards CHF exacerbation Was given IV Lasix with good clinical and diuretic response Currently not overloaded anymore. Hold further doses of IV Lasix Echocardiogram shows diastolic dysfunction Most likely due to uncontrolled hypertension leading to hypertensive heart disease Started on p.o. Lasix every morning 20 mg Hyponatremia Patient was most likely slightly over diuresed with Lasix Moreover, she had diarrhea in the past few days. Junior Software Engineer on board. She was given IV fluids and Lasix was held She has been started on salt tablets 2 g p.o. today. Repeat labs still show hyponatremia Resumed Lasix 20 mg p.o. every morning 02/23: Patient is being treated with hypertonic saline by tapper shank Hypertensive emergency with CHF exacerbation Continue amlodipine, Resumed losartan Spironolactone resumed Hold Lasix Monitor blood pressure Treat with hydralazine 10 mg IV every 4 as needed systolic blood pressure greater than 160 COPD- Continue usual inhalers Hyperlipidemia- Continue rosuvastatin Check a fasting lipid panel GERD- Continue pantoprazole and famotidine Discharge held due to hyponatremia Admission and Anticipated Discharge Date Admission Date: February 18, 2024 Subjective Patient continues to feel well. No chest pain or shortness of breath. However her sodium remains low. She is being treated with hypertonic saline by the tapper shank Review of Systems Review of Systems: All systems reviewed & are unremarkable except as noted in Subjective Physical Exam Physical Exam: General: Awake, conversant Heart: S1, S2/regular rate and rhythm, no murmur rubs or gallops Lungs: Clear to auscultation bilaterally. No crackles heard. Normal effort Abdomen: Soft/nontender/nondistended. No hepatosplenomegaly Extremities: No clubbing/cyanosis. No edema Behavior: Appropriate, cooperative Results & Data Results & Data Vital Signs (Past 12 Hours) Vital Signs Temp Pulse Pulse Resp BP BP Pulse Ox 02/24/24 15:10 36.7 C 58 L 19 170/66 H 95 02/24/24 11:04 36.8 C 55 L 20 149/56 H 98 02/24/24 07:59 53 L 02/24/24 07:53 36.9 C 58 L 19 138/64 96 O2 Del Method 02/24/24 15:10 Room Air 02/24/24 11:04 Room Air 02/24/24 07:59 02/24/24 07:53 Room Air PG Care Time/CCT Total # of Minutes Spent Total Time Spent with Patient: Total time spent is greater than 50% in coordination of care (as documented) at patient's floor/unit and/or counseling patient: Coding Level of Care Code 51151 SUB INP/OBS CARE MIN Diagnoses (HFpEF) heart failure with preserved ejection fraction I50.30 Hyperlipidemia E78.5 GERD (gastroesophageal reflux disease) K21.9 Chest pain R07.9 Chest pain type: unspecified Shortness of breath on exertion R06.02 Lower extremity edema R60.0 Anxiety F41.9 (4) Chest pain Chest pain type: unspecified Qualified Code(s): R07.9 - Chest pain, unspecified
[2024-02-24 16:19] LABS: BUN Creatinine Ratio 22.9 (10-20); Calcium 8.5 mg/dl (8.6-10.3); Creatinine Clr Calc Pharmacy 44.7 ml/min; Est GFR (African American) 77.2 ml/min; Est GFR (Non-African American) 66.6 ml/min; Potassium 4.7 mmol/L (3.5-5.1)
[2024-02-24 20:14] LABS: Calcium 8.5 mg/dl (8.6-10.3); Creatinine Clr Calc Pharmacy 37.1 ml/min; Est GFR (African American) 61.6 ml/min; Est GFR (Non-African American) 53.2 ml/min; Potassium 4.5 mmol/L (3.5-5.1)
[2024-02-25 07:53] LABS: BUN Creatinine Ratio 18.8 (10-20); Calcium 8.9 mg/dl (8.6-10.3); Creatinine Clr Calc Pharmacy 45.8 ml/min; Est GFR (African American) 80.7 ml/min; Est GFR (Non-African American) 69.6 ml/min; Potassium 4.6 mmol/L (3.5-5.1)
--- NOTE | 2024-02-25 08:38 | Nephrology Progress Note ---
Date of Service February 25, 2024 Assessment & Plan (1) Hyponatremia: Plan: * Mild, asymptomatic hyponatremia * 02/21/24 Uosm 718, FeNa 0.09% * Patient remains volume contracted to euvolemic * 3% NaCl provided yesterday. Serum Na improved to 127 mmol/L * Will change back to NaCl 2g po TID * Hold diuretic due to diarrhea * Monitor PRP (2) Hypertensive urgency: Plan: * BP remains acceptable * Continue Amlodipine, Spironolactone, Losartan * Avoid titration of Amlodipine due to risk of LE swelling * Note: 11/11/23 CTA was negative for BRIGETTE (3) (HFpEF) heart failure with preserved ejection fraction: Plan: * Clinically resolved. No pretibial edema Admission and Anticipated Discharge Date Admission Date: February 18, 2024 Subjective Ms. Deal was evaluated in her hospital room this morning. She denies YOUSIF, fever, angina. She reports new onset diarrhea this morning and has had 2 liquid BM's Review of Systems Constitutional: no fever Eyes: no problem reported Ear, Nose, Mouth, Throat: no problem reported Respiratory: no cough and no dyspnea Cardiovascular: no chest pain Gastrointestinal: + diarrhea/loose stools; no abdominal pa in, no nausea and no vomiting Genitourinary: no dysuria Integumentary: no problem reported Neurologic: no problem reported Physical Exam Constitutional: not in distress Eyes: PERRL, conjunctivae normal, anicteric sclerae ENMT: external ear and nose normal, oropharynx normal Neck: trachea midline, no thyromegaly Respiratory: normal respiratory effort, lungs clear to auscultation Cardiovascular: RRR, no murmur, no edema Gastrointestinal (Abdomen): normal bowel sounds, soft, nontender, no hepatosplenomegaly Skin: + turgor decreased Neurologic: Speech / Cognition: normal speech and normal cognition Psychiatric: Affect: euthymic affect Results & Data Vital Signs (Past 12 Hours) Vital Signs Temp Pulse Pulse Resp BP Pulse Ox O2 Del Method 02/25/24 07:24 50 L 02/25/24 06:33 36.9 C 55 L 18 135/74 97 Room Air 02/25/24 02:55 36.7 C 54 L 16 112/53 L 94 Room Air 02/24/24 22:43 53 L 02/24/24 22:17 37.3 C 57 L 18 131/51 L 92 Room Air Laboratory Results Laboratory Results - last 24 hr 02/24/24 02/24/24 02/24/24 11:36 15:03 19:28 Sodium 124 L 122 L 121 L Potassium 4.5 4.7 4.5 Chloride 92 L 92 L 91 L Carbon Dioxide 26 25 25 Anion Gap 6 5 5 BUN 17 19 20 Creatinine 0.75 0.83 1.00 Est Cr Clr Drug Dosing 49.5 44.7 37.1 Est GFR ( Amer) 87.3 77.2 61.6 Est GFR (Non-Af Amer) 75.3 66.6 53.2 BUN/Creatinine Ratio 22.7 H 22.9 H 20.0 Glucose 85 95 128 H Calcium 8.8 8.5 L 8.5 L Urine Osmolality 02/25/24 02/25/24 02:37 06:58 Sodium 127 L Potassium 4.6 Chloride 95 L Carbon Dioxide 25 Anion Gap 7 BUN 15 Creatinine 0.80 Est Cr Clr Drug Dosing 45.8 Est GFR ( Amer) 80.7 Est GFR (Non-Af Amer) 69.6 BUN/Creatinine Ratio 18.8 Glucose 99 Calcium 8.9 Urine Osmolality 220 L PG Care Time/CCT Total # of Minutes Spent Total Time Spent with Patient: Total time spent is greater than 50% in coordination of care (as documented) at patient's floor/unit and/or counseling patient: Coding Level of Care Code 82157 SUB INP/OBS CARE 3/50MIN Diagnoses Hyponatremia E87.1 Hypertensive urgency I16.0 (HFpEF) heart failure with preserved ejection fraction I50.30
[2024-02-25] MEDS: SODIUM CHLORIDE 1 GM TABLET PO SCH (09:11)
--- NOTE | 2024-02-25 13:44 | Hospitalist Progress Note ---
Date of Service February 25, 2024 Assessment & Plan (1) (HFpEF) heart failure with preserved ejection fraction: (2) Hyperlipidemia: (3) GERD (gastroesophageal reflux disease): (4) Chest pain: (5) Shortness of breath on exertion: (6) Lower extremity edema: (7) Anxiety: Plan Acute HFpEF Increased lower extremity swelling Shortness of breath Elevated BNP All pointing towards CHF exacerbation Was given IV Lasix with good clinical and diuretic response Currently not overloaded anymore. Hold further doses of IV Lasix Echocardiogram shows diastolic dysfunction Most likely due to uncontrolled hypertension leading to hypertensive heart disease P.o. Lasix held because of the diarrhea Hyponatremia Patient was most likely slightly over diuresed with Lasix Moreover, she had diarrhea in the past few days. Agency Recruiter on board. She was given IV fluids and Lasix was held. She was al so treated with hypertonic saline and salt tablets This morning her sodium was 127, however she started having diarrhea Lasix 20 mg p.o. held due to diarrhea She is now on salt tablets 2 g p.o. 3 times daily Awaiting nephrology clearance for discharge Hypertensive emergency with CHF exacerbation Continue amlodipine, Resumed losartan Spironolactone resumed Hold Lasix Monitor blood pressure Treat with hydralazine 10 mg IV every 4 as needed systolic blood pressure greater than 160 COPD- Continue usual inhalers Hyperlipidemia- Continue rosuvastatin GERD- Continue pantoprazole and famotidine Discharge held due to hyponatremia Admission and Anticipated Discharge Date Admission Date: February 18, 2024 Subjective Patient feels well. Denies chest pain or shortness of breath. Says that this morning at 5 AM she started having diarrhea. She has had about 8 episodes of diarrhea but it is now slowing down. Review of Systems Review of Systems: All systems reviewed & are unremarkable except as noted in Subjective Physical Exam Physical Exam: General: Awake, conversant Heart: S1, S2/regular rate and rhythm, no murmur rubs or gallops Lungs: Clear to auscultation bilaterally. No crackles heard. Normal effort Abdomen: Soft/nontender/nondistended. No hepatosplenomegaly Extremities: No clubbing/cyanosis. No edema Behavior: Appropriate, cooperative Results & Data Results & Data Vital Signs (Past 12 Hours) Vital Signs Temp Pulse Pulse Resp BP Pulse Ox O2 Del Method 02/25/24 11:07 36.8 C 56 L 18 129/55 L 97 Room Air 02/25/24 07:24 50 L 02/25/24 06:33 36.9 C 55 L 18 135/74 97 Room Air 02/25/24 02:55 36.7 C 54 L 16 112/53 L 94 Room Air Laboratory Results Abnormal lab results 02/24/24 02/24/24 02/25/24 Range/Units 15:03 19:28 02:37 Sodium 122 L 121 L (136-145) mmol/L Chloride 92 L 91 L (98-107) mmol/L BUN/Creatinine Ratio 22.9 H (10-20) Glucose 128 H (70-99(Fasting)) mg/dl Calcium 8.5 L 8.5 L (8.6-10.3) mg/dl Urine Osmolality 220 L (500-800) mOsm/kg 02/25/24 Range/Units 06:58 Sodium 127 L (136-145) mmol/L Chloride 95 L (98-107) mmol/L BUN/Creatinine Ratio (10-20) Glucose (70-99(Fasting)) mg/dl Calcium (8.6-10.3) mg/dl Urine Osmolality (500-800) mOsm/kg PG Care Time/CCT Total # of Minutes Spent Total Time Spent with Patient: Total time spent is greater than 50% in coordination of care (as documented) at patient's floor/unit and/or counseling patient: Coding Level of Care Code 14861 SUB INP/OBS CARE 2MIN Diagnoses (HFpEF) heart failure with preserved ejection fraction I50.30 Hyperlipidemia E78.5 GERD (gastroesophageal reflux disease) K21.9 Chest pain R07.9 Chest pain type: unspecified Shortness of breath on exertion R06.02 Lower extremity edema R60.0 Anxiety F41.9 (4) Chest pain Chest pain type: unspecified Qualified Code(s): R07.9 - Chest pain, unspecified
[2024-02-25 16:29] LABS: BUN Creatinine Ratio 16.5 (10-20); Calcium 8.8 mg/dl (8.6-10.3); Creatinine Clr Calc Pharmacy 37.8 ml/min; Est GFR (African American) 63.9 ml/min; Est GFR (Non-African American) 55.2 ml/min; Potassium 4.6 mmol/L (3.5-5.1)
[2024-02-26 07:14] LABS: BUN Creatinine Ratio 17.6 (10-20); Calcium 8.8 mg/dl (8.6-10.3); Creatinine Clr Calc Pharmacy 53.7 ml/min; Est GFR (African American) 95.8 ml/min; Est GFR (Non-African American) 82.6 ml/min; Potassium 5.6 mmol/L (3.5-5.1)
--- NOTE | 2024-02-26 08:44 | Nephrology Progress Note ---
Date of Service February 26, 2024 Assessment & Plan (1) Hyponatremia: Plan: * Mild, asymptomatic hyponatremia * 02/21/24 Uosm 718, FeNa 0.09% * Patient remains volume contracted to euvolemic * Serum sodium is low but stable and asymptomatic * Recommend NaCl 2g po BID, Furosemide 20 mg daily, 1500 cc/day oral fluid restriction as outpatient * Patient can follow up w/ Nephrology as outpatient for ongoing monitoring/management of hyponatremia * I have instructed my office staff to schedule follow up appointment within 7- [address] order for outpatient labs to be completed 1 day prior to OV (2) Hypertensive urgency: Plan: * BP remains acceptable * Continue Amlodipine, Spironolactone, Losartan * Avoid titration of Amlodipine due to risk of LE swelling * Note: 11/11/23 CTA was negative for BRIGETTE (3) (HFpEF) heart failure with preserved ejection fraction: Plan: * Clinically resolved. No pretibial edema Admission and Anticipated Discharge Date Admission Date: February 18, 2024 Subjective Ms. Deal was evaluated in her hospital room this morning. She reports that her diarrhea has resolved. She is breathing comfortably on RA and has no LE swelling. She is tolerating NaCl tablets without GI upset Review of Systems Constitutional: no fever Eyes: no problem reported Ear, Nose, Mouth, Throat: no problem reported Respiratory: no cough and no dyspnea Cardiovascular: no chest pain Gastrointestinal: no abdominal pain, no nausea, no vomiting and no diarrhea/loose stools Genitourinary: no dysuria Integumentary: no problem reported Neurologic: no problem reported Physical Exam Constitutional: not in distress Eyes: PERRL, conjunctivae normal, anicteric sclerae ENMT: external ear and nose normal, oropharynx normal Neck: trachea midline, no thyromegaly Respiratory: normal respiratory effort, lungs clear to auscultation Cardiovascular: RRR, no murmur, no edema Gastrointestinal (Abdomen): normal bowel sounds, soft, nontender, no hepatosplenomegaly Skin: + turgor decreased Neurologic: Speech / Cognition: normal speech and normal cognition Psychiatric: Affect: euthymic affect Results & Data Vital Signs (Past 12 Hours) Vital Signs Temp Pulse Pulse Resp BP Pulse Ox O2 Del Method 02/26/24 07:48 36.6 C 52 L 19 152/62 H 96 Room Air 06/06/24 07:45 60 02/26/24 02:35 36.6 C 54 L 18 127/62 96 Room Air 02/25/24 23:16 52 L 02/25/24 22:27 36.6 C 54 L 16 127/72 97 Room Air Laboratory Results Laboratory Results - last 24 hr 02/25/24 02/26/24 02/26/24 15:56 05:54 08:27 Sodium 123 L 128 L 126 L Potassium 4.6 5.6 H D 4.4 D Chloride 94 L 98 96 L Carbon Dioxide 24 24 Anion Gap 5 4 6 BUN 16 12 12 Creatinine 0.97 0.68 0.71 Est Cr Clr Drug Dosing 37.8 53.7 51.5 Est GFR ( Amer) 63.9 95.8 93.2 Est GFR (Non-Af Amer) 55.2 82.6 80.4 BUN/Creatinine Ratio 16.5 17.6 16.9 Glucose 103 H 97 135 H Calcium 8.8 8.8 8.8 PG Care Time/CCT Total # of Minutes Spent Total Time Spent with Patient: Total time spent is greater than 50% in coordination of care (as documented) at patient's floor/unit and/or counseling patient: Coding Level of Care Code 37394 SUB INP/OBS CARE 3/50MIN Diagnoses Hyponatremia E87.1 Hypertensive urgency I16.0 (HFpEF) heart failure with preserved ejection fraction I50.30
[2024-02-26 09:01] LABS: BUN Creatinine Ratio 16.9 (10-20); Calcium 8.8 mg/dl (8.6-10.3); Creatinine Clr Calc Pharmacy 51.5 ml/min; Est GFR (African American) 93.2 ml/min; Est GFR (Non-African American) 80.4 ml/min; Potassium 4.4 mmol/L (3.5-5.1)
--- NOTE | 2024-02-26 10:46 | Hospitalist Progress Note ---
Date of Service February 26, 2024 Assessment & Plan (1) (HFpEF) heart failure with preserved ejection fraction: (2) Hyperlipidemia: (3) GERD (gastroesophageal reflux disease): (4) Chest pain: (5) Shortness of breath on exertion: (6) Lower extremity edema: (7) Anxiety: Plan Acute HFpEF Increased lower extremity swelling Shortness of breath Elevated BNP All pointing towards CHF exacerbation Was given IV Lasix with good clinical and diuretic response Currently not overloaded anymore. Hold further doses of IV Lasix Echocardiogram shows diastolic dysfunction Most likely due to uncontrolled hypertension leading to hypertensive heart disease P.o. Lasix held because of the diarrhea Hyponatremia Patient was most likely slightly over diuresed with Lasix Moreover, she had diarrhea in the past few days. Liner Machine Operator Helper on board. She was given IV fluids and Lasix was held. She was al so treated with hypertonic saline and salt tablets This morning her sodium was 127, however she started having diarrhea Lasix 20 mg p.o. held due to diarrhea She is now on salt tablets 2 g p.o. 3 times daily Awaiting nephrology clearance for discharge Hypertensive emergency with CHF exacerbation Continue amlodipine, Resumed losartan Spironolactone resumed Hold Lasix Monitor blood pressure Treat with hydralazine 10 mg IV every 4 as needed systolic blood pressure greater than 160 COPD- Continue usual inhalers Hyperlipidemia- Continue rosuvastatin GERD- Continue pantoprazole and famotidine Discharge held due to hyponatremia Admission and Anticipated Discharge Date Admission Date: February 18, 2024 Physical Exam Physical Exam: General: Awake, conversant Heart: S1, S2/regular rate and rhythm, no murmur rubs or gallops Lungs: Clear to auscultation bilaterally. No crackles heard. Normal effort Abdomen: Soft/nontender/nondistended. No hepatosplenomegaly Extremities: No clubbing/cyanosis. No edema Behavior: Appropriate, cooperative Results & Data Results & Data Vital Signs (Past 12 Hours) Vital Signs Temp Pulse Pulse Resp BP Pulse Ox O2 Del Method 02/26/24 07:48 36.6 C 52 L 19 152/62 H 96 Room Air 02/26/24 07:45 60 02/26/24 02:35 36.6 C 54 L 18 127/62 96 Room Air 02/25/24 23:16 52 L PG Care Time/CCT Total # of Minutes Spent Total Time Spent with Patient: Total time spent is greater than 50% in coordination of care (as documented) at patient's floor/unit and/or counseling patient: Coding Diagnoses (HFpEF) heart failure with preserved ejection fraction I50.30 Hyperlipidemia E78.5 GERD (gastroesophageal reflux disease) K21.9 Chest pain R07.9 Chest pain type: unspecified Shortness of breath on exertion R06.02 Lower extremity edema R60.0 Anxiety F41.9 (4) Chest pain Chest pain type: unspecified Qualified Code(s): R07.9 - Chest pain, unspecified
--- NOTE | 2024-02-26 13:31 | Discharge Summary ---
Date of Service February 26, 2024 Admission HPI Per Admitting Provider The patient is an 79-year-old female with a past medical history including recent admission for rotavirus enterocolitis from 12/27-12/31/2023, hypertension, esophageal dysphagia, ulcerative colitis, hyperlipidemia, GERD, anxiety and kidney stones. She had recently been seen by her PCP about 5 days ago, and started on losartan for recently noted elevated blood pressure. Patient developed chest pressure, shortness of breath, dyspnea on exertion and systolic blood pressure around 200 earlier in the day today, with increasing lower extremity edema over the past few days, and came into the ED for assessment. Admission Exam Per Admitting Provider The patient is awake, alert and oriented 3, well developed and well nourished, normocephalic and atraumatic, lying in bed and in no acute distress. HEENT--PERRL, EOMI, mucous membranes and oropharynx normal Neck--supple. No JVD. No bruits. Thyroid normal, trachea midline, no adenop athy. Heart--normal S1 and S2. No murmurs, rubs or gallops. Lungs--clear bilaterally, no respiratory distress, no accessory muscle use. Abdomen--normal bowel sounds and soft. Nontender. Nondistended, no hernias or masses, no organomegaly. Extremities--1+ bilateral pretibial pitting edema Dermatologic--normal skin turgor, normal color, no abnormal lymph nodes, no rash. Neurologic--cranial nerves II through XII grossly intact. Rheumatologic--normal range of motion. Psychiatric--normal affect. Principal Diagnosis Acute diastolic congestive heart failure Hypertensive emergency Hyponatremia due to diuretics and diarrhea Discharge Exam General: Awake, conversant Heart: S1, S2/regular rate and rhythm, no murmur rubs or gallops Lungs: Clear to auscultation bilaterally. No crackles heard. Normal effort Abdomen: Soft/nontender/nondistended. No hepatosplenomegaly Extremities: No clubbing/cyanosis. No edema Behavior: Appropriate, cooperative Discharge Data Allergies Allergy/AdvReac Type Severity Reaction Status Date / Time No Known Allergies Allergy Verified 12/28/23 02:51 Consultations 02/18/24 20:23 ED Decision to Admit Stat 02/21/24 08:54 Consult Nephrology Routine Hospital Course (1) (HFpEF) heart failure with preserved ejection fraction: (2) Hyperlipidemia: (3) GERD (gastroesophageal reflux disease): (4) Chest pain: (5) Shortness of breath on exertion: (6) Lower extremity edema: (7) Anxiety: Plan Acute HFpEF Increased lower extremity swelling Shortness of breath Elevated BNP All pointing towards CHF exacerbation Was given IV Lasix with good clinical and diuretic response Currently not overloaded anymore. Hold further doses of IV Lasix Echocardiogram shows diastolic dysfunction Most likely due to uncontrolled hypertension leading to hypertensive heart disease P.o. Lasix was held because of the diarrhea Will discharge her on Lasix 20 mg p.o. every morning and her home blood pressure medications Hyponatremia Patient was most likely slightly over diuresed with Lasix Moreover, she had diarrhea in the past few days. Hemstitcher on board. She was given IV fluids and Lasix was held. She was also treated with hypertonic saline and salt tablets This morning her sodium was 126 Cleared for discharge by nephrology Nephrology to see the patient outpatient in 1 week Will discharge on salt tablets 2 g p.o. twice daily, Lasix 20 mg p.o. once daily Fluid restriction to less than 1500 cc Hypertensive emergency with CHF exacerbation Continue amlodipine, Resumed losartan Spironolactone resumed Her blood pressure has been stable on this current regimen Will discharge her on this regimen along with 20 mg of p.o. Lasix daily COPD- Continue usual inhalers Hyperlipidemia- Continue rosuvastatin GERD- Continue pantoprazole and famotidine Discharge today Total Time Total Time Spent Total Time Spent (In Minutes): 35 Discharge Plan Discharge Items Patient Disposition: Home - Self-Care Reason For Visit: CHEST PAIN, HFPEF Discharge Diagnosis: Acute diastolic congestive heart failure Hypertensive emergency Hyponatremia due to diuretics and diarrhea Activity: Resume your previous activity Non-emergency contact: Primary Care Provider Call non-emergency contact if: you have any medication questions and your symptoms worsen Follow-up/Referrals: Graham Arthur MD [Physician] - 03/02/24 11:40 am (Hospital follow up scheduled with Dr. Anderson on March 02 at 11:40) Hayder Ann PA-C [Primary Care Provider] - 03/03/24 1:00 pm (Hospital follow up scheduled with Dr. Henley on March 03 at 1:00) Diet: Heart Healthy Fluids: 1500ml (6 cups) Addtl Attending Provider Instructions: Advised to follow-up with PCP in 1 week Advised to follow-up with drawing frame tender in 1 week Pending Studies at Discharge: No Stand-Alone Forms: My [facility] Medications and DC Order Prescriptions: New sodium chloride 1,000 mg Tablet,Soluble 2,000 mg PO BID 14 Days Qty: 56 0RF Continued trazodone 50 mg tablet 50 mg PO HS Prolia 60 mg/mL syringe 60 mg subcut Q6MO folic acid 1 mg tablet 1 mg PO DAILY furosemide [Lasix] 20 mg Tablet 20 mg PO QAM Hold Instructions: Resume on 01/05/24. famotidine 40 mg tablet 40 mg PO HS pantoprazole 40 mg tablet,delayed release (DR/EC) 40 mg PO QAM Rx Instructions: take 1 tablet by mouth once daily amlodipine 5 mg Tablet 5 mg PO QAM oxycodone-acetaminophen [Percocet] 5-325 mg Tablet 1 tab PO Q6H PRN (Reason: Pain) rosuvastatin [Crestor] 5 mg Tablet 5 mg PO HS celecoxib 200 mg capsule 200 mg PO HS PRN (Reason: Pain) spironolactone 25 mg tablet 25 mg PO DAILY Hold Instructions: Resume on 01/05/24. citalopram [Celexa] 20 mg Tablet 20 mg PO DAILY methotrexate sodium 2.5 mg tablet 12.5 mg PO WK Rx Instructions: TAKES 5 TABLETS cholecalciferol (vitamin D3) [Vitamin D3] 25 mcg (1,000 unit) Capsule 25 mcg PO WK diclofenac sodium 1 % Gel 2 g TOPICAL TID PRN (Reason: Pain) potassium citrate 10 mEq (1,080 mg) tablet extended release 10 meq PO DAILY losartan 25 mg tablet 25 mg PO DAILY brimonidine-timolol [Combigan] 0.2-0.5 % Drops 1 drp OPL Q12H sucralfate 1 gram tablet 1 g PO TID PRN (Reason: gastric distress) meclizine 25 mg tablet 25 mg PO TID PRN (Reason: Dizziness) fluticasone propion-salmeterol 500-50 mcg/dose blister with device 1 inh INHALATION BID Discharge Orders: Discharge Order (Routine); Ordered 02/26/24 Ordered By: Cedric Maurer Admission Data Admit Date/Time: 02/18/24 21:32 Attending Provider: Cedric Maurer Admit Provider: Stan Soto Primary Care Provider: Hayder Ann Other Providers: Stan Soto; Graham Arthur Coding Level of Care Code 57481 INP/OBS DISCH >30 MIN Diagnoses (HFpEF) heart failure with preserved ejection fraction I50.30 Hyperlipidemia E78.5 GERD (gastroesophageal reflux disease) K21.9 Chest pain R07.9 Chest pain type: unspecified Shortness of breath on exertion R06.02 Lower extremity edema R60.0 Anxiety F41.9
== END 2024-02-26 12:06 | disposition home or self-care (01) | DRG 291 ==
LOC: ED 18:41 → SUATTDRO 21:32 → EDINP 21:32 → 2S 02-19 13:55

== ENCOUNTER 2024-03-28 22:54 | Observation (INO) ==
--- OUTSIDE RECORDS SUMMARY | 2024-03-28 22:58 | External Medical Summary | Summary of Care ---
Author Name Unknown Organization [facility] Address [address] [facility] [place] [address] Phone [phone] Care Team Providers Care Information Assurance Manager Name Role Phone Hayder Ann PA-C Primary Care Provide r Reason for Visit * Reason Comments Follow Up 4-6 week f/u; pt has no complaints since NIKO Encounter Details Date Type Department Care Team (Late st Contact Info) Description 03/23/2024 2:15 PM EDT Office Visit Ophthalmology, [facility] [address] [place] [address] Carrillo Brunson, DO [address] [place] [id number] Stable central retinal vein occlusion of left eye* Allergies No known active allergiesdocumented as of this encounter (statuses as of 03/23/2024) Medications Medication Sig Dispensed Refills Start Date [...] intermittent asthma without complication,Lung nodule,Tobacco abuse, in remission,ZIMMEMRAN (dyspnea on exertion),Gastroesophage al reflux disease, esophagitis [...] and 1 Drop before bedtime. 07/25/2023 Active Losartan Potassium 25 MG Oral Tablet (Cozaar) Take 1 Tablet by mouth in the morning. 02/10/2024 Active documented as of this encounter (statuses as of 03/23/2024) Active Problems Problem Noted Date Diagnosed Date Rheumatoid arthritis 05/29/2023 Overview: She states her Rehab Technician is not sure if she has RA [...] as of this encounter (statuses as of 03/23/2024) Resolved Problems Problem Noted Date Diagnosed Date Resolved Date COPD, group B, by GOLD 2017 classification 09/02/2022 05/28/2023 Overview: Per COPD GOLD Classification Chronic obstructive lung disease 12/24/2017 05/28/2023 documented as of this encounter (statuses as of 03/23/2024) Immunizations Name Administration Dates Next Due COVID-19 [...] Answer Date Recorded PHQ-2 Score 0 08/24/2020 Utilities Answer Date Recorded Do you have trouble paying y our heating, water, or electric bill? (Adult - for ages 18 years and over) Not on file 03/09/2024 Is your family able to pay t he heat, water, or electric bill? (Household - for ages 0-17 years) Not on file 03/09/2024 Does your family have access to good internet? (Household - for ages 0-17 years) Not on file 03/09/2024 Social Connections Answer Date Recorded How often do you feel lonely or isolated from those around you? (Adult - for ages 18 years and over) Not on file 03/09/2024 Sex and Gender Information Value Date Recorded Sex Assigned at Not on file Gender Identity Not on file Sexual Orientation Not on file Job Start Date Occupation Industry Not on file Not on file Not on file documented as of this encounter Progress Notes * Carrillo Brunson, DO - 03/23/2024 2:15 PM EDT [facility] [place] Nursing notes reviewed. Eye vitals reviewed. Mood and Affect: normal HPI: Michele Deal is a 79 year old female who presents for evaluation of retinas No other eye complaints. Denies significant pain. Base Eye Exam Tonometry (Tonopen, 2:22 PM) Right Left Pressure 9 14 Pupils Pupils Right PERRL Left PERRL Visual Beard (Counting fingers) Right Left Full Full Extraocular Movement Right Left Full, Ortho Full, Ortho Dilation Both eyes: 0.5% Proparacaine @ 2:20 PM Dilation #2 Both eyes: 1.0% Mydriacyl, 2.5% Phenylephrine @ 2:22 PM Dilation #3 Both eyes: 1.0% Mydriacyl, 2.5% Phenylephrine @ 2:24 PM Dilation Comments Patient cautioned that effects of [...] trace inferior vit heme optic nerve: 0.3, +edema/heme--mostly resolved, no pallor/NVD macula: heme vessels: av nicking periphery: heme x 4 quads >superiorly, no RT/RD OCT Interpretation: OD: no irf/srf, +pvd OS: no irf/srf, +pvd A/P: 1. Central retinal vein occlusion OS onset: 01/31/24 -w/ trace vit heme -pt risk factors--htn, hyperchol, glaucoma BP on presentation 172/69 -was hospitalized for HTN -BP currently controlled -no VSME, NV -exam improved -monitor 2. Posterior Vitreous Detachment OU -no RT/RD -advised to return to clinic if she should experience worsening or new floaters, flashes of light, a shadow in the periphery, or decrease in vision. 3. Glaucoma OU -s/p shunt OD--Sadka -using drops OS 4. Pseudophakia OU -stable Plan: F/u 6-8 weeks, OCT OS; WF OS Carrillo Brunson DO CC: Jean-Paul Shi DO CC: PCP: Hayder Ann PA-C documented in this encounter Nursing Notes * Kristine Gagnon MED ASSIST - 03/23/2024 2:15 PM EDT Michele Deal is a 79 year old year old female who presents for CRVO OS. Last Office Visit: 02/09/2024 (in office), Visit date not found (telemedicine) Patient currently states no change in vision. Are you diabetic? No Do you drive? yes OCT image(s) of left eye acquired and filed/scanned into chart. documented in this encounter Plan of Treatment Upcoming Encounters Date Type Department Care Team (Late st Contact Info) Description 05/04/2024 2:00 PM EDT Office Visit Ophthalmology, [facility] [address] [facility] [place] [address] Carrillo Brunson DO [address] [place] [id number] 01/27/2025 2:00 PM EDT Office Visit Pulmonary Medicine, [facility] [address] [place] [address] Micha Parker MD [address] [facility] [place] [id number] Scheduled Orders Name Type Priority Associated Diagnoses Orde r Schedule RETINA SCAN DIAGNOSTIC IMAGE, POSTERIOR Procedures Routine Stable central retinal vein occlusion of left eye Ordered: 03/23/2024 Health Maintenance Due Date Last Done Comments Depression Screening 08/24/2021 08/24/2020 COVID-19 Vaccine ( season) 2023 06/18/2023, 07/09/2022, 01/01/2022, Additional history exists Influenza Vaccine (FLU shot) (#1) 2024 07/28/2023, 07/24/2023, 06/27/2022, Additional history exists DXA Scan 08/11/2030 08/11/2023, 07/23, 08/06/2019, Additional history exists DTaP,Tdap,and Td Vaccines (3 - Td or Tdap) 03/02/2032 03/02/2022, 05/16/2019 Pneumococcal Vaccine: 65+ Years Completed 07/26/2020, 12/28/2018, 01/20/2016 Zoster Vaccines Completed 09/29/2020, 04/23, 12/02/2013 GARDASIL-HPV IMMUNIZATION SERIES Aged Out No longer [...] retinal vein occlusion of left eye- Primary documented in this encounter Care Teams Information Assurance Manager Relationship Specialty Start Date End Date Hayder Ann PA-C [address] [place] [address] PCP - General Physician Display Associate 11/02/19 documented as of this encounter
[2024-03-28 23:32] LABS: Basophils # (auto) 0.02 K/uL (0.00-0.20); Basophils % (auto) 0.3 %; Eosinophils # (auto) 0.23 K/uL (0.00-0.50); Eosinophils % (auto) 3.6 %; Hematocrit (blood only) 34.2 % (37.0-47.0); Hemoglobin 11.4 g/dl (12.0-16.0); Immature Granulocytes # (auto) 0.11 K/uL (0.01-0.20); Immature Granulocytes % (auto) 1.7 %; Lymphocytes # (auto) 1.29 K/uL (1.20-3.40); Lymphocytes % (auto) 20.3 %; Mean Corpuscular Hemoglobin 31.7 pg (25.0-34.0); Mean Corpuscular Hgb Conc 33.3 g/dL (32.0-36.0); Mean Platelet Volume 9.8 fL (9.4-12.4); Monocytes # (auto) 0.92 K/uL (0.11-0.59); Monocytes % (auto) 14.5 %; Neutrophils # (auto) 3.78 K/uL (1.40-6.50); Neutrophils % (auto) 59.6 %; Platelet Count 220 K/uL (130-400); RDW Coefficient of Variation 13.3 % (11.5-14.5); RDW Standard Deviation 45.7 fL (36.4-46.3); White Blood Count 6.35 K/ul (4.8-10.8)
[2024-03-28 23:50] LABS: Albumin Globulin Ratio 1.5 (0.9-2); Albumin Level 4.2 gm/dl (3.4-5.0); Bilirubin,Total 0.4 mg/dl (0.2-1.0); Calcium 9.4 mg/dl (8.6-10.3); Creatinine Clr Calc Pharmacy 39.9 ml/min; Est GFR (African American) 67.3 ml/min; Globulin 2.8 gm/dl (2.5-4.0); Magnesium 1.9 mg/dl (1.7-2.4); Potassium 4.2 mmol/L (3.5-5.1)
[2024-03-28 23:56] LABS: Troponin I High Sensitivity 10.8 pg/ml (0-14)
[2024-03-28] MEDS: FUROSEMIDE INJ 20 MG/2 ML VIAL IV ONE (23:58)
[2024-03-29 00:06] LABS: Thyroid Stimulating Hormone 3.711 uIu/ml (0.300-4.500)
--- NOTE | 2024-03-29 00:32 | Emergency Department Note ---
Impression & Plan Hypertension, Elevated troponin, Chest tightness ED Provider Note CHIEF COMPLAINT: Blood pressure, chest tightness HISTORY OF PRESENT ILLNESS: This 79-year-old female patient past medical history of heart failure, hyponatremia, hypertensive urgency, rectal bleeding, colonic polyps, GERD, hyperlipidemia, ulcerative colitis presents to the emergency department complaints of hypertension. The patient has been monitoring her blood pressure daily and states tonight it was up over 200 at home. She complains of some chest discomfort with some facial numbness, both of which have largely resolved. Over the weekend 14 April, the patient was eating barbecue pork sandwiches, [place] fried chicken and macaroni and cheese. patient states she has been taking her medications without fail. REVIEW OF SYSTEMS: A review of systems was performed with positives and pertinent negatives listed in the history of present illness. 10 systems were reviewed and are otherwise negative. ALLERGIES: see below MEDICATIONS: see below PMH: see below SOCIAL HISTORY: see below DDx: Dietary discretion, medication omission, Acute coronary syndrome, GERD, hypertensive urgency, stroke, migraine headache among others. PHYSICAL EXAM: Vital signs reviewed. General: Well-appearing 79-year-old female, in no significant distress. HEENT: No scleral icterus, PERRLA, neck supple. Atraumatic. Cardiovascular: Regular rate and rhythm, no extra sounds. Pulmonary: Clear to auscultation bilaterally, normal work of breathing. Abdomen: Soft, nontender, nondistended, positive bowel sounds. Musculoskeletal: minimal nonpitting peripheral edema BLE. Neurologic: Patient awake alert and oriented x 3, speech is clear. moves all 4 extremities equally, Skin: Warm, dry, skin is atrophied with hyperpigmented area to arms and legs EMERGENCY DEPARTMENT COURSE/MDM: This patient was evaluated and appeared to be in no significant distress. IV access was obtained and laboratory work was drawn. The patient was placed on the bridge repair crew person noted to be in a sinus bradycardia. Patient was noted to have elevated blood pressure over had a large amount of sodium ingested over the weekend. She was given 20 mg of IV Lasix diuresis and control of blood pressure. Laboratory work was initially very reassuring with only a very slightly elevated High sensitivity troponin. EKG reveals no evidence of acute scheme might change. A second troponin was drawn at around two hours and was noted to be trending upward 10->27.8. Pt was given 325 mg ASA. This is likely demand mediated secondary to so increased fluid, the patient did complain of chest tightness and will be evaluated by the hospital of service for admission and further management. EKG: to my interpretation reveals sinus bradycardia at 55bpm, normal ST segments, QTc 392, no PVC, no PAC. MONITORING: An order for cardiac monitoring was placed and the patient is noted to be in a sinus bradycardia at 51 beats per minute. RADIOLOGY: CT head to my interpretation is negative for acute intracranial abnormality. CXR to my interpretation reveals no focal lung consolidation or failure. DISPOSITION: Admit Past Med/Surg History Problem List (Updated 04/01/24 @ 15:29 by Mounika Win MD) Chest tightness (Acute) Elevated troponin (Acute) Hypertension (Acute) Elevated troponin Hypertensive urgency Hyponatremia Shortness of breath on exertion (HFpEF) heart failure with preserved ejection fraction Rotavirus enteritis (Acute) Enterocolitis (Acute) Rotavirus infection Rectal bleeding History of colon polyps Encounter for pre-operative examination Arthritis Colitis IBS (irritable bowel syndrome) (Acute) HTN (hypertension) (Chronic) Esophageal dysphagia Osteoarthritis Ulcerative colitis Hyperlipidemia Hip pain (Chronic) GERD (gastroesophageal reflux disease) (Chronic) Anxiety Kidney stones (Chronic) hx Medical History Hypertensive emergency Colitis Allergy-induced asthma Schatzki's ring History of esophageal dilatation Cervicalgia Diverticulosis of colon History of SCC (squamous cell carcinoma) of skin Internal hemorrhoids Nausea and vomiting after administration of anesthetic agent Chronic back pain History of renal failure d/t kidney stones. Follows with Dr. Foster. Basal cell carcinoma of chest removed in office Basal cell carcinoma of face removed in office Anemia Glaucoma Depression Occipital neuralgia hx of--had nerve ablations x5 Bradycardia 40-50s is normal HR Upper GI bleed hx Surgical History History of lumpectomy of right breast benign History of lumbar discectomy History of total right hip replacement History of cystoscopy with stent History of total abdominal hysterectomy and bilateral salpingo-oophorectomy History of colonoscopy History of appendectomy History of cholecystectomy History of esophagogastroduodenoscopy (EGD) (~12/2018) History of tooth extraction all teeth removed History of bilateral cataract extraction Status post glaucoma surgery right eye has a shunt in place Family History Father Heart disease Brother Kidney disease Mother Kidney disease Other No family history of adverse response to anesthesia Social History Smoking Status: Former smoker Tobacco Type: Cigarettes Second Hand Exposure: No; Do You Dip or Chew Tobacco: No; Hx Alcohol Use: No Hx Substance Use: No Preferred Language: Polish Communication Ability: Effective Gizzard Skin Remover Required: No Beliefs That Will Affect Care: None Current Living Situation: Alone Feels Safe at Home: Yes Assistive Devices: Cane and Walker Allergies Allergies Allergy/AdvReac Type Severity Reaction Status Date / Time No Known Allergies Allergy Verified 12/28/23 02:51 Home Meds Home Medications Medication Instructions Recorded Confirmed amlodipine 5 mg tablet 5 mg PO QAM 01/07/19 03/28/24 oxycodone-acetaminophen 5 mg-325 1 tab PO Q6H PRN Pain 01/07/19 03/28/24 mg tablet (Percocet) furosemide 20 mg tablet (Lasix) 20 mg PO QAM 10/23/19 03/28/24 trazodone 50 mg tablet 50 mg PO HS 04/04/20 03/28/24 famotidine 40 mg tablet 40 mg PO HS 10/30/20 03/28/24 pantoprazole 40 mg tablet,delayed 40 mg PO QAM 10/30/20 03/28/24 release denosumab 60 mg/mL subcutaneous 60 mg subcut Q6MO 04/29/22 03/28/24 syringe (Prolia) folic acid 1 mg tablet 1 mg PO DAILY 07/04/22 03/29/24 celecoxib 200 mg capsule 200 mg PO HS PRN Pain 11/11/23 03/28/24 cholecalciferol (vitamin D3) 25 25 mcg PO WK 11/11/23 03/28/24 mcg (1,000 unit) capsule (Vitamin D3) citalopram 20 mg tablet (Celexa) 20 mg PO DAILY 11/11/23 03/28/24 diclofenac sodium 1 % topical gel 2 g topical TID PRN Pain 11/11/23 03/28/24 methotrexate sodium 2.5 mg tablet 12.5 mg PO WK 11/11/23 03/28/24 potassium citrate 10 mEq (1,080 10 meq PO DAILY 11/11/23 03/29/24 mg) tablet,extended release spironolactone 25 mg tablet 25 mg PO DAILY 11/11/23 03/28/24 fluticasone 500 mcg-salmeterol 50 1 inh inhalation BID 12/28/23 03/28/24 mcg/dose blistr powdr for inhalation meclizine 25 mg tablet 25 mg PO TID PRN Dizziness 12/28/23 03/28/24 losartan 25 mg tablet 25 mg PO DAILY 02/18/24 03/28/24 sucralfate 1 gram tablet 1 g PO TID PRN gastric distress 02/18/24 03/29/24 rosuvastatin 5 mg tablet 5 mg PO HS 03/28/24 03/28/24 brimonidine 0.2 % eye drops 1 drp ophthalmic (eye) BID 03/29/24 03/29/24 timolol maleate 0.5 % once daily 1 drp ophthalmic (eye) BID 03/29/24 03/29/24 eye drops Results & Data (ED) Vital Signs Vital Signs - 24 hr 03/28/24 22:57 03/28/24 23:10 03/28/24 23:18 Temperature 36.4 C L Temperature Source Temporal Artery Scan Pulse Rate 68 55 L 59 L Pulse Rate [Apical] Pulse Rhythm Regular Pulse Rhythm [Apical] Pulse Strength [Apical] Respiratory Rate 20 18 Respiratory Effort / Characteristics Respiratory Depth Respiratory Pattern Blood Pressure 222/69 H Blood Pressure [Right Arm] Blood Pressure Mean 120 Blood Pressure Mean [Right Arm] Blood Pressure Position [Right Arm] Pulse Oximetry 95 98 Oxygen Delivery Method Room Air Room Air Sepsis Recent Fever Within 48 Hours No Sepsis New/Unexplained Change in Mental Status No Sepsis Action Taken by Nursing No Action Required 03/29/24 00:37 Temperature Temperature Source Pulse Rate Pulse Rate [Apical] 51 L Pulse Rhythm Pulse Rhythm [Apical] Regular Pulse Strength [Apical] Normal Respiratory Rate 18 Respiratory Effort / Characteristics Non-Labored Spontaneous Respiratory Depth Normal Respiratory Pattern Regular Blood Pressure Blood Pressure [Right Arm] 140/66 Blood Pressure Mean Blood Pressure Mean [Right Arm] 90 Blood Pressure Position [Right Arm] Lying Pulse Oximetry 96 Oxygen Delivery Method Room Air Sepsis Recent Fever Within 48 Hours Sepsis New/Unexplained Change in Mental Status Sepsis Action Taken by Assisted Medications Current Medication List: was personally reviewed by me Laboratory Data Attestation: I reviewed the patient's lab results. 03/30/24 05:56 03/30/24 05:56 Lab Results 03/28/24 03/29/24 03/29/24 Range/Units 23:13 00:31 01:49 WBC 6.35 (4.8-10.8) K/ul RBC 3.60 L (4.20-5.40) M/uL Hgb 11.4 L (12.0-16.0) g/dl Hct 34.2 L (37.0-47.0) % MCV 95.0 (80.0-100.0) fL MCH 31.7 (25.0-34.0) pg MCHC 33.3 (32.0-36.0) g/dL RDW Std Deviation 45.7 (36.4-46.3) fL RDW Coeff of Nikkie 13.3 (11.5-14.5) % Plt Count 220 (130-400) K/uL MPV 9.8 (9.4-12.4) fL Immature Gran % (Auto) 1.7 % Neut % (Auto) 59.6 % Lymph % (Auto) 20.3 % Perry % (Auto) 14.5 % Eos % (Auto) 3.6 % Baso % (Auto) 0.3 % Neut # (Auto) 3.78 (1.40-6.50) K/uL Lymph # (Auto) 1.29 (1.20-3.40) K/uL Perry # (Auto) 0.92 H (0.11-0.59) K/uL Eos # (Auto) 0.23 (0.00-0.50) K/uL Baso # (Auto) 0.02 (0.00-0.20) K/uL Immature Gran # (Auto) 0.11 (0.01-0.20) K/uL Sodium 131 L (136-145) mmol/L Potassium 4.2 (3.5-5.1) mmol/L Chloride 99 (98-107) mmol/L Carbon Dioxide 26 (21-32) mmol/L Anion Gap 6 (3-11) BUN 26 H (6-23) mg/dl Creatinine 0.93 (0.6-1.2) mg/dl Est Cr Clr Drug Dosing 39.9 ml/min Est GFR ( Amer) 67.3 ml/min Est GFR (Non-Af Amer) 58.0 ml/min BUN/Creatinine Ratio 28.0 H (10-20) Glucose 123 H (70-99(Fasting)) mg/dl Calcium 9.4 (8.6-10.3) mg/dl Magnesium 1.9 (1.7-2.4) mg/dl Total Bilirubin 0.4 (0.2-1.0) mg/dl AST 16 (13-39) U/L ALT 12 (7-52) U/L Alkaline Phosphatase 60 (34-104) U/L Troponin I High Sens 10.8 27.8 H D (0-14) pg/ml Total Protein 7.0 (6.0-8.3) gm/dl Albumin 4.2 (3.4-5.0) gm/dl Globulin 2.8 (2.5-4.0) gm/dl Albumin/Globulin Ratio 1.5 (0.9-2) TSH 3.711 (0.300-4.500) uIu/ml Urine Color Yellow Urine Appearance Clear (Clear) Urine pH 5.5 (4.5-7.5) Ur Specific [place] 1.008 (1.000-1.030) Urine Protein Negative (Negative) Urine Glucose (UA) Negative (Negative) Urine Ketones Negative (Negative) Urine Blood Negative (Negative) Urine Nitrite Negative (Negative) Urine Bilirubin Negative (Negative) Urine Urobilinogen Negative (Negative) Ur Leukocyte Esterase Trace H (Negative) Urine WBC (Auto) 0-5 (0-5) /hpf Urine RBC (Auto) 0-2 (0-2) /hpf U Hyaline Cast (Auto) 0-2 (0-2) /lpf U Epithel Cells (Auto) 0-2 (0-2) /hpf Urine Bacteria (Auto) None Seen (None Seen) Administered Medications Discontinued Medications Amlodipine Besylate (Amlodipine Besylate 5 Mg Tab) 5 mg PO QAM DANIEL Stop: 04/28/24 08:59 Last Admin: 03/30/24 11:03 Dose: 5 mg Documented By: Admin: 03/29/24 07:28 Dose: 5 mg Documented By: HS Aspirin (Aspirin 81 Mg Chew) 324 mg PO NOW STA Stop: 03/29/24 03:32 Last Admin: 03/29/24 04:01 Dose: 324 mg Documented By: WAQAR Atropine Sulfate (Atropine Sulfate 0.1 Mg/Ml 10ml Syr) Confirm Administered Dose 2 mg IV .STK-MED ONE Stop: 03/30/24 10:02 Last Admin: 03/30/24 11:15 Dose: Not Given Documented By: JERAMIE Brimonidine Tartrate (Brimonidine Tartrate 0.2% 5ml) 1 drops OPL BID [facility] Stop: 04/28/24 20:59 Last Admin: 03/30/24 11:03 Dose: 1 drops Documented By: Admin: 03/29/24 20:29 Dose: 1 drops Documented By: JASIEL Celecoxib (Celebrex 200 Mg Cap) 200 mg PO HS PRN PRN Reason: Pain Stop: 04/28/24 05:20 Last Admin: 03/29/24 20:29 Dose: 200 mg Documented By: JASIEL Citalopram Hydrobromide (Citalopram 20 Mg Tab) 20 mg PO DAILY [facility] Stop: 04/28/24 08:59 Last Admin: 03/30/24 11:03 Dose: 20 mg Documented By: Admin: 03/29/24 07:28 Dose: 20 mg Documented By: HS Dobutamine HCl (Dobutamine Hcl 12.5 Mg/Ml 20 Ml Vial) Confirm Administered Dose 250 mg IV .STK-MED ONE Stop: 03/30/24 10:03 Last Admin: 03/30/24 11:15 Dose: 1 dose Documented By: JERAMIE Famotidine (Famotidine 40 Mg Tablet) 40 mg PO HS [facility] Stop: 04/28/24 20:59 Last Admin: 03/29/24 20:29 Dose: 40 mg Documented By: JASIEL Fluticasone/Vilanterol (Fluticasone/Vilanterol 200/25mcg 14 Puffs/Inhaler) 1 puffs INH DAILY [facility] Stop: 04/28/24 08:59 Last Admin: 03/30/24 11:03 Dose: 1 puffs Documented By: Admin: 03/29/24 07:28 Dose: 1 puffs Documented By: HS Folic Acid (Folic Acid 1 Mg Tab) 1 mg PO DAILY [facility] Stop: 04/28/24 08:59 Last Admin: 03/30/24 11:03 Dose: 1 mg Documented By: Admin: 03/29/24 07:28 Dose: 1 mg Documented By: ERIK Furosemide (Furosemide Inj 20 Mg/2 Ml Vial) 20 mg IV ONE ONE Stop: 03/28/24 23:21 Last Admin: 03/28/24 23:58 Dose: 20 mg Documented By: WAQAR Furosemide (Furosemide 20 Mg Tab) 20 mg PO QAM [facility] Stop: 04/28/24 08:59 Last Admin: 03/30/24 11:03 Dose: 20 mg Documented By: Admin: 03/29/24 07:28 Dose: 20 mg Documented By: ERIK Ioversol (Optiray 320 125ml) 112 ml IV ONCE ONE Stop: 03/29/24 11:44 Last Admin: 03/29/24 11:43 Dose: 112 ml Documented By: CRISTAL Losartan Potassium (Losartan Potassium 25 Mg Tab) 25 mg PO DAILY [facility] Stop: 04/28/24 08:59 Last Admin: 03/30/24 11:02 Dose: 25 mg Documented By: Admin: 03/29/24 07:28 Dose: 25 mg Documented By: ERIK Metoprolol Tartrate (Metoprolol Tartrate 1 Mg/Ml Vial) Confirm Administered Dose 10 mg IV .STK-MED ONE Stop: 03/30/24 10:02 Last Admin: 03/30/24 11:15 Dose: 5 mg Documented By: JERAMIE Miscellaneous (Combigan: Order Awaiting Action) 1 each N/A QS [facility] Stop: 04/28/24 07:59 Last Admin: 03/29/24 07:30 Dose: 1 each Documented By: ERIK Nitroglycerin (Nitroglycerin Sl 0.4 Mg/Tab Tab) Confirm Administered Dose 0.4 mg .ROUTE .STK-MED ONE Stop: 03/30/24 10:03 Last Admin: 03/30/24 11:16 Dose: Not Given Documented By: JERAMIE Pantoprazole Sodium (Pantoprazole 40 Mg Tab) 40 mg PO QAM [facility] Stop: 04/28/24 08:59 Last Admin: 03/30/24 11:02 Dose: 40 mg Documented By: Admin: 03/29/24 07:28 Dose: 40 mg Documented By: ERIK Potassium Citrate (Potassium Citrate 10 Meq Tab) 10 meq PO DAILY [facility] Stop: 04/28/24 08:59 Last Admin: 03/30/24 11:03 Dose: 10 meq Documented By: Admin: 03/29/24 07:28 Dose: 10 meq Documented By: ERIK Rosuvastatin Calcium (Rosuvastatin Calcium 5 Mg Tab) 5 mg PO [facility]ANIEL Stop: 04/28/24 20:59 Last Admin: 03/29/24 20:29 Dose: 5 mg Documented By: JASIEL Spironolactone (Spironolactone 25 Mg Tab) 25 mg PO DAILY [facility] Stop: 04/28/24 08:59 Last Admin: 03/30/24 11:03 Dose: 25 mg Documented By: Admin: 03/29/24 07:28 Dose: 25 mg Documented By: ERIK Timolol Maleate (Timolol Maleate 0.5% Op Soln 5 Ml Btl) 1 drops OPL BID [facility] Stop: 04/28/24 20:59 Last Admin: 03/30/24 11:04 Dose: 1 drops Documented By: Admin: 03/29/24 20:29 Dose: 1 drops Documented By: JASIEL Trazodone HCl (Trazodone Hcl 50 Mg Tab) [address] [facility] Stop: 04/28/24 20:59 Last Admin: 03/29/24 20:29 Dose: 50 mg Documented By: JASIEL Discharge Plan Visit Data Chief Complaint: Hypertension Stated Complaint: HIGH BP, CHEST TIGHTNESS ED Provider: Mounika Win Discharge Problem: Hypertension, Elevated troponin, Chest tightness Patient Disposition: Admitted As Inpatient Discharge Instructions Interventions: ED Discharge Assessment Last Done: 03/29/24 05:47 Discharge Problem: Hypertension Qualifiers: Hypertension type: primary hypertension Qualified Code(s): I10 - Essential (primary) hypertension
[2024-03-29 00:42] LABS: Appearance Urine Clear (Clear); Bacteria Urine Automated None Seen (None Seen); Bilirubin Urine Negative (Negative); Blood Urine Negative (Negative); Cast Urine Automated 0-2 /lpf (0-2); Color Urine Yellow; Epithelial Cell Urine Auto 0-2 /hpf (0-2); Glucose Urine UA Negative (Negative); Ketones Urine Negative (Negative); Leukocyte Esterase Urine Trace (Negative); Nitrite Urine Negative (Negative); Protein Urine Negative (Negative); RBC Urine Automated 0-2 /hpf (0-2); Specific Gravity Urine 1.008 (1.000-1.030); Urobilinogen Urine Negative (Negative); WBC Urine Automated 0-5 /hpf (0-5); pH Urine 5.5 (4.5-7.5)
--- NOTE | 2024-03-29 02:02 | CT Scan Report ---
Exam(s): CT HEAD Without Contrast EXAM: CT Head Without Intravenous Contrast CLINICAL HISTORY: Reason for exam: HTN, facial numbness. TECHNIQUE: Axial computed tomography images of the head/brain without intravenous contrast. CTDI is 37.78 mGy and DLP is 547.75 mGy-cm. Automated exposure control was utilized for the study. A dose lowering technique was utilized adhering to the principles of ALARA. COMPARISON: Comparison made to prior brain MRI from January 15, 2024. FINDINGS: Brain: Unremarkable. No hemorrhage. No significant white matter disease. No edema. Ventricles: Unremarkable. No ventriculomegaly. Bones/joints: Unremarkable. No acute fracture. Soft tissues: There is a small metallic foreign body within the anterior right globe. Sinuses: Unremarkable as visualized. No acute sinusitis. Mastoid air cells: Unremarkable as visualized. No mastoid effusion. IMPRESSION: No evidence of acute intracranial pathology. Electronically signed by: Ayesha Thapa MD 03/29/24 02:01 AM
--- NOTE | 2024-03-29 03:37 | History & Physical Report ---
Date of Service March 29, 2024 Assessment & Plan (1) Hypertensive emergency: (2) Lower extremity edema: (3) (HFpEF) heart failure with preserved ejection fraction: (4) Chest pain: (5) IBS (irritable bowel syndrome): (6) HTN (hypertension): (7) Ulcerative colitis: (8) Hyperlipidemia: (9) GERD (gastroesophageal reflux disease): (10) Anxiety: Plan Michele is an 79 F w/ PMH of HFpEF, HTN, IBS, dysphagia, HLD, ulcerative colitis, GERD, anxiety, and nephrolithiasis who presented for hypertension. Hypertensive Emergency +/- CHF Exacerbation - Elevated BP w/ chest tightness, increased LE edema & increased troponin (27.8 H) Symptoms improved following diuretic administration - Recent admission 02/17-02/25 for HF Exacerbation w/ HTN Emergency - Current episode likely provoked by dietary indiscretion over holiday - CXR concerning for pulmonary edema, pending radiologist read - BP 222/69 on arrival, now 134/59 s/p Lasix 20 mg IV Will hold additional diuretic as BP improved and PE w/ only trace crackles/LE edema Patient became hyponatremic from over-diuresis last admission Will continue patient's home diuretic dose of Lasix 20 mg PO daily - Will continue patient's home antihypertensives: Amlodipine, Losartan, and Spironolactone - Dietary counseling provided, specific to CHF Elevated Troponin w/ Chest Tightness - Trop elevated to 27.8 on repeat Will trend inpatient given presenting chest tightness, though now improved - Likely demand 2/2 HTN Emergency - Will provide full dose Aspirin - Repeat EKG for chest tightness, no acute ST or T wave changes on presentation Chronic Conditions: - HFpEF: As above - HTN: As above - HLD: continue statin - Dysphagia/GERD: continue PPI - Anxiety: continue Citalopram Code: Full Diet: Heart Healthy, fluid restrict IVF: None, S/p IV Lasix, continue PO Lasix Dispo: Med/Tele, trending troponin History of Present Illness Chief Complaint: Hypertension Primary Care Provider: Hayder Ann Michele is an 79 F w/ PMH of HFpEF, HTN, IBS, dysphagia, HLD, ulcerative colitis, GERD, anxiety, and nephrolithiasis who presented for hypertension. Patient received Lasix 20 mg IV in ED w/ subsequent BP improvement. HPI: Noted that her ankles started swelling throughout the day today so that she was checking her BP regularly at home. BP became progressively higher throughout the day today. Of note, SBP was > 200 prior to arrival. Was having a band of tightness around her chest, which is largely improved since reduction in BP and diuresis. This similar presentation happened last month as well. At this point in time, she was admitted for diuresis in the setting of a CHF exacerbation. Patient ntoes that she became hyponatremia during that admission and required salt tablets upon discharge. Echocardiogram was performed 02/19/24 showing LVEF of 60-65% (HFpEF). Concerned that what she ate this week over the holiday is what provoked sx (pulled pork, barbecue ribs, and [facility] chicken). No headaches or vision changes. No URI symptoms. Endorses chronic dyspnea, same as normal, not acutely worsened. Urinating and moving bowels as normal. Finished 2 week course of salt tablets, no other acute medication changes. Allergies Allergy/AdvReac Type Severity Reaction Status Date / Time No Known Allergies Allergy Verified 12/28/23 02:51 Home Medications Medication Instructions Recorded Confirmed Type amlodipine 5 mg tablet 5 mg PO QAM 01/07/19 03/28/24 History oxycodone-acetaminophen 5 mg-325 1 tab PO Q6H PRN Pain 01/07/19 03/28/24 History mg tablet (Percocet) furosemide 20 mg tablet (Lasix) 20 mg PO QAM 10/23/19 03/28/24 History trazodone 50 mg tablet 50 mg PO HS 04/04/20 03/28/24 History famotidine 40 mg tablet 40 mg PO HS 10/30/20 03/28/24 History pantoprazole 40 mg tablet,delayed 40 mg PO QAM 10/30/20 03/28/24 History release denosumab 60 mg/mL subcutaneous 60 mg subcut Q6MO 04/29/22 03/28/24 History syringe (Prolia) folic acid 1 mg tablet 1 mg PO DAILY 07/04/22 03/29/24 History celecoxib 200 mg capsule 200 mg PO HS PRN Pain 11/11/23 03/28/24 History cholecalciferol (vitamin D3) 25 25 mcg PO WK 11/11/23 03/28/24 History mcg (1,000 unit) capsule (Vitamin D3) citalopram 20 mg tablet (Celexa) 20 mg PO DAILY 11/11/23 03/28/24 History diclofenac sodium 1 % topical gel 2 g topical TID PRN Pain 11/11/23 03/28/24 History methotrexate sodium 2.5 mg tablet 12.5 mg PO WK 11/11/23 03/28/24 History potassium citrate 10 mEq (1,080 10 meq PO DAILY 11/11/23 03/29/24 History mg) tablet,extended release spironolactone 25 mg tablet 25 mg PO DAILY 11/11/23 03/28/24 History fluticasone 500 mcg-salmeterol 50 1 inh inhalation BID 12/28/23 03/28/24 History mcg/dose blistr powdr for inhalation meclizine 25 mg tablet 25 mg PO TID PRN Dizziness 12/28/23 03/28/24 History losartan 25 mg tablet 25 mg PO DAILY 02/18/24 03/28/24 History sucralfate 1 gram tablet 1 g PO TID PRN gastric distress 02/18/24 03/29/24 History rosuvastatin 5 mg tablet 5 mg PO HS 03/28/24 03/28/24 History brimonidine 0.2 % eye drops 1 drp ophthalmic (eye) BID 03/29/24 03/29/24 History timolol maleate 0.5 % once daily 1 drp ophthalmic (eye) BID 03/29/24 03/29/24 History eye drops Past Med/Surg History Problem List (Updated 03/29/24 @ 18:14 by Mariah Blakely PA-C) Elevated troponin Hypertensive emergency Hypertensive urgency Hyponatremia Lower extremity edema Shortness of breath on exertion (HFpEF) heart failure with preserved ejection fraction Chest pain (Acute) Rotavirus enteritis (Acute) Enterocolitis (Acute) Rotavirus infection Rectal bleeding History of colon polyps Encounter for pre-operative examination Arthritis Colitis IBS (irritable bowel syndrome) (Acute) HTN (hypertension) (Chronic) Esophageal dysphagia Osteoarthritis Ulcerative colitis Hyperlipidemia Hip pain (Chronic) GERD (gastroesophageal reflux disease) (Chronic) Anxiety Kidney stones (Chronic) hx Medical History Colitis Allergy-induced asthma Schatzki's ring History of esophageal dilatation Cervicalgia Diverticulosis of colon History of SCC (squamous cell carcinoma) of skin Internal hemorrhoids Nausea and vomiting after administration of anesthetic agent Chronic back pain History of renal failure d/t kidney stones. Follows with Dr. Foster. Basal cell carcinoma of chest removed in office Basal cell carcinoma of face removed in office Anemia Glaucoma Depression Occipital neuralgia hx of--had nerve ablations x5 Bradycardia 40-50s is normal HR Upper GI bleed hx Surgical History History of lumpectomy of right breast benign History of lumbar discectomy History of total right hip replacement History of cystoscopy with stent History of total abdominal hysterectomy and bilateral salpingo-oophorectomy History of colonoscopy History of appendectomy History of cholecystectomy History of esophagogastroduodenoscopy (EGD) (~12/2018) History of tooth extraction all teeth removed History of bilateral cataract extraction Status post glaucoma surgery right eye has a shunt in place Family History Father Heart disease Brother Kidney disease Mother Kidney disease Other No family history of adverse response to anesthesia Social History Smoking Status: Former smoker Tobacco Type: Cigarettes Smoking End Date: 1974; Second Hand Exposure: No; Do You Dip or Chew Tobacco: No; Tobacco Cessation Education Requested by Patient: No Hx Alcohol Use: No Hx Substance Use: No Preferred Language: Jamaican Communication Ability: Effective Records Management Associate Required: No Beliefs That Will Affect Care: None Current Living Situation: Alone Other Information That Helps Us Care for You: No Feels Safe at Home: Yes Safety Concerns: Feels Safe At This Time Assistive Devices: Denture - Upper, Denture - Lower and Glasses Physical Exam Physical Exam: Gen: NAD, alert, interactive HEENT: Supple, no LAD, no thyromegaly, no JVD Resp:Non-labored, faint basilar crackles, otherwise CTAB CV:RRR, normal S1/S2, no M/R/G Abd: Soft, non-distended, no TTP, normoactive bowels, no masses Extr: 2+ dp bilaterally, trace pitting LE edema bilaterally Skin: No rashes lesions or erythema Results & Data Results & Data Vital Signs (Past 12 Hours) Vital Signs Temp Pulse Pulse Resp BP BP Pulse Ox 03/29/24 02:00 51 L 18 134/59 L 99 03/29/24 00:37 51 L 18 140/66 96 03/28/24 23:18 59 L 03/28/24 23:10 55 L 18 98 03/28/24 22:57 36.4 C L 68 20 222/69 H 95 O2 Del Method 03/29/24 02:00 Room Air 03/29/24 00:37 Room Air 03/28/24 23:18 03/28/24 23:10 Room Air 03/28/24 22:57 Room Air Supervising Physician Co-Signing Physician Notes Attending addendum: I have physically seen this patient, have supervised the medical residents activities, and agree with the H&P unless as otherwise noted. Assessment and Plan: Elevated blood pressure/elevated troponin/HFpEF- The patient will be admitted to telemetry for serial cardiac enzymes, serial EKG's, cardiac rhythm monitoring Recent admission from 02/17-02/26/2024 Initial blood pressure 222/69, improved to 134/59 after Lasix 20 mg IV Continue Lasix 20 mg p.o. every morning Continue amlodipine 5 mg daily, losartan 25 mg daily and spironolactone 25 mg daily Dietary counseling, as current situation likely associated with dietary discretion over holiday Elevated troponin likely type II supply/demand mismatch Aspirin as noted GERD- Continue pantoprazole 40 mg every morning and famotidine 40 mg at bedtime Hyperlipidemia- Continue rosuvastatin 5 mg at bedtime Anxiety- Continue citalopram 20 mg daily and trazodone 50 mg at bedtime Likely contributing to elevated blood pressure as noted above Resident Activity Tracking Resident Involvement: Resident Care Provided Care Provided: Adult Hospital Medicine (4) Chest pain Chest pain type: unspecified Qualified Code(s): R07.9 - Chest pain, unspecified
[2024-03-29] MEDS: ASPIRIN 81 MG CHEW PO STA (04:01)
[2024-03-29] MEDS ORDERED: SUCRALFATE 1 GM TAB PO PRN (05:21)
[2024-03-29] MEDS ORDERED: oxyCODONE/ACETAMINOPHEN 5mg/325mg TAB PO PRN (05:21)
[2024-03-29] MEDS ORDERED: MELATONIN 3 MG TAB PO PRN (05:21)
[2024-03-29] MEDS ORDERED: MECLIZINE HCL 25 MG TAB PO PRN (05:21)
[2024-03-29] MEDS ORDERED: ONDANSETRON INJ 2 MG/ML 2 ML VIAL IV PRN (05:21)
[2024-03-29] MEDS: FOLIC ACID 1 MG TAB PO SCH (07:28)
[2024-03-29] MEDS: LOSARTAN POTASSIUM 25 MG TAB PO SCH (07:28)
[2024-03-29] MEDS: FLUTICASONE/VILANTEROL 200/25MCG 14 PUFFS/INHALER INH SCH (07:28)
[2024-03-29] MEDS: POTASSIUM CITRATE 10 MEQ TAB PO SCH (07:28)
[2024-03-29] MEDS: PANTOprazole 40 MG TAB PO SCH (07:28)
[2024-03-29] MEDS: CITALOPRAM 20 MG TAB PO SCH (07:28)
[2024-03-29] MEDS: SPIRONOLACTONE 25 MG TAB PO SCH (07:28)
[2024-03-29] MEDS: amLODIPine BESYLATE 5 MG TAB PO SCH (07:28)
[2024-03-29] MEDS: FUROSEMIDE 20 MG TAB PO SCH (07:28)
--- NOTE | 2024-03-29 08:55 | XRay Report ---
XR chest 1V portable HISTORY: 79 years-old Female weakness COMPARISON: 02/18/2024 TECHNIQUE: AP view of the chest FINDINGS: Cardiac silhouette is enlarged. No pneumothorax, pleural effusion or airspace consolidation. There is mild subsegmental bibasilar atelectasis. Bones appear grossly intact. Atherosclerosis of the aorta. IMPRESSION: No acute process. ACT 112: Negative or not required by law. The above report was generated using voice recognition software. It may contain grammatical, syntax o r spelling errors. Electronically signed by: Bridger Bond M.D. 03/29/2024 8:53 AM
[2024-03-29 09:56] LABS: Hematocrit (blood only) 37.6 % (37.0-47.0); Hemoglobin 12.6 g/dl (12.0-16.0); Mean Corpuscular Hemoglobin 31.5 pg (25.0-34.0); Mean Corpuscular Hgb Conc 33.5 g/dL (32.0-36.0); Mean Platelet Volume 9.8 fL (9.4-12.4); Platelet Count 238 K/uL (130-400); RDW Coefficient of Variation 13.2 % (11.5-14.5); RDW Standard Deviation 45.4 fL (36.4-46.3); White Blood Count 6.41 K/ul (4.8-10.8)
[2024-03-29 10:00] LABS: Calcium 9.5 mg/dl (8.6-10.3); Potassium 3.8 mmol/L (3.5-5.1)
[2024-03-29 10:06] LABS: BUN Creatinine Ratio 23.9 (10-20); Creatinine Clr Calc Pharmacy 42.2 ml/min; Est GFR (African American) 71.9 ml/min; Est GFR (Non-African American) 62.1 ml/min
[2024-03-29] MEDS: OPTIRAY 320 125ml IV ONE (11:43)
--- NOTE | 2024-03-29 12:27 | CT Scan Report ---
CT ANGIOGRAM OF THE CHEST CLINICAL HISTORY: Atypical chest pain. COMPARISON STUDY: Chest x-ray dated 03/29/2024. TECHNIQUE: Following the IV administration of 112 cc of Optiray 320, CT angiogram of the chest was pe rformed from the upper abdomen to the thoracic inlet utilizing the pulmonary embolus protocol. Images are reviewed in the axial, sagittal, and coronal planes. 3-D MIPS images are created and assessed. I V contrast was administered without complication. A dose lowering technique was utilized adhering to the principles of ALARA. CT DOSE: 554.28 mGy.cm FINDINGS: Thyroid: Imaged portions of the thyroid gland are normal in size and attenuation. Thoracic aorta: There is atherosclerotic calcification of the thoracic aorta, which is normal in kartik patricia and demonstrates bovine variant arch anatomy. No dissection is seen. There is moderate stenosis o f the left subclavian artery below the thoracic outlet seen on axial image #178. Pulmonary vasculature: The pulmonary trunk is normal in caliber. There are no filling defects identif ied in main, lobar, or segmental pulmonary branches to suggest pulmonary embolus. Heart: The heart is enlarged and without pericardial effusion. Lungs and pleural spaces: Evaluation of the lung parenchyma is compromised by motion artifact. There is no lobar consolidation or pleural effusion. Dependent atelectasis is noted at the lung bases. The trachea and central airways are clear. Mediastinum: There is no mediastinal lymphadenopathy. Radha: Clear. Axillae: There is no axillary lymphadenopathy. Upper abdomen: There is a small hiatal hernia. Partially visualized upper abdominal viscera is within normal limits. Skeletal structures: The skeletal structures are osteopenic. Degenerative change and hyperkyphosis is noted in the thoracic spine. Arthritic change is seen in the shoulders. No lytic or blastic bony les ions are seen. IMPRESSION: 1. There is no evidence of pulmonary embolus in the main, lobar, or segmental pulmonary arteries. 2. Cardiomegaly. 3. There is no airspace consolidation or pleural effusion. 4. There is moderate stenosis of the left subclavian artery below the thoracic outlet. 5. Additional findings as above. ACT 112: Negative or not required by law. Electronically signed by: Blake Gupta M.D. 03/29/2024 12:25 PM
--- NOTE | 2024-03-29 16:09 | Electrocardiogram Report ---
Test Reason : Blood Pressure : / mmHG Vent. Rate : 055 BPM Atrial Rate : 055 BPM P-R Int : 144 ms QRS Dur : 082 ms QT Int : 410 ms P-R-T Axes : 091 009 068 degrees QTc Int : 392 ms Sinus bradycardia Otherwise normal ECG When compared with ECG of 20-FEB-2024 05:19, QT has shortened Confirmed by Carrillo Moya ([id number]) on 03/29/2024 4:09:24 PM Referred By: REFERRED SELF Confirmed By:Michael Moya
--- NOTE | 2024-03-29 18:19 | Hospitalist Progress Note ---
Date of Service March 29, 2024 Assessment & Plan (1) Hypertensive emergency: Plan: Patient presented with blood pressure of 222/69, chest tightness, increased lower extremity edema. -Current episode likely provoked by dietary indiscretion over 25 March holiday with history of heart failure with preserved ejection fraction. > Most recent echo on 02/18 showed EF= 65-70%, grade 1 diastolic dysfunction, mild increase in estimated right ventricular systolic pressure. -Troponin trended and peaked at 30.4, down trended. -CXR on admission negative for acute process. -Treated with Lasix 20 mg IV in ED. BP responded well. > Held additional diuretic as BP improved and patient became hyponatremic from overdiuresis last admission. -Recent admission 02/17 - 02/25 for acute heart failure exacerbation with hypertensive urgency > Due to recent week-long hospitalization without VTE PPx, ordered CTA chest 03/29 -- Negative for PE, moderate stenosis of left subclavian artery below the thoracic outlet. -Patient reports worsening dyspnea on exertion x 8 months. Notes that she can barely perform any activities due to the shortness of breath. > Ordered chemical stress test for 03/29/24. -Continue home diuretic dose of Lasix 20 mg p.o. daily, amlodipine, losartan, spironolactone. -Dietary counseling provided, specific to CHF (2) Elevated troponin: Plan: Patient presented with chest tightness and had mildly elevated troponin at 27.8 on admission. Given full dose aspirin in ED. -Troponin peaked at 30.4, down trended. -EKG on admission showed no acute ST or T wave changes. -Chest tightness resolved after IV Lasix in ED. -No pulmonary edema on imaging, lungs are clear to auscultation on exam. -Elevated troponin likely due to demand ischemia secondary to hypertensive emergency. Plan Updated sister at bedside Ordered CTA of chest Ordered repeat troponin Ordered dobutamine stress test Chronic Stable Conditions: - HLD: continue statin - Dysphagia/GERD: continue PPI - Anxiety: continue Citalopram VTE PPx: SCDs CODE STATUS: Full code Admission and Anticipated Discharge Date Admission Date: March 29, 2024 Subjective Patient seen and evaluated at bedside with sister. She reports that she is fe eling better today. Her chest tightness that was present on admission has resolved. Blood pressure now well-controlled at 126/65. We discussed the results of her CTA which was negative for PE. Patient reports that she has had progressive dyspnea on exertion x 8 months. She notes that she is barely able to do any activity due to the shortness of breath. Her last stress test was in 2019. We discussed getting a chemical stress test, and patient is agreeable. No additional complaints or concerns at this time. Physical Exam Physical Exam: General: No acute distress, nondiaphoretic, well-developed, well-nourished. Skin: The skin was without rashes, erythema, or bruising. Bilateral lower extremity edema resolved. Cardiac: Regular rate and rhythm without murmurs gallops or rubs. Radial pulse stronger in right wrist compared to left. Pulm: Clear to auscultation bilaterally without wheezes, rales or rhonchi. No respiratory distress. Abdominal: Soft, nontender, nondistended. Bowel sounds present. Neuro: A&O x3. No focal neurological deficits. Results & Data Results & Data Vital Signs (Past 12 Hours) Vital Signs Temp Pulse Pulse Resp BP BP BP 03/29/24 16:31 36.8 C 55 L 18 161/67 H 03/29/24 15:03 53 L 20 03/29/24 15:00 139/57 L 03/29/24 14:57 72 20 03/29/24 14:05 149/65 H 03/29/24 13:30 122/53 L 03/29/24 13:24 56 L 21 03/29/24 13:08 62 22 126/65 03/29/24 10:33 113/52 L 03/29/24 10:03 58 L 20 03/29/24 08:30 160/88 H 03/29/24 08:12 59 L 19 03/29/24 08:00 155/64 H 03/29/24 07:57 54 L 19 03/29/24 07:31 174/56 H 03/29/24 07:24 52 L 18 03/29/24 07:00 55 L 17 03/29/24 07:00 121/55 L 03/29/24 07:00 121/55 L 03/29/24 07:00 121/55 L 03/29/24 07:00 121/55 L 03/29/24 06:41 53 L Pulse Ox O2 Del Method 03/29/24 16:31 95 Room Air 03/29/24 15:03 03/29/24 15:00 03/29/24 14:57 98 Room Air 03/29/24 14:05 03/29/24 13:30 03/29/24 13:24 96 Room Air 03/29/24 13:08 95 Room Air 03/29/24 10:33 03/29/24 10:03 95 03/29/24 08:30 03/29/24 08:12 03/29/24 08:00 03/29/24 07:57 03/29/24 07:31 03/29/24 07:24 03/29/24 07:00 03/29/24 07:00 03/29/24 07:00 03/29/24 07:00 03/29/24 07:00 03/29/24 06:41 Laboratory Results Reviewed CBC Reviewed CMP Reviewed UA Diagnostic Findings Reviewed Chest X-Ray 03/28/24 23:10 XR chest 1V portable HISTORY: 79 years-old Female weakness COMPARISON: 02/18/2024 TECHNIQUE: AP view of the chest FINDINGS: Cardiac silhouette is enlarged. No pneumothorax, pleural effusion or airspace consolidation. There is mild subsegmental bibasilar atelectasis. Bones appear grossly intact. Atherosclerosis of the aorta. IMPRESSION: No acute process. ACT 112: Negative or not required by law. The above report was generated using voice recognition software. It may contain grammatical, syntax or spelling errors. Electronically signed by: Bridger Bond M.D. 03/29/2024 8:53 AM Reviewed Chest CTA 03/29/24 11:17 CT ANGIOGRAM OF THE CHEST CLINICAL HISTORY: Atypical chest pain. COMPARISON STUDY: Chest x-ray dated 03/29/2024. TECHNIQUE: Following the IV administration of 112 cc of Optiray 320, CT angiogram of the chest was performed from the upper abdomen to the thoracic inlet utilizing the pulmonary embolus protocol. Images are reviewed in the axial, sagittal, and coronal planes. 3-D MIPS images are created and assessed. IV contrast was administered without complication. A dose lowering technique was utilized adhering to the principles of ALARA. CT DOSE: 554.28 mGy.cm FINDINGS: Thyroid: Imaged portions of the thyroid gland are normal in size and attenuation. Thoracic aorta: There is atherosclerotic calcification of the thoracic aorta, which is normal in caliber and demonstrates bovine variant arch anatomy. No dissection is seen. There is moderate stenosis of the left subclavian artery below the thoracic outlet seen on axial image #178. Pulmonary vasculature: The pulmonary trunk is normal in caliber. There are no filling defects identified in main, lobar, or segmental pulmonary branches to suggest pulmonary embolus. Heart: The heart is enlarged and without pericardial effusion. Lungs and pleural spaces: Evaluation of the lung parenchyma is compromised by motion artifact. There is no lobar consolidation or pleural effusion. Dependent atelectasis is noted at the lung bases. The trachea and central airways are clear. Mediastinum: There is no mediastinal lymphadenopathy. Radha: Clear. Axillae: There is no axillary lymphadenopathy. Upper abdomen: There is a small hiatal hernia. Partially visualized upper abdominal viscera is within normal limits. Skeletal structures: The skeletal structures are osteopenic. Degenerative change and hyperkyphosis is noted in the thoracic spine. Arthritic change is seen in the shoulders. No lytic or blastic bony lesions are seen. IMPRESSION: 1. There is no evidence of pulmonary embolus in the main, lobar, or segmental pulmonary arteries. 2. Cardiomegaly. 3. There is no airspace consolidation or pleural effusion. 4. There is moderate stenosis of the left subclavian artery below the thoracic outlet. 5. Additional findings as above. ACT 112: Negative or not required by law. Electronically signed by: Blake Gupta M.D. 03/29/2024 12:25 PM PG Care Time/CCT Total # of Minutes Spent Total Time Spent with Patient: Total time spent is greater than 50% in coordination of care (as documented) at patient's floor/unit and/or counseling patient: Coding Level of Care Code 20998 SUB INP/OBS CARE 3/50MIN Diagnoses Hypertensive emergency I16.1 Elevated troponin R79.89
[2024-03-29] MEDS: BRIMONIDINE TARTRATE 0.2% 5ML OPL SCH (20:29)
[2024-03-29] MEDS: TIMOLOL MALEATE 0.5% OP SOLN 5 ML BTL OPL SCH (20:29)
[2024-03-29] MEDS: ROSUVASTATIN CALCIUM 5 MG TAB PO SCH (20:29)
[2024-03-29] MEDS: FAMOTIDINE 40 MG TABLET PO SCH (20:29)
[2024-03-29] MEDS: CeleBREX 200 MG CAP PO PRN (20:29)
[2024-03-29] MEDS: traZODone HCL 50 MG TAB PO SCH (20:29)
--- NOTE | 2024-03-30 00:52 | Billing Data ---
Date of Service March 30, 2024 Coding Level of Care Code 20570 INT INP/OBS CARE
[2024-03-30 04:22] VITALS: O2SAT 95
[2024-03-30 06:48] LABS: Hematocrit (blood only) 32.6 % (37.0-47.0); Hemoglobin 11.1 g/dl (12.0-16.0); Mean Corpuscular Hemoglobin 31.6 pg (25.0-34.0); Mean Corpuscular Volume 92.9 fL (80.0-100.0); Platelet Count 214 K/uL (130-400); RDW Coefficient of Variation 13.4 % (11.5-14.5); RDW Standard Deviation 45.1 fL (36.4-46.3); Red Blood Count 3.51 M/uL (4.20-5.40); White Blood Count 7.35 K/ul (4.8-10.8)
[2024-03-30 07:17] LABS: BUN Creatinine Ratio 33.7 (10-20); Calcium 8.6 mg/dl (8.6-10.3); Creatinine Clr Calc Pharmacy 44.7 ml/min; Est GFR (African American) 77.2 ml/min; Est GFR (Non-African American) 66.6 ml/min; Potassium 3.7 mmol/L (3.5-5.1)
[2024-03-30 08:18] VITALS: BP 131/53; PULSE 61; RESP 18; TEMP 99.1
--- NOTE | 2024-03-30 08:21 | Hospitalist Progress Note ---
Date of Service March 30, 2024 Assessment & Plan (1) Hypertensive emergency: Plan: Patient presented with blood pressure of 222/69, chest tightness, increased lower extremity edema. -Current episode likely provoked by dietary indiscretion over 25 March holiday with history of heart failure with preserved ejection fraction. > Most recent echo on 02/18 showed EF= 65-70%, grade 1 diastolic dysfunction, mild increase in estimated right ventricular systolic pressure. -Troponin trended and peaked at 30.4, down trended. -CXR on admission negative for acute process. -Treated with Lasix 20 mg IV in ED. BP responded well. > Held additional diuretic as BP improved and patient became hyponatremic from overdiuresis last admission. -Recent admission 02/17 - 02/25 for acute heart failure exacerbation with hypertensive urgency > Due to recent week-long hospitalization without VTE PPx, ordered CTA chest 03/29 -- Negative for PE, moderate stenosis of left subclavian artery below the thoracic outlet. -Patient reports worsening dyspnea on exertion x 8 months. Notes that she can barely perform any activities due to the shortness of breath. > Ordered chemical stress test for 03/29/24. -Continue home diuretic dose of Lasix 20 mg p.o. daily, amlodipine, losartan, spironolactone. -Dietary counseling provided, specific to CHF (2) Elevated troponin: Plan: (2) Elevated troponin: Plan: Patient presented with chest tightness and had mildly elevated troponin at 27.8 on admission. Given full dose aspirin in ED. -Troponin peaked at 30.4, down trended. -EKG on admission showed no acute ST or T wave changes. -Chest tightness resolved after IV Lasix in ED. -No pulmonary edema on imaging, lungs are clear to auscultation on exam. -Elevated troponin likely due to demand ischemia secondary to hypertensive emergency. (3) Lower extremity edema: (4) (HFpEF) heart failure with preserved ejection fraction: (5) Chest pain: (6) IBS (irritable bowel syndrome): (7) HTN (hypertension): (8) Ulcerative colitis: (9) Hyperlipidemia: (10) GERD (gastroesophageal reflux disease): (11) Anxiety: Admission and Anticipated Discharge Date Admission Date: March 29, 2024 Results & Data Results & Data Vital Signs (Past 12 Hours) Vital Signs Temp Pulse Pulse Resp BP Pulse Ox O2 Del Method 03/30/24 07:10 54 L 03/30/24 04:21 36.8 C 51 L 20 138/62 95 Room Air 03/29/24 23:20 37.3 C 5 L 20 101/51 L 96 Room Air 03/29/24 22:58 55 L PG Care Time/CCT Total # of Minutes Spent Total Time Spent with Patient: Total time spent is greater than 50% in coordination of care (as documented) at patient's floor/unit and/or counseling patient: Coding Diagnoses Hypertensive emergency I16.1 Elevated troponin R79.89 Lower extremity edema R60.0 (HFpEF) heart failure with preserved ejection fraction I50.30 Chest pain R07.9 Chest pain type: unspecified IBS (irritable bowel syndrome) K58.9 HTN (hypertension) I10 Ulcerative colitis K51.90 Hyperlipidemia E78.5 GERD (gastroesophageal reflux disease) K21.9 Anxiety F41.9 (5) Chest pain Chest pain type: unspecified Qualified Code(s): R07.9 - Chest pain, unspecified
[2024-03-30] MEDS: METOPROLOL TARTRATE 1 MG/ML VIAL IV ONE (11:15)
[2024-03-30] MEDS: ATROPINE SULFATE 0.1 MG/ML 10ML SYR IV ONE (11:15)
[2024-03-30] MEDS: DOBUTamine HCL 12.5 MG/ML 20 ML VIAL IV ONE (11:15)
[2024-03-30] MEDS: NITROGLYCERIN SL 0.4 MG/TAB TAB ONE (11:16)
--- NOTE | 2024-03-30 11:38 | Discharge Summary ---
Date of Service March 30, 2024 Admission HPI Per Admitting Provider Michele is an 79 F w/ PMH of HFpEF, HTN, IBS, dysphagia, HLD, ulcerative colitis, GERD, anxiety, and nephrolithiasis who presented for hypertension. Patient received Lasix 20 mg IV in ED w/ subsequent BP improvement. HPI: Noted that her ankles started swelling throughout the day today so that she was checking her BP regularly at home. BP became progressively higher throughout the day today. Of note, SBP was > 200 prior to arrival. Was having a band of tightness around her chest, which is largely improved since reduction in BP and diuresis. This similar presentation happened last month as well. At this point in time, she was admitted for diuresis in the setting of a CHF exacerbation. Patient ntoes that she became hyponatremia during that admission and required salt tablets upon discharge. Echocardiogram was performed 02/19/24 showing LVEF of 60-65% (HFpEF). Concerned that what she ate this week over the holiday is what provoked sx (pulled pork, barbecue ribs, and [employer] chicken). No headaches or vision changes. No URI symptoms. Endorses chronic dyspnea, same as normal, not acutely worsened. Urinating and moving bowels as normal. Finished 2 week course of salt tablets, no other acute medication changes. Admission Exam Per Admitting Provider Gen: NAD, alert, interactive HEENT: Supple, no LAD, no thyromegaly, no JVD Resp:Non-labored, faint basilar crackles, otherwise CTAB CV:RRR, normal S1/S2, no M/R/G Abd: Soft, non-distended, no TTP, normoactive bowels, no masses Extr: 2+ dp bilaterally, trace pitting LE edema bilaterally Skin: No rashes lesions or erythema Principal Diagnosis HTN urgency, volume overload Discharge Exam General: WD/WN female ambulating in the room following stress test, NAD, anxious for discharge if able Head atraumatic, normocephalic, mmm, trachea midline Resp: CTA, slightly diminished in the bases but no w/c/r, on room air 95% CV: RRR, no significant m/r/g, no pitting edema/calf tenderness GI: +BS, soft/NT : no sam MSK/Neuro: nonfocal, answering questions appropriately, no slurred speech/facial droop Psych: AOx3, cooperative with exam Discharge Data Allergies Allergy/AdvReac Type Severity Reaction Status Date / Time No Known Allergies Allergy Verified 12/28/23 02:51 Consultations 03/29/24 03:25 ED Decision to Admit Stat Ordered Studies Chest X-Ray 03/28/24 23:10 XR chest 1V portable HISTORY: 79 years-old Female weakness COMPARISON: 02/18/2024 TECHNIQUE: AP view of the chest FINDINGS: Cardiac silhouette is enlarged. No pneumothorax, pleural effusion or airspace consolidation. There is mild subsegmental bibasilar atelectasis. Bones appear grossly intact. Atherosclerosis of the aorta. IMPRESSION: No acute process. ACT 112: Negative or not required by law. The above report was generated using voice recognition software. It may contain grammatical, syntax or spelling errors. Electronically signed by: Bridger Bond M.D. 03/29/2024 8:[address] 03/28/24 23:11 Exam(s): CT HEAD Without Contrast EXAM: CT Head Without Intravenous Contrast CLINICAL HISTORY: Reason for exam: HTN, facial numbness. TECHNIQUE: Axial computed tomography images of the head/brain without intravenous contrast. CTDI is 37.78 mGy and DLP is 547.75 mGy-cm. Automated exposure control was utilized for the study. A dose lowering technique was utilized adhering to the principles of ALARA. COMPARISON: Comparison made to prior brain MRI from January 15, 2024. FINDINGS: Brain: Unremarkable. No hemorrhage. No significant white matter disease. No edema. Ventricles: Unremarkable. No ventriculomegaly. Bones/joints: Unremarkable. No acute fracture. Soft tissues: There is a small metallic foreign body within the anterior right globe. Sinuses: Unremarkable as visualized. No acute sinusitis. Mastoid air cells: Unremarkable as visualized. No mastoid effusion. IMPRESSION: No evidence of acute intracranial pathology. Electronically signed by: Ayesha Thapa MD 03/29/24 02:01 AM Chest CTA 03/29/24 11:17 CT ANGIOGRAM OF THE CHEST CLINICAL HISTORY: Atypical chest pain. COMPARISON STUDY: Chest x-ray dated 03/29/2024. TECHNIQUE: Following the IV administration of 112 cc of Optiray 320, CT angiogram of the chest was performed from the upper abdomen to the thoracic inlet utilizing the pulmonary embolus protocol. Images are reviewed in the axial, sagittal, and coronal planes. 3-D MIPS images are created and assessed. IV contrast was administered without complication. A dose lowering technique was utilized adhering to the principles of ALARA. CT DOSE: 554.28 mGy.cm FINDINGS: Thyroid: Imaged portions of the thyroid gland are normal in size and attenuation. Thoracic aorta: There is atherosclerotic calcification of the thoracic aorta, which is normal in caliber and demonstrates bovine variant arch anatomy. No dissection is seen. There is moderate stenosis of the left subclavian artery below the thoracic outlet seen on axial image #178. Pulmonary vasculature: The pulmonary trunk is normal in caliber. There are no filling defects identified in main, lobar, or segmental pulmonary branches to suggest pulmonary embolus. Heart: The heart is enlarged and without pericardial effusion. Lungs and pleural spaces: Evaluation of the lung parenchyma is compromised by motion artifact. There is no lobar consolidation or pleural effusion. Dependent atelectasis is noted at the lung bases. The trachea and central airways are clear. Mediastinum: There is no mediastinal lymphadenopathy. Radha: Clear. Axillae: There is no axillary lymphadenopathy. Upper abdomen: There is a small hiatal hernia. Partially visualized upper abdominal viscera is within normal limits. Skeletal structures: The skeletal structures are osteopenic. Degenerative change and hyperkyphosis is noted in the thoracic spine. Arthritic change is seen in the shoulders. No lytic or blastic bony lesions are seen. IMPRESSION: 1. There is no evidence of pulmonary embolus in the main, lobar, or segmental pulmonary arteries. 2. Cardiomegaly. 3. There is no airspace consolidation or pleural effusion. 4. There is moderate stenosis of the left subclavian artery below the thoracic outlet. 5. Additional findings as above. ACT 112: Negative or not required by law. Electronically signed by: Blake Gupta M.D. 03/29/2024 12:25 PM DOBUTAMINE STRESS ECHO 03/30/24 Left ventricular systolic function is normal. Normal dobutamine echocardiogram without evidence of inducible ischemia. Hospital Course (1) Hypertensive emergency: Michele is an 79 F w/ PMH of HFpEF, HTN, IBS, dysphagia, HLD, ulcerative colitis, GERD, anxiety, and nephrolithiasis who presented for hypertension/chest tightness and increased LE edema. BP on arrival 222/69, troponin 10.8, EKG w/o acute ST changes/T wave abn. Admitted and monitored on medical w/ telemetry Episode thought to have been provoked by dietary indiscretion of 25 of March ranjana almanza in setting of heart failure with preserved ejection fraction. ECHO January 2024 w/ EF 65-70%, grade I diastolic dysfunction and mild increase in estimated RVSP Troponin 10.8--> 27.8--> peaked at 30.4 and trended down with improvement in blood pressure control with 20mg IV lasix on admission with good BP response Continued usual 20mg lasix daily given prior over diuresis past month with hyponatremia and need for salt tablets. Na remained stable, continued usual lasix use. No increased LE edema on exam today and 95% on room air Did have recent admission for week long stay 02/17-02/25 for acute CHF exacerbation was without DVT proph and ordered CTA chest for eval for completeness given dyspnea, which was NEGATIVE for PE (did note mod stenosis L subclavian artery below thoracic outlet) Given ongoing worsening dyspnea on exertion x 8 months, did arrange for dobutamine stress test prior to discharge which was negative for inducible ischemia, LV systolic function normal. Patient DENIED any CP/tightness or increased SOB prior to dc and was ambulating in the room without issue, BP 130s/50s prior to dc. Continued usual medications without adjustments (lasix 20mg, spironolactone 25mg, losartan 25mg, amlodipine 5mg) at this time but to watch salt intake/continue daily weight monitoring and f/u CHF clinic at [facility]. Patient without arrhythmia on telemetry, however did discuss possible underlying MERI w/ increased RVSP on ECHO and recs to follow up with PCP/ore sampler at [facility] about consideration for sleep study which would help with her BP as well as CHF as could be having more R sided dysfunction. (2) Elevated troponin: Suspected demand ischemia from HTN emergency/volume overload from such. No pulm edema on CXR report but concerns for such on admission s/p ASA in ER, 20mg IV lasix EKG w/o acute ST/T wave changes. Improvement and resolution in symptoms and troponin trended down on repeat w/ improvement in BP control and continued on usual medications w/ stable BPs following. NO FURTHER CP/SOB reported above baseline (see neg dobutamine stress as above) At [facility], low salt diet/continued monitoring of BP at home, CHF clininc f/u and discussed consideration for sleep study/recommended as above Chronic Conditions: HFpEF: As above, improved/back to baseline w/ 1x diuretic. CXR w/o significant pulm edema. No increased LE edema on exam 03/30 on home meds. Continued low salt diet/monitoring weights and BPs at home and CHF f/u rec. Consideration for testing for possible underlying MERI HTN: As above, improved w/ additional dose diuretic and low salt diet. Home meds continued and BP 130s/50s prior to dc (does have higher readings on the LEFT compared to the right, likely due to mod stenosis subclavian as above) and should have comparisons in BPs when admitted. HLD: continue statin Dysphagia/GERD: continued PPI , consideration for f/u EGD if any issues as has had dilations in the past but denied any issues at ths time Anxiety: continued Citalopram, mood stable. Suspect can contribute to low Na as well which has been stable. Continued PCP f/u/nephro as needed (3) Lower extremity edema: (4) (HFpEF) heart failure with preserved ejection fraction: (5) Chest pain: (6) IBS (irritable bowel syndrome): (7) HTN (hypertension): (8) Ulcerative colitis: (9) Hyperlipidemia: (10) GERD (gastroesophageal reflux disease): (11) Anxiety: Total Time Total Time Spent Total Time Spent (In Minutes): 40 Discharge Plan Discharge Items Patient Disposition: Home - Self-Care Reason For Visit: HTN EMERGENCY, FLUID OVERLOAD Discharge Diagnosis: Hypertensive Urgency Goals: You have been hospitalized for an acute medical problem. During your stay at [facility], we have made an effort to correct the problem that brought you to the hospital while keeping you as comfortable as possible. Medications were used to bring your condition under control and your discharge instructions will include directions for any medications you should take after leaving the hospital. Please make sure you see your Primary Care Provider as part of your follow up plan. Activity: As commented below Non-emergency contact: Primary Care Provider and Saddle Maker Call non-emergency contact if: you have any medication questions, your symptoms worsen, your pain is not controlled and you have a fever Follow-up/Referrals: Hayder Ann PA-C [Primary Care Provider] - (PLEASE CALL YOUR PRIMARY CARE PROVIDER TO SCHEDULE A HOSPITAL DISCHARGE FOLLOW-UP APPOINTMENT WITHIN 7-10 DAYS.) Diet: Heart Healthy Add Attending Provider Instructions: You have been hospitalized chest tightness and increased leg swelling/edema and found to have volume overload, possibly due to elevated/uncontrolled blood pressures. You were given a dose of diuretics (lasix) in the IV and resumed your home dosing. We performed a stress test which was NEGATIVE (and CT scan of the chest was negative for clots), and as discussed it may be beneficial to consider sleep study as an outpatient for additional treatment of possible undiagnosed sleep apnea. Please continue your usual medications and continue to monitor your weights daily. Please follow up with your usual ore sampler and concrete pump operator helper as well as primary care at discharge to monitor your progress. Please return to the ER with any worsening chest pain, shortness of breath or for any symptoms concerning for you. Take care! [facility] Provider Instructions: Call 911 and go to the Emergency Room if: * You have tightness or pain in your chest that does not go away with rest or Nitroglycerin * You are very short of breath even with rest Call your doctor if any of the following symptoms or problems start or get worse: * Shortness of breath or difficulty breathing * Wake up at night short of breath * Chest pain * Cough * Swelling of your hands, fee, or legs * More fatigued or tired with your normal activity * Palpitations - sudden fast heart beats WEIGHT * Weigh yourself every morning after using the bathroom. * Use the same scale. * Wear the same amount of clothing. * Write your weight down on your chart. * Call your doctor if you gain more than 2-3 pounds in 1-2 days. MEDICATIONS * Use this discharge instruction sheet for instructions. * Take your medications at the time your doctor ordered. * Do not skip a dose of your medicines. * If you miss a dose of medicine, take as soon as possible, but DO NOT DOUBLE A DOSE. * Read your medicine information when you get home. * Know all of the side effects of your medicine. * Call your doctor's office if you have any side effects. * Be sure all of your doctors know what medicine and herbs you take (including cold, flu, and herbal medicine). * Pain Medicine: If you do not get relief from your pain, please call your doctor for help. Take the following with you to your follow-up doctor appointments: * Weight Chart * Medication List * List of questions Do not drink excessive alcohol, beer or wine. Pending Studies at Discharge: No Stand-Alone Forms: My [facility], Smoking Cessation Medications and DC Order Prescriptions: Continued trazodone 50 mg tablet 50 mg PO HS Prolia 60 mg/mL syringe 60 mg subcut Q6MO folic acid 1 mg tablet 1 mg PO DAILY furosemide [Lasix] 20 mg Tablet 20 mg PO QAM Hold Instructions: Resume on 01/05/24. famotidine 40 mg tablet 40 mg PO HS pantoprazole 40 mg tablet,delayed release (DR/EC) 40 mg PO QAM Rx Instructions: take 1 tablet by mouth once daily amlodipine 5 mg Tablet 5 mg PO QAM oxycodone-acetaminophen [Percocet] 5-325 mg Tablet 1 tab PO Q6H PRN (Reason: Pain) celecoxib 200 mg capsule 200 mg PO HS PRN (Reason: Pain) spironolactone 25 mg tablet 25 mg PO DAILY Hold Instructions: Resume on 01/05/24. citalopram [Celexa] 20 mg Tablet 20 mg PO DAILY methotrexate sodium 2.5 mg tablet 12.5 mg PO WK Rx Instructions: TAKES 5 TABLETS cholecalciferol (vitamin D3) [Vitamin D3] 25 mcg (1,000 unit) Capsule 25 mcg PO WK diclofenac sodium 1 % Gel 2 g TOPICAL TID PRN (Reason: Pain) potassium citrate 10 mEq (1,080 mg) tablet extended release 10 meq PO DAILY losartan 25 mg tablet 25 mg PO DAILY sucralfate 1 gram tablet 1 g PO TID PRN (Reason: gastric distress) rosuvastatin 5 mg tablet 5 mg PO HS brimonidine 0.2 % drops 1 drp ophthalmic (eye) BID timolol maleate 0.5 % drops, once daily 1 drp ophthalmic (eye) BID meclizine 25 mg tablet 25 mg PO TID PRN (Reason: Dizziness) fluticasone propion-salmeterol 500-50 mcg/dose blister with device 1 inh INHALATION BID Discharge Orders: Discharge Order- CHF (Routine); Ordered 03/30/24 Ordered By: Adriana Mccord/Other Patient Handouts: Understanding High Blood Pressure Admission Data Admit Date/Time: 03/29/24 04:07 Attending Provider: Christian Jerez Admit Provider: Ollie Pérez Primary Care Provider: Hayder Ann Other Providers: Stan Soto Other Interventions: Discharge Summary Assessment (RN) Last Done: 03/30/24 12:10 Supervising Physician Co-Signing Physician Notes The patient was not seen by me. The chart was reviewed. Case discussed with SHERMAN Spencer. Agree with assessment and plan Coding Level of Care Code 21111 INP/OBS DISCH >30 MIN Diagnoses Hypertensive emergency I16.1 Elevated troponin R79.89 Lower extremity edema R60.0 (HFpEF) heart failure with preserved ejection fraction I50.30 Chest pain R07.9 Chest pain type: unspecified IBS (irritable bowel syndrome) K58.9 HTN (hypertension) I10 Ulcerative colitis K51.90 Hyperlipidemia E78.5 GERD (gastroesophageal reflux disease) K21.9 Anxiety F41.9
--- NOTE | 2024-03-30 21:08 | XCELERA ---
[id number] \\[id number]
[2024-04-02] MEDS ORDERED: CHOLECALCIFEROL 25 MCG (1000 UNITS) TAB PO SCH (09:00)
[2024-04-02] MEDS ORDERED: metHOTREXate sodium 2.5 MG TAB PO SCH (09:00)
== END 2024-03-30 12:59 | disposition home or self-care (01) | DRG 305 ==
LOC: ED 22:54 → SUATTDRO 03-29 04:07 → EDINP 03-29 04:07 → INTOOBSV 03-29 04:07 → 2W 03-29 05:47

== ENCOUNTER 2024-10-31 15:31 | Inpatient (IN) ==
--- OUTSIDE RECORDS SUMMARY | 2024-10-31 15:36 | External Medical Summary | Summary of Care ---
Author Name Unknown Organization [facility] Address [address] [place] [address] Phone [phone] Care Team Providers Care Passenger Relations Representative Name Role Phone Hayder Ann PA-C Primary Care Provide r Encounter Details Date Type Department Care Team (Late st Contact Info) Description 10/14/2024 Population Health External Data Unspecified Department Allergies No known active allergiesdocumented as of this encounter (statuses as of 10/14/2024) Medications POTASSIUM CITRATE ER 10 MEQ (1080 MG) [...] 3 times a day as needed. 0 10/09/19 17 Active celecoxib (CELEBREX) 100 MG Capsule Take 1 Capsule by mouth as needed. 0 09/19/20 16 Active METHOtrexate 2.5 MG TabletIndications:Mi ld intermittent asthma without complication,Lung nodule,Tobacco abuse, in remission,ZIMMERMAN (dyspnea on exertion),Gastroesop hageal reflux disease, esophagitis presence not specified 5 tablets weekly 09/21/20 19 Active Multiple Vitamins-Minerals (ONE DAILY WOMENS 50 PLUS) TABSIndications:Mild intermittent asthma without complication,Lung nodule,Tobacco abuse, in remission,ZIMMERMAN (dyspnea on exertion),Gastroesop hageal reflux disease, esophagitis presence not specified Take by mouth. Active rosuvastatin (CRESTOR) 5 MG TabletIndications:Mi ld intermittent asthma without complication,Lung nodule,Tobacco abuse, in remission,ZIMMERMAN (dyspnea on exertion),Gastroesop hageal reflux disease, esophagitis presence not specified Take 1 Tablet by mouth in the morning. 09/21/20 Active famotidine (PEPCID) 40 MG TabletIndications:Mi ld intermittent asthma without complication,Lung nodule,Tobacco abuse, in remission,ZIMMERMAN (dyspnea on exertion),Gastroesop hageal reflux disease, esophagitis presence not specified Take 1 Tablet by mouth in the morning. 11/25/19 Active furosemide (LASIX) 20 MG TabletIndications:Mi ld intermittent asthma without complication,Lung nodule,Tobacco abuse, in remission,ZIMMERMAN (dyspnea on exertion),Gastroesop hageal reflux disease, esophagitis presence not specified take 1 tablet by mouth daily for FLUID 11/08/19 Active folic acid 1 MG TabletIndications:Mi ld intermittent asthma without complication,Lung nodule,Tobacco abuse, in remission,ZIMMERMAN (dyspnea on exertion),Gastroesop hageal reflux disease, esophagitis presence not specified Take 1 Tablet by mouth in the morning. 11/08/19 Active ondansetron (ZOFRAN) 4 MG TabletIndications:Mi ld intermittent asthma without complication,Lung nodule,Tobacco abuse, in remission,ZIMMERMAN (dyspnea on exertion),Gastroesop hageal reflux disease, esophagitis presence not specified take 1 tablet by mouth every 8 hours if needed for nausea 11/02/19 Active pantoprazole (PROTONIX) 40 MG TBECIndications:Mild intermittent asthma without complication,Lung nodule,Tobacco abuse, in remission,ZIMMERMAN (dyspnea on exertion),Gastroesop hageal reflux disease, esophagitis presence not specified Take 1 Tablet by mouth in the morning. 11/08/19 Active timolol (TIMOPTIC) 0.5 % ophthalmic solutionIndications: Mild intermittent asthma without complication,Lung nodule,Tobacco abuse, in remission,ZIMMERMAN (dyspnea on exertion),Gastroesop hageal reflux disease, esophagitis presence not specified Instill 1 Drop into the left eye in the morning and 1 Drop before bedtime. 09/02/20 Active traZODone (DESYREL) 50 MG TabletIndications:Mi ld intermittent asthma without complication,Lung nodule,Tobacco abuse, in remission,ZIMMERMAN (dyspnea on exertion),Gastroesop hageal reflux disease, esophagitis presence not specified Take 0.5 Tablets by mouth at bedtime. 11/02/19 20 Active Cholecalciferol 25 MCG (1000 UT) Oral Tablet Take 1 Tablet by mouth in the morning. Active Citalopram Hydrobromide 10 MG Oral Tablet Take 2 Tablets by mouth in the morning. Active Prolia 60 MG/ML Subcutaneous Solution Prefilled Syringe (Denosumab) Inject 60 mg under the skin every 6 months. 08/13/20 19 Active Diclofenac Sodium 1 % External Gel [...] Aerosol Powder Breath Activated Inhale by mouth. Active Brimonidine Tartrate-Timolol 0.2-0.5 % Ophthalmic Solution (Combigan) Instill 1 Drop into the left eye in the morning and 1 Drop before bedtime. 07/25/20 23 Active Losartan Potassium 25 MG Oral Tablet (Cozaar) Take 1 Tablet by mouth in the morning. 02/10/20 24 Active Bumetanide 0.5 MG Oral Tablet (Bumex) 04/27/20 24 Active Fluticasone-Salmeter ol 500-50 MCG/ACT Inhalation Aerosol Powder Breath Activated (Advair Diskus) Inhale 1 Puff by mouth in the morning and 1 Puff before bedtime. Rinse mouth and gargle with water after each use.. 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 08/23 Overview (12/14/2015): ICD-10 update of inactive term documented as of this encounter (statuses as of 10/14/2024) Resolved Problems Problem Noted Date Diagnosed Date Resolved Date COPD, group B, by GOLD 2017 classification 09/02/2022 05/28/2023 Overview: Per COPD GOLD Classification Chronic obstructive lung disease 12/24/2017 05/28/2023 documented as of this encounter (statuses as of 10/14/2024) Immunizations Name Administration Dates Next Due COVID-19 mRNA, LNP-s, No Pre serve, 2-Dose Series (Moderna) 07/09/2022,01/01/2022,08/21/2021,2020,10/27/2020 H1N1 2009 Influenza, IM 10/20/2009 Pneumococcal Conjugate Vacc, 13 Valent (Prevnar) 12/28/2018,01/20/2016 Season Influenza, Quad, PF, Adjuvanted, 65+ Yrs, IM (FLUAD) 05/13/2020 Seasonal Influenza, Quadriva lent, No Preserve, Mdck 07/09/2018 Seasonal Influenza, Trivalen t, Adjuvanted, 65+ YRS, PF, (Fluad) 06/26/2022,05/27/2021,08/03/2019 TDAP (age 10 and older)(Boostrix) 05/16/2019 [...] years and over) Not on file 03/09/2024 Comments No Sex and Gender Information Value Date Recorded Sex Assigned at Not on file Legal Sex Female 5:03 AM EST Gender Identity Not on file Sexual Orientation Not on file Occupation Industry Job Start Date Job End Date retired, retailer Not on file Not on file Not on kurtis e documented as of this encounter Plan of Treatment Upcoming Encounters Date Type Department Care Team (Late st Contact Info) Description 01/27/2025 2:00 PM EDT Office Visit Pulmonary Medicine, [address] [place] [id number] Micha Parker MD [address] [place] [id number] Health Maintenance Due Date Last Done Comments Depression Screening 08/24/2021 08/24/2020 DXA Scan 08/11/2030 08/11/2023, 07/23, 08/06/2019, Additional history exists DTap/Tdap Vaccines (3 - Td or Tdap) 03/02/2032 03/02/2022, 05/16/2019 Pneumococcal Vaccine: 50+ Years Completed 07/26/2020, 12/28/2018, 01/20/2016 Zoster Vaccines Completed 09/29/2020, 04/23, 12/02/2013 COVID-19 Vaccine Completed 06/09/2024, , 07/09/2022, Additional history exists Influenza Vaccine (FLU shot) Completed , 07/28/2023, 07/24/2023, Additional history exists HPV (Gardasil) Vaccine Aged Out No lo nger eligible based on patient's age to complete this topic Hepatitis B Vaccine Aged Out No longe r eligible based on patient's age to complete this topic MENINGOCOCCAL (MENACTRA/MENVEO) Aged Out No longer eligible based on patient's age to complete this topic documented as of this encounter Medical Devices Not on filedocumented as of this encounter Care Teams Passenger Relations Representative Relationship Specialty Start Date End Date Hayder Ann PA-C PCP - General Physician Research Archaeologist 11/02/19 documented as of this encounter
--- NOTE | 2024-10-31 16:15 | XRay Report ---
INDICATION: Fever. TECHNIQUE: Frontal radiograph of the chest. COMPARISON: Radiograph from 03/29/2024 FINDINGS: Cardiomegaly. Low inspiratory depth. Pulmonary vasculature appear within normal limits. Subsegmental atelectasis in the lung bases. Chronic appearing interstitial lung markings. No infiltrate, pleural effusion or pneumothorax. No acute osseous abnormality evident. IMPRESSION: No acute cardiopulmonary process. Electronically signed by Morgan Garcia 10-31-2024 4:15 PM
[2024-10-31] MEDS: SODIUM CHLORIDE 0.9% 1,000 ML IV ONE (16:23)
[2024-10-31] MEDS: ONDANSETRON INJ 2 MG/ML 2 ML VIAL IV STA (16:23)
[2024-10-31 16:34] LABS: Basophils # (auto) 0.01 K/uL (0.00-0.20); Basophils % (auto) 0.1 %; Eosinophils # (auto) 0.02 K/uL (0.00-0.50); Eosinophils % (auto) 0.2 %; Hematocrit (blood only) 37.4 % (37.0-47.0); Hemoglobin 12.5 g/dl (12.0-16.0); Immature Granulocytes # (auto) 0.08 K/uL (0.01-0.20); Immature Granulocytes % (auto) 0.7 %; Lymphocytes # (auto) 1.03 K/uL (1.20-3.40); Lymphocytes % (auto) 8.6 %; Mean Corpuscular Hemoglobin 31.4 pg (25.0-34.0); Mean Corpuscular Hgb Conc 33.4 g/dL (32.0-36.0); Mean Platelet Volume 10.5 fL (9.4-12.4); Monocytes # (auto) 0.93 K/uL (0.11-0.59); Monocytes % (auto) 7.8 %; Neutrophils # (auto) 9.91 K/uL (1.40-6.50); Neutrophils % (auto) 82.6 %; Platelet Count 203 K/uL (130-400); RDW Coefficient of Variation 13.5 % (11.5-14.5); RDW Standard Deviation 46.1 fL (36.4-46.3); Red Blood Count 3.98 M/uL (4.20-5.40); White Blood Count 11.98 K/ul (4.8-10.8)
[2024-10-31] MEDS: SODIUM CHLORIDE 0.9% 500 ML IV ONE (16:45)
[2024-10-31 16:49] LABS: Albumin Globulin Ratio 1.5 (0.9-2); Albumin Level 3.8 gm/dl (3.4-5.0); BUN Creatinine Ratio 24.3 (10-20); Bilirubin,Total 0.8 mg/dl (0.2-1.0); Calcium 8.3 mg/dl (8.6-10.3); Creatinine Clr Calc Pharmacy 33.4 ml/min; Globulin 2.6 gm/dl (2.5-4.0); Magnesium 1.9 mg/dl (1.7-2.4); Potassium 3.7 mmol/L (3.5-5.1); Total Protein 6.4 gm/dl (6.0-8.3)
--- NOTE | 2024-10-31 17:00 | Emergency Department Note ---
Impression & Plan Nausea, vomiting, and diarrhea, Abdominal pain, Elevated lactic acid level, Elevated procalcitonin ED Provider Note HISTORY OF PRESENT ILLNESS: Patient is an 79-year-old female presenting with nausea, vomiting, diarrhea and abdominal pain. Patient reports that starting last night around 1999, she started having profuse vomiting and diarrhea. Reports she took Zofran without any relief. Reports she has vomited over 20 times. She tried Zofran 2 hours ago but continued to vomit. She also reports having loose watery diarrhea. Denies any recent sick contact exposures. Reports generalized abdominal pain. Reports abdominal surgical history significant for cholecystectomy, hysterectomy and appendectomy. She denies any recent travel. Reports she had subjective fevers and chills last night. ROS: as above PHYSICAL EXAM: Constitutional: Patient appears in no acute distress. HENT: Head: Normocephalic and atraumatic. Eyes: EOMI, PERRL Mouth/Throat: Mucous membranes dry. Neck: Trachea midline. Neck supple. Cardiovascular: RRR, No murmurs, rubs or gallops. Intact distal pulses. Pulmonary/Chest: No respiratory distress. Breath sounds clear and equal bilaterally. No wheezes or rales. Abdominal: Abdomen soft, no rebound or guarding. Generalized TTP Musculoskeletal: No edema, tenderness or deformity noted. Skin: Warm and dry. No rash, erythema, pallor or cyanosis Psychiatric: Appropriate mood and affect for situation. Neurological: Alert and keenly responsive. CN II-XII grossly intact, moving all extremities equally and fully. MDM: - Vitals signs stable. - History obtained via patient. History as above. - Chronic conditions affecting care: GERD; HLD; HTN; IBS; HFpEF - Differential diagnoses include, but are not limited to: small bowel obstruction; ischemic colitis; viral syndrome; dehydration; electrolyte abnormality; ACS - Order placed for continuous cardiac monitoring. At this time, monitor showed rate of 67 bpm with normal sinus rhythm, per my interpretation. - External medical records reviewed. Nephrology office visit note dated 05/26/2024 was reviewed. Patient has a history of chronic hyponatremia and her baseline sodium is around 133 mmol/L - EKG interpreted by myself showed normal sinus rhythm. Rate 73 bpm. QT 426. No acute ischemic changes. - Laboratory workup interpreted by myself showed leukocytosis (WBC 11.98); slight hyponatremia (Na 135); hypocalcemia (Ca 8.3); elevated lactate (3.1); normal troponin; normal lipase - UA negative for infection - CXR negative for pneumonia, per my interpretation - Procal elevated at 1.42 - Viral respiratory panel positive for coronavirus type OC43 - Blood cultures obtained - Patient given 1500 cc NS and 4 mg IV zofran in ER. Her sepsis fluid volume calculation based on ideal body weight is 1568.10 mL. Patient has CHF history, so 1500 cc NS administered. - Repeat lactate after fluids has improved to 1.9 - CT abdomen/pelvis with IV contrast showed nonspecific ileus. No inflammatory process identified. - Patient empirically given IV zosyn. - Discussion was had with case monitor about patient's case and need for admission - Hospitalist, Dr. Soto, consulted for admission - Patient admitted to [facility] for further evaluation and management. ASSESSMENT AND PLAN: Diagnosis: Nausea, vomiting and diarrhea; elevated procalcitonin; elevated lactic acid; abdominal pain Plan: Admit Past Med/Surg History Problem List (Updated 10/31/24 @ 19:29 by July Barrow MD) Elevated procalcitonin (Acute) Elevated lactic acid level (Acute) Abdominal pain (Acute) Nausea, vomiting, and diarrhea (Acute) Vitamin D deficiency Chest tightness (Acute) Elevated troponin (Acute) Hypertension (Acute) Elevated troponin Hypertensive urgency Hyponatremia Shortness of breath on exertion (HFpEF) heart failure with preserved ejection fraction Rotavirus enteritis (Acute) Enterocolitis (Acute) Rotavirus infection Rectal bleeding History of colon polyps Encounter for pre-operative examination Arthritis Colitis IBS (irritable bowel syndrome) (Acute) HTN (hypertension) (Chronic) Esophageal dysphagia Osteoarthritis Ulcerative colitis Hyperlipidemia Hip pain (Chronic) GERD (gastroesophageal reflux disease) (Chronic) Anxiety Kidney stones (Chronic) hx Medical History Hypertensive emergency Colitis Allergy-induced asthma Schatzki's ring History of esophageal dilatation Cervicalgia Diverticulosis of colon History of SCC (squamous cell carcinoma) of skin Internal hemorrhoids Nausea and vomiting after administration of anesthetic agent Chronic back pain History of renal failure Basal cell carcinoma of chest Basal cell carcinoma of face Anemia Glaucoma Depression Occipital neuralgia Bradycardia Upper GI bleed Surgical History History of lumpectomy of right breast History of lumbar discectomy History of total right hip replacement History of cystoscopy History of total abdominal hysterectomy and bilateral salpingo-oophorectomy History of colonoscopy History of appendectomy History of cholecystectomy History of esophagogastroduodenoscopy (EGD) (~12/2018) History of tooth extraction History of bilateral cataract extraction Status post glaucoma surgery Family History Father Heart disease Brother Kidney disease Mother Kidney disease Other No family history of adverse response to anesthesia Social History Smoking Status: Former smoker Tobacco Type: Cigarettes Age Quit Using Tobacco: 39; Second Hand Exposure: No; Do You Dip or Chew Tobacco: No; Hx Alcohol Use: No Hx Substance Use: No Preferred Language: Paragu[place] Communication Ability: Effective Visual Impairment: No Limitations Hearing Ability: Normal Interpreter And Translator Required: No Beliefs That Will Affect Care: None marital status: / Current Living Situation: Alone current occupational status: retired current occupation: worked at [employer] How many Children do You have: 3 Feels Safe at Home: Yes Diet: low salt and regular caffeine: Yes (1 coffee daily) Dental Care, Regularly: No Physical Activity Frequency: Does not Exercise Seatbelt Use: always Do you think of yourself as: straight/heterosexual Gender Identity: Female Assistive Devices: Denture - Upper, Denture - Lower and Glasses Allergies Allergies Allergy/AdvReac Type Severity Reaction Status Date / Time No Known Allergies Allergy Verified 09/02/24 13:33 Home Meds Home Medications Medication Instructions Recorded Confirmed amlodipine 5 mg tablet 5 mg PO QAM 01/07/19 09/02/24 oxycodone-acetaminophen 5 mg-325 1 tab PO Q6H PRN Pain 01/07/19 09/02/24 mg tablet (Percocet) trazodone 50 mg tablet 50 mg PO HS 04/04/20 09/02/24 famotidine 40 mg tablet 40 mg PO HS 10/30/20 09/02/24 pantoprazole 40 mg tablet,delayed 40 mg PO QAM 10/30/20 09/02/24 release denosumab 60 mg/mL subcutaneous 60 mg subcut Q6MO 04/29/22 09/02/24 syringe (Prolia) folic acid 1 mg tablet 1 mg PO DAILY 07/04/22 09/02/24 celecoxib 200 mg capsule 200 mg PO HS PRN Pain 11/11/23 09/02/24 cholecalciferol (vitamin D3) 25 25 mcg PO WK 11/11/23 09/02/24 mcg (1,000 unit) capsule (Vitamin D3) citalopram 20 mg tablet (Celexa) 20 mg PO DAILY 11/11/23 09/02/24 diclofenac sodium 1 % topical gel 2 g topical TID PRN Pain 11/11/23 09/02/24 methotrexate sodium 2.5 mg tablet 12.5 mg PO WK 11/11/23 09/02/24 potassium citrate 10 mEq (1,080 10 meq PO DAILY 11/11/23 09/02/24 mg) tablet,extended release spironolactone 25 mg tablet 25 mg PO DAILY 11/11/23 09/02/24 fluticasone 500 mcg-salmeterol 50 1 inh inhalation BID 12/28/23 09/02/24 mcg/dose blistr powdr for inhalation meclizine 25 mg tablet 25 mg PO TID PRN Dizziness 12/28/23 09/02/24 losartan 25 mg tablet 25 mg PO DAILY 02/18/24 09/02/24 sucralfate 1 gram tablet 1 g PO TID PRN gastric distress 02/18/24 09/02/24 rosuvastatin 5 mg tablet 5 mg PO HS 03/28/24 09/02/24 brimonidine 0.2 % eye drops 1 drp ophthalmic (eye) BID 03/29/24 09/02/24 timolol maleate 0.5 % once daily 1 drp ophthalmic (eye) BID 03/29/24 09/02/24 eye drops Previous Rx's Medication Instructions Recorded bumetanide 0.5 mg tablet 0.5 mg PO DAILY #90 tabs 04/26/24 Results & Data (ED) Vital Signs Vital Signs - 24 hr 10/31/24 15:36 10/31/24 16:01 10/31/24 16:06 Temperature 36.9 C Temperature Source Oral Pulse Rate 72 73 Pulse Rate [Left Apical] Respiratory Rate 24 Respiratory Effort / Characteristics Spontaneous Labored Respiratory Depth Normal Respiratory Pattern Regular Blood Pressure 140/60 132/51 L Blood Pressure Mean 86 77 Pulse Oximetry 98 Oxygen Delivery Method Room Air Oxygen Flow Rate Sepsis Recent Fever Within 48 Hours No Sepsis New/Unexplained Change in Mental Status No Sepsis Action Taken by Nursing No Action Required Oxygen Flow Rate - Titration Pulse Oximetry Post Tiitration 10/31/24 16:09 10/31/24 16:30 10/31/24 16:46 Temperature Temperature Source Pulse Rate 65 63 Pulse Rate [Left Apical] 66 Respiratory Rate 22 24 Respiratory Effort / Characteristics Spontaneous Labored Respiratory Depth Normal Respiratory Pattern Regular Blood Pressure 132/57 L Blood Pressure Mean 82 Pulse Oximetry 95 100 97 Oxygen Delivery Method Room Air Room Air Room Air Oxygen Flow Rate Sepsis Recent Fever Within 48 Hours Sepsis New/Unexplained Change in Mental Status Sepsis Action Taken by Nursing Oxygen Flow Rate - Titration Pulse Oximetry Post Tiitration 10/31/24 17:00 10/31/24 17:38 10/31/24 18:01 Temperature Temperature Source Pulse Rate Pulse Rate [Left Apical] Respiratory Rate Respiratory Effort / Characteristics Respiratory Depth Respiratory Pattern Blood Pressure 143/66 H 116/51 L 124/49 L Blood Pressure Mean 91 87 82 Pulse Oximetry 100 Oxygen Delivery Method Room Air Oxygen Flow Rate Sepsis Recent Fever Within 48 Hours Sepsis New/Unexplained Change in Mental Status Sepsis Action Taken by Nursing Oxygen Flow Rate - Titration Pulse Oximetry Post Tiitration 10/31/24 18:03 10/31/24 18:33 10/31/24 18:57 Temperature Temperature Source Pulse Rate 69 68 Pulse Rate [Left Apical] Respiratory Rate 28 H 25 H Respiratory Effort / Characteristics Respiratory Depth Respiratory Pattern Blood Pressure Blood Pressure Mean Pulse Oximetry 97 96 88 L Oxygen Delivery Method Room Air Room Air Nasal Cannula Oxygen Flow Rate 0 Sepsis Recent Fever Within 48 Hours Sepsis New/Unexplained Change in Mental Status Sepsis Action Taken by Nursing Oxygen Flow Rate - Titration 2 Pulse Oximetry Post Tiitration 97 10/31/24 18:58 Temperature Temperature Source Pulse Rate Pulse Rate [Left Apical] 61 Respiratory Rate 24 Respiratory Effort / Characteristics Non-Labored Spontaneous Respiratory Depth Normal Respiratory Pattern Regular Blood Pressure Blood Pressure Mean Pulse Oximetry 97 Oxygen Delivery Method Nasal Cannula Oxygen Flow Rate 2 Sepsis Recent Fever Within 48 Hours Sepsis New/Unexplained Change in Mental Status Sepsis Action Taken by Nursing Oxygen Flow Rate - Titration Pulse Oximetry Post Tiitration Laboratory Data 10/31/24 16:16 10/31/24 16:16 Lab Results 10/31/24 10/31/24 10/31/24 Range/Units 16:16 16:27 18:13 WBC 11.98 H (4.8-10.8) K/ul RBC 3.98 L (4.20-5.40) M/uL Hgb 12.5 (12.0-16.0) g/dl Hct 37.4 (37.0-47.0) % MCV 94.0 (80.0-100.0) fL MCH 31.4 (25.0-34.0) pg MCHC 33.4 (32.0-36.0) g/dL RDW Std Deviation 46.1 (36.4-46.3) fL RDW Coeff of [place] 13.5 (11.5-14.5) % Plt Count 203 (130-400) K/uL MPV 10.5 (9.4-12.4) fL Immature Gran % (Auto) 0.7 % Neut % (Auto) 82.6 % Lymph % (Auto) 8.6 % [place] % (Auto) 7.8 % Eos % (Auto) 0.2 % Baso % (Auto) 0.1 % Neut # (Auto) 9.91 H (1.40-6.50) K/uL Lymph # (Auto) 1.03 L (1.20-3.40) K/uL [place] # (Auto) 0.93 H (0.11-0.59) K/uL Eos # (Auto) 0.02 (0.00-0.50) K/uL Baso # (Auto) 0.01 (0.00-0.20) K/uL Immature Gran # (Auto) 0.08 (0.01-0.20) K/uL Sodium 135 L (136-145) mmol/L Potassium 3.7 (3.5-5.1) mmol/L Chloride 104 (98-107) mmol/L Carbon Dioxide 21 (21-32) mmol/L Anion Gap 10 (3-11) BUN 27 H (6-23) mg/dl Creatinine 1.11 (0.6-1.2) mg/dl Est Cr Clr Drug Dosing 33.4 ml/min eGFR 50.25 BUN/Creatinine Ratio 24.3 H (10-20) Glucose 95 (70-99(Fasting)) mg/dl Lactate 3.1 H* (0.4-2.0) mmol/L Calcium 8.3 L (8.6-10.3) mg/dl Magnesium 1.9 (1.7-2.4) mg/dl Total Bilirubin 0.8 (0.2-1.0) mg/dl AST 18 (13-39) U/L ALT 12 (7-52) U/L Alkaline Phosphatase 39 (34-104) U/L Troponin I High Sens 8.9 (0-14) pg/ml Total Protein 6.4 (6.0-8.3) gm/dl Albumin 3.8 (3.4-5.0) gm/dl Globulin 2.6 (2.5-4.0) gm/dl Albumin/Globulin Ratio 1.5 (0.9-2) Lipase 16 (11-82) U/L Procalcitonin 1.42 H (0-0.5) ng/ml Urine Color Yellow Urine Appearance Clear (Clear) Urine pH 8.0 H (4.5-7.5) Ur Specific [place] 1.028 (1.000-1.030) Urine Protein Negative (Negative) Urine Glucose (UA) Negative (Negative) Urine Ketones Trace H (Negative) Urine Blood Negative (Negative) Urine Nitrite Negative (Negative) Urine Bilirubin Negative (Negative) Urine Urobilinogen Negative (Negative) Ur Leukocyte Esterase Negative (Negative) Adenovirus (PCR) Not Detected (NotDetected) B. pertussis DNA (PCR) Not Detected (NotDetected) B.parapertussis DNA PCR Not Detected (NotDetected) C. pneumoniae DNA (PCR) Not Detected (NotDetected) Coronavirus OC43 (PCR) DETECTED A (NotDetected) Coronavirus HKU1 (PCR) Not Detected (NotDetected) Coronavirus 229E (PCR) Not Detected (NotDetected) SARS-CoV-2 (PCR) Not Detected (NotDetected) Coronavirus NL63 (PCR) Not Detected (NotDetected) Human Metapneumovir PCR Not Detected (NotDetected) Influenza Type A (PCR) Not Detected (NotDetected) Influenza Type B (PCR) Not Detected (NotDetected) M. pneumoniae (PCR) Not Detected (NotDetected) Parainfluenza 1 (PCR) Not Detected (NotDetected) Parainfluenza 2 (PCR) Not Detected (NotDetected) Parainfluenza 3 (PCR) Not Detected (NotDetected) Parainfluenza 4 (PCR) Not Detected (NotDetected) RSV (PCR) Not Detected (NotDetected) Entero/Rhino (PCR) Not Detected (NotDetected) 10/31/24 Range/Units 18:22 WBC (4.8-10.8) K/ul RBC (4.20-5.40) M/uL Hgb (12.0-16.0) g/dl Hct (37.0-47.0) % MCV (80.0-100.0) fL MCH (25.0-34.0) pg MCHC (32.0-36.0) g/dL RDW Std Deviation (36.4-46.3) fL RDW Coeff of [place] (11.5-14.5) % Plt Count (130-400) K/uL MPV (9.4-12.4) fL Immature Gran % (Auto) % Neut % (Auto) % Lymph % (Auto) % [place] % (Auto) % Eos % (Auto) % Baso % (Auto) % Neut # (Auto) (1.40-6.50) K/uL Lymph # (Auto) (1.20-3.40) K/uL [place] # (Auto) (0.11-0.59) K/uL Eos # (Auto) (0.00-0.50) K/uL Baso # (Auto) (0.00-0.20) K/uL Immature Gran # (Auto) (0.01-0.20) K/uL Sodium (136-145) mmol/L Potassium (3.5-5.1) mmol/L Chloride (98-107) mmol/L Carbon Dioxide (21-32) mmol/L Anion Gap (3-11) BUN (6-23) mg/dl Creatinine (0.6-1.2) mg/dl Est Cr Clr Drug Dosing ml/min eGFR BUN/Creatinine Ratio (10-20) Glucose (70-99(Fasting)) mg/dl Lactate 1.9 (0.4-2.0) mmol/L Calcium (8.6-10.3) mg/dl Magnesium (1.7-2.4) mg/dl Total Bilirubin (0.2-1.0) mg/dl AST (13-39) U/L ALT (7-52) U/L Alkaline Phosphatase (34-104) U/L Troponin I High Sens (0-14) pg/ml Total Protein (6.0-8.3) gm/dl Albumin (3.4-5.0) gm/dl Globulin (2.5-4.0) gm/dl Albumin/Globulin Ratio (0.9-2) Lipase (11-82) U/L Procalcitonin (0-0.5) ng/ml Urine Color Urine Appearance (Clear) Urine pH (4.5-7.5) Ur Specific [place] (1.000-1.030) Urine Protein (Negative) Urine Glucose (UA) (Negative) Urine Ketones (Negative) Urine Blood (Negative) Urine Nitrite (Negative) Urine Bilirubin (Negative) Urine Urobilinogen (Negative) Ur Leukocyte Esterase (Negative) Adenovirus (PCR) (NotDetected) B. pertussis DNA (PCR) (NotDetected) B.parapertussis DNA PCR (NotDetected) C. pneumoniae DNA (PCR) (NotDetected) Coronavirus OC43 (PCR) (NotDetected) Coronavirus HKU1 (PCR) (NotDetected) Coronavirus 229E (PCR) (NotDetected) SARS-CoV-2 (PCR) (NotDetected) Coronavirus NL63 (PCR) (NotDetected) Human Metapneumovir PCR (NotDetected) Influenza Type A (PCR) (NotDetected) Influenza Type B (PCR) (NotDetected) M. pneumoniae (PCR) (NotDetected) Parainfluenza 1 (PCR) (NotDetected) Parainfluenza 2 (PCR) (NotDetected) Parainfluenza 3 (PCR) (NotDetected) Parainfluenza 4 (PCR) (NotDetected) RSV (PCR) (NotDetected) Entero/Rhino (PCR) (NotDetected) Administered Medications Discontinued Medications Sodium Chloride (Nss) 1,000 mls @ 999 mls/hr IV .Q1H1M ONE Stop: 10/31/24 16:58 Last Infusion: 10/31/24 18:20 Dose: Infused Documented By: Admin: 10/31/24 16:23 Dose: 999 mls/hr Documented By: SANA Sodium Chloride (Nss) 500 mls @ 999 mls/hr IV .Q31M ONE Stop: 10/31/24 17:10 Last Infusion: 10/31/24 17:47 Dose: Infused Documented By: Admin: 10/31/24 16:45 Dose: 999 mls/hr Documented By: SANA Piperacillin Sod/Tazobactam Sod (Zosyn) 4.5 gm in 100 mls @ 200 mls/hr IV NOW ONE; Protocol Stop: 10/31/24 18:35 Last Admin: 10/31/24 18:55 Dose: 200 mls/hr Documented By: SANA Ioversol (Optiray 320 100ml) 90 ml IV ONCE ONE Stop: 10/31/24 17:28 Last Admin: 10/31/24 17:27 Dose: 90 ml Documented By: DAVID Ondansetron HCl (Ondansetron Inj 2 Mg/Ml 2 Ml Vial) 4 mg IV NOW STA Stop: 10/31/24 15:59 Last Admin: 10/31/24 16:23 Dose: 4 mg Documented By: SONDRA Imaging Data Radiologist's Impression: Chest X-Ray 10/31/24 15:51 INDICATION: Fever. TECHNIQUE: Frontal radiograph of the chest. COMPARISON: Radiograph from 03/29/2024 FINDINGS: Cardiomegaly. Low inspiratory depth. Pulmonary vasculature appear within normal limits. Subsegmental atelectasis in the lung bases. Chronic appearing interstitial lung markings. No infiltrate, pleural effusion or pneumothorax. No acute osseous abnormality evident. IMPRESSION: No acute cardiopulmonary process. Electronically signed by Morgan Garcia 10-31-2024 4:15 PM Abdomen/Pelvis CT 10/31/24 16:52 EXAM: CT Abdomen and Pelvis With Intravenous Contrast INDICATION: Nausea, vomiting and diarrhea. Upper abdominal pain. TECHNIQUE: Axial computed tomography images of the abdomen and pelvis with intravenous contrast. Sagittal and coronal reformatted images were created and reviewed. This CT exam was performed using one or more of the following dose reduction techniques: automated exposure control, adjustment of the mA and/or kV according to patient size, and/or use of iterative reconstruction technique. CONTRAST: 90ml of Optiray 320 was administered intravenously. COMPARISON: 12/28/2023 FINDINGS: Limitations: None. Lung bases: No abnormality noted. Pleural space: No visualized pleural effusion or pneumothorax. Heart: Stable cardiomegaly. No pericardial effusion. Mediastinum: No abnormality noted. ABDOMEN: Liver: Normal size and contour. Hypodense typical of steatosis. No mass or ductal dilation. Gallbladder and bile ducts: Cholecystectomy. No ductal dilation or stone noted. Pancreas: Homogeneous enhancement. No mass, inflammation or ductal dilation. Spleen: No significant abnormality noted. Adrenals: No significant abnormality noted. Kidneys and ureters: Indeterminate hypodensity in the midpole of the right kidney likely a simple cyst but too small to characterize. No further assessment required. There is a 2 mm nonobstructing left kidney stone. No hydronephrosis. Stomach and bowel: Prominent fluid noted in the colon and multiple small bowel loops. There is no thickening, inflammation or obstructing point noted. PELVIS: Appendix: No findings to suggest acute appendicitis. Bladder: Grossly normal appearance of the urinary bladder partially obscured by artifact. Reproductive: Hysterectomy. ABDOMEN and PELVIS: Intraperitoneal space: No free air. No significant fluid collection. Bones/joints: Right hip arthroplasty present. Visualized components intact and well-seated. Probable old fracture of the posterior left acetabular rim is unchanged. No acute fracture noted. Soft tissues: No significant abnormality noted. Vasculature: Atherosclerotic calcification of the aorta and branches. No aneurysm. Lymph nodes: No pathologically enlarged lymph nodes. IMPRESSION: 1. Mild nonspecific ileus. No inflammatory process identified. 2. Nonobstructing left kidney stone. ACT 112: Negative or not required by law. Electronically signed by Peg Villalta 10-31-2024 6:20 PM Discharge Plan Visit Data Chief Complaint: Abdominal Pain ED Provider: July Barrow Discharge Problem: Nausea, vomiting, and diarrhea, Abdominal pain, Elevated lactic acid level, Elevated procalcitonin Forms Stand Alone Forms: My [employer] Prescriptions Prescriptions: No Action trazodone 50 mg tablet 50 mg PO HS Prolia 60 mg/mL syringe 60 mg subcut Q6MO folic acid 1 mg tablet 1 mg PO DAILY bumetanide 0.5 mg tablet 0.5 mg PO DAILY Qty: 90 3RF famotidine 40 mg tablet 40 mg PO HS pantoprazole 40 mg tablet,delayed release (DR/EC) 40 mg PO QAM Rx Instructions: take 1 tablet by mouth once daily amlodipine 5 mg Tablet 5 mg PO QAM oxycodone-acetaminophen [Percocet] 5-325 mg Tablet 1 tab PO Q6H PRN (Reason: Pain) celecoxib 200 mg capsule 200 mg PO HS PRN (Reason: Pain) spironolactone 25 mg tablet 25 mg PO DAILY Hold Instructions: Resume on 01/05/24. citalopram [Celexa] 20 mg Tablet 20 mg PO DAILY methotrexate sodium 2.5 mg tablet 12.5 mg PO WK Rx Instructions: TAKES 5 TABLETS cholecalciferol (vitamin D3) [Vitamin D3] 25 mcg (1,000 unit) Capsule 25 mcg PO WK diclofenac sodium 1 % Gel 2 g TOPICAL TID PRN (Reason: Pain) potassium citrate 10 mEq (1,080 mg) tablet extended release 10 meq PO DAILY losartan 25 mg tablet 25 mg PO DAILY sucralfate 1 gram tablet 1 g PO TID PRN (Reason: gastric distress) rosuvastatin 5 mg tablet 5 mg PO HS brimonidine 0.2 % drops 1 drp ophthalmic (eye) BID timolol maleate 0.5 % drops, once daily 1 drp ophthalmic (eye) BID meclizine 25 mg tablet 25 mg PO TID PRN (Reason: Dizziness) fluticasone propion-salmeterol 500-50 mcg/dose blister with device 1 inh INHALATION BID Referrals Referrals: Hayder Ann, PAJakobC [Primary Care Provider] -
[2024-10-31 17:24] LABS: Adenovirus PCR Not Detected (NotDetected); Bordetella parapertussis PCR Not Detected (NotDetected); Bordetella pertussis PCR Not Detected (NotDetected); Chlamydia pneumoniae PCR Not Detected (NotDetected); Coronavirus 229E PCR Not Detected (NotDetected); Coronavirus CoV-2 (COVID19)PCR Not Detected (NotDetected); Coronavirus HKU1 PCR Not Detected (NotDetected); Coronavirus NL63 PCR Not Detected (NotDetected); Coronavirus OC43PCR DETECTED (NotDetected); Human Metapneumovirus PCR Not Detected (NotDetected); Influenza A PCR Not Detected (NotDetected); Influenza B PCR Not Detected (NotDetected); Mycoplasma pneumoniae PCR Not Detected (NotDetected); Parainfluenza Virus 1 PCR Not Detected (NotDetected); Parainfluenza Virus 2 PCR Not Detected (NotDetected); Parainfluenza Virus 3 PCR Not Detected (NotDetected); Parainfluenza Virus 4 PCR Not Detected (NotDetected); Respiratory Syncytial VirusPCR Not Detected (NotDetected); Rhinovirus/Enterovirus PCR Not Detected (NotDetected)
[2024-10-31] MEDS: OPTIRAY 320 100ml IV ONE (17:27)
[2024-10-31 18:06] LABS: Troponin I High Sensitivity 8.9 pg/ml (0-14)
--- NOTE | 2024-10-31 18:20 | CT Scan Report ---
EXAM: CT Abdomen and Pelvis With Intravenous Contrast INDICATION: Nausea, vomiting and diarrhea. Upper abdominal pain. TECHNIQUE: Axial computed tomography images of the abdomen and pelvis with intravenous contrast. Sagittal and coronal reformatted images were created and reviewed. This CT exam was performed using one or more of the following dose reduction techniques: automated exposure control, adjustment of the mA and/or kV according to patient size, and/or use of iterative reconstruction technique. CONTRAST: 90ml of Optiray 320 was administered intravenously. COMPARISON: 12/28/2023 FINDINGS: Limitations: None. Lung bases: No abnormality noted. Pleural space: No visualized pleural effusion or pneumothorax. Heart: Stable cardiomegaly. No pericardial effusion. Mediastinum: No abnormality noted. ABDOMEN: Liver: Normal size and contour. Hypodense typical of steatosis. No mass or ductal dilation. Gallbladder and bile ducts: Cholecystectomy. No ductal dilation or stone noted. Pancreas: Homogeneous enhancement. No mass, inflammation or ductal dilation. Spleen: No significant abnormality noted. Adrenals: No significant abnormality noted. Kidneys and ureters: Indeterminate hypodensity in the midpole of the right kidney likely a simple cyst but too small to characterize. No further assessment required. There is a 2 mm nonobstructing left kidney stone. No hydronephrosis. Stomach and bowel: Prominent fluid noted in the colon and multiple small bowel loops. There is no thickening, inflammation or obstructing point noted. PELVIS: Appendix: No findings to suggest acute appendicitis. Bladder: Grossly normal appearance of the urinary bladder partially obscured by artifact. Reproductive: Hysterectomy. ABDOMEN and PELVIS: Intraperitoneal space: No free air. No significant fluid collection. Bones/joints: Right hip arthroplasty present. Visualized components intact and well-seated. Probable old fracture of the posterior left acetabular rim is unchanged. No acute fracture noted. Soft tissues: No significant abnormality noted. Vasculature: Atherosclerotic calcification of the aorta and branches. No aneurysm. Lymph nodes: No pathologically enlarged lymph nodes. IMPRESSION: 1. Mild nonspecific ileus. No inflammatory process identified. 2. Nonobstructing left kidney stone. ACT 112: Negative or not required by law. Electronically signed by Peg Villalta 10-31-2024 6:20 PM
[2024-10-31 18:25] LABS: Appearance Urine Clear (Clear); Bilirubin Urine Negative (Negative); Blood Urine Negative (Negative); Color Urine Yellow; Glucose Urine UA Negative (Negative); Ketones Urine Trace (Negative); Leukocyte Esterase Urine Negative (Negative); Nitrite Urine Negative (Negative); Protein Urine Negative (Negative); Specific Gravity Urine 1.028 (1.000-1.030); Urobilinogen Urine Negative (Negative)
[2024-10-31] MEDS: PIPERACILLIN/TAZOBACTAM 4.5 GM/100 ML BAG IV ONE (18:55)
--- NOTE | 2024-10-31 20:24 | History & Physical Report ---
Date of Service October 31, 2024 Assessment & Plan (1) Gastroenteritis due to norovirus: (2) Coronavirus infection, unspecified: (3) Nausea, vomiting, and diarrhea: (4) Ileus due to infection: Plan The patient is an 79-year-old female with a past medical history including vitamin D deficiency, hypertension, hypertensive urgency, HFpEF, irritable bowel syndrome, esophageal dysphagia, ulcerative colitis, GERD, anxiety, and kidney stones.The patient presents to the emergency department with acute onset around 8 PM on 10/30/2024 of severe nausea, vomiting, diarrhea and generalized abdominal pain. She denies any questionable food intake, she denies any recent travels or known sick exposures. She reports taking Zofran without any significant relief. She reports vomiting over 20 times, and most recently tried Zofran about 2 hours prior to arrival to the ED, but continues to vomit. She reports her diarrhea is watery and loose. Testing in the emergency department revealed respiratory BioFire positive for OC 43, and stool BioFire is positive for norovirus. Lactate initially was 3.1, and after 1.5 L normal saline has improved to 1.9. Pro-Nahum is 1.42. From the ED she received normal saline 1 L and then 1/2 L normal saline bolus, Zofran 4 mg IV, and Zosyn 4.5 g IV. #Gastroenteritis due to norovirus- Intractable nausea, vomiting, diarrhea, with at least 20 episodes of loose stools over the past 24 hours No definite source identified per patient N.p.o. except essential medications Status post 1.5 L normal saline in the ED NSS + KCl 20 mEq at 125 mL/h x 2 L Zofran 4 mg IV every 6 hours as needed Acetaminophen 1 g IV every 8 hours as needed for mild pain or fever Pantoprazole 40 mg IV daily Contact isolation precautions Patient did receive a single dosing of Zosyn 4.5 g IV from the ED which would not be continued Serial CBC with differential, chemistry profile and magnesium levels Initial lactate 3.1, with follow-up 1.9 #Respiratory BioFire positive OC 43- Droplet precautions Supportive therapy as above DuoNebs every 2 hours as needed #Chronic medical conditions: N.p.o. until able to take oral Hypertension/HFpEF holding amlodipine, bumetanide, losartan, potassium citrate, spironolactone Glaucoma-continue usual eyedrops Ulcerative colitis/arthritis-outpatient setting on methotrexate and denosumab, folic acid and Celebrex Anxiety-on citalopram Hyperlipidemia-on rosuvastatin History of Present Illness Chief Complaint: The patient presents to the emergency department with acute onset around 8 PM on 10/30/2024 of severe nausea, vomiting, diarrhea and generalized abdominal pain. She denies any questionable food intake, she denies any recent travels or known sick exposures. She reports taking Zofran without any significant relief. She reports vomiting over 20 times, and most recently tried Zofran about 2 hours prior to arrival to the ED, but continues to vomit. She reports her diarrhea is watery and loose. Testing in the emergency department revealed respiratory BioFire positive for OC 43, and stool BioFire is positive for norovirus. Lactate initially was 3.1, and after 1.5 L normal saline has improved to 1.9. Pro-Nahum is 1.42. Primary Care Provider: Hayder Ann The patient is an 79-year-old female with a past medical history including vitamin D deficiency, hypertension, hypertensive urgency, HFpEF, irritable bowel syndrome, esophageal dysphagia, ulcerative colitis, GERD, anxiety, and kidney stones.The patient presents to the emergency department with acute onset around 8 PM on 10/30/2024 of severe nausea, vomiting, diarrhea and generalized abdominal pain. She denies any questionable food intake, she denies any recent travels or known sick exposures. She reports taking Zofran without any significant relief. She reports vomiting over 20 times, and most recently tried Zofran about 2 hours prior to arrival to the ED, but continues to vomit. She reports her diarr hea is watery and loose. Testing in the emergency department revealed respiratory BioFire positive for OC 43, and stool BioFire is positive for norovirus. Lactate initially was 3.1, and after 1.5 L normal saline has improved to 1.9. Pro-Nahum is 1.42. From the ED she received normal saline 1 L and then 1/2 L normal saline bolus, Zofran 4 mg IV, and Zosyn 4.5 g IV. Allergies Allergy/AdvReac Type Severity Reaction Status Date / Time No Known Allergies Allergy Verified 09/02/24 13:33 Home Medications Medication Instructions Recorded Confirmed Type amlodipine 5 mg tablet 5 mg PO QAM 01/07/19 11/01/24 History oxycodone-acetaminophen 5 mg-325 1 tab PO Q6H PRN Pain 01/07/19 11/01/24 History mg tablet (Percocet) trazodone 50 mg tablet 50 mg PO HS 04/04/20 11/01/24 History famotidine 40 mg tablet 40 mg PO HS 10/30/20 11/01/24 History pantoprazole 40 mg tablet,delayed 40 mg PO QAM 10/30/20 11/01/24 History release denosumab 60 mg/mL subcutaneous 60 mg subcut Q6MO 04/29/22 11/01/24 History syringe (Prolia) folic acid 1 mg tablet 1 mg PO DAILY 07/04/22 11/01/24 History celecoxib 200 mg capsule 200 mg PO HS PRN Pain 11/11/23 11/01/24 History cholecalciferol (vitamin D3) 25 25 mcg PO WK 11/11/23 11/01/24 History mcg (1,000 unit) capsule (Vitamin D3) citalopram 20 mg tablet (Celexa) 20 mg PO DAILY 11/11/23 11/01/24 History diclofenac sodium 1 % topical gel 2 g topical TID PRN Pain 11/11/23 11/01/24 History methotrexate sodium 2.5 mg tablet 12.5 mg PO WK 11/11/23 11/01/24 History potassium citrate 10 mEq (1,080 10 meq PO DAILY 11/11/23 11/01/24 History mg) tablet,extended release spironolactone 25 mg tablet 25 mg PO DAILY 11/11/23 11/01/24 History fluticasone 500 mcg-salmeterol 50 1 inh inhalation BID 12/28/23 11/01/24 History mcg/dose blistr powdr for inhalation meclizine 25 mg tablet 25 mg PO TID PRN Dizziness 12/28/23 11/01/24 History losartan 25 mg tablet 25 mg PO DAILY 02/18/24 11/01/24 History sucralfate 1 gram tablet 1 g PO TID PRN gastric distress 02/18/24 11/01/24 History rosuvastatin 5 mg tablet 5 mg PO HS 03/28/24 11/01/24 History brimonidine 0.2 % eye drops 1 drp ophthalmic (eye) BID 03/29/24 11/01/24 History timolol maleate 0.5 % once daily 1 drp ophthalmic (eye) BID 03/29/24 11/01/24 History eye drops bumetanide 0.5 mg tablet 0.5 mg PO DAILY #90 tabs 04/26/24 11/01/24 Rx Past Med/Surg History Problem List (Updated 11/01/24 @ 03:45 by Stan Soto MD) Ileus due to infection Coronavirus infection, unspecified Gastroenteritis due to norovirus Elevated procalcitonin (Acute) Elevated lactic acid level (Acute) Abdominal pain (Acute) Nausea, vomiting, and diarrhea (Acute) Vitamin D deficiency Chest tightness (Acute) Elevated troponin (Acute) Hypertension (Acute) Elevated troponin Hypertensive urgency Hyponatremia Shortness of breath on exertion (HFpEF) heart failure with preserved ejection fraction Rotavirus enteritis (Acute) Enterocolitis (Acute) Rotavirus infection Rectal bleeding History of colon polyps Encounter for pre-operative examination Arthritis Colitis IBS (irritable bowel syndrome) (Acute) HTN (hypertension) (Chronic) Esophageal dysphagia Osteoarthritis Ulcerative colitis Hyperlipidemia Hip pain (Chronic) GERD (gastroesophageal reflux disease) (Chronic) Anxiety Kidney stones (Chronic) hx Medical History Hypertensive emergency Colitis Allergy-induced asthma Schatzki's ring History of esophageal dilatation Cervicalgia Diverticulosis of colon History of SCC (squamous cell carcinoma) of skin Internal hemorrhoids Nausea and vomiting after administration of anesthetic agent Chronic back pain History of renal failure Basal cell carcinoma of chest Basal cell carcinoma of face Anemia Glaucoma Depression Occipital neuralgia Bradycardia Upper GI bleed Surgical History History of lumpectomy of right breast History of lumbar discectomy History of total right hip replacement History of cystoscopy History of total abdominal hysterectomy and bilateral salpingo-oophorectomy History of colonoscopy History of appendectomy History of cholecystectomy History of esophagogastroduodenoscopy (EGD) (~12/2018) History of tooth extraction History of bilateral cataract extraction Status post glaucoma surgery Family History Father Heart disease Brother Kidney disease Mother Kidney disease Other No family history of adverse response to anesthesia Social History Smoking Status: Former smoker Tobacco Type: Cigarettes Age Quit Using Tobacco: 39; Second Hand Exposure: No; Do You Dip or Chew Tobacco: No; Hx Alcohol Use: No Hx Substance Use: No Preferred Language: Barbadian Communication Ability: Effective Visual Impairment: No Limitations Hearing Ability: Normal Mental Health Technician Required: No Beliefs That Will Affect Care: None marital status: / Current Living Situation: Alone current occupational status: retired current occupation: worked at [employer] How many Children do You have: 3 Other Information That Helps Us Care for You: No Feels Safe at Home: Yes Safety Concerns: Feels Safe At This Time Diet: low salt and regular caffeine: Yes (1 coffee daily) Dental Care, Regularly: No Physical Activity Frequency: Does not Exercise Seatbelt Use: always Do you think of yourself as: straight/heterosexual Gender Identity: Female Assistive Devices: Denture - Upper and Denture - Lower Review of Systems Review of Systems: The patient denies chest pain, palpitations, lower extremity swelling, sore throat, blood in urine or stool, dysuria, urinary frequency or urgency, memory loss, loss of consciousness, rash, abnormal bruising or bleeding, focal weakness, numbness or tingling in arms or legs, generalized arthralgias or myalgias, back or neck pain, or night sweats. The review of systems is otherwise negative other than for that already noted above, and at least 10 systems have been reviewed. Physical Exam Physical Exam: The patient is awake, alert and oriented 3, looks fatigued, has significant shakes and tremors/rigors, normocephalic and atraumatic HEENT--PERRL, EOMI, mucous membranes and oropharynx dry. Neck--supple. No JVD. No bruits. Thyroid normal, trachea midline, no adenopathy. Heart--normal S1 and S2. No murmurs, rubs or gallops. Lungs--clear bilaterally, no respiratory distress, no accessory muscle use. Abdomen--normal bowel sounds and soft. Mild generalized tenderness, mildly tympanitic Extremities--no cyanosis or clubbing. No edema. Dermatologic--normal skin turgor, normal color, no abnormal lymph nodes, no rash. Neurologic--cranial nerves II through XII grossly intact. Rheumatologic--normal range of motion. Psychiatric--normal affect. Results & Data Results & Data Vital Signs (Past 12 Hours) Vital Signs Temp Pulse Pulse Resp BP Pulse Ox O2 Del Method 10/31/24 20:15 82 20 100 Nasal Cannula 10/31/24 19:57 60 100 Nasal Cannula 10/31/24 19:34 81 10/31/24 19:06 72 22 99 Nasal Cannula 10/31/24 19:00 111/52 L 10/31/24 18:58 61 24 97 Nasal Cannula 10/31/24 18:57 88 L Nasal Cannula 10/31/24 18:33 68 25 H 96 Room Air 10/31/24 18:03 69 28 H 97 Room Air 10/31/24 18:01 124/49 L 10/31/24 17:38 116/51 L 10/31/24 17:00 143/66 H 100 Room Air 10/31/24 16:46 66 24 97 Room Air 10/31/24 16:30 63 132/57 L 100 Room Air 10/31/24 16:09 65 22 95 Room Air 10/31/24 16:06 73 10/31/24 16:01 132/51 L 10/31/24 15:36 36.9 C 72 24 140/60 98 Room Air O2 Flow Rate 10/31/24 20:15 2 10/31/24 19:57 2 10/31/24 19:34 10/31/24 19:06 2 10/31/24 19:00 10/31/24 18:58 2 10/31/24 18:57 0 10/31/24 18:33 10/31/24 18:03 10/31/24 18:01 10/31/24 17:38 10/31/24 17:00 10/31/24 16:46 10/31/24 16:30 10/31/24 16:09 10/31/24 16:06 10/31/24 16:01 10/31/24 15:36 Laboratory Results Laboratory Results WBC 11.98 K/ul (4.8-10.8) H 10/31/24 16:16 RBC 3.98 M/uL (4.20-5.40) L 10/31/24 16:16 Hgb 12.5 g/dl (12.0-16.0) 10/31/24 16:16 Hct 37.4 % (37.0-47.0) 10/31/24 16:16 MCV 94.0 fL (80.0-100.0) 10/31/24 16:16 MCH 31.4 pg (25.0-34.0) 10/31/24 16:16 MCHC 33.4 g/dL (32.0-36.0) 10/31/24 16:16 RDW Std Deviation 46.1 fL (36.4-46.3) 10/31/24 16:16 RDW Coeff of Nikkie 13.5 % (11.5-14.5) 10/31/24 16:16 Plt Count 203 K/uL (130-400) 10/31/24 16:16 MPV 10.5 fL (9.4-12.4) 10/31/24 16:16 Immature Gran % (Auto) 0.7 % 10/31/24 16:16 Neut % (Auto) 82.6 % 10/31/24 16:16 Lymph % (Auto) 8.6 % 10/31/24 16:16 Kern % (Auto) 7.8 % 10/31/24 16:16 Eos % (Auto) 0.2 % 10/31/24 16:16 Baso % (Auto) 0.1 % 10/31/24 16:16 Neut # (Auto) 9.91 K/uL (1.40-6.50) H 10/31/24 16:16 Lymph # (Auto) 1.03 K/uL (1.20-3.40) L 10/31/24 16:16 Kern # (Auto) 0.93 K/uL (0.11-0.59) H 10/31/24 16:16 Eos # (Auto) 0.02 K/uL (0.00-0.50) 10/31/24 16:16 Baso # (Auto) 0.01 K/uL (0.00-0.20) 10/31/24 16:16 Immature Gran # (Auto) 0.08 K/uL (0.01-0.20) 10/31/24 16:16 Sodium 135 mmol/L (136-145) L 10/31/24 16:16 Potassium 3.7 mmol/L (3.5-5.1) 10/31/24 16:16 Chloride 104 mmol/L (98-107) 10/31/24 16:16 Carbon Dioxide 21 mmol/L (21-32) 10/31/24 16:16 Anion Gap 10 (3-11) 10/31/24 16:16 BUN 27 mg/dl (6-23) H 10/31/24 16:16 Creatinine 1.11 mg/dl (0.6-1.2) 10/31/24 16:16 Est Cr Clr Drug Dosing 33.4 ml/min 10/31/24 16:16 eGFR 50.25 10/31/24 16:16 BUN/Creatinine Ratio 24.3 (10-20) H 10/31/24 16:16 Glucose 95 mg/dl (70-99(Fasting)) 10/31/24 16:16 Lactate 1.9 mmol/L (0.4-2.0) 10/31/24 18:22 Calcium 8.3 mg/dl (8.6-10.3) L 10/31/24 16:16 Magnesium 1.9 mg/dl (1.7-2.4) 10/31/24 16:16 Total Bilirubin 0.8 mg/dl (0.2-1.0) 10/31/24 16:16 AST 18 U/L (13-39) 10/31/24 16:16 ALT 12 U/L (7-52) 10/31/24 16:16 Alkaline Phosphatase 39 U/L (34-104) 10/31/24 16:16 Troponin I High Sens 8.9 pg/ml (0-14) 10/31/24 16:16 Total Protein 6.4 gm/dl (6.0-8.3) 10/31/24 16:16 Albumin 3.8 gm/dl (3.4-5.0) 10/31/24 16:16 Globulin 2.6 gm/dl (2.5-4.0) 10/31/24 16:16 Albumin/Globulin Ratio 1.5 (0.9-2) 10/31/24 16:16 Lipase 16 U/L (11-82) 10/31/24 16:16 Procalcitonin 1.42 ng/ml (0-0.5) H 10/31/24 16:16 Urine Color Yellow 10/31/24 18:13 Urine Appearance Clear (Clear) 10/31/24 18:13 Urine pH 8.0 (4.5-7.5) H 10/31/24 18:13 Ur Specific Parsons 1.028 (1.000-1.030) 10/31/24 18:13 Urine Protein Negative (Negative) 10/31/24 18:13 Urine Glucose (UA) Negative (Negative) 10/31/24 18:13 Urine Ketones Trace (Negative) H 10/31/24 18:13 Urine Blood Negative (Negative) 10/31/24 18:13 Urine Nitrite Negative (Negative) 10/31/24 18:13 Urine Bilirubin Negative (Negative) 10/31/24 18:13 Urine Urobilinogen Negative (Negative) 10/31/24 18:13 Ur Leukocyte Esterase Negative (Negative) 10/31/24 18:13 Stl C. cayetanensis PCR Not Detected (NotDetected) 11/01/24 00:48 Stool Rotavirus A PCR Not Detected (NotDetected) 11/01/24 00:48 Stl Adenov F 40/41 PCR Not Detected (NotDetected) 11/01/24 00:48 Stool Astrovirus (PCR) Not Detected (NotDetected) 11/01/24 00:48 Stool Campylobacter PCR Not Detected (NotDetected) 11/01/24 00:48 Stool Cryptosporidium PCR Not Detected (NotDetected) 11/01/24 00:48 Stl E.coli Shiga Tox PCR Not Detected (NotDetected) 11/01/24 00:48 Stl Enterotoxigenic E PCR Not Detected (NotDetected) 11/01/24 00:48 Stool EPEC (PCR) Not Detected (NotDetected) 11/01/24 00:48 Stool EAEC (PCR) Not Detected (NotDetected) 11/01/24 00:48 Stl E. histolytica PCR Not Detected (NotDetected) 11/01/24 00:48 Stool Giardia Lamblia PCR Not Detected (NotDetected) 11/01/24 00:48 Stool Salmonella PCR Not Detected (NotDetected) 11/01/24 00:48 Stool Sapovirus (PCR) Not Detected (NotDetected) 11/01/24 00:48 Stl P. shigelloides PCR Not Detected (NotDetected) 11/01/24 00:48 Stl Shigella/EIEC PCR Not Detected (NotDetected) 11/01/24 00:48 St Y.enterocolitica PCR Not Detected (NotDetected) 11/01/24 00:48 Stool Vibrio (PCR) Not Detected (NotDetected) 11/01/24 00:48 Stl Vibrio cholerae PCR Not Detected (NotDetected) 11/01/24 00:48 Stl Norovirus GI/GII PCR DETECTED (NotDetected) A* 11/01/24 00:48 Adenovirus (PCR) Not Detected (NotDetected) 10/31/24 16:27 B. pertussis DNA (PCR) Not Detected (NotDetected) 10/31/24 16:27 B.parapertussis DNA PCR Not Detected (NotDetected) 10/31/24 16:27 C. pneumoniae DNA (PCR) Not Detected (NotDetected) 10/31/24 16:27 Coronavirus OC43 (PCR) DETECTED (NotDetected) A 10/31/24 16:27 Coronavirus HKU1 (PCR) Not Detected (NotDetected) 10/31/24 16:27 Coronavirus 229E (PCR) Not Detected (NotDetected) 10/31/24 16:27 SARS-CoV-2 (PCR) Not Detected (NotDetected) 10/31/24 16:27 Coronavirus NL63 (PCR) Not Detected (NotDetected) 10/31/24 16:27 Human Metapneumovir PCR Not Detected (NotDetected) 10/31/24 16:27 Influenza Type A (PCR) Not Detected (NotDetected) 10/31/24 16:27 Influenza Type B (PCR) Not Detected (NotDetected) 10/31/24 16:27 M. pneumoniae (PCR) Not Detected (NotDetected) 10/31/24 16:27 Parainfluenza 1 (PCR) Not Detected (NotDetected) 10/31/24 16:27 Parainfluenza 2 (PCR) Not Detected (NotDetected) 10/31/24 16:27 Parainfluenza 3 (PCR) Not Detected (NotDetected) 10/31/24 16:27 Parainfluenza 4 (PCR) Not Detected (NotDetected) 10/31/24 16:27 RSV (PCR) Not Detected (NotDetected) 10/31/24 16:27 Entero/Rhino (PCR) Not Detected (NotDetected) 10/31/24 16:27 Impressions Chest X-Ray 10/31/24 15:51 INDICATION: Fever. TECHNIQUE: Frontal radiograph of the chest. COMPARISON: Radiograph from 03/29/2024 FINDINGS: Cardiomegaly. Low inspiratory depth. Pulmonary vasculature appear within normal limits. Subsegmental atelectasis in the lung bases. Chronic appearing interstitial lung markings. No infiltrate, pleural effusion or pneumothorax. No acute osseous abnormality evident. IMPRESSION: No acute cardiopulmonary process. Electronically signed by Morgan Garcia 10-31-2024 4:15 PM Abdomen/Pelvis CT 10/31/24 16:52 EXAM: CT Abdomen and Pelvis With Intravenous Contrast INDICATION: Nausea, vomiting and diarrhea. Upper abdominal pain. TECHNIQUE: Axial computed tomography images of the abdomen and pelvis with intravenous contrast. Sagittal and coronal reformatted images were created and reviewed. This CT exam was performed using one or more of the following dose reduction techniques: automated exposure control, adjustment of the mA and/or kV according to patient size, and/or use of iterative reconstruction technique. CONTRAST: 90ml of Optiray 320 was administered intravenously. COMPARISON: 12/28/2023 FINDINGS: Limitations: None. Lung bases: No abnormality noted. Pleural space: No visualized pleural effusion or pneumothorax. Heart: Stable cardiomegaly. No pericardial effusion. Mediastinum: No abnormality noted. ABDOMEN: Liver: Normal size and contour. Hypodense typical of steatosis. No mass or ductal dilation. Gallbladder and bile ducts: Cholecystectomy. No ductal dilation or stone noted. Pancreas: Homogeneous enhancement. No mass, inflammation or ductal dilation. Spleen: No significant abnormality noted. Adrenals: No significant abnormality noted. Kidneys and ureters: Indeterminate hypodensity in the midpole of the right kidney likely a simple cyst but too small to characterize. No further assessment required. There is a 2 mm nonobstructing left kidney stone. No hydronephrosis. Stomach and bowel: Prominent fluid noted in the colon and multiple small bowel loops. There is no thickening, inflammation or obstructing point noted. PELVIS: Appendix: No findings to suggest acute appendicitis. Bladder: Grossly normal appearance of the urinary bladder partially obscured by artifact. Reproductive: Hysterectomy. ABDOMEN and PELVIS: Intraperitoneal space: No free air. No significant fluid collection. Bones/joints: Right hip arthroplasty present. Visualized components intact and well-seated. Probable old fracture of the posterior left acetabular rim is unchanged. No acute fracture noted. Soft tissues: No significant abnormality noted. Vasculature: Atherosclerotic calcification of the aorta and branches. No aneurysm. Lymph nodes: No pathologically enlarged lymph nodes. IMPRESSION: 1. Mild nonspecific ileus. No inflammatory process identified. 2. Nonobstructing left kidney stone. ACT 112: Negative or not required by law. Electronically signed by Peg Villalta 10-31-2024 6:20 PM Code Status & VTE Plan Code Status full code VTE Prophylaxis Plan VTE Prophylaxis will be ordered: Yes PG Care Time/CCT Total # of Minutes Spent Total Time Spent with Patient: Total time spent is greater than 50% in coordination of care (as documented) at patient's floor/unit and/or counseling patient: Coding Level of Care Code 27407 INT INP/OBS CARE 3/75MIN Diagnoses Gastroenteritis due to norovirus A08.11 Coronavirus infection, unspecified B34.2 Nausea, vomiting, and diarrhea R11.2; R19.7 Ileus due to infection K56.7; B99.9
[2024-10-31] MEDS: NSS + 20MEQ KCL 20 MEQ/1,000 ML BAG IV SCH (21:26)
[2024-11-01] MEDS ORDERED: ACETAMINOPHEN 1000 MG/100 ML IV IV PRN (00:03)
[2024-11-01] MEDS: HEPARIN SOD 5,000 UNIT/0.5 ML VIAL SQ SCH (00:43)
[2024-11-01 02:33] LABS: Adenovirus F 40/41 PCR Not Detected (NotDetected); Astrovirus PCR Not Detected (NotDetected); Campylobacter PCR Not Detected (NotDetected); Cryptosporidium PCR Not Detected (NotDetected); Cyclospora cayetanensis PCR Not Detected (NotDetected); Entamoeba histolytica PCR Not Detected (NotDetected); Enteroaggregative E.coli(EAEC) Not Detected (NotDetected); Enteropathogenic E.coli (EPEC) Not Detected (NotDetected); Enterotoxigenic E.coli (ETEC) Not Detected (NotDetected); Giardia lamblia PCR Not Detected (NotDetected); Plesiomonas shigelloides PCR Not Detected (NotDetected); Rotavirus A PCR Not Detected (NotDetected); Salmonella PCR Not Detected (NotDetected); Sapovirus PCR Not Detected (NotDetected); Shiga-like Toxin E.coli (STEC) Not Detected (NotDetected); Shigella/Enteroinvasive E.coli Not Detected (NotDetected); Vibrio cholerae PCR Not Detected (NotDetected); Vibrio species PCR Not Detected (NotDetected); Yersinia enterocolitica PCR Not Detected (NotDetected)
[2024-11-01] MEDS: ONDANSETRON INJ 2 MG/ML 2 ML VIAL IV PRN (02:33)
[2024-11-01 02:36] LABS: Norovirus GI/GII PCR DETECTED (NotDetected)
[2024-11-01 05:10] LABS: Basophils # (auto) 0.02 K/uL (0.00-0.20); Basophils % (auto) 0.3 %; Eosinophils # (auto) 0.01 K/uL (0.00-0.50); Eosinophils % (auto) 0.1 %; Hematocrit (blood only) 29.8 % (37.0-47.0); Immature Granulocytes # (auto) 0.07 K/uL (0.01-0.20); Immature Granulocytes % (auto) 0.9 %; Lymphocytes # (auto) 0.85 K/uL (1.20-3.40); Lymphocytes % (auto) 10.8 %; Mean Corpuscular Hemoglobin 31.9 pg (25.0-34.0); Mean Corpuscular Hgb Conc 33.6 g/dL (32.0-36.0); Mean Corpuscular Volume 95.2 fL (80.0-100.0); Monocytes % (auto) 10.1 %; Neutrophils # (auto) 6.15 K/uL (1.40-6.50); Neutrophils % (auto) 77.8 %; Platelet Count 161 K/uL (130-400); RDW Coefficient of Variation 13.7 % (11.5-14.5); RDW Standard Deviation 46.9 fL (36.4-46.3); Red Blood Count 3.13 M/uL (4.20-5.40)
[2024-11-01 05:29] LABS: Albumin Globulin Ratio 1.5 (0.9-2); Albumin Level 2.9 gm/dl (3.4-5.0); BUN Creatinine Ratio 18.8 (10-20); Bilirubin,Total 0.5 mg/dl (0.2-1.0); Calcium 6.9 mg/dl (8.6-10.3); Creatinine Clr Calc Pharmacy 46.4 ml/min; Magnesium 1.7 mg/dl (1.7-2.4); Potassium 3.6 mmol/L (3.5-5.1); Total Protein 4.9 gm/dl (6.0-8.3)
[2024-11-01 05:30] LABS: INR 1.1 (0.9-1.1); Partial Thromboplastin Ratio 1.1; Partial Thromboplastin Time 29 Seconds (21-31); Prothrombin Time 11.4 Seconds (9.0-12.0)
[2024-11-01] MEDS: ACETAMINOPHEN 1,000 MG/100 ML VIAL IV PRN (07:58)
[2024-11-01] MEDS: PANTOprazole 40 MG/10 ML SYR IV SCH (08:34)
--- NOTE | 2024-11-01 11:46 | Hospitalist Progress Note ---
Date of Service November 01, 2024 Assessment & Plan (1) Gastroenteritis due to norovirus: (2) Coronavirus infection, unspecified: (3) Nausea, vomiting, and diarrhea: (4) (HFpEF) heart failure with preserved ejection fraction: Plan (1) Gastroenteritis due to norovirus: (2) Coronavirus infection, unspecified: (3) Nausea, vomiting, and diarrhea: (4) Ileus due to infection: Plan The patient is an 79-year-old female with a past medical history including vitamin D deficiency, hypertension, hypertensive urgency, HFpEF, irritable bowel syndrome, esophageal dysphagia, ulcerative colitis, GERD, anxiety, and kidney stones.The patient presents to the emergency department with acute onset around 8 PM on 10/30/2024 of severe nausea, vomiting, diarrhea and generalized abdominal pain. She denies any questionable food intake, she denies any recent travels or known sick exposures. She reports taking Zofran without any significant relief. She reports vomiting over 20 times, and most recently tried Zofran about 2 hours prior to arrival to the ED, but continues to vomit. She reports her diarrhea is watery and loose. Testing in the emergency department revealed respiratory BioFire positive for OC 43, and stool BioFire is positive for norovirus. Lactate initially was 3.1, and after 1.5 L normal saline has improved to 1.9. Pro-Nahum is 1.42. From the ED she received normal saline 1 L and then 1/2 L normal saline bolus, Zofran 4 mg IV, and Zosyn 4.5 g IV. 1) Gastroenteritis due to norovirus Intractable nausea, vomiting, diarrhea, on admission, w/ at least 20 episodes of loose stools over past 24 hours No definite source identified per patient Status post 1.5 L normal saline in the ED, NSS + KCl 20 mEq at 125 mL/h x 2 L, IV fluids stopped due to HFpEF Zofran 4 mg IV every 6 hours as needed Acetaminophen 1 g IV every 8 hours as needed for mild pain or fever; Pantoprazole 40 mg IV daily Contact isolation precautions, NPO except essential medications Serial CBC with differential, chemistry profile and magnesium levels Lactate 1.9 <-- 3.1 (initial), resolving 2) Respiratory BioFire positive OC 43 Droplet precautions; Supportive therapy as above DuoNebs every 2 hours as needed Chronic medical conditions HFpEF, balance fluid replenishment for diarrhea w/ fluid restriction to prevent CHF exacerbation Hypertension/HFpEF holding amlodipine, bumetanide, losartan, potassium citrate, spironolactone Glaucoma-continue usual eyedrops Ulcerative colitis/arthritis-outpatient setting on methotrexate and denosumab, folic acid and Celebrex Anxiety-on citalopram Hyperlipidemia-on rosuvastatin Code status: Full code Diet: Heart-healthy, fluid restriction of 2000 mL Disposition: Med-surg Admission and Anticipated Discharge Date Admission Date: October 31, 2024 Supervising Physician Co-Signing Physician Notes I personally examined the patient and verified all burns points of history and exam, discussed case, and agree with decision making with Dr Denney Feeling better. Diarrhea is slowing. Nausea vomiting has resolved. Tolerating ice chips well. Vitals noted, in general she is awake and alert pleasant no distress. HEENT normocephalic atraumatic mucous membranes moist. Breathing unlabored no accessory muscle use good effort. Skin without rashes pallor or icterus. Neuro without focal deficits. Norovirus infection with intractable nausea vomiting diarrhea and dehydrationimproving. Regular diet as tolerated. Hold IV fluids. Hopefully home soon. DVT prophylaxisheparin subcu Subjective Patient is feeling better today than yesterday when she came in. Less nausea, no vomiting now, patient continues to have diarrhea but less frequent. Patient denies any respiratory symptoms including dyspnea, cough, wheezing. Patient states that she has had much worse respiratory distress with previous CHF exacerbations than experiencing currently. Does state that she has been on a fluid restriction of 6 cups of liquid daily to prevent CHF exacerbation. Review of Systems Constitutional: + body aches and + fatigue Respiratory: no cough, no dyspnea and no wheezing Cardiovascular: no chest pain and no palpitations Gastrointestinal: + nausea, + cramping and + diarrhea/loos e stools; no abdominal pain (more cramping than AP), no vomiting and no hematemesis Genitourinary: no dysuria, no urinary frequency and no urinary urgency Neurologic: no generalized weakness, no numbness and no headache(s) Physical Exam Constitutional: WD/WN, vitals as above Respiratory: normal respiratory effort, lungs clear to auscultation Cardiovascular: RRR, no murmur, no edema Gastrointestinal (Abdomen): Inspection/Auscultation: abdomen normal to inspection and normal bowel sounds; abdomen not distended Percussion/Pal pation: + abdomen tender (lower abdomen) Results & Data Results & Data Vital Signs (Past 12 Hours) Vital Signs Temp Pulse Pulse Resp BP Pulse Ox Pulse Ox 11/01/24 07:38 36.8 C 60 18 129/54 L 99 11/01/24 07:02 65 11/01/24 04:00 36.7 C 64 16 106/46 L 97 11/01/24 00:58 36.9 C 65 20 122/59 L 98 11/01/24 00:54 11/01/24 00:51 100 O2 Del Method O2 Del Method O2 Flow Rate O2 Flow Rate 11/01/24 07:38 Room Air 11/01/24 07:02 11/01/24 04:00 Room Air 11/01/24 00:58 Room Air 2 11/01/24 00:54 Nasal Cannula 2 11/01/24 00:51 Nasal Cannula 2
--- NOTE | 2024-11-01 18:02 | Billing Data ---
Date of Service November 01, 2024 Coding Level of Care Code 13467 SUB INP/OBS CARE
[2024-11-01] MEDS: traZODone HCL 50 MG TAB PO SCH (20:39)
[2024-11-02 06:01] LABS: Basophils # (auto) 0.01 K/uL (0.00-0.20); Basophils % (auto) 0.2 %; Eosinophils # (auto) 0.12 K/uL (0.00-0.50); Eosinophils % (auto) 2.2 %; Hematocrit (blood only) 28.6 % (37.0-47.0); Hemoglobin 9.7 g/dl (12.0-16.0); Immature Granulocytes # (auto) 0.03 K/uL (0.01-0.20); Immature Granulocytes % (auto) 0.5 %; Lymphocytes # (auto) 1.27 K/uL (1.20-3.40); Lymphocytes % (auto) 22.9 %; Mean Corpuscular Hemoglobin 31.8 pg (25.0-34.0); Mean Corpuscular Hgb Conc 33.9 g/dL (32.0-36.0); Mean Corpuscular Volume 93.8 fL (80.0-100.0); Mean Platelet Volume 10.5 fL (9.4-12.4); Monocytes # (auto) 0.83 K/uL (0.11-0.59); Neutrophils # (auto) 3.29 K/uL (1.40-6.50); Neutrophils % (auto) 59.2 %; Platelet Count 158 K/uL (130-400); RDW Coefficient of Variation 13.3 % (11.5-14.5); RDW Standard Deviation 45.4 fL (36.4-46.3); Red Blood Count 3.05 M/uL (4.20-5.40); White Blood Count 5.55 K/ul (4.8-10.8)
[2024-11-02 06:18] LABS: BUN Creatinine Ratio 15.4 (10-20); Calcium 7.1 mg/dl (8.6-10.3); Creatinine Clr Calc Pharmacy 57.1 ml/min; Potassium 3.6 mmol/L (3.5-5.1)
--- NOTE | 2024-11-02 07:38 | Hospitalist Progress Note ---
Date of Service November 02, 2024 Assessment & Plan (1) Gastroenteritis due to norovirus: (2) Coronavirus infection, unspecified: (3) Nausea, vomiting, and diarrhea: (4) (HFpEF) heart failure with preserved ejection fraction: Plan Plan The patient is an 79 yo F w/ a PMHx including vitamin D deficiency, hypertension, hypertensive urgency, HFpEF, irritable bowel syndrome, esophageal dysphagia, ulcerative colitis, GERD, anxiety, and kidney stones. Patient's vitals today are grossly WNL (P, 59; BP, 110/58) 1) Gastroenteritis due to norovirus Intractable nausea, vomiting, diarrhea, on admission, w/ at least 20 episodes of loose stools over past 24 hours No definite source identified per patient Status post 1.5 L normal saline in the ED, NSS + KCl 20 mEq at 125 mL/h x 2 L, IV fluids stopped due to HFpEF Zofran 4 mg IV every 6 hours as needed Acetaminophen 1 g IV every 8 hours as needed for mild pain or fever; Pantoprazole 40 mg IV daily Contact isolation precautions, NPO except essential medications Serial CBC with differential, chemistry profile and magnesium levels Lactate 1.9 <-- 3.1 (initial), resolving 2) Electrolyte abnormalities - Ca, 7.1 <-- 8.3 - HCO3, 18 <-- 21 - both will likely resolve w/ decreasing diarrhea and increased oral intake 2) Respiratory BioFire positive OC 43 Droplet precautions; Supportive therapy as above DuoNebs every 2 hours as needed Chronic medical conditions HFpEF, balance fluid replenishment for diarrhea w/ fluid restriction to prevent CHF exacerbation Hypertension/HFpEF holding amlodipine, bumetanide, losartan, potassium citrate, spironolactone Glaucoma-continue usual eyedrops Ulcerative colitis/arthritis-outpatient setting on methotrexate and denosumab, folic acid and Celebrex Anxiety-on citalopram Hyperlipidemia-on rosuvastatin Code status: Full code Diet: Heart-healthy, fluid restriction of 2000 mL Disposition: Med-surg Admission and Anticipated Discharge Date Admission Date: October 31, 2024 Subjective The patient is an 79 yo F w/ a PMHx including vitamin D deficiency, hypertension, hypertensive urgency, HFpEF, irritable bowel syndrome, esophageal dysphagia, ulcerative colitis, GERD, anxiety, and kidney stones.The patient presented to the emergency department with acute onset of severe nausea, vomiting, diarrhea and generalized abdominal pain. She denied any questionable food intake, recent travels or known sick exposures. Patient is feeling better today than yesterday when she came in. Less nausea, no vomiting now, patient continues to have diarrhea but less frequent. Patient denies any respiratory symptoms including dyspnea, cough, wheezing. Patient s tates that she has had much worse respiratory distress with previous CHF exacerbations than experiencing currently. Does state that she has been on a fluid restriction of 6 cups of liquid daily to prevent CHF exacerbation. Review of Systems Constitutional: + body aches and + fatigue Respiratory: no cough, no dyspnea and no wheezing Cardiovascular: no chest pain and no palpitations Gastrointestinal: + nausea, + cramping and + diarrhea/loos e stools; no abdominal pain (more cramping than AP), no vomiting and no hematemesis Genitourinary: no dysuria, no urinary frequency and no urinary urgency Neurologic: no generalized weakness, no numbness and no headache(s) Physical Exam Constitutional: WD/WN, vitals as above Respiratory: normal respiratory effort, lungs clear to auscultation Cardiovascular: RRR, no murmur, no edema Gastrointestinal (Abdomen): Inspection/Auscultation: abdomen normal to inspection and normal bowel sounds; abdomen not distended Percus ezra/Palpation: + abdomen tender (lower abdomen) Results & Data Results & Data Vital Signs (Past 12 Hours) Vital Signs Temp Pulse Pulse Pulse Resp BP Pulse Ox 11/02/24 03:59 36.9 C 59 L 16 110/58 L 97 11/02/24 03:24 71 11/02/24 00:00 37.0 C 74 18 151/61 H 95 11/01/24 22:28 O2 Del Method 11/02/24 03:59 Room Air 11/02/24 03:24 11/02/24 00:00 Room Air 11/01/24 22:28 Room Air
[2024-11-02 07:57] VITALS: RESP 18; TEMP 99; O2SAT 96
[2024-11-02 10:16] VITALS: BP 156/63; PULSE 74
--- NOTE | 2024-11-02 11:57 | Discharge Summary ---
Date of Service November 02, 2024 Admission HPI Per Admitting Provider The patient is an 79-year-old female with a past medical history including vitamin D deficiency, hypertension, hypertensive urgency, HFpEF, irritable bowel syndrome, esophageal dysphagia, ulcerative colitis, GERD, anxiety, and kidney stones.The patient presents to the emergency department with acute onset around 8 PM on 10/30/2024 of severe nausea, vomiting, diarrhea and generalized abdominal pain. She denies any questionable food intake, she denies any recent travels or known sick exposures. She reports taking Zofran without any significant relief. She reports vomiting over 20 times, and most recently tried Zofran about 2 hours prior to arrival to the ED, but continues to vomit. She reports her diarrhea is watery and loose. Testing in the emergency department revealed respiratory BioFire positive for OC 43, and stool BioFire is positive for norovirus. Lactate initially was 3.1, and after 1.5 L normal saline has improved to 1.9. Pro-Nahum is 1.42. From the ED she received normal saline 1 L and then 1/2 L normal saline bolus, Zofran 4 mg IV, and Zosyn 4.5 g IV. Admission Exam Per Admitting Provider Physical Exam: The patient is awake, alert and oriented 3, looks fatigued, has significant shakes and tremors/rigors, normocephalic and atraumatic HEENT--PERRL, EOMI, mucous membranes and oropharynx dry. Neck--supple. No JVD. No bruits. Thyroid normal, trachea midline, no adenopathy. Heart--normal S1 and S2. No murmurs, rubs or gallops. Lungs--clear bilaterally, no respiratory distress, no accessory muscle use. Abdomen--normal bowel sounds and soft. Mild generalized tenderness, mildly tympanitic Extremities--no cyanosis or clubbing. No edema. Dermatologic--normal skin turgor, normal color, no abnormal lymph nodes, no rash. Neurologic--cranial nerves II through XII grossly intact. Rheumatologic--normal range of motion. Psychiatric--normal affect. Principal Diagnosis Norovirus infection Discharge Exam Constitutional WD/WN, vitals as above Respiratory normal respiratory effort, lungs clear to auscultation Cardiovascular RRR, no murmur, no edema Gastrointestinal (Abdomen) Inspection/Auscultation: abdomen normal to inspection and normal bowel sounds; abdomen not distended Percussion/Palpation: + abdomen tender (lower abdomen) Discharge Data Allergies Allergy/AdvReac Type Severity Reaction Status Date / Time No Known Allergies Allergy Verified 09/02/24 13:33 Consultations 10/31/24 19:19 ED Decision to Admit Stat Ordered Studies 10/31/24 16:52 CT Abd and Pelvis [CT abd pelvis IV con only] Stat Hospital Course (1) Gastroenteritis due to norovirus: (2) Coronavirus infection, unspecified: (3) Nausea, vomiting, and diarrhea: (4) (HFpEF) heart failure with preserved ejection fraction: Plan Plan The patient is an 79 yo F w/ a PMHx including vitamin D deficiency, hypertension, hypertensive urgency, HFpEF, irritable bowel syndrome, esophageal dysphagia, ulcerative colitis, GERD, anxiety, and kidney stones. Patient's vitals today are grossly WNL (P, 59; BP, 110/58), suggesting maybe a little dehydration. 1) Gastroenteritis due to norovirus Intractable nausea, vomiting, diarrhea, on admission, w/ at least 20 episodes of loose stools the 24 hrs prior to admission No definite source identified per patient Status post 1.5 L normal saline in the ED, NSS + KCl 20 mEq at 125 mL/h x 2 L, IV fluids stopped due to HFpEF Zofran 4 mg IV every 6 hours as needed Acetaminophen 1 g IV every 8 hours as needed for mild pain or fever; Pantoprazole 40 mg IV daily Contact isolation precautions, NPO except essential medications Lactate 1.9 <-- 3.1 (initial), resolved Patient w/out any diarrhea for the past 15 hrs before discharge, able to tolerate oral intake, w/ at least 1 normal BM 2) Electrolyte abnormalities - Ca, 7.1 <-- 8.3 - HCO3, 18 <-- 21 - both likely to resolve w/ diarrhea that's resolved and increased oral intake 2) Respiratory BioFire positive OC 43 Droplet precautions; Supportive therapy as above DuoNebs every 2 hours as needed Chronic medical conditions HFpEF, balance fluid replenishment for diarrhea w/ fluid restriction to prevent CHF exacerbation Hypertension/HFpEF holding amlodipine, bumetanide, losartan, potassium citrate, spironolactone Glaucoma-continue usual eyedrops Ulcerative colitis/arthritis-outpatient setting on methotrexate and denosumab, folic acid and Celebrex Anxiety-on citalopram Hyperlipidemia-on rosuvastatin Total Time Total Time Spent Total Time Spent (In Minutes): <30 Discharge Plan Discharge Items Patient Disposition: Home - Self-Care Reason For Visit: SEPSIS, ILEUS, OC43 INFECTION Discharge Diagnosis: norovirus Activity: Per Instructions section Non-emergency contact: Primary Care Provider Call non-emergency contact if: your symptoms worsen Follow-up/Referrals: Hayder Ann PA-C [Primary Care Provider] - (PLEASE CALL YOUR PRIMARY CARE PROVIDER TO SCHEDULE A HOSPITAL DISCHARGE FOLLOW-UP APPOINTMENT WITHIN 7-10 DAYS) Diet: Heart Healthy Fluids: 2000ml (8 cups) Addtl Attending Provider Instructions: You were seen here in the hospital for gastrointestinal issues and found to have norovirus. We treated you with supportive care - fluids, anti-nausea meds, etc. You were tolerating food/drink and deemed stable for discharge. Continue to stay hydrated. It is important that you follow up with your PCP in the next 7-10 days. If you have any questions or your symptoms worsen please return to care. Thank you for allowing to participate in your care. Pending Studies at Discharge: No Stand-Alone Forms: My [facility] [email or web address], Smoking Cessation Medications and DC Order Prescriptions: Continued trazodone 50 mg tablet 50 mg PO HS Prolia 60 mg/mL syringe 60 mg subcut Q6MO folic acid 1 mg tablet 1 mg PO DAILY bumetanide 0.5 mg tablet 0.5 mg PO DAILY Qty: 90 3RF famotidine 40 mg tablet 40 mg PO HS pantoprazole 40 mg tablet,delayed release (DR/EC) 40 mg PO QAM Rx Instructions: take 1 tablet by mouth once daily amlodipine 5 mg Tablet 5 mg PO QAM oxycodone-acetaminophen [Percocet] 5-325 mg Tablet 1 tab PO Q6H PRN (Reason: Pain) celecoxib 200 mg capsule 200 mg PO HS PRN (Reason: Pain) spironolactone 25 mg tablet 25 mg PO DAILY Hold Instructions: Resume on 01/05/24. citalopram [Celexa] 20 mg Tablet 20 mg PO DAILY methotrexate sodium 2.5 mg tablet 12.5 mg PO WK Rx Instructions: TAKES 5 TABLETS cholecalciferol (vitamin D3) [Vitamin D3] 25 mcg (1,000 unit) Capsule 25 mcg PO WK diclofenac sodium 1 % Gel 2 g TOPICAL TID PRN (Reason: Pain) potassium citrate 10 mEq (1,080 mg) tablet extended release 10 meq PO DAILY losartan 25 mg tablet 25 mg PO DAILY sucralfate 1 gram tablet 1 g PO TID PRN (Reason: gastric distress) rosuvastatin 5 mg tablet 5 mg PO HS brimonidine 0.2 % drops 1 drp ophthalmic (eye) BID timolol maleate 0.5 % drops, once daily 1 drp ophthalmic (eye) BID meclizine 25 mg tablet 25 mg PO TID PRN (Reason: Dizziness) fluticasone propion-salmeterol 500-50 mcg/dose blister with device 1 inh INHALATION BID Discharge Orders: Discharge Order (Routine); Ordered 11/02/24 Ordered By: Sophie Crook Admission Data Admit Date/Time: 10/31/24 20:24 Attending Provider: Stewart Baird Admit Provider: Stan Soto Primary Care Provider: Hayder Ann Other Providers: Stan Soto Other Interventions: Discharge Summary Assessment (RN) Last Done: 11/02/24 10:14 Supervising Physician Co-Signing Physician Notes I personally examined the patient and verified all burns points of history and exam, discussed case, and agree with decision making with Dr Denney Feeling better. bowels getting more formed. Ate reasonably well. Feels up to going home. Vitals noted, in general she is awake and alert pleasant no distress. HEENT normocephalic atraumatic mucous membranes moist. Breathing unlabored no accessory muscle use good effort. Skin without rashes pallor or icterus. Neuro without focal deficits. Norovirus infection with intractable nausea vomiting diarrhea and dehydrationimproving. Regular diet as tolerated. Doing well off of IVs. Safe/stable for home DVT prophylaxisheparin subcu
--- NOTE | 2024-11-02 16:32 | Billing Data ---
Date of Service November 02, 2024 Coding Level of Care Code 16620 IN/OBS DISCH 30 MIN/LESS
--- NOTE | 2024-11-03 05:52 | Electrocardiogram Report ---
Test Reason : Blood Pressure : */* mmHG Vent. Rate : 73 BPM Atrial Rate : * BPM P-R Int : * ms QRS Dur : 82 ms QT Int : 426 ms P-R-T Axes : * 51 76 degrees QTcB Int : 469 ms Sinus rhythm with short OK Abnormal ECG When compared with ECG of 28-Mar-2024 23:09, OK interval has decreased QT has lengthened Confirmed by Robson Alvarez ([id number]) on 11/03/2024 5:51:56 AM Referred By: Confirmed By: Robson Alvarez
== END 2024-11-02 11:25 | disposition home or self-care (01) | DRG 392 ==
LOC: ED 15:31 → SUATTDRO 20:24 → EDINP 20:24 → 2W 11-01 00:03